=== PATIENT | female | born 1945 | race Caucasian/White ===

== ENCOUNTER 2019-12-30 11:01 | Outpatient (CLI) | payer MEDICARE, OTHER, SELFPAY ==
[2019-12-30 11:54] LABS: Alanine Aminotransferase 14 U/L (4-35); Albumin Level 4.6 g/dL (3.5-5.1); Alkaline Phosphatase 51 U/L (38-126); Anion Gap 8 mmol/L (8-16); Aspartate Amino Transferase 25 U/L (14-36); Bilirubin,Total 0.6 mg/dL (0.2-1.3); Blood Urea Nitrogen 13 mg/dL (7-17); Calcium 9.8 mg/dL (8.4-10.2); Carbon Dioxide 29 mmol/L (22-30); Chloride 101 mmol/L (98-107); Cholesterol 163 mg/dL (0-200); Estimated Glomerular Filt Rate > 60; Glucose 99 mg/dL (65-105); HDL Direct 54 mg/dL; Sodium 138 mmol/L (137-145); Triglycerides 103 mg/dL (<150)
[2019-12-30 11:57] LABS: Hemoglobin A1C 6.1 % (<5.7)
[2019-12-30 12:05] LABS: LDL Cholesterol Direct 83 mg/dL
[2019-12-30 12:44] LABS: Creatinine Urine 22.7 mg/dL
[2019-12-30 12:55] LABS: Microalbumin Urine Random < 6.0 mg/L (0-16.7)
== END 2019-12-30 11:02 | disposition home or self-care (01) ==
LOC: ANHLAB 11:04
PROVIDERS: PCP Family Medicine; Visit Provider Family Medicine
DX: E78.5 Hyperlipidemia, unspecified (principal); E11.9 Type 2 diabetes mellitus without complications; E55.9 Vitamin D deficiency, unspecified; R53.83 Other fatigue
CPT/HCPCS: 36415; 80053; 80061; 82043; 82306; 83036

== ENCOUNTER → 2020-01-03 11:06 | Outpatient (CLI) | payer MEDICARE, OTHER, SELFPAY ==
--- NOTE | ~2020-01-03 | MM_ITS ---
EXAMINATION: MM screening [facility] BI w joel HISTORY: Screening mammogram TECHNIQUE: Craniocaudal and mediolateral oblique 3-D tomosynthesis images were obtained and synthetic 2-D images were generated. CAD analysis was submitted and interpreted. COMPARISON: 09/19/2018, 09/06/2017, 09/20/2016 BREAST PARENCHYMAL COMPOSITION: There are scattered areas of fibroglandular density. FINDINGS: There is no evidence of suspicious mass, calcification, or architectural distortion to sugg est malignancy in either breast. There has been no suspicious interval change. IMPRESSION: 1. No mammographic evidence of malignancy. 2. Recommend routine screening mammography in one year. BI-RADS Category 1: Negative Reviewed, dictated and finalized at location A.
== END ==
PROVIDERS: PCP Family Medicine; Visit Provider Obstetrics & Gynecology Gynecology
DX: Z12.31 Encounter for screening mammogram for malignant neoplasm of breast (principal)
CPT/HCPCS: 77063; 77067

== ENCOUNTER 2020-08-10 11:22 | Outpatient (CLI) | payer MEDICARE, OTHER, SELFPAY ==
[2020-08-10 11:57] LABS: Alanine Aminotransferase 14 U/L (4-35); Albumin Level 4.5 g/dL (3.5-5.1); Alkaline Phosphatase 37 U/L (38-126); Anion Gap 5 mmol/L (8-16); Aspartate Amino Transferase 24 U/L (14-36); Bilirubin,Total 0.5 mg/dL (0.2-1.3); Blood Urea Nitrogen 14 mg/dL (7-17); Calcium 9.8 mg/dL (8.4-10.2); Carbon Dioxide 32 mmol/L (22-30); Chloride 104 mmol/L (98-107); Cholesterol 162 mg/dL (0-200); Estimated Glomerular Filt Rate > 60; Glucose 89 mg/dL (65-105); HDL Direct 64 mg/dL; Potassium 4.1 mmol/L (3.4-5.0); Sodium 141 mmol/L (137-145); Triglycerides 111 mg/dL (<150)
[2020-08-10 12:01] LABS: Hemoglobin A1C 5.8 % (<5.7)
[2020-08-10 12:11] LABS: LDL Cholesterol Direct 75 mg/dL
[2020-08-10 12:31] LABS: Vitamin D 25 Hydroxy 87.2 ng/mL
== END 2020-08-10 11:23 | disposition home or self-care (01) ==
PROVIDERS: PCP Family Medicine; Visit Provider Family Medicine
DX: E78.2 Mixed hyperlipidemia (principal); R73.03 Prediabetes; E55.9 Vitamin D deficiency, unspecified
CPT/HCPCS: 36415; 80053; 80061; 82306; 83036

== ENCOUNTER 2020-09-11 10:11 | Outpatient (CLI) | payer MEDICARE, OTHER, SELFPAY ==
--- NOTE | ~2020-09-11 | CT_ITS ---
EXAMINATION: CT brain wo con DATE: 09/11/2020 10:30 INDICATION: Dizziness and dizziness TECHNIQUE: Computed tomography (CT) of the head was performed without intravenous contrast. Sagittal and coronal reconstructions were performed. The mA was adjusted according to patient size. Iterative reconstruction technique was employed. The dose-length product was 605.33 mGy-cm. COMPARISON: None FINDINGS: No acute intracranial hemorrhage, acute infarction or abnormal extra axial fluid collection. There is mild scattered white matter hypoattenuation consistent with chronic small vessel ischemic disease. S ymmetric prominence of the sulci consistent with mild age-appropriate diffuse cerebral volume loss. V entricles are normal and symmetric. No mass/mass effect. Changes of bilateral intraocular lens replac ement. The orbits and mastoid air cells are normal. Mucosal thickening and partial opacification with central calcification of the left sphenoid sinus consistent with chronic likely fungal sinusitis. IMPRESSION: 1. No acute intracranial process. 2. Age-related changes including mild diffuse volume loss and mild scattered white matter hypoattenua tion consistent with chronic small vessel ischemic disease. 3. 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 Reviewed, dictated and finalized at location A. IMPRESSION: 1. No acute intracranial process. 2. Age-related changes including mild diffuse volume loss and mild scattered wh ite matter hypoattenuation consistent with chronic small vessel ischemic diseas e. 3. 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
== END 2020-09-11 10:12 | disposition home or self-care (01) ==
PROVIDERS: PCP Family Medicine; Visit Provider Family Medicine
DX: R42 Dizziness and giddiness (principal)
CPT/HCPCS: 70450

== ENCOUNTER → 2020-10-20 10:57 | Outpatient (CLI) | payer MEDICARE, OTHER, SELFPAY ==
--- NOTE | ~2020-10-20 | DEXA_ITS ---
Bone Density Report Name: Arti Sinclair Age: 75 Sex: Female Ethnicity: White Date of : 1945 Indication: osteopenia; height loss; hysterectomy; postmenopausal Referring Provider: GRETCHEN LOPEZ Study: Bone densitometry was performed. Exam Date: October 20, 2020 Accession number: [id number] Bone Density: Region BMD T-score Z-score Classification AP Spine (L1-L4) 0.942 -1.0 1.5 Normal Femoral Neck (Left) 0.545 -2.7 -0.6 Osteoporosis Total Hip (Left) 0.727 -1.8 0.1 Osteopenia Femoral Neck (Right) 0.578 -2.4 -0.3 Osteopenia Total Hip (Right) 0.782 -1.3 0.5 Osteopenia Total Hip Mean 0.755 -1.6 0.3 Osteopenia World Health Organization criteria for BMD impression classify patients as: Normal (T-score at or above -1.0), Osteopenia (T-score between -1.0 and -2.5), or Osteoporosis (T-score at or below -2.5). 10-year Fracture Risk: FRAX not reported because: Some T-score for Spine Total or Hip Total or Femoral Neck at or below -2.5 Previous Exams: Region Exam Age BMD T-score BMD Change BMD Change Date g/cm2 vs Baseline vs Previous AP Spine(L1-L4) 10/20/2020 75 0.942 -1.0 0.068* -0.001 09/19/2018 73 0.943 -0.9 0.070* -0.011 09/01/2016 71 0.955 -0.8 0.081* 0.011 08/19/2014 69 0.944 -0.9 0.070* 0.004 03/21/2012 67 0.939 -1.0 0.066* 0.031* 02/24/2010 65 0.909 -1.3 0.035* 0.035* 12/07/2007 62 0.874 -1.6 Total Hip(Left) 10/20/2020 75 0.727 -1.8 -0.033* -0.042* 09/19/2018 73 0.768 -1.4 0.009 0.001 09/01/2016 71 0.767 -1.4 0.008 0.023 08/19/2014 69 0.745 -1.6 -0.015 -0.008 03/21/2012 67 0.753 -1.5 -0.006 0.079* 02/24/2010 65 0.674 -2.2 -0.085* -0.085* 12/07/2007 62 0.760 -1.5 Total Hip(Right) 10/20/2020 75 0.782 -1.3 -0.049* -0.051* 09/19/2018 73 0.833 -0.9 0.002 -0.048* 09/01/2016 71 0.881 -0.5 0.050* 0.006 08/19/2014 69 0.875 -0.5 0.044* 0.035* 03/21/2012 67 0.840 -0.8 0.009 0.051* 02/24/2010 65 0.789 -1.3 -0.042* -0.042* 12/07/2007 62 0.831 -0.9 *Denotes significance at 95% confidence level, LSC for AP Spine = 0.022 g/cm2, LSC for Total Hip = 0.027 g/cm2 Clinical Information Provided by Patient:
== END ==
PROVIDERS: PCP Family Medicine; Visit Provider Obstetrics & Gynecology Gynecology
DX: Z78.0 Asymptomatic menopausal state (principal); M81.0 Age-related osteoporosis without current pathological fracture; M85.851 Other specified disorders of bone density and structure, right thigh; M85.852 Other specified disorders of bone density and structure, left thigh
CPT/HCPCS: 77080

== ENCOUNTER 2020-11-23 02:11 | Day surgery (SDC) | payer MEDICARE, OTHER, SELFPAY ==
[2020-11-06 10:49] VITALS: BMI 24.9
[2020-11-23 07:52] VITALS: BP 138/70; PULSE 74; RESP 20; TEMP 36.6; O2SAT 100
[2020-11-23] MEDS: LACTATED RINGERS 1,000 ML 150 ML IV CONT (08:00)
--- NOTE | 2020-11-23 08:24 | WPDGICN ---
Assessment and Plan Assessment and plan (1) H/O adenomatous polyp of colon: Code(s): Z86.010 - Personal history of colonic polyps Status: Acute Assessment and Plan: Patient has a history of adenomatous colon polyp as well as a history of cancer in her mother and grand mother. Plan is for surveillance colonoscopy at this time and suggest this be performed at least at 5 year intervals in the future. GI Consult Note Consult date/time: 11/23/20 08:24 HPI: Arti Sinclair is a 75 year old female Presents for screening colonoscopy. Patient has a prior history of colon polyps. She reports that her current weight appetite bowel movements are normal. She denies abdominal pain. She has had no bleeding. Patient's family history is significant that her mother and grandmother have had colon cancer. Patient has a prior history of colon polyps herself. Review of Systems Review of Systems: All systems reviewed & are unremarkable except as noted in HPI and below PMFSH Past Medical History Medical History Alopecia Asthma Glaucoma H/O adenomatous polyp of colon Hypothyroidism history of thyroid problems Mixed hyperlipidemia Osteoporosis Type 2 diabetes mellitus without complication, without long-term current use of insulin Vitamin B12 deficiency Vitamin D deficiency Surgical History Surgical History History of ankle surgery Total knee replacement status Family History Family History Father Heart disease Mother Colon cancer Sibling Diabetes mellitus Grandparent Colon cancer Other Asthma Carcinoma of colon Family history of coronary artery disease Family history of glaucoma Family history of osteoporosis Social History Social History Second hand tobacco smoke exposure: No Alcohol intake: never Substance use: never Substance use type: does not use Living arrangements: with family Gender identity (if verbalized by the patient): Female Meds Home Medications and Allergies Home Medications Medication Instructions Recorded Confirmed Type aspirin 81 mg tablet,delayed 81 mg PO DAILY 04/10/19 11/06/20 History release dorzolamide 22.3 mg-timolol 6.8 1 drop EACH EYE BID 04/10/19 11/06/20 History mg/mL eye drops ergocalciferol (vitamin D2) 1,250 50,000 unit PO WEEKLY 04/10/19 11/06/20 History mcg (50,000 unit) capsule atorvastatin 10 mg tablet 10 mg PO DAILY #90 tablet 03/19/20 11/06/20 Rx sodium,potassium,mag sulfates 17.5 See Rx Instructions PO .COMPLEX 10/22/20 11/05/20 Rx gram-3.13 gram-1.6 gram oral soln #354 ml Allergies Allergy/AdvReac Type Severity Reaction Status Date / Time brimonidine Allergy Severe RED EYES, Verified 11/23/20 07:50 ITCHING Vital Signs Vital Signs - 24 hr 11/23/20 07:52 Temperature 97.9 F Pulse Rate 74 Respiratory Rate 20 Blood Pressure 138/70 Pulse Oximetry 100 Exam Narrative: Exam Narrative: Physical exam reveals patient be alert. Vital signs stable. HEENT exam is unremarkable. Patient is anicteric. Lungs are clear to auscultation and percussion. Heart is without murmur or extra sounds. Abdominal exam bowel sounds are present soft nontender with no hepatosplenomegaly. Digital external rectal exam is normal.
--- NOTE | 2020-11-23 08:25 | WPDANESEPPF ---
Anes - Initial Pre Proc Eval Procedure: Operation Date: 11/23/20 08:30 Proposed Procedures p Screening Colonoscopy - Kevin Jaquez MD Date/Time: 11/23/20 08:25 Surgeon: Kevin Jaquez MD Pre Op Diagnosis: hx of colon polyps, fam hx colon ca Patient Data Age: 75 Gender: F Height: 1.63 m Weight: 65.6 kg Last Vital Signs Temp 97.9 F 11/23/20 07:52 Pulse 74 11/23/20 07:52 Resp 20 11/23/20 07:52 BP 138/70 11/23/20 07:52 Pulse Ox 100 11/23/20 07:52 Allergies Allergy/AdvReac Type Severity Reaction Status Date / Time brimonidine Allergy Severe RED EYES, Verified 11/23/20 07:50 ITCHING Home Medications Medication Instructions Recorded Confirmed Type aspirin 81 mg tablet,delayed 81 mg PO DAILY 04/10/19 11/06/20 History release dorzolamide 22.3 mg-timolol 6.8 1 drop EACH EYE BID 04/10/19 11/06/20 History mg/mL eye drops ergocalciferol (vitamin D2) 1,250 50,000 unit PO WEEKLY 04/10/19 11/06/20 History mcg (50,000 unit) capsule atorvastatin 10 mg tablet 10 mg PO DAILY #90 tablet 03/19/20 11/06/20 Rx sodium,potassium,mag sulfates 17.5 See Rx Instructions PO .COMPLEX 10/22/20 11/05/20 Rx gram-3.13 gram-1.6 gram oral soln #354 ml Patient hx anesthesia problems: none Family hx anesthesia problems: none PMFSH Past Medical History Medical History Alopecia Asthma Glaucoma H/O adenomatous polyp of colon Hypothyroidism history of thyroid problems Mixed hyperlipidemia Osteoporosis Type 2 diabetes mellitus without complication, without long-term current use of insulin Vitamin B12 deficiency Vitamin D deficiency Surgical History Surgical History History of ankle surgery Total knee replacement status Family History Family History Father Heart disease Mother Colon cancer Sibling Diabetes mellitus Grandparent Colon cancer Other Asthma Carcinoma of colon Family history of coronary artery disease Family history of glaucoma Family history of osteoporosis Social History Social History Second hand tobacco smoke exposure: No Alcohol intake: never Substance use: never Substance use type: does not use Living arrangements: with family Gender identity (if verbalized by the patient): Female Anes - Eval Final PreProcedure Day of Procedure 11/23/20 08:25 Patient weight: overweight Heart: regular rate and rhythm Lungs: clear to auscultation Airway: Mallampati scale class II Neurological: alert and oriented Last oral intake: >/= 8 hours ASA classification: III Emergent: no Anesthetic plan: proceed Anesthesia type and monitoring: general GIVS and standard monitoring Informed Consent: The patient's anesthetic plan and its attendant risks and benefits were discussed with the patient/family/POA. Questions were solicited and answers provided to the satisfaction of the patient/family/POA.
[2020-11-23 08:53] VITALS: BP 83/44; PULSE 63; RESP 20; O2SAT 97
[2020-11-23 09:03] VITALS: BP 92/61; PULSE 72; RESP 20; O2SAT 99
[2020-11-23 09:13] VITALS: BP 128/70; PULSE 65; RESP 22; O2SAT 98
== END 2020-11-23 09:28 | disposition home or self-care (01) ==
PROVIDERS: PCP Family Medicine; Visit Provider Internal Medicine Gastroenterology
PROC: 0DJD8ZZ Inspection of Lower Intestinal Tract, Via Natural or Artificial Opening Endoscopic (ICD-10-PCS; CPT 45378; principal; 2020-11-23 08:30)
DX: Z12.11 Encounter for screening for malignant neoplasm of colon (principal); D12.8 Benign neoplasm of rectum; Z80.0 Family history of malignant neoplasm of digestive organs; J45.909 Unspecified asthma, uncomplicated; E03.9 Hypothyroidism, unspecified; E78.2 Mixed hyperlipidemia; E11.9 Type 2 diabetes mellitus without complications; E53.8 Deficiency of other specified B group vitamins; E55.9 Vitamin D deficiency, unspecified; M81.0 Age-related osteoporosis without current pathological fracture; H40.9 Unspecified glaucoma; Z96.659 Presence of unspecified artificial knee joint
CPT/HCPCS: 45385; 88305; J2001; J2704; J7120

== ENCOUNTER 2021-02-09 11:44 | Outpatient (CLI) | payer MEDICARE, SELFPAY ==
[2021-02-09 12:40] LABS: Alanine Aminotransferase 15 U/L (4-35); Albumin Level 4.8 g/dL (3.5-5.1); Alkaline Phosphatase 36 U/L (38-126); Anion Gap 6 mmol/L (8-16); Aspartate Amino Transferase 26 U/L (14-36); Bilirubin,Total 0.6 mg/dL (0.2-1.3); Blood Urea Nitrogen 16 mg/dL (7-17); Calcium 9.8 mg/dL (8.4-10.2); Carbon Dioxide 31 mmol/L (22-30); Chloride 104 mmol/L (98-107); Cholesterol 168 mg/dL (0-200); Estimated Glomerular Filt Rate > 60; Glucose 89 mg/dL (65-110); HDL Direct 70 mg/dL; Potassium 4.4 mmol/L (3.4-5.0); Sodium 141 mmol/L (137-145); Triglycerides 99 mg/dL (<150)
[2021-02-09 12:52] LABS: LDL Cholesterol Direct 79 mg/dL
[2021-02-09 13:26] LABS: Vitamin D 25 Hydroxy 62.8 ng/mL
[2021-02-09 18:40] LABS: Hemoglobin A1C 5.8 % (<5.7)
== END 2021-02-09 11:45 | disposition home or self-care (01) ==
LOC: ANHLAB 11:47
PROVIDERS: PCP Family Medicine; Visit Provider Obstetrics & Gynecology Gynecology
DX: E78.2 Mixed hyperlipidemia (principal); E11.9 Type 2 diabetes mellitus without complications; E55.9 Vitamin D deficiency, unspecified
CPT/HCPCS: 36415; 80053; 80061; 82306; 83036

== ENCOUNTER → 2021-04-06 14:53 | Outpatient (CLI) | payer MEDICARE, OTHER, SELFPAY ==
--- NOTE | ~2021-04-06 | MM_ITS ---
EXAMINATION: MM screening [facility] BI w joel HISTORY: Screening TECHNIQUE: Craniocaudal and mediolateral oblique 3-D tomosynthesis images were obtained and synthetic 2-D images were generated. CAD analysis was submitted and interpreted. COMPARISON: 01/03/2020, 09/19/2018, 09/06/2017 bilateral screening mammogram examinations BREAST PARENCHYMAL COMPOSITION: There are scattered areas of fibroglandular density. FINDINGS: There is no evidence of suspicious mass, calcification, or architectural distortion to sugg est malignancy in either breast. There has been no suspicious interval change. IMPRESSION: 1. No mammographic evidence of malignancy. 2. Recommend routine screening mammography in one year. BI-RADS Category 1: Negative Reviewed, dictated and finalized at location A. 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
== END ==
PROVIDERS: PCP Family Medicine; Visit Provider Obstetrics & Gynecology Gynecology
DX: Z12.31 Encounter for screening mammogram for malignant neoplasm of breast (principal)
CPT/HCPCS: 77063; 77067

== ENCOUNTER 2021-07-19 11:24 | Outpatient (CLI) | payer MEDICARE, OTHER, SELFPAY ==
[2021-07-19 12:05] LABS: Hematocrit 40.4 % (37.0-47.0); Hemoglobin 13.4 g/dL (12.0-15.0); Mean Corpuscular HGB Conc 33.2 g/dl (32-36); Mean Corpuscular Hemoglobin 33.8 pg (26-34); Mean Corpuscular Volume 101.8 fl (80-100); Mean Platelet Volume 9.1 fl (7.4-10.4); Platelet Count Result 183 k/mm3 (150-375); Red Blood Count 3.97 M/mm3 (4.2-5.4); Red Cell Distribution Width 11.5 % (11.5-14.5); White Blood Count 6.4 K/mm3 (4.5-10.0)
[2021-07-19 12:08] LABS: Alanine Aminotransferase 14 U/L (4-35); Albumin Level 4.7 g/dL (3.5-5.1); Alkaline Phosphatase 38 U/L (38-126); Anion Gap 6 mmol/L (8-16); Aspartate Amino Transferase 26 U/L (14-36); Bilirubin,Total 0.7 mg/dL (0.2-1.3); Blood Urea Nitrogen 16 mg/dL (7-17); Calcium 9.8 mg/dL (8.4-10.2); Carbon Dioxide 31 mmol/L (22-30); Chloride 103 mmol/L (98-107); Cholesterol 177 mg/dL (0-200); Estimated Glomerular Filt Rate > 60; Glucose 100 mg/dL (65-110); HDL Direct 63 mg/dL; Potassium 4.3 mmol/L (3.4-5.0); Sodium 140 mmol/L (137-145); Triglycerides 83 mg/dL (<150)
[2021-07-19 12:09] LABS: Hemoglobin A1C 5.9 % (<5.7)
[2021-07-19 12:19] LABS: LDL Cholesterol Direct 83 mg/dL
== END 2021-07-19 11:25 | disposition home or self-care (01) ==
PROVIDERS: PCP Family Medicine; Visit Provider Family Medicine
DX: E11.9 Type 2 diabetes mellitus without complications (principal); E78.2 Mixed hyperlipidemia; R53.83 Other fatigue
CPT/HCPCS: 36415; 80053; 80061; 83036; 85027

== ENCOUNTER 2022-01-11 11:23 | Outpatient (CLI) | payer MEDICARE, OTHER, SELFPAY ==
[2022-01-11 12:57] LABS: Hemoglobin A1C 6.4 % (<5.7)
[2022-01-11 17:06] LABS: Alanine Aminotransferase 16 U/L (6-35); Albumin Level 4.6 g/dL (3.5-5.1); Alkaline Phosphatase 40 U/L (38-126); Anion Gap 6 mmol/L (8-16); Aspartate Amino Transferase 27 U/L (14-36); Bilirubin,Total 0.7 mg/dL (0.2-1.3); Blood Urea Nitrogen 13 mg/dL (7-17); Carbon Dioxide 32 mmol/L (22-30); Chloride 102 mmol/L (98-107); Cholesterol 170 mg/dL (0-200); Estimated Glomerular Filt Rate > 60; Glucose 122 mg/dL (65-110); HDL Direct 59 mg/dL; Potassium 3.8 mmol/L (3.4-5.0); Sodium 140 mmol/L (137-145); Triglycerides 135 mg/dL (<150)
[2022-01-11 17:13] LABS: LDL Cholesterol Direct 77 mg/dL
== END 2022-01-11 11:24 | disposition home or self-care (01) ==
PROVIDERS: PCP Family Medicine; Visit Provider Family Medicine
DX: E11.9 Type 2 diabetes mellitus without complications (principal); E78.2 Mixed hyperlipidemia
CPT/HCPCS: 36415; 80053; 80061; 82607; 83036

== ENCOUNTER 2022-03-06 08:46 | Emergency (ER) | payer MEDICARE, OTHER, SELFPAY ==
--- NOTE | ~2022-03-06 | CT_ITS ---
EXAMINATION: CT brain wo con DATE: 03/06/2022 11:08 INDICATION: Head injury after fall TECHNIQUE: Computed tomography (CT) of the head was performed without intravenous contrast. The dose- length product was 605.33 mGy-cm. Automated exposure control and iterative reconstruction technique w ere employed. COMPARISON: CT dated 09/11/2020 FINDINGS: Mild generalized atrophy. There are scattered mild periventricular and subcortical white ma tter changes, most likely related to small vessel ischemic disease (microangiopathy). No acute intrac ranial hemorrhage, infarction, mass or mass effect. No ventriculomegaly or midline shift. Basilar cis terns are patent. Chronic mucosal thickening of the left sphenoid sinus. Mastoids are pneumatized. No depressed skull fractures. IMPRESSION: 1. No acute intracranial abnormality. 2: Neck age-related findings. 3: Chronic left sphenoid sinusitis. Reviewed, dictated and finalized at location A.
--- NOTE | ~2022-03-06 | XR_ITS ---
XR sacrum coccyx min 2V 03/06/2022 11:23 Indication: Low back pain Procedure: 3 views of the sacrum/coccyx Comparison: No prior studies for comparison. Findings: Osteopenia. Sacroiliac joints are symmetric. No acute fracture or traumatic malalignment. T here is moderate lower lumbar spondylosis involving the facet joints. Impression: 1: No acute abnormality of the sacrum/coccyx. Reviewed, dictated and finalized at location A. Impression: 1: No acute abnormality of the sacrum/coccyx.
--- NOTE | ~2022-03-06 | XR_ITS ---
XR thoracic spine 3V 03/06/2022 11:24 Indication: Back pain after fall Procedure: 3 views of the thoracic spine Comparison: No prior studies for comparison. Findings: There is normal thoracic kyphosis. There is mild dextrocurvature of the thoracic spine. Debi tebral body heights are maintained. No acute fracture or traumatic malalignment. No paraspinal soft t issue abnormality. There is osteopenia. Surrounding osseous structures within normal limits. Impression: 1: No acute abnormality of the thoracic spine. Reviewed, dictated and finalized at location A. Impression: 1: No acute abnormality of the thoracic spine.
--- NOTE | ~2022-03-06 | XR_ITS ---
XR lumbar spine 2-3V 03/06/2022 11:23 Indication: Low back pain after trauma. Procedure: 3 views lumbar spine Comparison: No prior studies for comparison. Findings: There is disc narrowing at L3-4 through L5-S1. There is moderate multilevel facet hypertrop hy. No fracture, subluxation or dislocation. Pedicles intact. Sacral foramen are symmetric. There is atherosclerosis of the aorta. Impression: 1: No acute abnormality of the lumbar spine. 2: Moderate lumbar spondylosis. Reviewed, dictated and finalized at location A. Impression: 1: No acute abnormality of the lumbar spine. 2: Moderate lumbar spondylosis.
--- NOTE | 2022-03-06 08:48 | ECG_ITS ---
Measurements Intervals [place] Rate: 93 P: 64 VA: 153 QRS: 8 QRSD: 86 T: 60 QT: 354 QTc: 441 Interpretive Statements SINUS RHYTHM NONSPECIFIC T-WAVE ABNORMALITY NO PREVIOUS ECG AVAILABLE FOR COMPARISON Electronically Signed On 03-06-2022 12:18:15 CDT by Akosua Whitley M.D.
[2022-03-06 08:53] VITALS: BP 134/69; PULSE 95; RESP 18; TEMP 36.3; O2SAT 97
[2022-03-06 09:01] LABS: Basophils Percent Auto 0.1 % (0.2-1.2); Eosinophils Absolute Auto 0.1 K/mm3 (0-0.3); Eosinophils Percent Auto 0.6 % (0-4.4); Hematocrit 41.1 % (37.0-47.0); Hemoglobin 13.7 g/dL (12.0-15.0); Immature Granulocyte Absolute 0.02 K/mm3 (0.00-0.031); Immature Granulocyte Percent A 0.2 % (0-0.5); Lymphocytes Absolute Auto 1.12 K/mm3 (0.9-3.2); Mean Corpuscular HGB Conc 33.3 g/dl (32-36); Mean Corpuscular Hemoglobin 33.3 pg (26-34); Mean Corpuscular Volume 99.8 fl (80-100); Mean Platelet Volume 8.8 fl (7.4-10.4); Monocytes Absolute Auto 0.8 K/mm3 (0.1-0.6); Monocytes Percent Auto 8.6 % (2.6-8.5); Neutrophils Absolute Auto 7.3 K/mm3 (1.3-6.7); Neutrophils Percent Auto 78.5 % (45.5-73.1); Platelet Count Result 167 k/mm3 (150-375); Red Blood Count 4.12 M/mm3 (4.2-5.4); Red Cell Distribution Width 11.7 % (11.5-14.5); White Blood Count 9.3 K/mm3 (4.5-10.0)
[2022-03-06 09:38] LABS: Alanine Aminotransferase 22 U/L (6-35); Albumin Level 4.7 g/dL (3.5-5.1); Alkaline Phosphatase 40 U/L (38-126); Anion Gap 10 mmol/L (8-16); Aspartate Amino Transferase 31 U/L (14-36); Bilirubin,Total 0.8 mg/dL (0.2-1.3); Blood Urea Nitrogen 15 mg/dL (7-17); Calcium 8.9 mg/dL (8.4-10.2); Carbon Dioxide 25 mmol/L (22-30); Chloride 105 mmol/L (98-107); Estimated CRCL calculation 60 ml/min; Estimated Glomerular Filt Rate > 60; Glucose 190 mg/dL (65-110); Sodium 140 mmol/L (137-145)
[2022-03-06 10:18] VITALS: PULSE 81
[2022-03-06] MEDS: SODIUM CHLORIDE 0.9% IV 1,000 ML 999 ML IV CONT (11:50)
[2022-03-06] MEDS: KETOROLAC 15 MG/ML VIAL (*BKC) IV PUSH (11:50)
[2022-03-06 11:53] VITALS: BP 139/68; PULSE 68; RESP 18; O2SAT 100
[2022-03-06 12:13] VITALS: BP 115/54; PULSE 68
[2022-03-06 12:14] VITALS: BP 126/58; BP 132/54; PULSE 72; PULSE 77
--- NOTE | 2022-03-06 12:54 | ED.SYNCOPE ---
HPI - Syncope General Chief Complaint: Syncope Stated Complaint: syncope last night Time Seen by Provider: 03/06/22 10:19 History of Present Illness HPI narrative: Patient is a 77-year-old female who presents to the ER with concern after syncope last night. She had to use the restroom and when she got up off throughout treatment lightheaded and fell backwards. She had no loss of consciousness. She did hit her back and shoulders. She has been achy throughout the day. Denies fevers or chills or sweats. No persistent headache. No change in vision or hearing. Patient did strike her head which is concerning to her as well. She is not on any blood thinning medications other than a baby aspirin. Related Data Home Medications Medication Instructions Recorded Confirmed aspirin 81 mg tablet,delayed 81 mg PO DAILY 04/10/19 02/24/22 release (Adult Low Dose Aspirin) dorzolamide 22.3 mg-timolol 6.8 1 drop ophthalmic (eye) BID 04/10/19 02/24/22 mg/mL eye drops (Cosopt) ergocalciferol (vitamin D2) 1,250 50,000 unit PO WEEKLY 04/10/19 02/24/22 mcg (50,000 unit) capsule denosumab 60 mg/mL subcutaneous 60 mg subcut [id number] 02/11/21 02/24/22 syringe (Prolia) Allergies Allergy/AdvReac Type Severity Reaction Status Date / Time brimonidine Allergy Severe RED EYES, Verified 03/06/22 10:40 ITCHING Review of Systems Review of Systems: All systems reviewed & are unremarkable except as noted in HPI and below Constitutional: Constitutional: Denies chills, Denies fatigue and Denies fever(s) Eyes: Eyes: Denies change in vision Cardiovascular: Cardiovascular: Denies chest pain, Denies rapid heart rate and Denies radiating jaw, neck or arm pain Respiratory: Respiratory: Denies cough Gastrointestinal: Gastrointestinal: Denies abdominal pain, Denies nausea and Denies vomiting Neurologic: Reports syncope (near), Denies headache(s), Denies focal weakness and Denies numbness PMFSH Past Medical History Medical History Alopecia Asthma Encounter for immunization Glaucoma H/O adenomatous polyp of colon Hypothyroidism history of thyroid problems Mixed hyperlipidemia Osteoporosis Type 2 diabetes mellitus without complication, without long-term current use of insulin Vitamin B12 deficiency Vitamin D deficiency Surgical History Surgical History History of ankle surgery Total knee replacement status Family History Family History Father Heart disease Mother Colon cancer Sibling Diabetes mellitus Grandparent Colon cancer Other Asthma Carcinoma of colon Family history of coronary artery disease Family history of glaucoma Family history of osteoporosis Social History Social History (Updated 02/24/22 @ 11:02 by Farrah Muniz [facility]) Smoking status: Never smoker Second hand tobacco smoke exposure: No Alcohol intake: never Substance use: never Substance use type: does not use Gender identity (if verbalized by the patient): Female Spiritual care concerns: No Agree to blood products: Yes Exam Narrative: GENERAL: Well-appearing, well-nourished, and in no acute distress. HEAD: Normocephalic, atraumatic. EYES: PERRL and EOMI. CHEST: Clear to auscultation. No respiratory distress. HEART: Regular rate and rhythm. Normal peripheral pulses. ABDOMEN: Soft, nontender, nondistended. Back: Tender palpation around T6 midline T-spine without step-offs or abrasion no bruising, mild tenderness paraspinal muscular region of the lower lumbar spine without midline tenderness, tenderness over the sacrum noted. EXTREMITIES: Normal range of motion. No edema. SKIN: Warm, dry, no rash. NEURO: Alert and oriented x3. PSYCH: Normal mood and affect. Course Course Emergency Course: Informed of results. Discharge home. Vital Signs Kera
[2022-03-06 13:05] VITALS: BP 139/73; PULSE 73; RESP 18; O2SAT 100
[2022-03-06 13:21] LABS: Appearance Urine Cloudy (Clear); Bilirubin Urine Negative (Negative); Blood Urine Trace-lysed (Negative); Color Urine Yellow (Yellow); Glucose Urine UA Negative (Negative); Ketones Urine Negative (Negative); Leukocyte Esterase Ur Trace LEU/UL (Negative); Nitrate Urine Positive (Negative); Protein Urine Negative (Negative); Specific Grav Ur 1.015 (1.001-1.035); Urobilinogen Urine 0.2 mg/dL (<2.0); pH Urine 5.5 (5.0-9.0)
[2022-03-06 13:26] LABS: Mucus Urine Rare /lpf; RBC Urine 0-2 /hpf (0-2); Squamous Epithelial Cell Urine Rare /hpf (Few); WBC Urine 16-20 /hpf
[2022-03-06 13:29] LABS: Add Urine Microscopic? YES
== END 2022-03-06 14:41 | disposition home or self-care (01) ==
PROVIDERS: Emergency Provider Emergency Medicine; PCP Family Medicine
DX: R55 Syncope and collapse (principal); S39.92XA Unspecified injury of lower back, initial encounter; N39.0 Urinary tract infection, site not specified; J45.909 Unspecified asthma, uncomplicated; E78.2 Mixed hyperlipidemia; E11.9 Type 2 diabetes mellitus without complications; H40.9 Unspecified glaucoma; M81.0 Age-related osteoporosis without current pathological fracture; E53.8 Deficiency of other specified B group vitamins; E55.9 Vitamin D deficiency, unspecified; Z96.659 Presence of unspecified artificial knee joint; Z79.82 Long term (current) use of aspirin; J32.3 Chronic sphenoidal sinusitis; M47.816 Spondylosis without myelopathy or radiculopathy, lumbar region; W18.39XA Other fall on same level, initial encounter
CPT/HCPCS: 36415; 70450; 72072; 72100; 72220; 80053; 81001; 85025; 87077; 87086; 87186; 93005; 96361; 96374; 99284; J1885; J7030

== ENCOUNTER 2022-04-18 10:56 | Outpatient (CLI) | payer MEDICARE, OTHER, SELFPAY ==
[2022-04-18 11:58] LABS: Hemoglobin 13.8 g/dL (12.0-15.0); Mean Corpuscular HGB Conc 32.9 g/dl (32-36); Mean Corpuscular Volume 100.5 fl (80-100); Mean Platelet Volume 9.5 fl (7.4-10.4); Platelet Count Result 208 k/mm3 (150-375); Red Blood Count 4.18 M/mm3 (4.2-5.4); Red Cell Distribution Width 11.6 % (11.5-14.5); White Blood Count 7.6 K/mm3 (4.5-10.0)
[2022-04-18 12:05] LABS: Iron 134 ug/dL (37-170)
[2022-04-18 12:16] LABS: Percent Iron Saturation 46 % (20-50)
== END 2022-04-18 10:57 | disposition home or self-care (01) ==
PROVIDERS: PCP Family Medicine; Visit Provider Physician Assistant Medical
DX: R53.83 Other fatigue (principal); E11.9 Type 2 diabetes mellitus without complications
CPT/HCPCS: 36415; 82728; 83540; 83550; 85027

== ENCOUNTER 2022-05-16 13:54 | Outpatient (CLI) | payer MEDICARE, OTHER, SELFPAY ==
[2022-05-16 15:02] LABS: Vitamin D 25 Hydroxy 62.2 ng/mL
== END 2022-05-16 13:55 | disposition home or self-care (01) ==
LOC: ANHLAB 13:57
PROVIDERS: PCP Family Medicine; Visit Provider Obstetrics & Gynecology Gynecology
DX: E55.9 Vitamin D deficiency, unspecified (principal)
CPT/HCPCS: 36415; 82306

== ENCOUNTER → 2022-06-03 10:37 | Outpatient (CLI) | payer MEDICARE, OTHER, SELFPAY ==
--- NOTE | ~2022-06-03 | MM_ITS ---
EXAMINATION: MM screening [facility] BI w joel HISTORY: Screening TECHNIQUE: Craniocaudal and mediolateral oblique 3-D tomosynthesis images were obtained and synthetic 2-D images were generated. CAD analysis was submitted and interpreted. COMPARISON: Comparison to multiple prior studies sequentially, with oldest reviewed study dated 09/01. BREAST PARENCHYMAL COMPOSITION: There are scattered areas of fibroglandular density. FINDINGS: There is no evidence of suspicious mass, calcification, or architectural distortion to sugg est malignancy in either breast. There has been no suspicious interval change. IMPRESSION: 1. No mammographic evidence of malignancy. 2. Recommend routine screening mammography in one year. 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
== END ==
PROVIDERS: PCP Family Medicine; Visit Provider Obstetrics & Gynecology Gynecology
DX: Z12.31 Encounter for screening mammogram for malignant neoplasm of breast (principal)
CPT/HCPCS: 77063; 77067

== ENCOUNTER 2022-07-18 10:25 | Outpatient (CLI) | payer MEDICARE, OTHER, SELFPAY ==
--- NOTE | ~2022-07-18 | MR_ITS ---
EXAMINATION: MR IAC wo/w con DATE: 07/18/2022 11:52 INDICATION: Peripheral vertigo involving right ear. TECHNIQUE: Magnetic resonance imaging (MRI) of the brain, brainstem, and internal auditory canals was performed without and with 15 mL MultiHance intravenous contrast. COMPARISON: Head CT 03/06/2022 FINDINGS: There is no intracranial hemorrhage, acute infarction, or abnormal intracranial mass lesion . There are scattered areas of nonspecific increased T2-weighted signal intensity in the cerebral whi te matter and aretha, which is within normal limits for the patient's age. There is no intracranial hem orrhage, acute infarction, or abnormal intracranial mass lesion. The ventricles are normal in size. T here is mucosal thickening in the paranasal sinuses. There are likely changes of ocular lens replacem ent surgeries. The internal auditory canals and inner and middle ears are normal. The mastoid air veronica ls are normal. IMPRESSION: 1. Normal aging brain. Reviewed, dictated and finalized at location A. IMPRESSION: 1. Normal aging brain.
== END 2022-07-18 10:26 | disposition home or self-care (01) ==
PROVIDERS: PCP Family Medicine; Visit Provider Otolaryngology
DX: H81.391 Other peripheral vertigo, right ear (principal); H90.3 Sensorineural hearing loss, bilateral; H93.11 Tinnitus, right ear
CPT/HCPCS: 70553; A9577

== ENCOUNTER → 2022-10-25 10:58 | Outpatient (CLI) | payer MEDICARE, OTHER, SELFPAY ==
--- NOTE | ~2022-10-25 | DEXA_ITS ---
Bone Density Report Name: EVER ANAND Age: 77 Sex: Female Ethnicity: White Date of : 1945 Indication: osteopenia; height loss; hysterectomy; postmenopausal Referring Provider: GRETCHEN LOPEZ Study: Bone densitometry was performed. Exam Date: October 25, 2022 Accession number: [id number] Bone Density: Region BMD T-score Z-score Classification AP Spine (L1-L4) 1.017 -0.3 2.3 Normal Femoral Neck (Left) 0.577 -2.5 -0.3 Osteoporosis Total Hip (Left) 0.782 -1.3 0.6 Osteopenia Femoral Neck (Right) 0.589 -2.3 -0.1 Osteopenia Total Hip (Right) 0.842 -0.8 1.1 Normal Total Hip Mean 0.812 -1.1 0.9 Osteopenia World Health Organization criteria for BMD impression classify patients as: Normal (T-score at or above -1.0), Osteopenia (T-score between -1.0 and -2.5), or Osteoporosis (T-score at or below -2.5). 10-year Fracture Risk: FRAX not reported because: Some T-score for Spine Total or Hip Total or Femoral Neck at or below -2.5 Previous Exams: Region Exam Age BMD T-score BMD Change BMD Change Date g/cm2 vs Baseline vs Previous AP Spine(L1-L4) 10/25/2022 77 1.017 -0.3 0.143* 0.075* 10/20/2020 75 0.942 -1.0 0.068* -0.001 09/19/2018 73 0.943 -0.9 0.070* -0.011 09/01/2016 71 0.955 -0.8 0.081* 0.011 08/19/2014 69 0.944 -0.9 0.070* 0.004 03/21/2012 67 0.939 -1.0 0.066* 0.031* 02/24/2010 65 0.909 -1.3 0.035* 0.035* 12/07/2007 62 0.874 -1.6 Total Hip(Left) 10/25/2022 77 0.782 -1.3 0.022 0.055* 10/20/2020 75 0.727 -1.8 -0.033* -0.042* 09/19/2018 73 0.768 -1.4 0.009 0.001 09/01/2016 71 0.767 -1.4 0.008 0.023 08/19/2014 69 0.745 -1.6 -0.015 -0.008 03/21/2012 67 0.753 -1.5 -0.006 0.079* 02/24/2010 65 0.674 -2.2 -0.085* -0.085* 12/07/2007 62 0.760 -1.5 Total Hip(Right) 10/25/2022 77 0.842 -0.8 0.012 0.060* 10/20/2020 75 0.782 -1.3 -0.049* -0.051* 09/19/2018 73 0.833 -0.9 0.002 -0.048* 09/01/2016 71 0.881 -0.5 0.050* 0.006 08/19/2014 69 0.875 -0.5 0.044* 0.035* 03/21/2012 67 0.840 -0.8 0.009 0.051* 02/24/2010 65 0.789 -1.3 -0.042* -0.042* 12/07/2007 62 0.831 -0.9 *Denotes significance at 9
== END ==
PROVIDERS: PCP Family Medicine; Visit Provider Obstetrics & Gynecology Gynecology
DX: Z78.0 Asymptomatic menopausal state (principal); M81.0 Age-related osteoporosis without current pathological fracture; M85.852 Other specified disorders of bone density and structure, left thigh; M85.851 Other specified disorders of bone density and structure, right thigh
CPT/HCPCS: 77080

== ENCOUNTER 2023-03-21 11:09 | Outpatient (CLI) | payer MEDICARE, OTHER, SELFPAY ==
[2023-03-21 12:36] LABS: Hematocrit 43.1 % (37.0-47.0); Mean Corpuscular HGB Conc 32.5 g/dl (32-36); Mean Corpuscular Hemoglobin 32.6 pg (26-34); Mean Corpuscular Volume 100.2 fl (80-100); Mean Platelet Volume 9.3 fl (7.4-10.4); Platelet Count Result 197 k/mm3 (150-375); Red Cell Distribution Width 11.7 % (11.5-14.5)
[2023-03-21 12:39] LABS: Alanine Aminotransferase 18 U/L (6-35); Albumin Level 4.6 g/dL (3.5-5.1); Alkaline Phosphatase 43 U/L (38-126); Anion Gap 12 mmol/L (8-16); Aspartate Amino Transferase 23 U/L (14-36); Bilirubin,Total 0.8 mg/dL (0.2-1.3); Blood Urea Nitrogen 11 mg/dL (7-17); Calcium 9.5 mg/dL (8.4-10.2); Carbon Dioxide 24 mmol/L (22-30); Chloride 105 mmol/L (98-107); Cholesterol 195 mg/dL (0-200); Estimated Glomerular Filt Rate > 60; Glucose 154 mg/dL (65-110); HDL Direct 52 mg/dL; Sodium 141 mmol/L (137-145); Triglycerides 196 mg/dL (<150)
[2023-03-21 12:50] LABS: LDL Cholesterol Direct 91 mg/dL
[2023-03-21 12:52] LABS: Hemoglobin A1C 7.4 % (<5.7)
== END 2023-03-21 11:10 | disposition home or self-care (01) ==
LOC: ANHLAB 11:12
PROVIDERS: PCP Family Medicine; Visit Provider Family Medicine
DX: E78.2 Mixed hyperlipidemia (principal); E11.9 Type 2 diabetes mellitus without complications; R53.83 Other fatigue
CPT/HCPCS: 36415; 80053; 80061; 83036; 84443; 85027

== ENCOUNTER 2023-05-23 14:37 | Emergency (ER) | payer MEDICARE, OTHER, SELFPAY ==
--- NOTE | ~2023-05-23 | XR_ITS ---
EXAMINATION: XR chest 2V DATE: 05/23/2023 15:08 INDICATION: Chest congestion. Cough. TECHNIQUE: Frontal and lateral views of the chest were obtained. COMPARISON: Chest 2 views 06/28/2011 FINDINGS: There is no pneumonia, pleural effusion, or pneumothorax. The heart size is normal. IMPRESSION: 1. No acute cardiopulmonary disease. Reviewed, dictated and finalized at location E. CARRIER DRIVER
--- NOTE | 2023-05-23 14:40 | ED.URI ---
HPI - URI/Sore Throat General Chief Complaint: Upper Respiratory Infection Stated Complaint: Chest Congestion Time Seen by Provider: 05/23/23 14:40 Source: patient Mode of arrival: ambulatory Limitations: no limitations History of Present Illness HPI Narrative: Arti is a 38-year-old female patient presenting to the clinic today with complaints of chest congestion x4 days. She reports no known fever, body aches, or chills. Did taken at [facility] test yesterday and was negative. She reports that she is bringing up some phlegm today with her cough. Related Data Home Medications Medication Instructions Recorded Confirmed aspirin 81 mg tablet,delayed 81 mg PO DAILY 04/10/19 05/23/23 release (Adult Low Dose Aspirin) dorzolamide 22.3 mg-timolol 6.8 1 drop ophthalmic (eye) BID 04/10/19 05/23/23 mg/mL eye drops (Cosopt) ergocalciferol (vitamin D2) 1,250 50,000 unit PO WEEKLY 04/10/19 05/23/23 mcg (50,000 unit) capsule denosumab 60 mg/mL subcutaneous 60 mg subcut [id number] 02/11/21 05/23/23 syringe (Prolia) Allergies Allergy/AdvReac Type Severity Reaction Status Date / Time brimonidine Allergy Severe RED EYES, Verified 05/23/23 15:04 ITCHING Review of Systems Review of Systems: Pertinent positives per HPI. Patient denies any fever, chills, rash, headache, visual changes, dizziness, cough, runny nose, sore throat, shortness of breath, chest pain, palpitations, nausea, vomiting, diarrhea, constipation, abdominal pain, or any urinary issues. FOR[facility], [facility] Past Medical History Medical History Alopecia Asthma Glaucoma Hypothyroidism history of thyroid problems Mixed hyperlipidemia Osteoporosis Type 2 diabetes mellitus without complication, without long-term current use of insulin Vitamin B12 deficiency Vitamin D deficiency Surgical History Surgical History History of ankle surgery Total knee replacement status Family History Family History Father Heart disease Mother Colon cancer Sibling Diabetes mellitus Grandparent Colon cancer Other Asthma Carcinoma of colon Family history of coronary artery disease Family history of glaucoma Family history of osteoporosis Social History Social History Smoking status: Never smoker Second hand tobacco smoke exposure: No Alcohol intake: never Substance use: never Substance use type: does not use Lack of Transportation: No Lack of Food: Never True Current Housing: I Have Housing Concerned About Future Housing: No Difficulty Paying Gas/Electric Bills: No Difficulty Paying for Meds: No Currently Unemployed: No Education: High School Diploma/GED Difficulty w/ Childcare or Family Care: No Living arrangements: with family Occupation/Education: retired Gender identity (if verbalized by the patient): Female Sexual Orientation (if Verbalized by the Patient): Straight or Heterosexual Spiritual care concerns: No Agree to blood products: Yes Comments At the time of my signature, I reviewed and agree with the nursing past medical, surgical, social, and family history. There is no relevant family history pertinent to the patient complaint. Exam Narrative: General: Well-developed, well nourished, in no apparent distress Head: Normocephalic, atraumatic Eyes: Pupils equally round and reactive to light bilaterally, EOM intact, sclera and conjunctive clear, no discharge, lids normal Ears: TMs intact and clear, ear canals clear, no drainage, grossly hearing normal. Nose: Nares patent, no discharge, no inflammation, no sinus tenderness. Mouth: Oropharynx without lesions or masses, good dentition, MMM. Neck: Supple, trachea midline, no enlargement of anterior or posterior cervical no
[2023-05-23 14:44] VITALS: BP 148/72; PULSE 75; RESP 16; TEMP 36.9; O2SAT 99
== END 2023-05-23 15:17 | disposition home or self-care (01) ==
PROVIDERS: Emergency Provider Nurse Practitioner Family; PCP Family Medicine
DX: J06.9 Acute upper respiratory infection, unspecified (principal); R05.9 Cough, unspecified; J45.909 Unspecified asthma, uncomplicated; E03.9 Hypothyroidism, unspecified; E78.2 Mixed hyperlipidemia; M81.0 Age-related osteoporosis without current pathological fracture; E11.39 Type 2 diabetes mellitus with other diabetic ophthalmic complication; H42 Glaucoma in diseases classified elsewhere; Z79.84 Long term (current) use of oral hypoglycemic drugs; L65.9 Nonscarring hair loss, unspecified; Z79.82 Long term (current) use of aspirin
CPT/HCPCS: 71046; 99213; G0463

== ENCOUNTER 2023-09-21 14:26 | Outpatient (CLI) | payer MEDICARE, OTHER, SELFPAY ==
--- NOTE | ~2023-09-21 | MM_ITS ---
EXAMINATION: MM screening hitesh BI w joel HISTORY: Screening mammogram TECHNIQUE: Craniocaudal and mediolateral oblique 3-D tomosynthesis images were obtained and synthetic 2-D images were generated. CAD analysis was submitted and interpreted. COMPARISON: 06/03/2022, 04/06/2021 bilateral screening mammogram examinations BREAST PARENCHYMAL COMPOSITION: There are scattered areas of fibroglandular density. FINDINGS: There is no evidence of suspicious mass, calcification, or architectural distortion to sugg est malignancy in either breast. There has been no suspicious interval change. IMPRESSION: 1. No mammographic evidence of malignancy. 2. Recommend routine screening mammography in one year. BI-RADS Category 1: Negative Reviewed, dictated and finalized at location B.
== END 2023-09-21 14:27 | disposition home or self-care (01) ==
LOC: ANHIMG 14:27
PROVIDERS: PCP Family Medicine; Visit Provider Family Medicine
DX: Z12.31 Encounter for screening mammogram for malignant neoplasm of breast (principal)
CPT/HCPCS: 77063; 77067

== ENCOUNTER 2023-10-03 11:02 | Outpatient (CLI) | payer MEDICARE, OTHER, SELFPAY ==
[2023-10-03 11:58] LABS: Alanine Aminotransferase 20 U/L (6-35); Albumin Level 4.4 g/dL (3.5-5.1); Alkaline Phosphatase 47 U/L (38-126); Anion Gap 7 mmol/L (4-12); Aspartate Amino Transferase 23 U/L (14-36); Bilirubin,Total 0.7 mg/dL (0.2-1.3); Blood Urea Nitrogen 11 mg/dL (7-17); Calcium 9.5 mg/dL (8.4-10.2); Carbon Dioxide 26 mmol/L (22-30); Chloride 106 mmol/L (98-107); Cholesterol 223 mg/dL (0-200); Estimated Glomerular Filt Rate > 60; Glucose 226 mg/dL (65-110); HDL Direct 49 mg/dL; Sodium 139 mmol/L (137-145); Triglycerides 189 mg/dL (<150)
[2023-10-03 12:10] LABS: LDL Cholesterol Direct 138 mg/dL
[2023-10-03 12:11] LABS: Hemoglobin A1C 8.7 % (<5.7)
[2023-10-03 12:18] LABS: Creatinine Urine 120.9 mg/dL
[2023-10-03 12:21] LABS: MALB Creatinine Ratio 13.8 mg/g (0-30); Microalbumin Urine Random 16.7 mg/L (0-16.7)
== END 2023-10-03 11:03 | disposition home or self-care (01) ==
PROVIDERS: PCP Family Medicine; Visit Provider Family Medicine
DX: E78.2 Mixed hyperlipidemia (principal); E11.9 Type 2 diabetes mellitus without complications
CPT/HCPCS: 36415; 80053; 80061; 82043; 83036

== ENCOUNTER 2024-03-19 23:53 | Emergency (ER) | payer MEDICARE, OTHER, SELFPAY ==
--- NOTE | ~2024-03-19 | CT_ITS ---
Non-contrast CT scan of the Abdomen and Pelvis Clinical indication: Flank pain Technique: 2.5 mm axial scans were obtained through the abdomen and pelvis without intravenous or or al contrast. Dose reduction technique was used on this scan by utilizing automated exposure control a nd iterative reconstruction technique. The dose-length product (DLP) was 338.10 mGy-cm. Findings: Images through the lung bases reveal small hiatal hernia. 7 mm nonobstructing left renal stone present. No right renal stone. No ureteral stone or hydronephros is on either side. The liver, spleen, pancreas, and adrenals appear normal. Small gallstones present. There are atherosc lerotic calcifications of the aorta. . There is no evidence of bowel obstruction. Images through the pelvis were performed. There is no evidence of ascites or lymphadenopathy. Urinary bladder unremarkable. No pelvic mass seen. Impression: 7 mm nonobstructing left renal stone. No ureteral stone or hydronephrosis. Cholelithiasis. Reviewed, dictated and finalized at [facility]. [employer]AN DRIVER Impression: 7 mm nonobstructing left renal stone. No ureteral stone or hydronephrosis. Cholelithiasis.
[2024-03-20 00:25] VITALS: BP 158/78; PULSE 71; RESP 15; TEMP 36.3; O2SAT 99
[2024-03-20 03:00] VITALS: BP 163/67; PULSE 76; RESP 16; TEMP 36.4; O2SAT 98
[2024-03-20 03:02] LABS: Basophils Percent Auto 0.3 % (0.2-1.2); Eosinophils Percent Auto 0.4 % (0-4.4); Hematocrit 42.6 % (37.0-47.0); Hemoglobin 14.6 g/dL (12.0-15.0); Immature Granulocyte Absolute 0.03 K/mm3 (0.00-0.031); Immature Granulocyte Percent A 0.3 % (0-0.5); Lymphocytes Absolute Auto 1.55 K/mm3 (0.9-3.2); Lymphocytes Percent Auto 16.9 % (18.3-44.2); Mean Corpuscular HGB Conc 34.3 g/dl (32-36); Mean Corpuscular Hemoglobin 33.6 pg (26-34); Mean Corpuscular Volume 97.9 fl (80-100); Mean Platelet Volume 9.3 fl (7.4-10.4); Monocytes Absolute Auto 0.5 K/mm3 (0.1-0.6); Monocytes Percent Auto 5.1 % (2.6-8.5); Platelet Count Result 212 k/mm3 (150-375); Red Blood Count 4.35 M/mm3 (4.2-5.4); Red Cell Distribution Width 11.6 % (11.5-14.5); White Blood Count 9.2 K/mm3 (4.5-10.0)
[2024-03-20 03:14] LABS: Alanine Aminotransferase 27 U/L (6-35); Albumin Level 4.7 g/dL (3.5-5.1); Alkaline Phosphatase 66 U/L (38-126); Anion Gap 7 mmol/L (4-12); Aspartate Amino Transferase 27 U/L (14-36); Bilirubin,Total 0.7 mg/dL (0.2-1.3); Blood Urea Nitrogen 16 mg/dL (7-17); Calcium 9.9 mg/dL (8.4-10.2); Carbon Dioxide 28 mmol/L (22-30); Chloride 99 mmol/L (98-107); Estimated CRCL calculation 58 ml/min; Estimated Glomerular Filt Rate > 60; Glucose 350 mg/dL (65-110); Lipase 112 U/L (23-300); Potassium 4.3 mmol/L (3.4-5.0); Sodium 134 mmol/L (137-145)
--- NOTE | 2024-03-20 04:37 | ED.ABDPAIN ---
HPI - Abdominal Pain General Chief Complaint: Abdominal Pain Stated Complaint: R flank pain Time Seen by Provider: 03/20/24 04:35 Source: patient and family (Daughter) Mode of arrival: EMS Limitations: no limitations History of Present Illness HPI narrative: Patient presents with acute onset right back and flank pain. She notes that started earlier in the evening she was sitting her chair but she did try to go to bed. When she got up in the middle night because she was still having pain it was getting worse, she was going to take ibuprofen but it became too intense. She notes that it is radiating to her bilateral sides. She denies any abdominal pain. No nausea, vomiting, diarrhea or constipation. She denies any hematuria or dysuria. She does have chronic urinary urgency and frequency but denies any changes from baseline. No fevers, chest pain, or shortness of breath. No history of kidney stones. She notes that the pain is steady. She says this has never happened before. She notes that she has previously had a few urinary tract infections but years ago, none complicated. Related Data Home Medications Medication Instructions Recorded Confirmed aspirin 81 mg tablet,delayed 81 mg PO DAILY 04/10/19 02/28/24 release (Adult Low Dose Aspirin) dorzolamide 22.3 mg-timolol 6.8 1 drop ophthalmic (eye) BID 04/10/19 02/28/24 mg/mL eye drops (Cosopt) ergocalciferol (vitamin D2) 1,250 50,000 unit PO WEEKLY 04/10/19 02/28/24 mcg (50,000 unit) capsule denosumab 60 mg/mL subcutaneous 60 mg subcut [id number] 02/11/21 02/28/24 syringe (Prolia) Allergies Allergy/AdvReac Type Severity Reaction Status Date / Time brimonidine Allergy Severe RED EYES, Verified 09/15/23 11:27 ITCHING PMFSH Past Medical History Medical History Alopecia Asthma Glaucoma History of UTI Hypothyroidism history of thyroid problems Mixed hyperlipidemia Osteoporosis Type 2 diabetes mellitus without complication, without long-term current use of insulin Vitamin B12 deficiency Vitamin D deficiency Surgical History Surgical History History of ankle surgery Total knee replacement status Family History Family History Father Heart disease Mother Colon cancer Sibling Diabetes mellitus Grandparent Colon cancer Other Asthma Carcinoma of colon Family history of coronary artery disease Family history of glaucoma Family history of osteoporosis Social History Social History Social History: Has a daughter Smoking status: Never smoker Second hand tobacco smoke exposure: No Alcohol intake: never Substance use: never Substance use type: does not use Lack of Transportation: No Lack of Food: Never True Current Housing: I Have Housing Concerned About Future Housing: No Difficulty Paying Gas/Electric Bills: No Difficulty Paying for Meds: No Currently Unemployed: No Education: High School Diploma/GED Difficulty w/ Childcare or Family Care: No Living arrangements: assisted living Occupation/Education: retired Gender identity (if verbalized by the patient): Female Sexual Orientation (if Verbalized by the Patient): Straight or Heterosexual Spiritual care concerns: No Agree to blood products: Yes Exam Narrative: GENERAL: Well-appearing, well-nourished, in mild acute distress. HEAD: Normocephalic, atraumatic. EYES: Non injected, non icteric ENT: Nares clear, no rhinorrhea or epistaxis. NECK: Supple. CHEST: Speaking in full sentences. No respiratory distress. HEART: Regular rate and rhythm. : CVA tenderness bilaterally ABDOMEN: Soft, nondistended. No tenderness to palpation throughout. Abdomen is without rigidity or guarding. Not peritoneal. EXTREMITIES: Normal range of motion. No lower extremity edema. SKIN: Warm, dry, no rash. NEURO: No focal deficits. Alert and oriented x3. PSYCH: Normal mood and affect. Course Vital Signs Vital signs: Vital Signs Temperature 97.3 F L 03/20/24 00:25 Pulse Rate 71 03/20/24 00:25 Respiratory Rate 15 03/20/24 00:25 Blood Pressure 158/78 H 03/20/24 00:25 Pulse Oximetry 99 03/20/24 00:25 Oxygen Delivery Room Air 03/20/24 00:25 Temperature 97.6 F 03/20/24 03:00 Pulse Rate 76 03/20/24 03:00 Respiratory Rate 16 03/20/24 03:00 Blood Pressure 163/67 H 03/20/24 03:00 Pulse Oximetry 98 03/20/24 03:00 Oxygen Delivery Room Air 03/20/24 00:25 MDM - Abdominal Pain MDM Narrative Medical decision making narrative: Patient presents with acute onset right back and flank pain. She started having pain earlier this evening but it seemed to get worse overnight. She denies any abdominal pain. Bilateral CVA tenderness. In the emergency department she is afebrile with vital signs notable for hypertension. CT scan shows a nonobstructing renal stone. Urinalysis is concerning for infection and I suspect this does represent a pyelonephritis. Previous urine culture from 2021 was reviewed which at that time was sensitive to ceftriaxone. Will give first dose in the ED and discharge on a course of cephalosporins. Patient is reassessed. She is resting comfortably. She does have some conjunctival injection bilaterally which is new. Discussed patient's workup and the plan with patient and her daughter. They both verifies understanding and are in agreement. Although patient came by EMS, patient's daughter does feel comfortable transporting her back to the assisted living facility. Differential Diagnosis Differential diagnosis: Likely abdominal pain, calculus of kidney, constipation and other (UTI/pyelonephritis) Lab Data Attestation: I reviewed the patient's lab results. Lab results narrative: Hyperglycemia without anion gap or acidosis Pseudo hyponatremia as it corrects to 138-140 in the setting of hyperglycemia 03/20/24 02:54 03/20/24 02:54 Labs: Lab Results 03/20/24 03/20/24 Range/Units 02:54 06:11 WBC 9.2 (4.5-10.0) K/mm3 RBC 4.35 (4.2-5.4) M/mm3 Hgb 14.6 (12.0-15.0) g/dL Hct 42.6 (37.0-47.0) % MCV 97.9 (80-100) fl MCH 33.6 (26-34) pg MCHC 34.3 (32-36) g/dl RDW 11.6 (11.5-14.5) % Plt Count 212 (150-375) k/mm3 MPV 9.3 (7.4-10.4) fl Immature Gran % (Auto) 0.3 (0-0.5) % Neut % (Auto) 77.0 H (45.5-73.1) % Lymph % (Auto) 16.9 L (18.3-44.2) % [place] % (Auto) 5.1 (2.6-8.5) % Eos % (Auto) 0.4 (0-4.4) % Baso % (Auto) 0.3 (0.2-1.2) % Lymph # (Auto) 1.55 (0.9-3.2) K/mm3 [place] # (Auto) 0.5 (0.1-0.6) K/mm3 Eos # (Auto) 0.0 (0-0.3) K/mm3 Baso # (Auto) 0.0 (0.0-0.1) K/mm3 Abs Immat Gran (auto) 0.03 (0.00-0.031) K/mm3 Absolute Neuts (auto) 7.0 H (1.3-6.7) K/mm3 Absolute Nucleated RBC 0.000 (0.0-0.012) K/mm3 Nucleated RBC % 0.0 (0.0-0.2) % Sodium 134 L (137-145) mmol/L Potassium 4.3 (3.4-5.0) mmol/L Chloride 99 (98-107) mmol/L Carbon Dioxide 28 (22-30) mmol/L Anion Gap 7 (4-12) mmol/L BUN 16 (7-17) mg/dL Creatinine 0.60 L (0.7-1.0) mg/dL Estim Creat Clear Calc 58 ml/min Estimated GFR > 60 (59 - ) Glucose 350 H (65-110) mg/dL Calcium 9.9 (8.4-10.2) mg/dL Total Bilirubin 0.7 (0.2-1.3) mg/dL AST 27 (14-36) U/L ALT 27 (6-35) U/L Alkaline Phosphatase 66 (38-126) U/L Total Protein 8.0 (6.3-8.2) g/dL Albumin 4.7 (3.5-5.1) g/dL Lipase 112 (23-300) U/L Urine Color Yellow (Yellow) Urine Appearance Cloudy H (Clear) Urine pH 6.0 (5.0-9.0) Ur Specific [place] 1.034 (1.001-1.035) Urine Protein Trace (Negative) mg/dL Urine Glucose (UA) 3+ H (Negative) mg/dL Urine Ketones 2+ H (Negative) mg/dL Ur Blood (Man) Negative (Negative) Urine Nitrate Negative (Negative) Urine Bilirubin Negative (Negative) Urine Urobilinogen 0.2 (<2.0) mg/dL Add Ur Microanalysis Reviewed Leukocyte Esterase Rfl 1+ H (Negative) NITIN/UL Urine RBC 6-10 H (0-2) /hpf Urine WBC 21-50 H (0-3) /hpf Ur Squamous Epith Cells Moderate (Few) /hpf Urine Bacteria 1+ H /hpf Urine Casts 3-5 Imaging Data Radiologist's impression: ITS Impressions Abdomen/Pelvis CT 03/20/24 06:14 Impression: 7 mm nonobstructing left renal stone. No ureteral stone or hydronephrosis. Cholelithiasis. Discharge Plan Discharge Clinical Impression: Acute pyelonephritis, Hyperglycemia, Pseudohyponatremia, Kidney stone Patient Disposition: NH Residential/Asst Living Condition: Stable Instructions: Antibiotic Form, Kidney Stones (ED), Kidney Infection (ED) Additional Instructions: As we discussed, you have evidence of a urinary tract infection and I suspect that this has ascended and become a kidney infection also noticed pyelonephritis. The pain should improve as you take your course of antibiotics you did receive the 1st dose in the emergency department with the rest of the course prescribed. You will be notified if, based on the urine culture this antibiotic regimen needs to be changed. Acetaminophen/Tylenol (maximum 4000 mg per day) is safe to take with NSAIDs (ibuprofen/Motrin) for pain relief. You do have evidence of a stone within your kidney but these are typically not painful unless they begin to move so nothing is required at this time. Follow-up with your primary care physician. Return to the emergency department for any new or worsening symptoms such as intractable pain, fever greater than 100.4? F, concern for dehydration. Prescriptions: New ibuprofen 600 mg tablet 600 mg PO TID PRN (Reason: pain) Qty: 30 0RF acetaminophen 500 mg capsule 1,000 mg PO Q6H PRN (Reason: pain) Qty: 30 0RF cephalexin 500 mg capsule 500 mg PO Q6H 12 Days Qty: 48 0RF No Action albuterol sulfate 90 mcg/actuation HFA aerosol inhaler 2 puff inhalation Q4-6H PRN (Reason: shortness of breath or wheezing) 30 Days Qty: 8.5 0RF guaifenesin [Mucinex] 600 mg tablet extended release 12hr 600 mg PO BID 7 Days Qty: 14 0RF ondansetron 4 mg tablet,disintegrating 4 mg PO Q8H PRN (Reason: nausea and vomiting) Qty: 10 0RF aspirin [Adult Low Dose Aspirin] 81 mg tablet,delayed release (DR/EC) 81 mg PO DAILY ergocalciferol (vitamin D2) 50,000 unit capsule 50,000 unit PO WEEKLY dorzolamide-timolol [Cosopt] 22.3-6.8 mg/mL drops 1 drop EACH EYE BID Prolia 60 mg/mL syringe 60 mg subcut [id number] donepezil [Aricept] 5 mg tablet 5 mg PO QHS Qty: 30 6RF Rx Instructions: with snack metformin 500 mg tablet extended release 24 hr 500 mg PO BID Qty: 180 1RF atorvastatin 20 mg tablet 20 mg PO DAILY Qty: 90 1RF Follow-up/Referrals: Wendy Kinney MD [Primary Care Provider] - Stand Alone Forms: [facility] Care Discharge Time of Disposition: 07:08
[2024-03-20] MEDS: SODIUM CHLORIDE 0.9% IV 1,000 ML 999 ML IV CONT (05:20)
[2024-03-20] MEDS: HYDROcodone/acetaminophen (*CRX) 5-325 MG TABLET 1 TAB PO (05:28)
--- NOTE | 2024-03-20 05:32 | PC.NURSE ---
pt c/o 02/14 back pain. When asked if she could provide a urine sample pt states I sat out in the waiting room for so long and they didn't tell me they needed some so I just went not long ago . Pt states she will give a sample as soon as she can
[2024-03-20 06:35] LABS: Add Urine Microscopic? YES; Appearance Urine Cloudy (Clear); Bacteria Urine 1+ /hpf; Bilirubin Urine Negative (Negative); Blood Urine Negative (Negative); Color Urine Yellow (Yellow); Glucose Urine UA 3+ mg/dL (Negative); Ketones Urine 2+ mg/dL (Negative); Leukocyte Esterase Ur 1+ LEU/UL (Negative); Need Manual Microscopic Reviewed; Nitrate Urine Negative (Negative); Protein Urine Trace mg/dL (Negative); Specific Grav Ur 1.034 (1.001-1.035); Squamous Epithelial Cell Urine Moderate /hpf (Few); Urobilinogen Urine 0.2 mg/dL (<2.0); WBC Urine 21-50 /hpf (0-3)
[2024-03-20] MEDS: KETOROLAC 15 MG/ML VIAL (*BKC) IV PUSH (06:48)
[2024-03-20 07:39] VITALS: BP 163/78; PULSE 90; RESP 18; TEMP 36.6; O2SAT 99
== END 2024-03-20 07:41 ==
PROVIDERS: Emergency Provider Student in an Organized Health Care Education/Training Program; PCP Family Medicine
DX: N20.0 Calculus of kidney (principal); N10 Acute pyelonephritis; E11.65 Type 2 diabetes mellitus with hyperglycemia; J45.909 Unspecified asthma, uncomplicated; Z87.440 Personal history of urinary (tract) infections; E03.9 Hypothyroidism, unspecified; E78.5 Hyperlipidemia, unspecified
CPT/HCPCS: 36415; 74176; 80053; 81001; 83690; 85025; 87086; 87186; 96361; 96374; 96375; 99284; A9270; J0696; J1885; J7030

== ENCOUNTER 2024-03-25 01:21 | Emergency (ER) | payer MEDICARE, OTHER, SELFPAY ==
--- NOTE | ~2024-03-25 | CT_ITS ---
CT of the Abdomen and Pelvis: Indication: Abdominal pain Technique: 2.5 mm axial scans were obtained through the abdomen and pelvis following intravenous adm inistration of 100 cc of Omnipaque 350. Dose reduction technique was used on this scan by utilizing a utomated exposure control and iterative reconstruction technique. The dose-length product (DLP) was 8 49.30 mGy-cm. COMPARISON: 03/20/2024 Findings: Scans through the lung bases demonstrate small hiatal hernia. There is diffuse hepatic steatosis. Small gallstone present. The spleen, pancreas, adrenals and kidne ys are within normal limits. There are atherosclerotic calcifications of the aorta. No lymphadenopat hy. No bowel obstruction or bowel wall thickening. There is no evidence to suggest acute appendicitis. Images through the pelvis were performed. Urinary bladder unremarkable. No pelvic mass seen. No ascit es. Impression: Diffuse hepatic steatosis. Small gallstone. Small hiatal hernia. Reviewed, dictated and finalized at [facility]. [employer]FT ELECT[employer]S SPECIALIST Impression: Diffuse hepatic steatosis. Small gallstone. Small hiatal hernia.
[2024-03-25 01:22] VITALS: BP 152/81; PULSE 86; RESP 14; TEMP 37.2; O2SAT 97
--- NOTE | 2024-03-25 01:22 | ECG_ITS ---
Test Date: 2024-03-25 01:25:36 Measurements Intervals [place] Rate: 87 P: 12 ME: 142 QRS: -7 QRSD: 82 T: 30 QT: 375 QTc: 453 Interpretive Statements SINUS RHYTHM VOLTAGE CRITERIA FOR LVH MINIMAL Q WAVES- HIGH LATERAL LEADS BORDERLINE R WAVE PROGRESSION, ANTERIOR LEADS BORDERLINE T WAVE ABNORMALITY- INFERIOR LEADS BASELINE ARTIFACT- I, II, III, AVR, AVF BORDERLINE ECG No previous ECG available for comparison Electronically Signed On 03-25-2024 06:23:39 STUDENT LIFE COORDINATOR by Joselito Vallejo D.O.
[2024-03-25 01:34] LABS: Basophils Percent Auto 0.3 % (0.2-1.2); Eosinophils Percent Auto 0.3 % (0-4.4); Hematocrit 40.4 % (37.0-47.0); Hemoglobin 13.7 g/dL (12.0-15.0); Immature Granulocyte Absolute 0.05 K/mm3 (0.00-0.031); Immature Granulocyte Percent A 0.5 % (0-0.5); Lymphocytes Absolute Auto 1.54 K/mm3 (0.9-3.2); Lymphocytes Percent Auto 16.2 % (18.3-44.2); Mean Corpuscular HGB Conc 33.9 g/dl (32-36); Mean Corpuscular Hemoglobin 32.9 pg (26-34); Mean Corpuscular Volume 96.9 fl (80-100); Mean Platelet Volume 9.1 fl (7.4-10.4); Monocytes Absolute Auto 0.8 K/mm3 (0.1-0.6); Monocytes Percent Auto 8.8 % (2.6-8.5); Neutrophils Percent Auto 73.9 % (45.5-73.1); Platelet Count Result 211 k/mm3 (150-375); Red Blood Count 4.17 M/mm3 (4.2-5.4); Red Cell Distribution Width 11.5 % (11.5-14.5); White Blood Count 9.5 K/mm3 (4.5-10.0)
[2024-03-25] MEDS: SODIUM CHLORIDE 0.9% IV 1,000 ML 999 ML IV CONT (01:36)
[2024-03-25] MEDS: ONDANSETRON INJ 4 MG/2 ML VIAL IV PUSH (01:37)
--- NOTE | 2024-03-25 01:51 | ED.GENADULT ---
HPI - General Adult General Chief complaint: Abdominal Pain Stated complaint: abd pain Time Seen by Provider: 03/25/24 01:25 History of Present Illness HPI narrative: Patient 79-year-old female who presents emergency department with chief complaint of abdominal pain. Patient reports that she was recently being treated for a kidney/bladder infection and reports that she has had some chills and body aches the patient states that her abdomen feels very uncomfortable and reports that she has not been able to keep anything down Related Data Home Medications Medication Instructions Recorded Confirmed aspirin 81 mg tablet,delayed 81 mg PO DAILY 04/10/19 02/28/24 release (Adult Low Dose Aspirin) dorzolamide 22.3 mg-timolol 6.8 1 drop ophthalmic (eye) BID 04/10/19 02/28/24 mg/mL eye drops (Cosopt) ergocalciferol (vitamin D2) 1,250 50,000 unit PO WEEKLY 04/10/19 02/28/24 mcg (50,000 unit) capsule denosumab 60 mg/mL subcutaneous 60 mg subcut [id number] 02/11/21 02/28/24 syringe (Prolia) Allergies Allergy/AdvReac Type Severity Reaction Status Date / Time brimonidine Allergy Severe RED EYES, Verified 09/15/23 11:27 ITCHING Review of Systems Review of Systems: A 10 system review of systems was completed on the patient and is negative except for what is stated in the HPI. Nursing and ancillary documentation was reviewed. [facility] Past Medical History Medical History Alopecia Asthma Glaucoma History of UTI Hypothyroidism history of thyroid problems Mixed hyperlipidemia Osteoporosis Type 2 diabetes mellitus without complication, without long-term current use of insulin Vitamin B12 deficiency Vitamin D deficiency Surgical History Surgical History History of ankle surgery Total knee replacement status Family History Family History Father Heart disease Mother Colon cancer Sibling Diabetes mellitus Grandparent Colon cancer Other Asthma Carcinoma of colon Family history of coronary artery disease Family history of glaucoma Family history of osteoporosis Social History Social History Social History: Has a daughter Smoking status: Never smoker Second hand tobacco smoke exposure: No Alcohol intake: never Substance use: never Substance use type: does not use Lack of Transportation: No Lack of Food: Never True Current Housing: I Have Housing Concerned About Future Housing: No Difficulty Paying Gas/Electric Bills: No Difficulty Paying for Meds: No Currently Unemployed: No Education: High School Diploma/GED Difficulty w/ Childcare or Family Care: No Living arrangements: assisted living Occupation/Education: retired Gender identity (if verbalized by the patient): Female Sexual Orientation (if Verbalized by the Patient): Straight or Heterosexual Spiritual care concerns: No Agree to blood products: Yes Exam Narrative: GENERAL: Well-appearing, well-nourished, and in no acute distress. HEAD: Normocephalic, atraumatic. EYES: PERRLA and EOMI. ENT: Nares clear, no rhinorrhea or epistaxis. Mucous membranes moist. NECK: Supple. CHEST: Clear to auscultation. No respiratory distress. HEART: Regular rate and rhythm. No murmur heard. Normal peripheral pulses. ABDOMEN: Soft, diffuse tenderness, nondistended, normal active bowel sounds. EXTREMITIES: Normal range of motion. No edema. SKIN: Warm, dry, no rash. NEURO: No focal deficits. Alert and oriented x3. PSYCH: Normal mood and affect. Course Vital Signs Vital signs: Vital Signs Temperature 37.2 C 03/25/24 01:22 Pulse Rate 86 03/25/24 01:22 Respiratory Rate 14 03/25/24 01:22 Blood Pressure 152/81 H 03/25/24 01:22 Pulse Oximetry 97 03/25/24 01:22 Oxygen Delivery Room Air 03/25/24 01:22 Temperature 37.2 C 03/25/24 01:22 Pulse Rate 77 03/25/24 04:04 Respiratory Rate 14 03/25/24 04:04 Blood Pressure 152/65 H 03/25/24 04:04 Pulse Oximetry 96 03/25/24 04:04 Oxygen Delivery Room Air 03/25/24 01:22 Medical Decision Making [facility] Narrative Medical decision making narrative: Differential diagnosis includes abdominal infection, UTI, pyelonephritis, colitis, diverticulitis Laboratory studies were obtained on the patient showed a sodium of 129 when corrected for glucose this would be 133 Urinalysis showed 0-[address] scan of the abdomen pelvis showed no acute abnormality Vital Signs Vital Signs: Vital Signs Temperature 37.2 C 03/25/24 01:22 Pulse Rate 86 03/25/24 01:22 Respiratory Rate 14 03/25/24 01:22 Blood Pressure 152/81 H 03/25/24 01:22 Pulse Oximetry 97 03/25/24 01:22 Oxygen Delivery Room Air 03/25/24 01:22 Temperature 37.2 C 03/25/24 01:22 Pulse Rate 77 03/25/24 04:04 Respiratory Rate 14 03/25/24 04:04 Blood Pressure 152/65 H 03/25/24 04:04 Pulse Oximetry 96 03/25/24 04:04 Oxygen Delivery Room Air 03/25/24 01:22 Lab Data 03/25/24 01:29 03/25/24 01:29 Labs: Lab Results 03/25/24 03/25/24 Range/Units 01:29 01:56 WBC 9.5 (4.5-10.0) K/mm3 RBC 4.17 L (4.2-5.4) M/mm3 Hgb 13.7 (12.0-15.0) g/dL Hct 40.4 (37.0-47.0) % MCV 96.9 (80-100) fl MCH 32.9 (26-34) pg MCHC 33.9 (32-36) g/dl RDW 11.5 (11.5-14.5) % Plt Count 211 (150-375) k/mm3 MPV 9.1 (7.4-10.4) fl Immature Gran % (Auto) 0.5 (0-0.5) % Neut % (Auto) 73.9 H (45.5-73.1) % Lymph % (Auto) 16.2 L (18.3-44.2) % [place] % (Auto) 8.8 H (2.6-8.5) % Eos % (Auto) 0.3 (0-4.4) % Baso % (Auto) 0.3 (0.2-1.2) % Lymph # (Auto) 1.54 (0.9-3.2) K/mm3 [place] # (Auto) 0.8 H (0.1-0.6) K/mm3 Eos # (Auto) 0.0 (0-0.3) K/mm3 Baso # (Auto) 0.0 (0.0-0.1) K/mm3 Abs Immat Gran (auto) 0.05 H (0.00-0.031) K/mm3 Absolute Neuts (auto) 7.0 H (1.3-6.7) K/mm3 Absolute Nucleated RBC 0.000 (0.0-0.012) K/mm3 Nucleated RBC % 0.0 (0.0-0.2) % Sodium 129 L (137-145) mmol/L Potassium 4.0 (3.4-5.0) mmol/L Chloride 92 L (98-107) mmol/L Carbon Dioxide 29 (22-30) mmol/L Anion Gap 8 (4-12) mmol/L BUN 8 D (7-17) mg/dL Creatinine 0.50 L (0.7-1.0) mg/dL Estim Creat Clear Calc 82 ml/min Estimated GFR > 60 (59 - ) Glucose 248 H (65-110) mg/dL Lactic Acid 1.1 (0.7-2.0) mmol/L Calcium 9.7 (8.4-10.2) mg/dL Total Bilirubin 0.8 (0.2-1.3) mg/dL AST 26 (14-36) U/L ALT 23 (6-35) U/L Alkaline Phosphatase 58 (38-126) U/L Total Protein 7.0 (6.3-8.2) g/dL Albumin 4.2 (3.5-5.1) g/dL Lipase 68 (23-300) U/L Urine Color Yellow (Yellow) Urine Appearance Cloudy H (Clear) Urine pH 7.0 (5.0-9.0) Ur Specific [place] 1.026 (1.001-1.035) Urine Protein Trace (Negative) mg/dL Urine Glucose (UA) 3+ H (Negative) mg/dL Urine Ketones 3+ H (Negative) mg/dL Ur Blood (Man) Negative (Negative) Urine Nitrate Negative (Negative) Urine Bilirubin Negative (Negative) Urine Urobilinogen 1.0 (<2.0) mg/dL Add Ur Microanalysis Reviewed Leukocyte Esterase Rfl Negative (Negative) NITIN/UL Urine RBC 6-10 H (0-2) /hpf Urine WBC 0-5 (0-3) /hpf Ur Squamous Epith Cells Few (Few) /hpf Urine Bacteria None seen /hpf Urine Casts 0-2 Urine Mucus Present /lpf Discharge Plan Discharge Clinical Impression: Abdominal pain Patient Disposition: NH Halfway/Asst Living Condition: Stable Instructions: Antibiotic Form, Abdominal Pain (ED) Prescriptions: No Action albuterol sulfate 90 mcg/actuation HFA aerosol inhaler 2 puff inhalation Q4-6H PRN (Reason: shortness of breath or wheezing) 30 Days Qty: 8.5 0RF guaifenesin [Mucinex] 600 mg tablet extended release 12hr 600 mg PO BID 7 Days Qty: 14 0RF ondansetron 4 mg tablet,disintegrating 4 mg PO Q8H PRN (Reason: nausea and vomiting) Qty: 10 0RF aspirin [Adult Low Dose Aspirin] 81 mg tablet,delayed release (DR/EC) 81 mg PO DAILY ergocalciferol (vitamin D2) 50,000 unit capsule 50,000 unit PO WEEKLY dorzolamide-timolol [Cosopt] 22.3-6.8 mg/mL drops 1 drop EACH EYE BID Prolia 60 mg/mL syringe 60 mg subcut [id number] ibuprofen 600 mg tablet 600 mg PO TID PRN (Reason: pain) Qty: 30 0RF acetaminophen 500 mg capsule 1,000 mg PO Q6H PRN (Reason: pain) Qty: 30 0RF cephalexin 500 mg capsule 500 mg PO Q6H 12 Days Qty: 48 0RF donepezil [Aricept] 5 mg tablet 5 mg PO QHS Qty: 30 6RF Rx Instructions: with snack metformin 500 mg tablet extended release 24 hr 500 mg PO BID Qty: 180 1RF atorvastatin 20 mg tablet 20 mg PO DAILY Qty: 90 1RF Follow-up/Referrals: Wendy Kinney MD [Primary Care Provider] - Time of Disposition: 05:40
[2024-03-25 01:58] LABS: Alanine Aminotransferase 23 U/L (6-35); Albumin Level 4.2 g/dL (3.5-5.1); Alkaline Phosphatase 58 U/L (38-126); Anion Gap 8 mmol/L (4-12); Aspartate Amino Transferase 26 U/L (14-36); Bilirubin,Total 0.8 mg/dL (0.2-1.3); Blood Urea Nitrogen 8 mg/dL (7-17); Calcium 9.7 mg/dL (8.4-10.2); Carbon Dioxide 29 mmol/L (22-30); Chloride 92 mmol/L (98-107); Estimated CRCL calculation 82 ml/min; Estimated Glomerular Filt Rate > 60; Glucose 248 mg/dL (65-110); Lipase 68 U/L (23-300); Sodium 129 mmol/L (137-145)
[2024-03-25 02:22] LABS: Lactic Acid Reflex 1.1 mmol/L (0.7-2.0)
[2024-03-25 02:37] LABS: Add Urine Microscopic? YES; Appearance Urine Cloudy (Clear); Bacteria Urine None Seen /hpf; Bilirubin Urine Negative (Negative); Blood Urine Negative (Negative); Color Urine Yellow (Yellow); Glucose Urine UA 3+ mg/dL (Negative); Ketones Urine 3+ mg/dL (Negative); Leukocyte Esterase Ur Negative LEU/UL (Negative); Mucus Urine Present /lpf; Need Manual Microscopic Reviewed; Nitrate Urine Negative (Negative); Non Pathogenic Casts 0-2; Protein Urine Trace mg/dL (Negative); Specific Grav Ur 1.026 (1.001-1.035); Squamous Epithelial Cell Urine Few /hpf (Few); WBC Urine 0-5 /hpf (0-3)
[2024-03-25 04:04] VITALS: BP 152/65; PULSE 77; RESP 14; O2SAT 96
[2024-03-25] MEDS: ACETAMINOPHEN 500 MG TABLET 1000 MG PO (04:55)
== END 2024-03-25 06:17 ==
PROVIDERS: Emergency Provider Emergency Medicine; PCP Family Medicine
DX: R10.9 Unspecified abdominal pain (principal); J45.909 Unspecified asthma, uncomplicated; E03.9 Hypothyroidism, unspecified; E78.2 Mixed hyperlipidemia; E11.39 Type 2 diabetes mellitus with other diabetic ophthalmic complication; H42 Glaucoma in diseases classified elsewhere; E53.8 Deficiency of other specified B group vitamins; E55.9 Vitamin D deficiency, unspecified; Z87.442 Personal history of urinary calculi; Z79.899 Other long term (current) drug therapy; Z79.82 Long term (current) use of aspirin; Z79.84 Long term (current) use of oral hypoglycemic drugs
CPT/HCPCS: 36415; 74177; 80053; 81001; 83605; 83690; 85025; 93005; 96361; 96374; 99284; A9270; J2405; J7030; Q9967

== ENCOUNTER 2024-03-27 12:25 | Inpatient (IN) | payer MEDICARE, OTHER, SELFPAY ==
[2024-03-27] VITALS (22 sets, daily range): BP systolic 142–200; BP diastolic 63–73; PULSE 61–91; RESP 13–19; TEMP 37.6; O2SAT 96–100; BMI 30.5
--- NOTE | ~2024-03-27 | XR_ITS ---
EXAMINATION: XR abdomen/kub 1V DATE: 03/31/2024 08:28 INDICATION: Abdominal distention. Hypoactive bowel sounds with no bowel movements. TECHNIQUE: A supine view of the abdomen on 2 radiographs was obtained. COMPARISON: 03/29/2024 FINDINGS: No significant interval change in moderate amount of stool scattered throughout the colon with promin ent gas in the cecum and transverse colon. No dilated loops of gas-filled small bowel to suggest obst ruction. Multiple phleboliths in the pelvis. Moderate lumbar spondylosis. Lung bases are clear. Heart size is normal. IMPRESSION: 1. No interval change in moderate amount of stool scattered throughout the colon with large amount of gas in the proximal colon. Reviewed, dictated and finalized at location A. R HELPER IMPRESSION: 1. No interval change in moderate amount of stool scattered throughout the colo n with large amount of gas in the proximal colon.
--- NOTE | ~2024-03-27 | XR_ITS ---
EXAMINATION: XR abdomen/kub 1V DATE: 03/29/2024 14:03 INDICATION: Abdominal distention. Decreased bowel sounds. Constipation. TECHNIQUE: A supine view of the abdomen on 2 radiographs was obtained. COMPARISON: None. FINDINGS: Moderate amount of stool scattered throughout the colon. There is prominent gas in the cecum and lawrence sverse colon. No dilated loops of gas-filled small bowel to suggest obstruction. Multiple phleboliths in the pelvis. Lung bases are clear. Heart size is normal. IMPRESSION: 1. Moderate amount of stool scattered throughout the colon with large amount of gas in the proximal c olon. Reviewed, dictated and finalized at location B. IC SPEAKER IMPRESSION: 1. Moderate amount of stool scattered throughout the colon with large amount of gas in the proximal colon.
--- NOTE | ~2024-03-27 | XR_ITS ---
XR abdomen/kub 1V 04/03/2024 16:40 Indication: Constipation Procedure: KUB Comparison: 03/31/2024 Findings: Bowel gas pattern is nonspecific. Large amount of gas in the proximal colon. There is gas t hroughout the colon into the rectum. Moderate colonic fecal loading. No significant small bowel dilat ion. There are pelvic phleboliths. Moderate lumbar spondylosis. Impression: 1: Stable nonspecific bowel gas pattern with prominent gas present in the proximal colon. Reviewed, dictated and finalized at location B. ERGARTEN TEACHER ASSISTANT Impression: 1: Stable nonspecific bowel gas pattern with prominent gas present in the proxi mal colon.
--- NOTE | ~2024-03-27 | XR_ITS ---
EXAMINATION: XR chest 1V portable DATE: 03/27/2024 14:04 INDICATION: Weakness TECHNIQUE: frontal view of the chest was obtained. COMPARISON: Chest radiograph dated 05/23/2023 FINDINGS: Patient is rotated slightly towards the right. Costochondral calcifications project over the medial r ight lower lung zone. No other airspace opacities, pulmonary edema, pleural effusion or pneumothorax. Cardiomediastinal silhouette is normal. IMPRESSION: 1. No acute cardiopulmonary disease. Reviewed, dictated and finalized at location B. NOMIC SPECIALIST
--- NOTE | ~2024-03-27 | CT_ITS ---
EXAMINATION: CT brain wo con DATE: 03/28/2024 10:38 INDICATION: Headaches. Altered mental status. TECHNIQUE: Computed tomography (CT) of the head was performed without intravenous contrast. Sagittal and coronal reconstructions were performed. The mA was adjusted according to patient size. Iterative reconstruction technique was employed. The dose-length product was 681.00 mGy-cm. COMPARISON: head CT dated 03/06/2022 and MRI dated 07/18/2022 FINDINGS: No acute intracranial hemorrhage, acute infarction or abnormal extra axial fluid collection. There is mild scattered white matter hypoattenuation consistent with chronic small vessel ischemic disease. S ymmetric prominence of the sulci consistent with mild age-appropriate diffuse cerebral volume loss. V entricles are normal and symmetric. No mass/mass effect. There are complete opacification of the left sphenoid sinus with central calcification and peripheral thickened cirrhotic odon[place] consistent with c hronic sinusitis. There is additional mild mucosal thickening in the right maxillary and bilateral et hmoid sinuses. Changes of bilateral intraocular lens replacement. The orbits and mastoid air cells a re normal. IMPRESSION: 1. Normal aging brain. No acute intracranial process. 2. Chronic left sphenoid sinusitis. Reviewed, dictated and finalized at location B. RVISOR HOT DIP PLATING
[2024-03-27 13:08] LABS: Basophils Percent Auto 0.2 % (0.2-1.2); Eosinophils Percent Auto 0.1 % (0-4.4); Hematocrit 37.1 % (37.0-47.0); Hemoglobin 13.4 g/dL (12.0-15.0); Immature Granulocyte Absolute 0.08 K/mm3 (0.00-0.031); Immature Granulocyte Percent A 0.8 % (0-0.5); Lymphocytes Absolute Auto 1.26 K/mm3 (0.9-3.2); Lymphocytes Percent Auto 12.2 % (18.3-44.2); Mean Corpuscular HGB Conc 36.1 g/dl (32-36); Mean Corpuscular Hemoglobin 33.6 pg (26-34); Mean Platelet Volume 9.1 fl (7.4-10.4); Monocytes Absolute Auto 1.4 K/mm3 (0.1-0.6); Monocytes Percent Auto 13.1 % (2.6-8.5); Neutrophils Absolute Auto 7.6 K/mm3 (1.3-6.7); Neutrophils Percent Auto 73.6 % (45.5-73.1); Platelet Count Result 219 k/mm3 (150-375); Red Blood Count 3.99 M/mm3 (4.2-5.4); Red Cell Distribution Width 11.4 % (11.5-14.5); White Blood Count 10.4 K/mm3 (4.5-10.0)
[2024-03-27 13:18] LABS: Alanine Aminotransferase 21 U/L (6-35); Alkaline Phosphatase 58 U/L (38-126); Anion Gap 9 mmol/L (4-12); Aspartate Amino Transferase 21 U/L (14-36); Bilirubin,Total 0.9 mg/dL (0.2-1.3); Blood Urea Nitrogen 11 mg/dL (7-17); Calcium 8.6 mg/dL (8.4-10.2); Carbon Dioxide 24 mmol/L (22-30); Chloride 90 mmol/L (98-107); Estimated Glomerular Filt Rate > 60; Glucose 245 mg/dL (65-110); Potassium 3.3 mmol/L (3.4-5.0); Sodium 123 mmol/L (137-145)
--- NOTE | 2024-03-27 13:23 | ECG_ITS ---
Test Date: 2024-03-27 14:21:11 Measurements Intervals Egan Rate: 68 P: 55 NC: 162 QRS: 15 QRSD: 91 T: 33 QT: 409 QTc: 438 Interpretive Statements SINUS RHYTHM POSSIBLE LEFT ATRIAL ENLARGEMENT VOLTAGE CRITERIA FOR LVH CANNOT R/O SEPTAL INFARCT, AGE INDETERMINATE MINIMAL Q WAVES- HIGH LATERAL LEADS BASELINE ARTIFACT- AVF ABNORMAL ECG Compared to ECG 03/25/2024 01:25:36 NO SIGNIFICANT CHANGE Electronically Signed On 03-27-2024 14:28:50 MAJOR APPLIANCE [employer]SEMBLY SUPERVISOR by Joselito Vallejo D.O.
--- NOTE | 2024-03-27 13:24 | ED_ITS ---
HPI - General Adult General Chief complaint: Recheck/Abnormal Lab/Rx Stated complaint: sent by PCP to be admitted Time Seen by Provider: 03/27/24 12:31 History of Present Illness HPI narrative: 79-year-old female presenting to the emergency department for evaluation for increased generalized weakness. Patient was previously diagnosed with a urinary tract infection. Patient did complete her antibiotics but daughter states that on and Monday she began worsening again. Patient was evaluated emergency department and was treated with additional IV fluids. Daughter states that since Monday patient has continued to decline. Patient is very somnolent appearing at time of examination. Patient denies any pain or complaint. Related Data Home Medications Medication Instructions Recorded Confirmed aspirin 81 mg tablet,delayed 81 mg PO DAILY 04/10/19 03/27/24 release (Adult Low Dose Aspirin) dorzolamide 22.3 mg-timolol 6.8 1 drop ophthalmic (eye) BID 04/10/19 03/27/24 mg/mL eye drops (Cosopt) ergocalciferol (vitamin D2) 1,250 50,000 unit PO WEEKLY 04/10/19 03/27/24 mcg (50,000 unit) capsule denosumab 60 mg/mL subcutaneous 60 mg subcut [id number] 02/11/21 03/27/24 syringe (Prolia) bimatoprost 0.01 % eye drops 1 drp EACH EYE HS 03/27/24 03/27/24 ([place]) Allergies Allergy/AdvReac Type Severity Reaction Status Date / Time brimonidine Allergy Severe RED EYES, Verified 03/27/24 11:43 ITCHING Review of Systems Review of Systems: All systems reviewed & are unremarkable except as noted in HPI and below PMFSH Past Medical History Medical History (Updated 03/27/24 @ 22:04 by Brennen Alba MD) Alopecia Asthma Decreased appetite Dementia Glaucoma History of UTI Hypothyroidism history of thyroid problems Mixed hyperlipidemia Neck pain on right side Osteoporosis Type 2 diabetes mellitus without complication, without long-term current use of insulin Vitamin B12 deficiency Vitamin D deficiency Surgical History Surgical History History of ankle surgery Total knee replacement status Family History Family History Father Heart disease Mother Colon cancer Sibling Diabetes mellitus Grandparent Colon cancer Other Asthma Carcinoma of colon Family history of coronary artery disease Family history of glaucoma Family history of osteoporosis Social History Social History Social History: Has a daughter Smoking status: Never smoker Second hand tobacco smoke exposure: No Alcohol intake: never Substance use: never Substance use type: does not use Do You Feel Safe in your Home?: Yes Lack of Transportation: No Lack of Food: Never True Current Housing: I Have Housing Concerned About Future Housing: No Difficulty Paying Gas/Electric Bills: No Difficulty Paying for Meds: No Currently Unemployed: No Education: High School Diploma/GED Difficulty w/ Childcare or Family Care: No Living arrangements: assisted living Occupation/Education: retired Gender identity (if verbalized by the patient): Female Sexual Orientation (if Verbalized by the Patient): Straight or Heterosexual Spiritual care concerns: No Agree to blood products: Yes Exam Narrative: APPEARANCE: Ill-appearing HEAD: normocephalic, atraumatic. EYES: PERRLA/EOMI, conjunctivae clear. NOSE: Normal no drainage EARS:TMS clear with good light reflex. THROAT: Pharynx clear, no exudate. NECK: Supple. No adenopathy, no masses. RESPIRATORY: Airway patent, respirations nonlabored. Clear to auscultation bilaterally, no rales, rhonchi, wheezing. CARDIOVASCULAR: Regular rate and rhythm without murmurs rubs or gallops. ABDOMINAL: Soft, nontender, nondistended, normal bowel sounds MUSCULOSKELETAL: Moves all extremities. Strength/ROM intact, No edema, No calf tenderness. NEURO: Alert. Cranial nerves II through XII intact. Good gait. Good coordination SKIN: Warm, dry. Normal Color Course Vital Signs Vital signs: Vital Signs Pulse Rate 77 03/27/24 12:27 Respiratory Rate 16 03/27/24 12:27 Blood Pressure 200/70 H 03/27/24 12:27 Pulse Oximetry 98 03/27/24 12:27 Oxygen Delivery Room Air 03/27/24 12:27 Temperature 99.7 F H 03/27/24 20:05 Pulse Rate 77 03/27/24 15:47 Respiratory Rate 18 03/27/24 20:05 Blood Pressure 174/63 H 03/27/24 20:05 Pulse Oximetry 97 03/27/24 20:05 Oxygen Delivery Room Air 03/27/24 20:00 Medical Decision Making MDM Narrative Medical decision making narrative: 79-year-old female presents emergency department for evaluation for increased generalized fatigue. Patient is afebrile but does have a leukocytosis of 10.4 and hemoglobin of 13.4. UA shows no current infection patient was negative for influenza RSV and for COVID. Chest x-ray shows no acute cardiopulmonary abnormality. Patient was treated with 1 L IV normal saline and patient reports he does feel improved but patient does still appear excessively weak, patient does not feel she is able to take care for self at home. Case was discussed with hospitalist patient was accepted for admission to [facility]. Differential Diagnosis Differential Diagnosis: Pneumonia, hyponatremia Vital Signs Vital Signs: Vital Signs Pulse Rate 77 03/27/24 12:27 Respiratory Rate 16 03/27/24 12:27 Blood Pressure 200/70 H 03/27/24 12:27 Pulse Oximetry 98 03/27/24 12:27 Oxygen Delivery Room Air 03/27/24 12:27 Temperature 99.7 F H 03/27/24 20:05 Pulse Rate 77 03/27/24 15:47 Respiratory Rate 18 03/27/24 20:05 Blood Pressure 174/63 H 03/27/24 20:05 Pulse Oximetry 97 03/27/24 20:05 Oxygen Delivery Room Air 03/27/24 20:00 Lab Data 03/27/24 12:58 03/27/24 12:58 Labs: Lab Results 03/27/24 03/27/24 Range/Units 12:58 13:38 WBC 10.4 H (4.5-10.0) K/mm3 RBC 3.99 L (4.2-5.4) M/mm3 Hgb 13.4 (12.0-15.0) g/dL Hct 37.1 (37.0-47.0) % MCV 93.0 (80-100) fl MCH 33.6 (26-34) pg MCHC 36.1 H (32-36) g/dl RDW 11.4 L (11.5-14.5) % Plt Count 219 (150-375) k/mm3 MPV 9.1 (7.4-10.4) fl Immature Gran % (Auto) 0.8 H (0-0.5) % Neut % (Auto) 73.6 H (45.5-73.1) % Lymph % (Auto) 12.2 L (18.3-44.2) % [place] % (Auto) 13.1 H (2.6-8.5) % Eos % (Auto) 0.1 (0-4.4) % Baso % (Auto) 0.2 (0.2-1.2) % Lymph # (Auto) 1.26 (0.9-3.2) K/mm3 [place] # (Auto) 1.4 H (0.1-0.6) K/mm3 Eos # (Auto) 0.0 (0-0.3) K/mm3 Baso # (Auto) 0.0 (0.0-0.1) K/mm3 Abs Immat Gran (auto) 0.08 H (0.00-0.031) K/mm3 Absolute Neuts (auto) 7.6 H (1.3-6.7) K/mm3 Absolute Nucleated RBC 0.000 (0.0-0.012) K/mm3 Nucleated RBC % 0.0 (0.0-0.2) % Sodium 123 L (137-145) mmol/L Potassium 3.3 L (3.4-5.0) mmol/L Chloride 90 L (98-107) mmol/L Carbon Dioxide 24 (22-30) mmol/L Anion Gap 9 (4-12) mmol/L BUN 11 (7-17) mg/dL Creatinine 0.50 L (0.7-1.0) mg/dL Estim Creat Clear Calc Not Reportable Estimated GFR > 60 (59 - ) Glucose 245 H (65-110) mg/dL Calcium 8.6 (8.4-10.2) mg/dL Magnesium 1.8 (1.6-2.3) mg/dL Total Bilirubin 0.9 (0.2-1.3) mg/dL AST 21 (14-36) U/L ALT 21 (6-35) U/L Alkaline Phosphatase 58 (38-126) U/L Total Protein 7.0 (6.3-8.2) g/dL Albumin 4.0 (3.5-5.1) g/dL Vitamin B12 497.0 (239-931) pg/mL Vitamin D 25-Hydroxy 36.5 ng/mL Folate 7.2 (2.76->20) ng/mL TSH (Reflex) 0.552 (0.465-4.68) uIU/mL Urine Color Yellow (Yellow) Urine Appearance Clear (Clear) Urine pH 6.5 (5.0-9.0) Ur Specific [place] 1.035 (1.001-1.035) Urine Protein 1+ H (Negative) mg/dL Urine Glucose (UA) 3+ H (Negative) mg/dL Urine Ketones 3+ H (Negative) mg/dL Ur Blood (Man) Negative (Negative) Urine Nitrate Negative (Negative) Urine Bilirubin Negative (Negative) Urine Urobilinogen 1.0 (<2.0) mg/dL Leukocyte Esterase Rfl Negative (Negative) NITIN/UL Urine RBC 3-5 H (0-2) /hpf Urine WBC 0-5 (0-3) /hpf Ur Squamous Epith Cells None seen (Few) /hpf Urine Bacteria None seen /hpf Urine Casts 0-2 Influenza A (RT-PCR) Negative (Negative) Influenza B (RT-PCR) Negative (Negative) RSV (RT-PCR) Negative (Negative) SARS-CoV-2 RNA (RT-PCR) Negative (Negative) Discharge Plan Discharge Clinical Impression: Acute hyponatremia, Weakness Patient Disposition: Still a Patient Condition: Stable
[2024-03-27 13:47] LABS: Add Urine Microscopic? YES; Appearance Urine Clear (Clear); Bacteria Urine None Seen /hpf; Bilirubin Urine Negative (Negative); Blood Urine Negative (Negative); Color Urine Yellow (Yellow); Glucose Urine UA 3+ mg/dL (Negative); Ketones Urine 3+ mg/dL (Negative); Leukocyte Esterase Ur Negative LEU/UL (Negative); Nitrate Urine Negative (Negative); Non Pathogenic Casts 0-2; Protein Urine 1+ mg/dL (Negative); Specific Grav Ur 1.035 (1.001-1.035); Squamous Epithelial Cell Urine None Seen /hpf (Few); WBC Urine 0-5 /hpf (0-3); pH Urine 6.5 (5.0-9.0)
[2024-03-27] MEDS: SODIUM CHLORIDE 0.9% IV 1,000 ML 999 ML IV CONT (13:47)
[2024-03-27 14:21] LABS: Influenza A QL RT-PCR Negative (Negative); Influenza B QL RT-PCR Negative (Negative); RSV RNA, RT-PCR Negative (Negative); SARS-CoV-2 RNA PCR Negative (Negative)
--- NOTE | 2024-03-27 16:26 | ADMGEN ---
This patient, Arti Sinclair, was admitted to 2 Medical Room 260-. Patient/family oriented to hospital policies and general routines including ID bracelet, bed and alarms, visiting hours, pain management, procedures, bathroom and other care routines, personal items, smoking policy, room service/diet, and visiting hours. Information on how to activate the Rapid Response Team has been discussed. Patient/Family are encouraged to report perceived risks to care and to ask questions if they do not understand what they are told or what they should do.
--- NOTE | 2024-03-27 17:05 | P.HP_ITS ---
H&P: HPI History of Present Illness Date/Time: 03/27/24 17:05 Chief Complaint: fatigue and weakness Narrative: This is a 79-year-old female with a significant past medical history of asthma, glaucoma, hypothyroidism, hyperlipidemia, osteoporosis, type 2 diabetes mellitus, vitamin B12 and vitamin-D deficiency who presented to the hospital for evaluation of increased generalized weakness. Patient is a poor historian and most of her history of presenting illness was obtained from the medical record. Patient was recently diagnosed and treated for a urinary tract infection in which she completed her full course of Keflex on of last week. Her urine culture read Klebsiella pneumoniae which was pansensitive. She also had history of E coli in the urine on 03/06/2022 which was relatively pansensitive. She is accompanied by her daughter states that since she finished the antibiotics she has had increased fatigue and weakness since then. Workup in the hospital included a chest x-ray which was negative for any acute cardiopulmonary disease. Initial labs shown a white blood cell count of 10.4, sodium 123, potassium 3.3, chloride 90, creatinine was low at 0.50, blood sugar 245. A UA was obtained which showed 1+ urine protein, 3+ urine glucose, 3+ urine ketone, 3-5 urine RBC, otherwise unremarkable. Respiratory panel was obtained and was negative for influenza a and B, RSV, COVID. EKG showed sinus rhythm with a rate of 68, QTC 438. Patient was given 1 L of normal saline while in the ED. Review of Systems Review of Systems: ROS unobtainable: Yes unobtainable due to mental status PMFSH Past Medical History Medical History Alopecia Asthma Decreased appetite Dementia Glaucoma History of UTI Hypothyroidism history of thyroid problems Mixed hyperlipidemia Neck pain on right side Osteoporosis Type 2 diabetes mellitus without complication, without long-term current use of insulin Vitamin B12 deficiency Vitamin D deficiency Surgical History Surgical History History of ankle surgery Total knee replacement status Family History Family History Father Heart disease Mother Colon cancer Sibling Diabetes mellitus Grandparent Colon cancer Other Asthma Carcinoma of colon Family history of coronary artery disease Family history of glaucoma Family history of osteoporosis Social History Social History Social History: Has a daughter Smoking status: Never smoker Second hand tobacco smoke exposure: No Alcohol intake: never Substance use: never Substance use type: does not use Do You Feel Safe in your Home?: Yes Lack of Transportation: No Lack of Food: Never True Current Housing: I Have Housing Concerned About Future Housing: No Difficulty Paying Gas/Electric Bills: No Difficulty Paying for Meds: No Currently Unemployed: No Education: High School Diploma/GED Difficulty w/ Childcare or Family Care: No Living arrangements: assisted living Occupation/Education: retired Gender identity (if verbalized by the patient): Female Sexual Orientation (if Verbalized by the Patient): Straight or Heterosexual Spiritual care concerns: No Agree to blood products: Yes Meds Home Medications and Allergies Home Medications Medication Instructions Recorded Confirmed Type aspirin 81 mg tablet,delayed 81 mg PO DAILY 04/10/19 03/27/24 History release (Adult Low Dose Aspirin) dorzolamide 22.3 mg-timolol 6.8 1 drop ophthalmic (eye) BID 04/10/19 03/27/24 History mg/mL eye drops (Cosopt) ergocalciferol (vitamin D2) 1,250 50,000 unit PO WEEKLY 04/10/19 03/27/24 History mcg (50,000 unit) capsule denosumab 60 mg/mL subcutaneous 60 mg subcut [id number] 02/11/21 03/27/24 History syringe (Prolia) ondansetron 4 mg disintegrating 4 mg PO Q8H PRN nausea and 04/13/22 03/27/24 Rx tablet vomiting #10 tabs donepezil 5 mg tablet (Aricept) 5 mg PO QHS #30 tabs 09/24/23 03/27/24 Rx metformin 500 mg tablet,extended 500 mg PO BID #180 tabs 12/07/23 03/27/24 Rx release 24 hr atorvastatin 20 mg tablet 20 mg PO DAILY #90 tabs 03/05/24 03/27/24 Rx acetaminophen 500 mg capsule 1,000 mg PO Q6H PRN pain #30 caps 03/20/24 03/27/24 Rx cephalexin 500 mg capsule 500 mg PO Q6H 12 days #48 caps 03/20/24 03/27/24 Rx ibuprofen 600 mg tablet 600 mg PO TID PRN pain #30 tabs 03/20/24 03/27/24 Rx bimatoprost 0.01 % eye drops 1 drp EACH EYE HS 03/27/24 03/27/24 History ([place]) Allergies Allergy/AdvReac Type Severity Reaction Status Date / Time brimonidine Allergy Severe RED EYES, Verified 03/27/24 11:43 ITCHING Vital Signs Vital Signs - 24 hr 03/27/24 12:27 03/27/24 14:46 03/27/24 12:36 Pulse Rate 77 63 Respiratory Rate 16 14 19 Blood Pressure 200/70 H 150/68 H Pulse Oximetry 98 97 96 Oxygen Delivery Room Air 03/27/24 12:38 03/27/24 13:13 03/27/24 13:15 Pulse Rate 64 65 66 Respiratory Rate 17 15 13 Blood Pressure 173/68 H Pulse Oximetry 96 98 96 Oxygen Delivery 03/27/24 13:37 03/27/24 13:45 03/27/24 13:46 Pulse Rate 91 78 72 Respiratory Rate 18 19 17 Blood Pressure 173/73 H Pulse Oximetry 98 96 96 Oxygen Delivery 03/27/24 14:00 03/27/24 14:01 03/27/24 14:15 Pulse Rate 66 66 65 Respiratory Rate 15 15 16 Blood Pressure 172/71 H Pulse Oximetry 97 98 100 Oxygen Delivery 03/27/24 14:16 03/27/24 14:30 03/27/24 14:31 Pulse Rate 68 67 68 Respiratory Rate 18 15 15 Blood Pressure 170/70 H 166/71 H Pulse Oximetry 100 98 98 Oxygen Delivery 03/27/24 14:45 03/27/24 14:46 03/27/24 15:00 Pulse Rate 67 63 66 Respiratory Rate 16 13 15 Blood Pressure 150/68 H Pulse Oximetry 96 97 99 Oxygen Delivery 03/27/24 15:01 03/27/24 15:18 03/27/24 15:34 Pulse Rate 76 61 73 Respiratory Rate 14 14 14 Blood Pressure 142/68 H Pulse Oximetry 97 100 Oxygen Delivery 03/27/24 15:47 Pulse Rate 77 Respiratory Rate 18 Blood Pressure Pulse Oximetry Oxygen Delivery Exam Narrative: General: In no acute distress, well nourished Head: atraumatic, no encephalopathy Eyes: PERRLA, sclera clear ENT: moist mucous membranes, nasal passages clear Neck: supple, no JVD, no adenopathy, trachea midline Cardiac: Normal S1 and S2. No murmur, gallops or friction rubs, peripheral pulses intact. Respiratory: Lungs clear to auscultation, no adventitious lung sounds, currently on room air Gastrointestinal: soft, non-distended, non-tender, normoactive bowel sounds. : voiding without difficulty. Extremities: moves all extremities well, no edema Skin: clean, dry, intact. No wounds or lesions. Neuro: Alert to voice and confused psych: unable to truly assess due to her mental status H&P: Results Labs Labs: Short CBC 03/27/24 Range/Units 12:58 WBC 10.4 H (4.5-10.0) K/mm3 Hgb 13.4 (12.0-15.0) g/dL Hct 37.1 (37.0-47.0) % Plt Count 219 (150-375) k/mm3 BMP 03/27/24 12:58 Sodium 123 L Potassium 3.3 L Chloride 90 L Carbon Dioxide 24 BUN 11 Creatinine 0.50 L Glucose 245 H Calcium 8.6 Liver Function 03/27/24 Range/Units 12:58 Total Bilirubin 0.9 (0.2-1.3) mg/dL AST 21 (14-36) U/L ALT 21 (6-35) U/L Alkaline Phosphatase 58 (38-126) U/L Albumin 4.0 (3.5-5.1) g/dL Urine 03/27/24 Range/Units 13:38 Urine Color Yellow (Yellow) Urine Appearance Clear (Clear) Urine pH 6.5 (5.0-9.0) Ur Specific [place] 1.035 (1.001-1.035) Urine Protein 1+ H (Negative) mg/dL Urine Glucose (UA) 3+ H (Negative) mg/dL Imaging Chest x-ray: Radiologist's impression: EXAMINATION: XR chest 1V portable DATE: 03/27/2024 14:04 INDICATION: Weakness TECHNIQUE: frontal view of the chest was obtained. COMPARISON: Chest radiograph dated 05/23/2023 FINDINGS: Patient is rotated slightly towards the right. Costochondral calcifications project over the medial right lower lung zone. No other airspace opacities, pulmonary edema, pleural effusion or pneumothorax. Cardiomediastinal silhouette is normal. IMPRESSION: 1. No acute cardiopulmonary disease. Reviewed, dictated and finalized at location B. OMER ORDERS CLERK Assessment and Plan Assessment and plan (1) Weakness: Code(s): R53.1 - Weakness Status: Acute Assessment and Plan: * increased fatigue and weakness since Monday of last week after finishing a full course Keflex for urinary tract infection * PT and OT ordered * Will check vitamin D and vitamin B12 levels * will also check urine culture to assure that her UTI cleared completely, her UA did not reflux culture this admission * chest x-ray was negative for any acute cardiopulmonary disease * respiratory panel negative * UA was negative for nitrates or leukocytes * TSH 0.552 (2) Abnormal finding on urinalysis: Code(s): R82.90 - Unspecified abnormal findings in urine Status: Acute Assessment and Plan: * UA showed 1+ urine protein, 3+ urine glucose, 3+ urine ketone, 3-5 urine RBC, negative leukocytes and negative nitrates. * Patient was just treated for UTI with urine culture showed Klebsiella pneumoniae which was pansensitive. She was on a course of Keflex which she finished on of last week. * We will go ahead and get a urine culture to assure that it is cleared completely (3) Hyponatremia: Code(s): E87.1 - Hypo-osmolality and hyponatremia Status: Acute Assessment and Plan: * Acute, could be due to dehydration vrs tea and toast * sodium 123, chloride 90 * patient was given 1 L of normal saline while in the ED * will check urine sodium, urine osmolarity, serum osmolarity * will hold off on fluid restriction considering she has had a decreased appetite and oral intake. (4) Hypokalemia: Code(s): E87.6 - Hypokalemia Status: Acute Assessment and Plan: * potassium 3.3 * will give 40 mEq of potassium now * continue to trend (5) Vitamin D deficiency: Code(s): E55.9 - Vitamin D deficiency, unspecified Status: Chronic Assessment and Plan: * currently on vitamin D 14607 units weekly * vitamin-D level 36.5 (6) Vitamin B12 deficiency: Code(s): E53.8 - Deficiency of other specified B group vitamins Status: Chronic Assessment and Plan: * vitamin B12 level 497 (7) Mixed hyperlipidemia: Code(s): E78.2 - Mixed hyperlipidemia Status: Chronic Assessment and Plan: * continue aspirin and atorvastatin (8) Dementia: Code(s): F03.90 - Unspecified dementia, unspecified severity, without behavioral disturbance, psychotic disturbance, mood disturbance, and anxiety Status: Chronic Assessment and Plan: * continue Aricept (9) Osteoporosis: Code(s): M81.0 - Age-related osteoporosis without current pathological fracture Status: Chronic Assessment and Plan: * currently on Prolia can weaken the immune system Quality VTE Prophylaxis VTE prophylaxis: pharmacologic ordered Hospitalist MIPS Advance Care Plan I have confirmed that the patient's Advanced Care Plan is present, code status is documented, or surrogate decision maker is listed in patient medical record.: Yes Medication Reconciliation I have utilized all available resources to obtain, update and review the patients current medications (includes all prescriptions, OTC, herbals, cannabis, and nutritional supplements).: Yes
[2024-03-27] MEDS: POTASSIUM CHLORIDE 20 MEQ ER TABLET 40 MEQ PO (17:48)
[2024-03-27 17:56] LABS: Vitamin D 25 Hydroxy 36.5 ng/mL
[2024-03-27 18:09] LABS: Thyroid Stimulating Hormone Reflex 0.552 uIU/mL (0.465-4.68)
[2024-03-27 18:27] LABS: Magnesium 1.8 mg/dL (1.6-2.3)
[2024-03-27 19:34] LABS: Folic Acid 7.2 ng/mL (2.76->20)
[2024-03-27 20:09] LABS: Sodium Urine Random 89 meq/L
[2024-03-27] MEDS: INSULIN ASPART (*BKC) 100 UNITS/ML SUB-Q (20:19)
[2024-03-27] MEDS: DONEPEZIL HCL 5 MG TABLET PO (20:20)
[2024-03-27] MEDS: DORZOLAMIDE/TIMOLOL OPHTH SOL 10 ML BOTTLE 1 DROP EACH EYE (20:20)
[2024-03-27 21:04] LABS: Hemoglobin A1C 9.8 % (<5.7)
[2024-03-27 21:09] LABS: Glucose Point of Care 246 mg/dl (65-105)
[2024-03-27] MEDS: ACETAMINOPHEN 325 MG TABLET 650 MG PO (21:27)
[2024-03-28] VITALS (7 sets, daily range): BP systolic 159–182; BP diastolic 62–86; PULSE 64–77; RESP 16–20; TEMP 36.4–36.7; O2SAT 96–98
[2024-03-28] MEDS: ACETAMINOPHEN 325 MG TABLET 650 MG PO ×2 (04:49→11:17)
[2024-03-28 06:16] LABS: Basophils Percent Auto 0.4 % (0.2-1.2); Eosinophils Percent Auto 0.4 % (0-4.4); Hematocrit 35.6 % (37.0-47.0); Hemoglobin 12.4 g/dL (12.0-15.0); Immature Granulocyte Absolute 0.07 K/mm3 (0.00-0.031); Immature Granulocyte Percent A 0.7 % (0-0.5); Lymphocytes Absolute Auto 1.61 K/mm3 (0.9-3.2); Lymphocytes Percent Auto 17.1 % (18.3-44.2); Mean Corpuscular HGB Conc 34.8 g/dl (32-36); Mean Corpuscular Hemoglobin 32.6 pg (26-34); Mean Corpuscular Volume 93.7 fl (80-100); Mean Platelet Volume 8.9 fl (7.4-10.4); Monocytes Absolute Auto 1.4 K/mm3 (0.1-0.6); Monocytes Percent Auto 15.1 % (2.6-8.5); Neutrophils Absolute Auto 6.2 K/mm3 (1.3-6.7); Neutrophils Percent Auto 66.3 % (45.5-73.1); Platelet Count Result 217 k/mm3 (150-375); Red Cell Distribution Width 11.4 % (11.5-14.5); White Blood Count 9.4 K/mm3 (4.5-10.0)
[2024-03-28 06:41] LABS: Alanine Aminotransferase 18 U/L (6-35); Albumin Level 3.5 g/dL (3.5-5.1); Alkaline Phosphatase 55 U/L (38-126); Anion Gap 7 mmol/L (4-12); Aspartate Amino Transferase 20 U/L (14-36); Bilirubin,Total 1.1 mg/dL (0.2-1.3); Blood Urea Nitrogen 7 mg/dL (7-17); Calcium 8.1 mg/dL (8.4-10.2); Carbon Dioxide 23 mmol/L (22-30); Chloride 96 mmol/L (98-107); Estimated CRCL calculation 99 ml/min; Estimated Glomerular Filt Rate > 60; Glucose 199 mg/dL (65-110); Magnesium 1.9 mg/dL (1.6-2.3); Potassium 3.3 mmol/L (3.4-5.0); Sodium 126 mmol/L (137-145)
[2024-03-28] MEDS: POTASSIUM CHLORIDE 20 MEQ ER TABLET 40 MEQ PO (08:17)
[2024-03-28] MEDS: IBUPROFEN 400 MG TABLET PO ×2 (08:18→16:23)
[2024-03-28] MEDS: ASPIRIN 81 MG ENTERIC TABLET PO (08:18)
[2024-03-28] MEDS: ATORVASTATIN 20 MG TABLET PO (08:18)
[2024-03-28] MEDS: DORZOLAMIDE/TIMOLOL OPHTH SOL 10 ML BOTTLE 1 DROP EACH EYE (08:19)
[2024-03-28] MEDS: ERGOCALCIFEROL 50,000 UNITS CAPSULE 50000 UNITS PO (08:19)
[2024-03-28] MEDS: ENOXAPARIN 40 MG/0.4 ML SYRINGE SUB-Q (08:19)
[2024-03-28 08:47] LABS: Glucose Point of Care 212 mg/dl (65-105)
[2024-03-28] MEDS: INSULIN ASPART (*BKC) 100 UNITS/ML SUB-Q (08:59)
--- NOTE | 2024-03-28 09:59 | P.PNIM_ITS ---
Progress Note: A&P Assessment and Plan (1) Weakness: Code(s): R53.1 - Weakness Status: Acute Assessment and Plan: * increased fatigue and weakness since Monday of last week after finishing a full course Keflex for urinary tract infection * PT and OT ordered * Will check vitamin D and vitamin B12 levels * will also check urine culture to assure that her UTI cleared completely, her UA did not reflux culture this admission * chest x-ray was negative for any acute cardiopulmonary disease * respiratory panel negative * UA was negative for nitrates or leukocytes * TSH 0.552 * NS @ 75 ml/hr. * Blood cultures No growth to date. (2) Abnormal finding on urinalysis: Code(s): R82.90 - Unspecified abnormal findings in urine Status: Acute Assessment and Plan: * UA showed 1+ urine protein, 3+ urine glucose, 3+ urine ketone, 3-5 urine RBC, negative leukocytes and negative nitrates. * Patient was just treated for UTI with urine culture showed Klebsiella pneumoniae which was pansensitive. She was on a course of Keflex which she finished on of last week. * We will go ahead and get a urine culture to assure that it is cleared completely (3) Headache: Code(s): R51.9 - Headache, unspecified Status: Acute Assessment and Plan: * Patient reports headache to right side of top of head down right side, pain is a 10 , constant, and aching. * Head CT showed a normal aging brain and no acute intracranial process, chronic left sphenoid sinusitis. * Tylenol 650 mg PO q 4 PRN. * Ibuprofen 400 mg PO q 6 PRN. * Ketorlac 15 mg IVP x1. (4) Hyponatremia: Code(s): E87.1 - Hypo-osmolality and hyponatremia Status: Acute Assessment and Plan: * Acute, could be due to dehydration vs tea and toast * sodium 126, chloride 96 * patient was given 1 L of normal saline while in the ED * will check urine sodium, urine osmolarity, serum osmolarity * NS @ 75 ml/hr. (5) Hypokalemia: Code(s): E87.6 - Hypokalemia Status: Acute Assessment and Plan: * potassium 3.3 * will give 40 mEq of potassium now * continue to trend (6) Hypertension: Code(s): I10 - Essential (primary) hypertension Status: Acute Assessment and Plan: * Start Procardia XL 30 mg PO daily * Hydralazine 20 mg ivp for systolic >180. * Monitor blood pressure. (7) Chronic sphenoidal sinusitis: Code(s): J32.3 - Chronic sphenoidal sinusitis Status: Chronic Assessment and Plan: * Augmentin 875-125 mg PO q12. (8) Vitamin D deficiency: Code(s): E55.9 - Vitamin D deficiency, unspecified Status: Chronic Assessment and Plan: * currently on vitamin D 07781 units weekly * vitamin-D level 36.5 (9) Vitamin B12 deficiency: Code(s): E53.8 - Deficiency of other specified B group vitamins Status: Chronic Assessment and Plan: * continue aspirin and atorvastatin (10) Dementia: Code(s): F03.90 - Unspecified dementia, unspecified severity, without behavioral disturbance, psychotic disturbance, mood disturbance, and anxiety Status: Chronic Assessment and Plan: * continue Aricept (11) Mixed hyperlipidemia: Code(s): E78.2 - Mixed hyperlipidemia Status: Chronic Assessment and Plan: * continue aspirin and atorvastatin Subjective Date/time seen: 03/28/24 09:59 Interval history: Patient reports headache to right side of top of head down right side, pain is a 10 , constant, and aching. Head CT showed a normal aging brain and no acute intracranial process, chronic left sphenoid sinusitis. Patient denies nausea, vomiting, dizziness, or shortness of breath. Review of Systems Review of Systems: All systems reviewed & are unremarkable except as noted in HPI and below Exam Const: General: uncomfortable Resp: Effort & Inspection: normal respiratory effort Auscultation: clear to auscultation bilaterally Cardio: Rate: regular rate Rhythm: regular rhythm GI: GI Palp: Yes Soft to palpation Auscultation: normal bowel sounds Neuro: Speech: normal speech Extrem: General: normal to inspection Psych: Other: Memory loss. Alert to self. Objective Data Vital Signs Vital Signs: Vital Signs - 24 hr 03/27/24 12:27 03/27/24 14:46 03/27/24 12:36 Temperature Pulse Rate 77 63 Respiratory Rate 16 14 19 Blood Pressure 200/70 H 150/68 H Pulse Oximetry 98 97 96 Oxygen Delivery Room Air 03/27/24 12:38 03/27/24 13:13 03/27/24 13:15 Temperature Pulse Rate 64 65 66 Respiratory Rate 17 15 13 Blood Pressure 173/68 H Pulse Oximetry 96 98 96 Oxygen Delivery 03/27/24 13:37 03/27/24 13:45 03/27/24 13:46 Temperature Pulse Rate 91 78 72 Respiratory Rate 18 19 17 Blood Pressure 173/73 H Pulse Oximetry 98 96 96 Oxygen Delivery 03/27/24 14:00 03/27/24 14:01 03/27/24 14:15 Temperature Pulse Rate 66 66 65 Respiratory Rate 15 15 16 Blood Pressure 172/71 H Pulse Oximetry 97 98 100 Oxygen Delivery 03/27/24 14:16 03/27/24 14:30 03/27/24 14:31 Temperature Pulse Rate 68 67 68 Respiratory Rate 18 15 15 Blood Pressure 170/70 H 166/71 H Pulse Oximetry 100 98 98 Oxygen Delivery 03/27/24 14:45 03/27/24 14:46 03/27/24 15:00 Temperature Pulse Rate 67 63 66 Respiratory Rate 16 13 15 Blood Pressure 150/68 H Pulse Oximetry 96 97 99 Oxygen Delivery 03/27/24 15:01 03/27/24 15:18 03/27/24 15:34 Temperature Pulse Rate 76 61 73 Respiratory Rate 14 14 14 Blood Pressure 142/68 H Pulse Oximetry 97 100 Oxygen Delivery 03/27/24 15:47 03/27/24 20:00 03/27/24 20:05 Temperature 99.7 F H Pulse Rate 77 Respiratory Rate 18 18 Blood Pressure 174/63 H Pulse Oximetry 97 Oxygen Delivery Room Air 03/28/24 06:27 03/28/24 09:13 Temperature 98 F Pulse Rate 77 Respiratory Rate 20 Blood Pressure 159/62 H Pulse Oximetry 97 98 Oxygen Delivery Room Air Intake/Output Intake/Output: Intake & Output 03/25/24 03/26/24 03/27/24 03/28/24 23:59 23:59 23:59 23:59 Intake Total 1240 390 Output Total 400 Balance 840 390 Meds/Results Medications: Active Medications Generic Name Dose Route Start Last Admin Trade Name Freq PRN Reason Stop Dose Admin Acetaminophen 650 mg 03/27/24 15:10 03/28/24 04:49 Acetaminophen 325 Mg Tablet PO 650 mg Q4H PRN Administration Mild Pain (1-3) or Fever Aspirin 81 mg 03/28/24 09:00 03/28/24 08:18 Aspirin 81 Mg Enteric Tablet PO 81 mg DAILY [place] Administration Atorvastatin Calcium 20 mg 03/28/24 09:00 03/28/24 08:18 Atorvastatin 20 Mg Tablet PO 20 mg DAILY [place] Administration Dextrose 12.5 gm 03/27/24 17:16 Dextrose 50% 25 Gm/50 Ml Syringe IV PUSH PRN PRN Hypoglycemia Protocol Donepezil HCl 5 mg 03/27/24 21:00 03/27/24 20:20 Donepezil Hcl 5 Mg Tablet PO 5 mg QHS [place] Administration Dorzolamide/Timolol 1 drop 03/27/24 21:00 03/28/24 08:19 Dorzolamide/Timolol Ophth Bev 10 Ml Bottle EACH EYE 1 drop Q12HR [place] Administration Enoxaparin Sodium 40 mg 03/28/24 09:00 03/28/24 08:19 Enoxaparin 40 Mg/0.4 Ml Syringe SUB-Q 40 mg DAILY [place] Administration Ergocalciferol 50,000 units 03/28/24 09:00 03/28/24 08:19 Ergocalciferol 50,000 Units Capsule PO 50,000 units WEEKLY [place] Administration Glucagon 1 mg 03/27/24 17:16 Glucagon For Inj 1 Mg Vial IM PRN PRN Hypoglycemia Protocol Glucose 15 gm 03/27/24 17:16 Glucose Oral Gel 15 Gm Of Glucse In 37.5 Gm Tube PO PRN PRN Hypoglycemia Protocol Hydralazine HCl 10 mg 03/28/24 09:58 Hydralazine 10 Mg Tablet PO 03/28/24 09:59 ONCE ONE Dextrose 1,000 mls @ 100 mls/hr 03/27/24 17:16 Dextrose 5% 1,000 Ml IVPB PRN PRN Hypoglycemia Protocol Sodium Chloride 1,000 mls @ 75 mls/hr 03/28/24 09:55 Normal Saline Iv IV CONT .[id number] [place] Ibuprofen 400 mg 03/28/24 07:30 03/28/24 08:18 Ibuprofen 400 Mg Tablet PO 400 mg Q6H PRN Administration Pain Rated 4-6 Insulin Aspart 4 - 8 units 03/28/24 08:00 03/28/24 08:59 Insulin Aspart (*Bkc) 100 Units/Ml SUB-Q 4 units TIDWM [place] Administration Protocol Insulin Aspart 2 - 4 units 03/27/24 21:00 03/27/24 20:19 Insulin Aspart (*Bkc) 100 Units/Ml SUB-Q 2 units HS [facility] Administration Protocol Ondansetron HCl 4 mg 03/27/24 15:10 Ondansetron Inj 4 Mg/2 Ml Vial IV PUSH Q6H PRN Nausea And Vomiting Radiology Results: ITS Impressions Chest X-Ray 03/27/24 14:12 IMPRESSION: 1. No acute cardiopulmonary disease. Labs Labs: Laboratory Results - last 24 hr 03/27/24 03/27/24 03/27/24 12:58 13:38 17:50 WBC 10.4 H RBC 3.99 L Hgb 13.4 Hct 37.1 MCV 93.0 MCH 33.6 MCHC 36.1 H RDW 11.4 L Plt Count 219 MPV 9.1 Immature Gran % (Auto) 0.8 H Neut % (Auto) 73.6 H Lymph % (Auto) 12.2 L [place] % (Auto) 13.1 H Eos % (Auto) 0.1 Baso % (Auto) 0.2 Lymph # (Auto) 1.26 [place] # (Auto) 1.4 H Eos # (Auto) 0.0 Baso # (Auto) 0.0 Abs Immat Gran (auto) 0.08 H Absolute Neuts (auto) 7.6 H Absolute Nucleated RBC 0.000 Nucleated RBC % 0.0 Sodium 123 L Potassium 3.3 L Chloride 90 L Carbon Dioxide 24 Anion Gap 9 BUN 11 Creatinine 0.50 L Estim Creat Clear Calc Not Reportable Estimated GFR > 60 Glucose 245 H POC Capillary Glucose Hemoglobin A1c 9.8 H Calcium 8.6 Magnesium 1.8 Total Bilirubin 0.9 AST 21 ALT 21 Alkaline Phosphatase 58 Total Protein 7.0 Albumin 4.0 Vitamin B12 497.0 Vitamin D 25-Hydroxy 36.5 Folate 7.2 TSH (Reflex) 0.552 Urine Color Yellow Urine Appearance Clear Urine pH 6.5 Ur Specific [place] 1.035 Urine Protein 1+ H Urine Glucose (UA) 3+ H Urine Ketones 3+ H Ur Blood (Man) Negative Urine Nitrate Negative Urine Bilirubin Negative Urine Urobilinogen 1.0 Leukocyte Esterase Rfl Negative Urine RBC 3-5 H Urine WBC 0-5 Ur Squamous Epith Cells None seen Urine Bacteria None seen Urine Casts 0-2 Ur Random Sodium Influenza A (RT-PCR) Negative Influenza B (RT-PCR) Negative RSV (RT-PCR) Negative SARS-CoV-2 RNA (RT-PCR) Negative 03/27/24 03/27/24 03/28/24 19:34 20:05 06:06 WBC 9.4 RBC 3.80 L Hgb 12.4 Hct 35.6 L MCV 93.7 MCH 32.6 MCHC 34.8 RDW 11.4 L Plt Count 217 MPV 8.9 Immature Gran % (Auto) 0.7 H Neut % (Auto) 66.3 Lymph % (Auto) 17.1 L [place] % (Auto) 15.1 H Eos % (Auto) 0.4 Baso % (Auto) 0.4 Lymph # (Auto) 1.61 [place] # (Auto) 1.4 H Eos # (Auto) 0.0 Baso # (Auto) 0.0 Abs Immat Gran (auto) 0.07 H Absolute Neuts (auto) 6.2 Absolute Nucleated RBC 0.000 Nucleated RBC % 0.0 Sodium 126 L Potassium 3.3 L Chloride 96 L Carbon Dioxide 23 Anion Gap 7 BUN 7 Creatinine 0.40 L Estim Creat Clear Calc 99 Estimated GFR > 60 Glucose 199 H POC Capillary Glucose 246 H Hemoglobin A1c Calcium 8.1 L Magnesium 1.9 Total Bilirubin 1.1 AST 20 ALT 18 Alkaline Phosphatase 55 Total Protein 6.0 L Albumin 3.5 Vitamin B12 Vitamin D 25-Hydroxy Folate TSH (Reflex) Urine Color Urine Appearance Urine pH Ur Specific [place] Urine Protein Urine Glucose (UA) Urine Ketones Ur Blood (Man) Urine Nitrate Urine Bilirubin Urine Urobilinogen Leukocyte Esterase Rfl Urine RBC Urine WBC Ur Squamous Epith Cells Urine Bacteria Urine Casts Ur Random Sodium 89 Influenza A (RT-PCR) Influenza B (RT-PCR) RSV (RT-PCR) SARS-CoV-2 RNA (RT-PCR) 03/28/24 08:44 WBC RBC Hgb Hct MCV MCH MCHC RDW Plt Count MPV Immature Gran % (Auto) Neut % (Auto) Lymph % (Auto) [place] % (Auto) Eos % (Auto) Baso % (Auto) Lymph # (Auto) [place] # (Auto) Eos # (Auto) Baso # (Auto) Abs Immat Gran (auto) Absolute Neuts (auto) Absolute Nucleated RBC Nucleated RBC % Sodium Potassium Chloride Carbon Dioxide Anion Gap BUN Creatinine Estim Creat Clear Calc Estimated GFR Glucose POC Capillary Glucose 212 H Hemoglobin A1c Calcium Magnesium Total Bilirubin AST ALT Alkaline Phosphatase Total Protein Albumin Vitamin B12 Vitamin D 25-Hydroxy Folate TSH (Reflex) Urine Color Urine Appearance Urine pH Ur Specific [place] Urine Protein Urine Glucose (UA) Urine Ketones Ur Blood (Man) Urine Nitrate Urine Bilirubin Urine Urobilinogen Leukocyte Esterase Rfl Urine RBC Urine WBC Ur Squamous Epith Cells Urine Bacteria Urine Casts Ur Random Sodium Influenza A (RT-PCR) Influenza B (RT-PCR) RSV (RT-PCR) SARS-CoV-2 RNA (RT-PCR) Quality VTE Prophylaxis VTE prophylaxis: pharmacologic ordered
[2024-03-28] MEDS: SODIUM CHLORIDE 0.9% IV 1,000 ML 75 ML IV CONT (11:18)
[2024-03-28] MEDS: hydrALAZINE 10 MG TABLET PO (11:18)
[2024-03-28 11:58] LABS: Glucose Point of Care 189 mg/dl (65-105)
[2024-03-28 13:18] LABS: Osmolality, Urine 718 mOsm/kg (50-1200)
--- NOTE | 2024-03-28 14:39 | PCPTNOTE ---
Attempted PT evaluation, pt refused due to having a headache. Nursing present for refusal. Will follow.
[2024-03-28] MEDS: NIFEdipine 30 MG TAB.ER.24 PO (16:23)
[2024-03-28] MEDS: KETOROLAC 15 MG/ML VIAL (*BKC) IV PUSH (16:23)
[2024-03-28 17:49] LABS: Glucose Point of Care 165 mg/dl (65-105)
[2024-03-28] MEDS: DONEPEZIL HCL 5 MG TABLET PO (20:14)
[2024-03-28] MEDS: traMADol HCL (*CRX) 25 MG TABLET PO (20:14)
[2024-03-28] MEDS: AMOXICILLIN/CLAVULANATE K 875-125 MG TAB 1 TABLET PO (20:15)
[2024-03-28 22:03] LABS: Glucose Point of Care 195 mg/dl (65-105)
[2024-03-29] MEDS: SODIUM CHLORIDE 0.9% IV 1,000 ML 75 ML IV CONT (01:06)
--- NOTE | 2024-03-29 03:33 | PC.NURSE ---
charting reviewed for Lindy Partida RNLP for this shift
[2024-03-29] MEDS: traMADol HCL (*CRX) 25 MG TABLET PO ×2 (03:57→17:17)
[2024-03-29] MEDS: ACETAMINOPHEN 325 MG TABLET 650 MG PO ×3 (03:58→20:23)
[2024-03-29 06:14] VITALS: BP 149/61; PULSE 67; RESP 18; TEMP 36.8; O2SAT 97
[2024-03-29 06:24] LABS: Basophils Percent Auto 0.4 % (0.2-1.2); Eosinophils Absolute Auto 0.1 K/mm3 (0-0.3); Eosinophils Percent Auto 0.6 % (0-4.4); Hematocrit 38.9 % (37.0-47.0); Hemoglobin 13.6 g/dL (12.0-15.0); Immature Granulocyte Percent A 0.9 % (0-0.5); Lymphocytes Absolute Auto 1.56 K/mm3 (0.9-3.2); Lymphocytes Percent Auto 14.2 % (18.3-44.2); Mean Corpuscular Hemoglobin 32.8 pg (26-34); Mean Corpuscular Volume 93.7 fl (80-100); Mean Platelet Volume 8.8 fl (7.4-10.4); Monocytes Absolute Auto 1.3 K/mm3 (0.1-0.6); Monocytes Percent Auto 12.2 % (2.6-8.5); Neutrophils Absolute Auto 7.9 K/mm3 (1.3-6.7); Neutrophils Percent Auto 71.7 % (45.5-73.1); Platelet Count Result 245 k/mm3 (150-375); Red Blood Count 4.15 M/mm3 (4.2-5.4); Red Cell Distribution Width 11.3 % (11.5-14.5)
[2024-03-29 06:35] LABS: Alanine Aminotransferase 18 U/L (6-35); Albumin Level 3.6 g/dL (3.5-5.1); Alkaline Phosphatase 58 U/L (38-126); Anion Gap 10 mmol/L (4-12); Aspartate Amino Transferase 22 U/L (14-36); Bilirubin,Total 1.1 mg/dL (0.2-1.3); Blood Urea Nitrogen 7 mg/dL (7-17); Carbon Dioxide 17 mmol/L (22-30); Chloride 95 mmol/L (98-107); Estimated CRCL calculation 126 ml/min; Estimated Glomerular Filt Rate > 60; Glucose 186 mg/dL (65-110); Magnesium 1.9 mg/dL (1.6-2.3); Potassium 3.1 mmol/L (3.4-5.0); Sodium 122 mmol/L (137-145)
[2024-03-29 07:56] LABS: Glucose Point of Care 182 mg/dl (65-105)
[2024-03-29] MEDS: AMOXICILLIN/CLAVULANATE K 875-125 MG TAB 1 TABLET PO ×2 (08:53→20:23)
[2024-03-29] MEDS: ASPIRIN 81 MG ENTERIC TABLET PO (08:53)
[2024-03-29] MEDS: NIFEdipine 30 MG TAB.ER.24 PO (08:53)
[2024-03-29] MEDS: POTASSIUM CHLORIDE 20 MEQ ER TABLET 40 MEQ PO ×2 (08:54→17:17)
[2024-03-29] MEDS: ENOXAPARIN 40 MG/0.4 ML SYRINGE SUB-Q (08:54)
[2024-03-29] MEDS: ATORVASTATIN 20 MG TABLET PO (08:54)
[2024-03-29] MEDS: DORZOLAMIDE/TIMOLOL OPHTH SOL 10 ML BOTTLE 1 DROP EACH EYE ×2 (08:55→20:25)
--- NOTE | 2024-03-29 10:47 | P.PNIM_ITS ---
Progress Note: A&P Assessment and Plan (1) Weakness: Code(s): R53.1 - Weakness Status: Acute Assessment and Plan: * increased fatigue and weakness since Monday of last week after finishing a full course Keflex for urinary tract infection * PT and OT ordered * Will check vitamin D and vitamin B12 levels * will also check urine culture to assure that her UTI cleared completely, her UA did not reflux culture this admission * chest x-ray was negative for any acute cardiopulmonary disease * respiratory panel negative * UA was negative for nitrates or leukocytes * TSH 0.552 * Blood cultures No growth to date. (2) Abnormal finding on urinalysis: Code(s): R82.90 - Unspecified abnormal findings in urine Status: Acute Assessment and Plan: * UA showed 1+ urine protein, 3+ urine glucose, 3+ urine ketone, 3-5 urine RBC, negative leukocytes and negative nitrates. * Patient was just treated for UTI with urine culture showed Klebsiella pneumoniae which was pansensitive. She was on a course of Keflex which she finished on of last week. * We will go ahead and get a urine culture to assure that it is cleared completely (3) Headache: Code(s): R51.9 - Headache, unspecified Status: Acute Assessment and Plan: * Patient reports headache to right side of top of head down right side, pain is a 10 , constant, and aching. * Head CT showed a normal aging brain and no acute intracranial process, chronic left sphenoid sinusitis. * Tylenol 650 mg PO q 4 PRN. * Tramadol 25 mg PO q 6 PRN. (4) Hyponatremia: Code(s): E87.1 - Hypo-osmolality and hyponatremia Status: Acute Assessment and Plan: * Acute, could be due to dehydration vs tea and toast * sodium 121, chloride 91 * patient was given 1 L of normal saline while in the ED * urine sodium 89, urine osmolarity 718, serum osmolarity pending. * Stopped IV fluids * Fluid restriction 1500 ml * Nephrology consult (5) Hypokalemia: Code(s): E87.6 - Hypokalemia Status: Acute Assessment and Plan: * potassium 3.1. Patient given Potassium Chloride 40 meq PO x1. Repeat potassium 3.4, additional Potassium Chloride 40 meq PO given. * continue to trend (6) Hypertension: Code(s): I10 - Essential (primary) hypertension Status: Acute Assessment and Plan: * Start Procardia XL 30 mg PO daily * Hydralazine 20 mg ivp for systolic >180. * Blood pressure 149/61. * Monitor blood pressure. (7) Chronic sphenoidal sinusitis: Code(s): J32.3 - Chronic sphenoidal sinusitis Status: Chronic Assessment and Plan: * Augmentin 875-125 mg PO q12. (8) Constipation: Code(s): K59.00 - Constipation, unspecified Status: Acute Assessment and Plan: * KUB showed Moderate amount of stool scattered throughout the colon with large amount of gas in the proximal colon. * Added Miralax 17 gm PO daily, Docusate 100 mg PO q12 PRN, and Simethicone 80 mg PO BID. (9) Vitamin D deficiency: Code(s): E55.9 - Vitamin D deficiency, unspecified Status: Chronic Assessment and Plan: * currently on vitamin D 31644 units weekly * vitamin-D level 36.5 (10) Vitamin B12 deficiency: Code(s): E53.8 - Deficiency of other specified B group vitamins Status: Chronic Assessment and Plan: * continue aspirin and atorvastatin (11) Dementia: Code(s): F03.90 - Unspecified dementia, unspecified severity, without behavioral disturbance, psychotic disturbance, mood disturbance, and anxiety Status: Chronic Assessment and Plan: * continue Aricept (12) Mixed hyperlipidemia: Code(s): E78.2 - Mixed hyperlipidemia Status: Chronic Assessment and Plan: * continue aspirin and atorvastatin Subjective Date/time seen: 03/29/24 10:47 Interval history: Patient reports headache that is a 5 on right side of head, aching, and constant. Daughter does not think that patient has had a bowel movement in a week, son reports patient has not been eating much. Patient denies nausea, vomit ing, chest pain, palpitations, or shortness of breath. Review of Systems Review of Systems: All systems reviewed & are unremarkable except as noted in HPI and below Exam Const: General: no acute distress and uncomfortable Resp: Effort & Inspection: normal respiratory effort Auscultation: clear to auscultation bilaterally Cardio: Rate: regular rate Rhythm: regular rhythm GI: Inspection: distended GI Palp: No Tenderness to palpation present (GI) Other: hypoactive bowel sounds. semi firm Neuro: Speech: normal speech Extrem: General: normal to inspection Psych: Other: Memory loss. Alert to self. Objective Data Vital Signs Vital Signs: Vital Signs - 24 hr 03/28/24 15:07 03/28/24 16:00 03/28/24 21:01 Temperature 97.6 F 97.7 F 98.1 F Pulse Rate 66 64 69 Respiratory Rate 18 18 16 Blood Pressure 176/78 H 164/68 H Pulse Oximetry 97 97 96 Oxygen Delivery 03/28/24 23:15 03/28/24 20:00 03/29/24 06:14 Temperature 98.3 F Pulse Rate 67 Respiratory Rate 18 Blood Pressure 182/86 H 149/61 H Pulse Oximetry 97 Oxygen Delivery Room Air 03/29/24 08:55 Temperature Pulse Rate Respiratory Rate Blood Pressure Pulse Oximetry Oxygen Delivery Room Air Intake/Output Intake/Output: Intake & Output 03/26/24 03/27/24 03/28/24 03/29/24 23:59 23:59 23:59 23:59 Intake Total 1240 1300 1390 Output Total 400 400 Balance 773 108 0178 Meds/Results Medications: Active Medications Generic Name Dose Route Start Last Admin Trade Name Freq PRN Reason Stop Dose Admin Acetaminophen 650 mg 03/27/24 15:10 03/29/24 08:54 Acetaminophen 325 Mg Tablet PO 650 mg Q4H PRN Administration Mild Pain (1-3) or Fever Amoxicillin/Clavulanate Potassium 1 tablet 03/28/24 21:00 03/29/24 08:53 Amoxicillin/Clavulanate K 875-125 Mg Tab PO 04/04/24 20:59 1 tablet Q12HR [place] Administration Aspirin 81 mg 03/28/24 09:00 03/29/24 08:53 Aspirin 81 Mg Enteric Tablet PO 81 mg DAILY [place] Administration Atorvastatin Calcium 20 mg 03/28/24 09:00 03/29/24 08:54 Atorvastatin 20 Mg Tablet PO 20 mg DAILY [place] Administration Dextrose 12.5 gm 03/27/24 17:16 Dextrose 50% 25 Gm/50 Ml Syringe IV PUSH PRN PRN Hypoglycemia Protocol Donepezil HCl 5 mg 03/27/24 21:00 03/28/24 20:14 Donepezil Hcl 5 Mg Tablet PO 5 mg QHS [place] Administration Dorzolamide/Timolol 1 drop 03/27/24 21:00 03/29/24 08:55 Dorzolamide/Timolol Ophth Bev 10 Ml Bottle EACH EYE 1 drop Q12HR [place] Administration Enoxaparin Sodium 40 mg 03/28/24 09:00 03/29/24 08:54 Enoxaparin 40 Mg/0.4 Ml Syringe SUB-Q 40 mg DAILY [place] Administration Ergocalciferol 50,000 units 03/28/24 09:00 03/28/24 08:19 Ergocalciferol 50,000 Units Capsule PO 50,000 units WEEKLY [place] Administration Glucagon 1 mg 03/27/24 17:16 Glucagon For Inj 1 Mg Vial IM PRN PRN Hypoglycemia Protocol Glucose 15 gm 03/27/24 17:16 Glucose Oral Gel 15 Gm Of Glucse In 37.5 Gm Tube PO PRN PRN Hypoglycemia Protocol Hydralazine HCl 20 mg 03/28/24 15:27 Hydralazine Hcl 20 Mg/Ml Vial IV PUSH ONCE PRN Hypertension Dextrose 1,000 mls @ 100 mls/hr 03/27/24 17:16 Dextrose 5% 1,000 Ml IVPB PRN PRN Hypoglycemia Protocol Sodium Chloride 1,000 mls @ 75 mls/hr 03/28/24 09:55 03/29/24 01:06 Normal Saline Iv IV CONT 75 mls/hr .[id number] [place] Administration Insulin Aspart 4 - 8 units 03/28/24 08:00 03/29/24 08:18 Insulin Aspart (*Bkc) 100 Units/Ml SUB-Q Not Given TIDWM [facility] Protocol Insulin Aspart 2 - 4 units 03/27/24 21:00 03/28/24 22:14 Insulin Aspart (*Bkc) 100 Units/Ml SUB-Q Not Given HS [facility] Protocol Nifedipine 30 mg 03/28/24 15:30 03/29/24 08:53 Nifedipine 30 Mg Tab.Er.24 PO 30 mg QAM [place] Administration Ondansetron HCl 4 mg 03/27/24 15:10 Ondansetron Inj 4 Mg/2 Ml Vial IV PUSH Q6H PRN Nausea And Vomiting Tramadol HCl 25 mg 03/28/24 19:51 03/29/24 03:57 Tramadol Hcl (*Crx) 25 Mg Tablet PO 25 mg Q6H PRN Administration Pain Rated 4-6 Radiology Results: ITS Impressions Chest X-Ray 03/27/24 14:12 IMPRESSION: 1. No acute cardiopulmonary disease. Head CT 03/28/24 10:46 IMPRESSION: 1. Normal aging brain. No acute intracranial process. 2. Chronic left sphenoid sinusitis. Labs Labs: Laboratory Results - last 24 hr 03/27/24 03/28/24 03/28/24 19:34 11:55 17:44 WBC RBC Hgb Hct MCV MCH MCHC RDW Plt Count MPV Immature Gran % (Auto) Neut % (Auto) Lymph % (Auto) [place] % (Auto) Eos % (Auto) Baso % (Auto) Lymph # (Auto) [place] # (Auto) Eos # (Auto) Baso # (Auto) Abs Immat Gran (auto) Absolute Neuts (auto) Absolute Nucleated RBC Nucleated RBC % Sodium Potassium Chloride Carbon Dioxide Anion Gap BUN Creatinine Estim Creat Clear Calc Estimated GFR Glucose POC Capillary Glucose 189 H 165 H Calcium Magnesium Total Bilirubin AST ALT Alkaline Phosphatase Total Protein Albumin Urine Osmolality 718 03/28/24 03/29/24 03/29/24 20:58 06:11 07:53 WBC 11.0 H RBC 4.15 L Hgb 13.6 Hct 38.9 MCV 93.7 MCH 32.8 MCHC 35.0 RDW 11.3 L Plt Count 245 MPV 8.8 Immature Gran % (Auto) 0.9 H Neut % (Auto) 71.7 Lymph % (Auto) 14.[address] [place] % (Auto) 12.2 H Eos % (Auto) 0.6 Baso % (Auto) 0.4 Lymph # (Auto) 1.56 [place] # (Auto) 1.3 H Eos # (Auto) 0.1 Baso # (Auto) 0.0 Abs Immat Gran (auto) 0.10 H Absolute Neuts (auto) 7.9 H Absolute Nucleated RBC 0.000 Nucleated RBC % 0.0 Sodium 122 L Potassium 3.1 L Chloride 95 L Carbon Dioxide 17 L Anion Gap 10 BUN 7 Creatinine 0.30 L Estim Creat Clear Calc 126 Estimated GFR > 60 Glucose 186 H POC Capillary Glucose 195 H 182 H Calcium 8.0 L Magnesium 1.9 Total Bilirubin 1.1 AST 22 ALT 18 Alkaline Phosphatase 58 Total Protein 7.0 Albumin 3.6 Urine Osmolality Quality VTE Prophylaxis VTE prophylaxis: pharmacologic ordered
[2024-03-29 12:03] LABS: Glucose Point of Care 267 mg/dl (65-105)
[2024-03-29 12:55] LABS: Anion Gap 9 mmol/L (4-12); Blood Urea Nitrogen 8 mg/dL (7-17); Calcium 8.4 mg/dL (8.4-10.2); Carbon Dioxide 21 mmol/L (22-30); Chloride 91 mmol/L (98-107); Estimated CRCL calculation 99 ml/min; Estimated Glomerular Filt Rate > 60; Glucose 248 mg/dL (65-110); Potassium 3.4 mmol/L (3.4-5.0); Sodium 121 mmol/L (137-145)
[2024-03-29] MEDS: INSULIN ASPART (*BKC) 100 UNITS/ML SUB-Q ×3 (13:02→21:28)
--- NOTE | 2024-03-29 14:02 | P.CONNP_ITS ---
Assessment and Plan Assessment and plan (1) Hyponatremia: Code(s): E87.1 - Hypo-osmolality and hyponatremia Status: Acute Assessment and Plan: * acute finding on admission * normal sodium levels as of 6 months ago and beyond * no previous episodes noted * s/p IVF bolus and normal saline IVFs with with worsening sodium levels noted * risk factors for low sodium: * prerenal factors * pain ( headache ) * medication related (possibly donepezil, NSAIDs, denosumab) * CXR and CT of head noted * check TSH, cortisol, SPEP, UPEP and urine studies * follow-up on serum/urine osmolality * already started on fluid restriction * follow trend of repeat seum sodiums (2) Weakness: Code(s): R53.1 - Weakness Status: Acute Assessment and Plan: * due to previous UTI (?) * no other source of infection to date * related to #1 (?) * PT/OT as tolerated (3) Headache: Code(s): R51.9 - Headache, unspecified Status: Acute Assessment and Plan: * head CT showed a normal aging brain and no acute intracranial process * does mention chronic left sphenoid sinusitis * pain control * antibiotics for sinusitis (4) Hypertension: Code(s): I10 - Essential (primary) hypertension Status: Acute Assessment and Plan: * running high initially * possibly secondary to pain * medications adjusted * follow trend of hemodynamics (5) Type 2 diabetes mellitus: Code(s): E11.9 - Type 2 diabetes mellitus without complications Status: Acute Assessment and Plan: * follow accu-cheks * glycemic control per hospitalists I will continue to follow the patient with you while she remains hospitalized and make further recommendations as deemed necessary. Thank you for allowing me to participate in the care of this patient. History of Present Illness Reason for Consult Consult date: 03/29/24 Reason for consult: hyponatremia Chief Complaint Chief complaint: Hyponatremia, Generalized weakness History of Present Illness Narrative: Most information I obtained is from review of the electronic medical record as well as discussion with the physician / nurses involved in the patient's care as is difficult to get a full and complete history from the patient due to her fluctuating mental status. The patient is a 79-year-old female with a past medical history as outlined below who presented to [facility] Emergency Room for further noman luation of generalized weakness. Apparently, the patient was recently diagnosed with a urinary tract infection and was treated with a full course of antibiotics that completed last week. Her urine culture apparently grew Klebsiella which was pansensitive. However, despite treating the urinary tract infection, the patient still has increased fatigue and weakness which has progressively worsened. I am unclear of her worsening mental status at this time is due to her acute medical issues or pro gression of her underlining cognitive deficits. Nevertheless, given her worsening fatigue and weakness, she was sent to the ER for further evaluation. Workup and evaluation emergency room demonstrated the patient to be hemodynamically stable and in no acute distress. Routine blood test demonstr ated normal white blood cell count, acute hyponatremia with a sodium 123, mild hypokalemia with a potassium of 3.3 and normal renal function. Her urinalysis was significant for 1+ protein, 3+ glucose 3+ ketones 3-5 white blood cells but was otherwise unremarkable. Viral testing for influenza, RSV, and COVID were negative and her EKG demonstrated no ischemic changes. Her chest x-ray was negative for any acute cardiopulmonary disease. Given her hyponatremia and complaints of fatigue, she received a L of normal saline and subsequently was admitted to the hospital for further evaluation therapy Renal consultation was requested due to her acute hyponatremia and worsening of it since her admission to the hospital. As already mentioned, she received a L of normal saline for bolus and subsequent maintenance on the assumption that her hyponatremia is related to volume depletion/dehydration. Her IV fluids have had since been discontinued as her sodium level has worsened and she has been i nstituted on a free water fluid restriction. From review her records, she does not appear to have had any issues or problems with hyponatremia in the past. In spite of her hyponatremia, is difficult to assess if her neurological status is due to or playing a role with regard to her fluctuating sodium level. Currently, at the time my evaluation, she appears to be in no acute distress. Review of Systems Review of Systems: As per HPI. [facility] Past Medical History Medical History Alopecia Asthma Decreased appetite Dementia Glaucoma History of UTI Hypothyroidism history of thyroid problems Mixed hyperlipidemia Neck pain on right side Osteoporosis Type 2 diabetes mellitus without complication, without long-term current use of insulin Vitamin B12 deficiency Vitamin D deficiency Surgical History Surgical History History of ankle surgery Total knee replacement status Family History Family History Father Heart disease Mother Colon cancer Sibling Diabetes mellitus Grandparent Colon cancer Other Asthma Carcinoma of colon Family history of coronary artery disease Family history of glaucoma Family history of osteoporosis Social History Social History Social History: Has a daughter Smoking status: Never smoker Second hand tobacco smoke exposure: No Alcohol intake: never Substance use: never Substance use type: does not use Do You Feel Safe in your Home?: Yes Lack of Transportation: No Lack of Food: Never True Current Housing: I Have Housing Concerned About Future Housing: No Difficulty Paying Gas/Electric Bills: No Difficulty Paying for Meds: No Currently Unemployed: No Education: High School Diploma/GED Difficulty w/ Childcare or Family Care: No Living arrangements: assisted living Occupation/Education: retired Gender identity (if verbalized by the patient): Female Sexual Orientation (if Verbalized by the Patient): Straight or Heterosexual Spiritual care concerns: No Agree to blood products: Yes Meds Home Medications and Allergies Home Medications Medication Instructions Recorded Confirmed Type aspirin 81 mg tablet,delayed 81 mg PO DAILY 04/10/19 03/27/24 History release (Adult Low Dose Aspirin) dorzolamide 22.3 mg-timolol 6.8 1 drop ophthalmic (eye) BID 04/10/19 03/27/24 History mg/mL eye drops (Cosopt) ergocalciferol (vitamin D2) 1,250 50,000 unit PO WEEKLY 04/10/19 03/27/24 History mcg (50,000 unit) capsule denosumab 60 mg/mL subcutaneous 60 mg subcut [id number] 02/11/21 03/27/24 History syringe (Prolia) ondansetron 4 mg disintegrating 4 mg PO Q8H PRN nausea and 04/13/22 03/27/24 Rx tablet vomiting #10 tabs donepezil 5 mg tablet (Aricept) 5 mg PO QHS #30 tabs 09/24/23 03/27/24 Rx metformin 500 mg tablet,extended 500 mg PO BID #180 tabs 12/07/23 03/27/24 Rx release 24 hr atorvastatin 20 mg tablet 20 mg PO DAILY #90 tabs 03/05/24 03/27/24 Rx acetaminophen 500 mg capsule 1,000 mg PO Q6H PRN pain #30 caps 03/20/24 03/27/24 Rx cephalexin 500 mg capsule 500 mg PO Q6H 12 days #48 caps 03/20/24 03/27/24 Rx ibuprofen 600 mg tablet 600 mg PO TID PRN pain #30 tabs 03/20/24 03/27/24 Rx bimatoprost 0.01 % eye drops 1 drp EACH EYE HS 03/27/24 03/27/24 History (Rebeca) Allergies Allergy/AdvReac Type Severity Reaction Status Date / Time brimonidine Allergy Severe RED EYES, Verified 03/27/24 11:43 ITCHING Vital Signs Vital Signs Temp Pulse Resp BP Pulse Ox O2 Del Method 03/29/24 14:00 Room Air 03/29/24 08:55 Room Air 03/29/24 06:14 98.3 F 67 18 149/61 H 97 03/28/24 20:00 Room Air 03/28/24 23:15 182/86 H 03/28/24 21:01 98.1 F 69 16 96 Exam Narrative: GENERAL APPEARANCE: elderly but well developed well nourished female in no acute distress HEENT: normocephalic, atraumatic, normal conjunctiva and sclera, nares patient NECK: no lymphadenopathy, thyromegaly, or JVD MOUTH: normal lips, teeth, and gums CARDIOVASCULAR: RRR, normal S1 and S2, no rub detected RESPIRATORY: decreased at baseas ABDOMEN: soft, nontender, mild distension, diminished bowel sounds present EXTREMITIES: no evidence of cyanosis, clubbing, or edema NEUROLOGICAL: awake and alert; CN II - XII intact bilaterally; no focal deficits noted Results Lab Results 04/01/24 05:27 04/01/24 05:27 Lab results: Most recent lab results Calcium 8.4 mg/dL (8.4-10.2) 03/29/24 12:32 Magnesium 1.9 mg/dL (1.6-2.3) 03/29/24 06:11
--- NOTE | 2024-03-29 15:54 | PCPTNOTE ---
pt refused PT ernesto, states she is not feeling well and just got back to bed, will follow
[2024-03-29 16:00] VITALS: BP 164/76; PULSE 98; RESP 16; TEMP 36.8; O2SAT 97
[2024-03-29 16:57] LABS: Glucose Point of Care 261 mg/dl (65-105)
[2024-03-29] MEDS: SIMETHICONE 80 MG TAB.CHEW PO (17:17)
[2024-03-29] MEDS: polyethylene glycoL 3350 17 GM POWD.PACK PO (17:17)
[2024-03-29 18:50] LABS: Sodium 122 mmol/L (137-145)
[2024-03-29] MEDS: DONEPEZIL HCL 5 MG TABLET PO (20:23)
[2024-03-29 20:39] VITALS: BP 153/72; PULSE 104; RESP 16; TEMP 37.1; O2SAT 97
[2024-03-29 20:50] LABS: Glucose Point of Care 328 mg/dl (65-105)
[2024-03-29 22:27] VITALS: BP 153/85; PULSE 99; RESP 16; TEMP 36.7; O2SAT 99
[2024-03-30] VITALS (9 sets, daily range): BP systolic 109–149; BP diastolic 53–77; PULSE 91–118; RESP 16–24; TEMP 36.5–37.1; O2SAT 91–97
[2024-03-30 06:23] LABS: Glucose Point of Care 251 mg/dl (65-105)
[2024-03-30 08:00] LABS: Glucose Point of Care 267 mg/dl (65-105)
[2024-03-30] MEDS: ASPIRIN 81 MG ENTERIC TABLET PO (08:32)
[2024-03-30] MEDS: DORZOLAMIDE/TIMOLOL OPHTH SOL 10 ML BOTTLE 1 DROP EACH EYE ×2 (08:32→21:19)
[2024-03-30] MEDS: AMOXICILLIN/CLAVULANATE K 875-125 MG TAB 1 TABLET PO ×2 (08:32→21:18)
[2024-03-30] MEDS: ENOXAPARIN 40 MG/0.4 ML SYRINGE SUB-Q (08:32)
[2024-03-30] MEDS: polyethylene glycoL 3350 17 GM POWD.PACK PO (08:32)
[2024-03-30] MEDS: ATORVASTATIN 20 MG TABLET PO (08:32)
[2024-03-30] MEDS: SIMETHICONE 80 MG TAB.CHEW PO ×2 (08:32→18:07)
[2024-03-30] MEDS: NIFEdipine 30 MG TAB.ER.24 PO (08:32)
[2024-03-30] MEDS: traMADol HCL (*CRX) 25 MG TABLET PO ×2 (08:33→18:07)
[2024-03-30 08:34] LABS: Basophils Percent Auto 0.2 % (0.2-1.2); Eosinophils Absolute Auto 0.1 K/mm3 (0-0.3); Eosinophils Percent Auto 1.1 % (0-4.4); Hematocrit 41.7 % (37.0-47.0); Immature Granulocyte Percent A 0.8 % (0-0.5); Immature Platelet Fraction Pct 2.3 % (0.9-11.2); Lymphocytes Absolute Auto 1.28 K/mm3 (0.9-3.2); Lymphocytes Percent Auto 10.1 % (18.3-44.2); Mean Corpuscular Hemoglobin 33.4 pg (26-34); Mean Corpuscular Volume 92.9 fl (80-100); Mean Platelet Volume 9.5 fl (7.4-10.4); Monocytes Absolute Auto 1.5 K/mm3 (0.1-0.6); Monocytes Percent Auto 11.6 % (2.6-8.5); Neutrophils Absolute Auto 9.7 K/mm3 (1.3-6.7); Neutrophils Percent Auto 76.2 % (45.5-73.1); Platelet Count Result 302 k/mm3 (150-375); Red Blood Count 4.49 M/mm3 (4.2-5.4); Red Cell Distribution Width 11.6 % (11.5-14.5); White Blood Count 12.7 K/mm3 (4.5-10.0)
[2024-03-30] MEDS: INSULIN ASPART (*BKC) 100 UNITS/ML SUB-Q ×3 (08:36→18:08)
[2024-03-30 08:50] LABS: Alanine Aminotransferase 18 U/L (6-35); Albumin Level 3.7 g/dL (3.5-5.1); Alkaline Phosphatase 47 U/L (38-126); Anion Gap 10 mmol/L (4-12); Aspartate Amino Transferase 27 U/L (14-36); Bilirubin,Total 1.2 mg/dL (0.2-1.3); Blood Urea Nitrogen 13 mg/dL (7-17); Calcium 8.7 mg/dL (8.4-10.2); Carbon Dioxide 19 mmol/L (22-30); Chloride 94 mmol/L (98-107); Estimated CRCL calculation 99 ml/min; Estimated Glomerular Filt Rate > 60; Glucose 246 mg/dL (65-110); Potassium 4.2 mmol/L (3.4-5.0); Sodium 123 mmol/L (137-145)
--- NOTE | 2024-03-30 09:07 | PCPTNOTE ---
attempted PT eval, pt reporting 9/10 chest pain with staffing director at this time, will follow
--- NOTE | 2024-03-30 09:14 | ECG_ITS ---
Test Date: 2024-03-30 09:27:58 Measurements Intervals [place] Rate: 98 P: -2 LA: 122 QRS: -19 QRSD: 84 T: 39 QT: 351 QTc: 450 Interpretive Statements SINUS RHYTHM DELAYED PRECORDIAL R/S TRANSITION LEFT VENTRICULAR HYPERTROPHY AND ST-T CHANGE BORDERLINE ECG Compared to ECG 03/27/2024 14:21:11 NO SIGNIFICANT CHANGE Electronically Signed On 03-30-2024 09:48:26 [employer]ATION HELPER by Joselito Vallejo D.O.
--- NOTE | 2024-03-30 09:31 | P.PNIM_ITS ---
Progress Note: A&P Assessment and Plan (1) Weakness: Code(s): R53.1 - Weakness Status: Acute Assessment and Plan: * increased fatigue and weakness since Monday of last week after finishing a full course Keflex for urinary tract infection * PT and OT ordered * Will check vitamin D and vitamin B12 levels * will also check urine culture to assure that her UTI cleared completely, her UA did not reflux culture this admission * chest x-ray was negative for any acute cardiopulmonary disease * respiratory panel negative * UA was negative for nitrates or leukocytes * TSH 1.230 * Blood cultures No growth to date. (2) Chest pain: Code(s): R07.9 - Chest pain, unspecified Status: Acute Assessment and Plan: * EKG showed sinus rhythm with left ventricular hypertrophy and ST-T change, QTc 450. * Troponin 0.012, 2nd Troponin <0.012 * supplemental oxygen placed on patient at 2 liters nasal cannula. * Chest pain subsided. * Telemetry placed. (3) Type 2 diabetes mellitus: Code(s): E11.9 - Type 2 diabetes mellitus without complications Status: Acute Assessment and Plan: * Hypoglycemic protocol * High dose sliding scale insulin. * HgbA1C 9.8% on 03/27/24 (4) Abnormal finding on urinalysis: Code(s): R82.90 - Unspecified abnormal findings in urine Status: Acute Assessment and Plan: * UA showed 1+ urine protein, 3+ urine glucose, 3+ urine ketone, 3-5 urine RBC, negative leukocytes and negative nitrates. * Patient was just treated for UTI with urine culture showed Klebsiella pneumoniae which was pansensitive. She was on a course of Keflex which she finished on of last week. * We will go ahead and get a urine culture to assure that it is cleared completely (5) Headache: Code(s): R51.9 - Headache, unspecified Status: Acute Assessment and Plan: * Head CT showed a normal aging brain and no acute intracranial process, chronic left sphenoid sinusitis. * Tylenol 650 mg PO q 4 PRN. * Tramadol 25 mg PO q 6 PRN. (6) Hyponatremia: Code(s): E87.1 - Hypo-osmolality and hyponatremia Status: Acute Assessment and Plan: * Acute, could be due to dehydration vs tea and toast * sodium 123, chloride 94 * patient was given 1 L of normal saline while in the ED * urine sodium 89, urine osmolarity 718, serum osmolarity pending. * Fluid restriction 1500 ml * Nephrology consulted, urine and labs ordered. (7) Hypokalemia: Code(s): E87.6 - Hypokalemia Status: Acute Assessment and Plan: * potassium 4.2 hemolyzed. Recheck potassium 3.9. * continue to trend (8) Hypertension: Code(s): I10 - Essential (primary) hypertension Status: Acute Assessment and Plan: * Start Procardia XL 30 mg PO daily * Hydralazine 20 mg ivp for systolic >180. * Blood pressure 135/72 * Monitor blood pressure. (9) Chronic sphenoidal sinusitis: Code(s): J32.3 - Chronic sphenoidal sinusitis Status: Chronic Assessment and Plan: * Augmentin 875-125 mg PO q12. (10) Constipation: Code(s): K59.00 - Constipation, unspecified Status: Acute Assessment and Plan: * KUB showed Moderate amount of stool scattered throughout the colon with large amount of gas in the proximal colon. * Added Miralax 17 gm PO daily, Docusate 100 mg PO q12 PRN, and Simethicone 80 mg PO BID. (11) Vitamin D deficiency: Code(s): E55.9 - Vitamin D deficiency, unspecified Status: Chronic Assessment and Plan: * currently on vitamin D 14836 units weekly * vitamin-D level 36.5 (12) Vitamin B12 deficiency: Code(s): E53.8 - Deficiency of other specified B group vitamins Status: Chronic Assessment and Plan: * continue aspirin and atorvastatin (13) Dementia: Code(s): F03.90 - Unspecified dementia, unspecified severity, without behavioral disturbance, psychotic disturbance, mood disturbance, and anxiety Status: Chronic Assessment and Plan: * continue Aricept (14) Mixed hyperlipidemia: Code(s): E78.2 - Mixed hyperlipidemia Status: Chronic Assessment and Plan: * continue aspirin and atorvastatin Subjective Date/time seen: 03/30/24 09:31 Interval history: Called by nurse in am that patient reported pain in left chest that radiated around to back. When arrived to see patient, patient reported pain in middle back that was a 4 , constant, and aching. Patient denied shortness of breath, palpitations, headache, dizziness, nausea, or vomiting. Review of Systems Review of Systems: All systems reviewed & are unremarkable except as noted in HPI and below Exam Const: General: uncomfortable Resp: Auscultation: diminished lung sounds Cardio: Rate: regular rate Rhythm: regular rhythm Other: SR- 98 GI: Inspection: distended GI Palp: Yes Tenderness to palpation present (GI) (RLQ) Other: hypoactive bowel sounds. semi firm Neuro: Speech: normal speech Extrem: General: normal to inspection Psych: Other: Memory loss. Alert to self. Objective Data Vital Signs Vital Signs: Vital Signs - 24 hr 03/29/24 14:35 03/29/24 16:00 03/29/24 20:39 Temperature 98.3 F 98.7 F Pulse Rate 98 104 H Respiratory Rate 16 16 Blood Pressure 164/76 H 153/72 H Pulse Oximetry 97 97 Oxygen Delivery Room Air 03/29/24 22:27 03/29/24 20:00 03/30/24 00:00 Temperature 98.0 F 98.0 F Pulse Rate 99 96 Respiratory Rate 16 16 Blood Pressure 153/85 H 149/76 H Pulse Oximetry 99 94 Oxygen Delivery Room Air 03/30/24 04:15 Temperature 98.7 F Pulse Rate 91 Respiratory Rate 16 Blood Pressure 149/71 H Pulse Oximetry 91 Oxygen Delivery Intake/Output Intake/Output: Intake & Output 03/27/24 03/28/24 03/29/24 03/30/24 23:59 23:59 23:59 23:59 Intake Total 1240 1300 1750 180 Output Total 400 400 0 Balance 703 161 1594 180 Meds/Results Medications: Active Medications Generic Name Dose Route Start Last Admin Trade Name Freq PRN Reason Stop Dose Admin Acetaminophen 650 mg 03/27/24 15:10 03/29/24 20:23 Acetaminophen 325 Mg Tablet PO 650 mg Q4H PRN Administration Mild Pain (1-3) or Fever Amoxicillin/Clavulanate Potassium 1 tablet 03/28/24 21:00 03/30/24 08:32 Amoxicillin/Clavulanate K 875-125 Mg Tab PO 04/04/24 20:59 1 tablet Q12HR MIREILLE Administration Aspirin 81 mg 03/28/24 09:00 03/30/24 08:32 Aspirin 81 Mg Enteric Tablet PO 81 mg DAILY MIREILLE Administration Atorvastatin Calcium 20 mg 03/28/24 09:00 03/30/24 08:32 Atorvastatin 20 Mg Tablet PO 20 mg DAILY MIREILLE Administration Dextrose 12.5 gm 03/27/24 17:16 Dextrose 50% 25 Gm/50 Ml Syringe IV PUSH PRN PRN Hypoglycemia Protocol Docusate Sodium 100 mg 03/29/24 15:50 Docusate Sodium 100 Mg Capsule PO Q12H PRN Constipation Donepezil HCl 5 mg 03/27/24 21:00 03/29/24 20:23 Donepezil Hcl 5 Mg Tablet PO 5 mg QHS MIREILLE Administration Dorzolamide/Timolol 1 drop 03/27/24 21:00 03/30/24 08:32 Dorzolamide/Timolol Ophth Bev 10 Ml Bottle EACH EYE 1 drop Q12HR MIREILLE Administration Enoxaparin Sodium 40 mg 03/28/24 09:00 03/30/24 08:32 Enoxaparin 40 Mg/0.4 Ml Syringe SUB-Q 40 mg DAILY MIREILLE Administration Ergocalciferol 50,000 units 03/28/24 09:00 03/28/24 08:19 Ergocalciferol 50,000 Units Capsule PO 50,000 units WEEKLY MIREILLE Administration Glucagon 1 mg 03/27/24 17:16 Glucagon For Inj 1 Mg Vial IM PRN PRN Hypoglycemia Protocol Glucose 15 gm 03/27/24 17:16 Glucose Oral Gel 15 Gm Of Glucse In 37.5 Gm Tube PO PRN PRN Hypoglycemia Protocol Hydralazine HCl 20 mg 03/28/24 15:27 Hydralazine Hcl 20 Mg/Ml Vial IV PUSH ONCE PRN Hypertension Dextrose 1,000 mls @ 100 mls/hr 03/27/24 17:16 Dextrose 5% 1,000 Ml IVPB PRN PRN Hypoglycemia Protocol Insulin Aspart 4 - 8 units 03/28/24 08:00 03/30/24 08:36 Insulin Aspart (*Bkc) 100 Units/Ml SUB-Q 4 units TIDWM MIREILLE Administration Protocol Insulin Aspart 2 - 4 units 03/27/24 21:00 03/29/24 21:28 Insulin Aspart (*Bkc) 100 Units/Ml SUB-Q 3 units HS MIREILLE Administration Protocol Nifedipine 30 mg 03/28/24 15:30 03/30/24 08:32 Nifedipine 30 Mg Tab.Er.24 PO 30 mg QAM MIREILLE Administration Ondansetron HCl 4 mg 03/27/24 15:10 Ondansetron Inj 4 Mg/2 Ml Vial IV PUSH Q6H PRN Nausea And Vomiting Polyethylene Glycol 17 gm 03/29/24 15:05 03/30/24 08:32 Polyethylene Glycol 3350 17 Gm Powd.Pack PO 17 gm QAM MIREILLE Administration Simethicone 80 mg 03/29/24 17:00 03/30/24 08:32 Simethicone 80 Mg Tab.Chew PO 80 mg BID MIREILLE Administration Tramadol HCl 25 mg 03/28/24 19:51 03/30/24 08:33 Tramadol Hcl (*Crx) 25 Mg Tablet PO 25 mg Q6H PRN Administration Pain Rated 4-6 Radiology Results: ITS Impressions Chest X-Ray 03/27/24 14:12 IMPRESSION: 1. No acute cardiopulmonary disease. Head CT 03/28/24 10:46 IMPRESSION: 1. Normal aging brain. No acute intracranial process. 2. Chronic left sphenoid sinusitis. Abdomen X-Ray 03/29/24 14:55 IMPRESSION: 1. Moderate amount of stool scattered throughout the colon with large amount of gas in the proximal colon. Labs Labs: Laboratory Results - last 24 hr 03/29/24 03/29/24 03/29/24 11:59 12:32 16:54 WBC RBC Hgb Hct MCV MCH MCHC RDW Plt Count MPV Immature Gran % (Auto) Neut % (Auto) Lymph % (Auto) [place] % (Auto) Eos % (Auto) Baso % (Auto) Lymph # (Auto) [place] # (Auto) Eos # (Auto) Baso # (Auto) Abs Immat Gran (auto) Absolute Neuts (auto) Absolute Nucleated RBC Nucleated RBC % % Immature Plt Fraction Sodium 121 L Potassium 3.4 Chloride 91 L Carbon Dioxide 21 L Anion Gap 9 BUN 8 Creatinine 0.40 L Estim Creat Clear Calc 99 Estimated GFR > 60 Glucose 248 H POC Capillary Glucose 267 H 261 H Calcium 8.4 Magnesium Total Bilirubin AST ALT Alkaline Phosphatase Total Protein Albumin TSH (Reflex) Random Cortisol 03/29/24 03/29/24 03/30/24 18:35 20:46 06:20 WBC RBC Hgb Hct MCV MCH MCHC RDW Plt Count MPV Immature Gran % (Auto) Neut % (Auto) Lymph % (Auto) [place] % (Auto) Eos % (Auto) Baso % (Auto) Lymph # (Auto) [place] # (Auto) Eos # (Auto) Baso # (Auto) Abs Immat Gran (auto) Absolute Neuts (auto) Absolute Nucleated RBC Nucleated RBC % % Immature Plt Fraction Sodium 122 L Potassium Chloride Carbon Dioxide Anion Gap BUN Creatinine Estim Creat Clear Calc Estimated GFR Glucose POC Capillary Glucose 328 H 251 H Calcium Magnesium Total Bilirubin AST ALT Alkaline Phosphatase Total Protein Albumin TSH (Reflex) Random Cortisol 03/30/24 03/30/24 07:54 08:15 WBC 12.7 H RBC 4.49 Hgb 15.0 Hct 41.7 MCV 92.9 MCH 33.4 MCHC 36.0 RDW 11.6 Plt Count 302 MPV 9.5 Immature Gran % (Auto) 0.8 H Neut % (Auto) 76.2 H Lymph % (Auto) 10.1 L [place] % (Auto) 11.6 H Eos % (Auto) 1.1 Baso % (Auto) 0.2 Lymph # (Auto) 1.28 [place] # (Auto) 1.5 H Eos # (Auto) 0.1 Baso # (Auto) 0.0 Abs Immat Gran (auto) 0.10 H Absolute Neuts (auto) 9.7 H Absolute Nucleated RBC 0.000 Nucleated RBC % 0.0 % Immature Plt Fraction 2.3 Sodium 123 L Potassium 4.2 Chloride 94 L Carbon Dioxide 19 L Anion Gap 10 BUN 13 D Creatinine 0.40 L Estim Creat Clear Calc 99 Estimated GFR > 60 Glucose 246 H POC Capillary Glucose 267 H Calcium 8.7 Magnesium 2.0 Total Bilirubin 1.2 AST 27 ALT 18 Alkaline Phosphatase 47 Total Protein 7.0 Albumin 3.7 TSH (Reflex) 1.230 Random Cortisol 21.90 Quality VTE Prophylaxis VTE prophylaxis: pharmacologic ordered
[2024-03-30 09:34] LABS: Creatinine Urine 62.7 mg/dL; Total Protein Urine Random 29 mg/dL; Ur Ttl Prot Creatinine Ratio 0.46 mg/mg (0-0.20)
[2024-03-30 09:51] LABS: Eosinophil Urine None Seen % (None Seen); Urine Eos QC 2nd Tech Confirmed
[2024-03-30 09:55] LABS: Troponin I 0.012 ng/mL (0.000-0.034)
[2024-03-30 09:57] LABS: Total Protein Urine Random 28 mg/dL; Urea Random Urine 737 MG/DL
[2024-03-30 09:59] LABS: Sodium Urine Random 35 meq/L
[2024-03-30 12:02] LABS: Glucose Point of Care 418 mg/dl (65-105)
[2024-03-30 12:07] LABS: Glucose Point of Care 394 mg/dl (65-105)
--- NOTE | 2024-03-30 12:08 | P.PNNP_ITS ---
Progress Note: A&P Assessment and Plan (1) Hyponatremia: Code(s): E87.1 - Hypo-osmolality and hyponatremia Status: Acute Assessment and Plan: * acute finding on admission * normal sodium levels as of 6 months ago and beyond * no previous bouts of low sodium noted * s/p IVF bolus and normal saline IVFs with associated worsening sodium levels * risk factors for low sodium: * prerenal factors * pain ( headache ) * medication related (possibly donepezil, NSAIDs, denosumab) * constipation * evaluation to date noted: * CXR negative * CT of head without pathology * urine electrolytes prerenal * TSH okay * cortisol stable * SPEP/UPEP pending * on fluid restriction currently * consider adding salt tabs as well... * follow trend of repeat serum sodiums (2) Weakness: Code(s): R53.1 - Weakness Status: Acute Assessment and Plan: * due to previous UTI (?) * no other source of infection to date * related to #1 (?) * PT/OT as tolerated (3) Headache: Code(s): R51.9 - Headache, unspecified Status: Acute Assessment and Plan: * head CT showed a normal aging brain and no acute intracranial process * does mention chronic left sphenoid sinusitis * Tylenol and tramadol for pain control * antibiotics for sinusitis (4) Constipation: Code(s): K59.00 - Constipation, unspecified Status: Acute Assessment and Plan: * as noted by recent KUB * KUB showed moderate amount of stool scattered throughout the colon with large amount of gas in the proximal colon. * bowel regimen initiated (5) Hypertension: Code(s): I10 - Essential (primary) hypertension Status: Acute Assessment and Plan: * running high initially * possibly secondary to pain * medications adjusted * follow trend of hemodynamics (6) Type 2 diabetes mellitus: Code(s): E11.9 - Type 2 diabetes mellitus without complications Status: Acute Assessment and Plan: * follow accu-cheks * glycemic control per hospitalists Will continue to follow. Subjective Date/time seen: 03/30/24 12:08 Interval history: Follow-up for acute hyponatremia. Reported chest pain earlier this morning but upon re-evaluation, patient report pain in her back area; no other acute complaints voiced when seen; no events overnight to report. Exam Narrative: General: elderly but WD/WN female in NAD Heart: normal S1 and S2; no rub Lungs: clear to auscultation Abdomen: soft, nontender but firm, positive bowel sounds Extremities: no cyanosis or clubbing; no edema Skin: warm and intact Objective Data Vital Signs Vital Signs: Vital Signs Temp Pulse Resp BP Pulse Ox O2 Del Method 03/30/24 09:32 97.7 F 106 H 24 H 109/53 L 93 03/30/24 04:15 98.7 F 91 16 149/71 H 91 03/30/24 00:00 98.0 F 96 16 149/76 H 94 03/29/24 20:00 Room Air 03/29/24 22:27 98.0 F 99 16 153/85 H 99 03/29/24 20:39 98.7 F 104 H 16 153/72 H 97 03/29/24 16:00 98.3 F 98 16 164/76 H 97 Intake/Output Intake/Output: Intake & Output 03/27/24 03/28/24 03/29/24 03/30/24 23:59 23:59 23:59 23:59 Intake Total 1240 1300 1750 420 Output Total 400 400 0 Balance 717 281 3406 420 Meds/Results Medications: Active Medications Generic Name Dose Route Start Last Admin Trade Name Freq PRN Reason Stop Dose Admin Acetaminophen 650 mg 03/27/24 15:10 03/29/24 20:23 Acetaminophen 325 Mg Tablet PO 650 mg Q4H PRN Administration Mild Pain (1-3) or Fever Amoxicillin/Clavulanate Potassium 1 tablet 03/28/24 21:00 03/30/24 08:32 Amoxicillin/Clavulanate K 875-125 Mg Tab PO 04/04/24 20:59 1 tablet Q12HR [place]RE[place] Administration Aspirin 81 mg 03/28/24 09:00 03/30/24 08:32 Aspirin 81 Mg Enteric Tablet PO 81 mg DAILY [place] Administration Atorvastatin Calcium 20 mg 03/28/24 09:00 03/30/24 08:32 Atorvastatin 20 Mg Tablet PO 20 mg DAILY [place] Administration Dextrose 12.5 gm 03/27/24 17:16 Dextrose 50% 25 Gm/50 Ml Syringe IV PUSH PRN PRN Hypoglycemia Protocol Docusate Sodium 100 mg 03/29/24 15:50 Docusate Sodium 100 Mg Capsule PO Q12H PRN Constipation Donepezil HCl 5 mg 03/27/24 21:00 03/29/24 20:23 Donepezil Hcl 5 Mg Tablet PO 5 mg QHS [place] Administration Dorzolamide/Timolol 1 drop 03/27/24 21:00 03/30/24 08:32 Dorzolamide/Timolol Ophth Bve 10 Ml Bottle EACH EYE 1 drop Q12HR [place] Administration Enoxaparin Sodium 40 mg 03/28/24 09:00 03/30/24 08:32 Enoxaparin 40 Mg/0.4 Ml Syringe SUB-Q 40 mg DAILY [place] Administration Ergocalciferol 50,000 units 03/28/24 09:00 03/28/24 08:19 Ergocalciferol 50,000 Units Capsule PO 50,000 units WEEKLY [place] Administration Glucagon 1 mg 03/27/24 17:16 Glucagon For Inj 1 Mg Vial IM PRN PRN Hypoglycemia Protocol Glucose 15 gm 03/27/24 17:16 Glucose Oral Gel 15 Gm Of Glucse In 37.5 Gm Tube PO PRN PRN Hypoglycemia Protocol Hydralazine HCl 20 mg 03/28/24 15:27 Hydralazine Hcl 20 Mg/Ml Vial IV PUSH ONCE PRN Hypertension Dextrose 1,000 mls @ 100 mls/hr 03/27/24 17:16 Dextrose 5% 1,000 Ml IVPB PRN PRN Hypoglycemia Protocol Insulin Aspart 4 - 8 units 03/28/24 08:00 03/30/24 12:31 Insulin Aspart (*Bkc) 100 Units/Ml SUB-Q 8 units TIDWM [place] Administration Protocol Insulin Aspart 2 - 4 units 03/27/24 21:00 03/29/24 21:28 Insulin Aspart (*Bkc) 100 Units/Ml SUB-Q 3 units HS [place] Administration Protocol Nifedipine 30 mg 03/28/24 15:30 03/30/24 08:32 Nifedipine 30 Mg Tab.Er.24 PO 30 mg QAM [place] Administration Ondansetron HCl 4 mg 03/27/24 15:10 Ondansetron Inj 4 Mg/2 Ml Vial IV PUSH Q6H PRN Nausea And Vomiting Polyethylene Glycol 17 gm 03/29/24 15:05 03/30/24 08:32 Polyethylene Glycol 3350 17 Gm Powd.Pack PO 17 gm QAM [place] Administration Simethicone 80 mg 03/29/24 17:00 03/30/24 08:32 Simethicone 80 Mg Tab.Chew PO 80 mg BID [place] Administration Tramadol HCl 25 mg 03/28/24 19:51 03/30/24 08:33 Tramadol Hcl (*Crx) 25 Mg Tablet PO 25 mg Q6H PRN Administration Pain Rated 4-6 Radiology Results: ITS Impressions Chest X-Ray 03/27/24 14:12 IMPRESSION: 1. No acute cardiopulmonary disease. Head CT 03/28/24 10:46 IMPRESSION: 1. Normal aging brain. No acute intracranial process. 2. Chronic left sphenoid sinusitis. Abdomen X-Ray 03/29/24 14:55 IMPRESSION: 1. Moderate amount of stool scattered throughout the colon with large amount of gas in the proximal colon. Labs Labs: Laboratory Tests 03/30/24 08:15 03/30/24 08:15 Calcium 8.7 Magnesium 2.0 Total Bilirubin 1.2 AST 27 ALT 18 Alkaline Phosphatase 47 Total Protein 7.0
[2024-03-30 16:21] LABS: Anion Gap 10 mmol/L (4-12); Blood Urea Nitrogen 18 mg/dL (7-17); Calcium 9.3 mg/dL (8.4-10.2); Carbon Dioxide 20 mmol/L (22-30); Chloride 93 mmol/L (98-107); Estimated CRCL calculation 69 ml/min; Estimated Glomerular Filt Rate > 60; Glucose 319 mg/dL (65-110); Potassium 3.9 mmol/L (3.4-5.0); Sodium 123 mmol/L (137-145)
[2024-03-30 16:31] LABS: Troponin I < 0.012 ng/mL (0.000-0.034)
[2024-03-30 17:06] LABS: Glucose Point of Care 331 mg/dl (65-105)
[2024-03-30] MEDS: SODIUM CHLORIDE 1 GM TABLET PO (18:07)
[2024-03-30 20:51] LABS: Glucose Point of Care 414 mg/dl (65-105)
[2024-03-30] MEDS: ACETAMINOPHEN 325 MG TABLET 650 MG PO (21:18)
[2024-03-30] MEDS: DONEPEZIL HCL 5 MG TABLET PO (21:18)
[2024-03-30] MEDS: INSULIN ASPART (*BKC) 100 UNITS/ML 12 UNITS SUB-Q (21:19)
[2024-03-30 23:25] LABS: Glucose Point of Care 296 mg/dl (65-105)
[2024-03-31] VITALS (7 sets, daily range): BP systolic 140–145; BP diastolic 41–73; PULSE 47–119; RESP 16–24; TEMP 36.6–36.8; O2SAT 95–99
--- NOTE | 2024-03-31 02:01 | PC.NURSE ---
Pt is increasingly more confused than previous shift. Pt is restless and anxious. Pt screaming into the hallway for Neel . Pt reports seeing multiple people in her room. Nurse tried to re-orient patient. Patient having trouble understanding simple commands. Belly is increasingly more distended and firm.Upon palpitation pt reports pain, but unable to provide a number for a pain scale assessment. Pt comprehension increasingly impaired. Asked Pt if she feels like she needs to have a bowel movement. Pt denied the urge to have a bowel movement.
[2024-03-31 05:55] LABS: Basophils Absolute Auto 0.1 K/mm3 (0.0-0.1); Basophils Percent Auto 0.4 % (0.2-1.2); Eosinophils Absolute Auto 0.2 K/mm3 (0-0.3); Eosinophils Percent Auto 1.2 % (0-4.4); Hematocrit 42.5 % (37.0-47.0); Hemoglobin 14.9 g/dL (12.0-15.0); Immature Granulocyte Absolute 0.12 K/mm3 (0.00-0.031); Immature Granulocyte Percent A 0.9 % (0-0.5); Lymphocytes Absolute Auto 1.89 K/mm3 (0.9-3.2); Lymphocytes Percent Auto 14.8 % (18.3-44.2); Mean Corpuscular HGB Conc 35.1 g/dl (32-36); Mean Corpuscular Hemoglobin 32.5 pg (26-34); Mean Corpuscular Volume 92.8 fl (80-100); Mean Platelet Volume 9.4 fl (7.4-10.4); Monocytes Absolute Auto 1.8 K/mm3 (0.1-0.6); Monocytes Percent Auto 13.8 % (2.6-8.5); Neutrophils Absolute Auto 8.8 K/mm3 (1.3-6.7); Neutrophils Percent Auto 68.9 % (45.5-73.1); Platelet Count Result 346 k/mm3 (150-375); Red Blood Count 4.58 M/mm3 (4.2-5.4); Red Cell Distribution Width 11.8 % (11.5-14.5); White Blood Count 12.8 K/mm3 (4.5-10.0)
[2024-03-31 06:05] LABS: Alanine Aminotransferase 20 U/L (6-35); Albumin Level 3.5 g/dL (3.5-5.1); Alkaline Phosphatase 68 U/L (38-126); Anion Gap 9 mmol/L (4-12); Aspartate Amino Transferase 20 U/L (14-36); Bilirubin,Total 0.8 mg/dL (0.2-1.3); Blood Urea Nitrogen 19 mg/dL (7-17); Carbon Dioxide 20 mmol/L (22-30); Chloride 96 mmol/L (98-107); Estimated CRCL calculation 81 ml/min; Estimated Glomerular Filt Rate > 60; Glucose 260 mg/dL (65-110); Magnesium 2.1 mg/dL (1.6-2.3); Potassium 3.8 mmol/L (3.4-5.0); Sodium 125 mmol/L (137-145)
[2024-03-31 07:30] LABS: Glucose Point of Care 318 mg/dl (65-105)
[2024-03-31 07:38] LABS: Creatinine, Random Urine 61 mg/dL (20-275); Total Prot/Creat ratio mg/mg 0.525 (0.024-0.184); Total Protein/Creatinine Ratio 525 mg/g creat (24-184)
[2024-03-31 08:19] LABS: Glucose Point of Care 283 mg/dl (65-105)
[2024-03-31] MEDS: INSULIN ASPART (*BKC) 100 UNITS/ML SUB-Q ×4 (08:42→21:11)
--- NOTE | 2024-03-31 09:35 | P.PNIM_ITS ---
Progress Note: A&P Assessment and Plan (1) Weakness: Code(s): R53.1 - Weakness Status: Acute Assessment and Plan: * increased fatigue and weakness since Monday of last week after finishing a full course Keflex for urinary tract infection * PT and OT ordered * Vitamin D level 36.5 * Vitamin B12 level 497 * will also check urine culture to assure that her UTI cleared completely, her UA did not reflux culture this admission * chest x-ray was negative for any acute cardiopulmonary disease * respiratory panel negative * UA was negative for nitrates or leukocytes * TSH 1.230 * Blood cultures No growth to date. (2) Chest pain: Code(s): R07.9 - Chest pain, unspecified Status: Ruled-out Assessment and Plan: * EKG showed sinus rhythm with left ventricular hypertrophy and ST-T change, QTc 450. * 03/30/24 Troponin 0.012, 2nd Troponin <0.012 * supplemental oxygen placed on patient at 2 liters nasal cannula. * Chest pain subsided. * Telemetry placed. * No chest pain today. (3) Type 2 diabetes mellitus: Code(s): E11.9 - Type 2 diabetes mellitus without complications Status: Acute Assessment and Plan: * Hypoglycemic protocol * High dose sliding scale insulin. * HgbA1C 9.8% on 03/27/24 (4) Abnormal finding on urinalysis: Code(s): R82.90 - Unspecified abnormal findings in urine Status: Acute Assessment and Plan: * UA showed 1+ urine protein, 3+ urine glucose, 3+ urine ketone, 3-5 urine RBC, negative leukocytes and negative nitrates. * Patient was just treated for UTI with urine culture showed Klebsiella pneumoniae which was pansensitive. She was on a course of Keflex which she finished on of last week. * We will go ahead and get a urine culture to assure that it is cleared completely * Repeat UA with reflex sent today. (5) Urine retention: Code(s): R33.9 - Retention of urine, unspecified Status: Acute Assessment and Plan: * Bladder scan 767, straight cath 1250. * Bladder scan q 6. If retains over 700 insert a rangel catheter. * UA with reflex to culture sent. * Monitor I&O's * nephrology following (6) Hyponatremia: Code(s): E87.1 - Hypo-osmolality and hyponatremia Status: Acute Assessment and Plan: * Acute, could be due to dehydration vs tea and toast * sodium 125 (improving), chloride 96 * patient was given 1 L of normal saline while in the ED * urine sodium 89, urine osmolarity 718, serum osmolarity pending. * Fluid restriction 1500 ml * Nephrology consulted, urine and labs ordered. Awaiting results. * Sodium Chloride 1 gram PO BID. (7) Constipation: Code(s): K59.00 - Constipation, unspecified Status: Acute Assessment and Plan: * KUB 03/29/24 showed Moderate amount of stool scattered throughout the colon with large amount of gas in the proximal colon. * Miralax 17 gm PO daily, Docusate 100 mg PO q12 PRN, and Simethicone 80 mg PO BID * Patient with abdominal distention and no bowel movement. Repeat KUB today showed: No interval change in moderate amount of stool scattered throughout the colon with large amount of gas in the proximal colon. * Added a soap suds enema, change Docusate 100 mg PO q12 scheduled, increased Simethicone 80 mg PO QID, and continue Miralax 17 gm PO daily. * No results with soap suds enema, Bisacodyl 10 mg MN suppository x1 ordered for today. Added Bisacodyl 10 mg suppositorydaily PRN. * Encourage oral intake. (8) Chronic sphenoidal sinusitis: Code(s): J32.3 - Chronic sphenoidal sinusitis Status: Chronic Assessment and Plan: * Augmentin 875-125 mg PO q12. (9) Hypertension: Code(s): I10 - Essential (primary) hypertension Status: Acute Assessment and Plan: * Start Procardia XL 30 mg PO daily * Hydralazine 20 mg ivp for systolic >180. * Blood pressure 140/73 * Monitor blood pressure. (10) Hypokalemia: Code(s): E87.6 - Hypokalemia Status: Acute Assessment and Plan: * potassium 3.8 * continue to trend (11) Headache: Code(s): R51.9 - Headache, unspecified Status: Acute Assessment and Plan: * Head CT showed a normal aging brain and no acute intracranial process, chronic left sphenoid sinusitis. * Tylenol 650 mg PO q 4 PRN. * Tramadol 25 mg PO q 6 PRN. (12) Vitamin D deficiency: Code(s): E55.9 - Vitamin D deficiency, unspecified Status: Chronic Assessment and Plan: * currently on vitamin D 75580 units weekly * vitamin-D level 36.5 (13) Vitamin B12 deficiency: Code(s): E53.8 - Deficiency of other specified B group vitamins Status: Chronic Assessment and Plan: * continue aspirin and atorvastatin (14) Dementia: Code(s): F03.90 - Unspecified dementia, unspecified severity, without behavioral disturbance, psychotic disturbance, mood disturbance, and anxiety Status: Chronic Assessment and Plan: * continue Aricept (15) Mixed hyperlipidemia: Code(s): E78.2 - Mixed hyperlipidemia Status: Chronic Assessment and Plan: * continue aspirin and atorvastatin Subjective Date/time seen: 03/31/24 09:35 Interval history: Nurse reported patient with abdominal distension this morning and had trouble getting up to commode last night. Bladder scanned patient showed 767, straight cath 1250 ml of urine. Patient looking off at times and talking. Patient denies pain or shortness of breath. Oriented to self and when told she is at the hospital she stated that she knows. Review of Systems Review of Systems: All systems reviewed & are unremarkable except as noted in HPI and below Exam Const: General: comfortable Eyes: Sclera: sclerae normal Pupils: Equal, round and reactive pupils present Resp: Auscultation: diminished lung sounds Cardio: Rate: tachycardic (Telemetry ST 116) GI: Inspection: distended GI Palp: No Tenderness to palpation present (GI) Other: semi firm, hypoactive bowel sounds. Neuro: Speech: normal speech Extrem: General: normal to inspection Psych: Other: Memory loss. Alert to self. Objective Data Vital Signs Vital Signs: Vital Signs - 24 hr 03/30/24 16:00 03/30/24 16:39 03/30/24 16:00 Temperature 97.8 F Pulse Rate 107 H 107 H 118 H Respiratory Rate 22 H Blood Pressure 135/72 Pulse Oximetry 96 03/30/24 20:07 03/30/24 22:36 03/30/24 20:00 Temperature 98.0 F 98.3 F Pulse Rate 114 H 106 H 117 H Respiratory Rate 18 16 Blood Pressure 141/77 H 140/77 Pulse Oximetry 96 97 03/31/24 00:00 03/31/24 04:00 03/31/24 00:00 Temperature 97.9 F Pulse Rate 108 H 115 H 47 L Respiratory Rate 18 Blood Pressure 140/41 L Pulse Oximetry 95 03/31/24 08:00 Temperature 98 F Pulse Rate 108 H Respiratory Rate 24 H Blood Pressure 140/73 Pulse Oximetry 97 Intake/Output Intake/Output: Intake & Output 03/28/24 03/29/24 03/30/24 03/31/24 23:59 23:59 23:59 23:59 Intake Total 1300 1750 660 0 Output Total 400 0 1250 Balance 900 1750 660 -1250 Meds/Results Medications: Active Medications Generic Name Dose Route Start Last Admin Trade Name Freq PRN Reason Stop Dose Admin Acetaminophen 650 mg 03/27/24 15:10 03/30/24 21:18 Acetaminophen 325 Mg Tablet PO 650 mg Q4H PRN Administration Mild Pain (1-3) or Fever Amoxicillin/Clavulanate Potassium 1 tablet 03/28/24 21:00 03/30/24 21:18 Amoxicillin/Clavulanate K 875-125 Mg Tab PO 04/04/24 20:59 1 tablet Q12HR [place] Administration Aspirin 81 mg 03/28/24 09:00 03/30/24 08:32 Aspirin 81 Mg Enteric Tablet PO 81 mg DAILY [place] Administration Atorvastatin Calcium 20 mg 03/28/24 09:00 03/30/24 08:32 Atorvastatin 20 Mg Tablet PO 20 mg DAILY [place] Administration Dextrose 12.5 gm 03/27/24 17:16 Dextrose 50% 25 Gm/50 Ml Syringe IV PUSH PRN PRN Hypoglycemia Protocol Docusate Sodium 100 mg 03/31/24 09:00 Docusate Sodium 100 Mg Capsule PO Q12H [place] Donepezil HCl 5 mg 03/27/24 21:00 03/30/24 21:18 Donepezil Hcl 5 Mg Tablet PO 5 mg QHS [place] Administration Dorzolamide/Timolol 1 drop 03/27/24 21:00 03/30/24 21:19 Dorzolamide/Timolol Ophth Bev 10 Ml Bottle EACH EYE 1 drop Q12HR [place] Administration Enoxaparin Sodium 40 mg 03/28/24 09:00 03/30/24 08:32 Enoxaparin 40 Mg/0.4 Ml Syringe SUB-Q 40 mg DAILY [place] Administration Ergocalciferol 50,000 units 03/28/24 09:00 03/28/24 08:19 Ergocalciferol 50,000 Units Capsule PO 50,000 units WEEKLY [place] Administration Glucagon 1 mg 03/27/24 17:16 Glucagon For Inj 1 Mg Vial IM PRN PRN Hypoglycemia Protocol Glucose 15 gm 03/27/24 17:16 Glucose Oral Gel 15 Gm Of Glucse In 37.5 Gm Tube PO PRN PRN Hypoglycemia Protocol Hydralazine HCl 20 mg 03/28/24 15:27 Hydralazine Hcl 20 Mg/Ml Vial IV PUSH ONCE PRN Hypertension Dextrose 1,000 mls @ 100 mls/hr 03/27/24 17:16 Dextrose 5% 1,000 Ml IVPB PRN PRN Hypoglycemia Protocol Insulin Aspart 4 - 8 units 03/28/24 08:00 03/31/24 08:42 Insulin Aspart (*Bkc) 100 Units/Ml SUB-Q 5 units TIDWM [place] Administration Protocol Insulin Aspart 2 - 4 units 03/27/24 21:00 03/31/24 00:09 Insulin Aspart (*Bkc) 100 Units/Ml SUB-Q Not Given HS [place] Protocol Nifedipine 30 mg 03/28/24 15:30 03/30/24 08:32 Nifedipine 30 Mg Tab.Er.24 PO 30 mg QAM [place] Administration Ondansetron HCl 4 mg 03/27/24 15:10 Ondansetron Inj 4 Mg/2 Ml Vial IV PUSH Q6H PRN Nausea And Vomiting Polyethylene Glycol 17 gm 03/29/24 15:05 03/30/24 08:32 Polyethylene Glycol 3350 17 Gm Powd.Pack PO 17 gm QAM [place] Administration Simethicone 80 mg 03/31/24 09:00 Simethicone 80 Mg Tab.Chew PO QID [place] Sodium Chloride 1 gm 03/30/24 17:00 03/30/24 18:07 Sodium Chloride 1 Gm Tablet PO 1 gm BID [place] Administration Tramadol HCl 25 mg 03/28/24 19:51 03/30/24 18:07 Tramadol Hcl (*Crx) 25 Mg Tablet PO 25 mg Q6H PRN Administration Pain Rated 4-6 Radiology Results: ITS Impressions Chest X-Ray 03/27/24 14:12 IMPRESSION: 1. No acute cardiopulmonary disease. Head CT 03/28/24 10:46 IMPRESSION: 1. Normal aging brain. No acute intracranial process. 2. Chronic left sphenoid sinusitis. Abdomen X-Ray 03/31/24 08:31 IMPRESSION: 1. No interval change in moderate amount of stool scattered throughout the colon with large amount of gas in the proximal colon. Labs Labs: Laboratory Results - last 24 hr 03/30/24 03/30/24 03/30/24 05:01 05:01 09:25 WBC RBC Hgb Hct MCV MCH MCHC RDW Plt Count MPV Immature Gran % (Auto) Neut % (Auto) Lymph % (Auto) [place] % (Auto) Eos % (Auto) Baso % (Auto) Lymph # (Auto) [place] # (Auto) Eos # (Auto) Baso # (Auto) Abs Immat Gran (auto) Absolute Neuts (auto) Absolute Nucleated RBC Nucleated RBC % Sodium Potassium Chloride Carbon Dioxide Anion Gap BUN Creatinine Estim Creat Clear Calc Estimated GFR Glucose POC Capillary Glucose Calcium Magnesium Total Bilirubin AST ALT Alkaline Phosphatase Troponin I 0.012 Total Protein Albumin Urine Eosinophils None seen Ur Random Creatinine 61 U Random Total Protein 28 32 H Ur Random Sodium 35 Ur Random Urea 737 Urine Creatinine 64.0 Protein/Creatinin Ratio 525 H Protein/Creat Ratio 2 0.46 H 03/30/24 03/30/24 03/30/24 11:54 12:04 15:45 WBC RBC Hgb Hct MCV MCH MCHC RDW Plt Count MPV Immature Gran % (Auto) Neut % (Auto) Lymph % (Auto) [place] % (Auto) Eos % (Auto) Baso % (Auto) Lymph # (Auto) [place] # (Auto) Eos # (Auto) Baso # (Auto) Abs Immat Gran (auto) Absolute Neuts (auto) Absolute Nucleated RBC Nucleated RBC % Sodium 123 L Potassium 3.9 Chloride 93 L Carbon Dioxide 20 L Anion Gap 10 BUN 18 H Creatinine 0.60 L Estim Creat Clear Calc 69 Estimated GFR > 60 Glucose 319 H POC Capillary Glucose 418 H 394 H Calcium 9.3 Magnesium Total Bilirubin AST ALT Alkaline Phosphatase Troponin I < 0.012 Total Protein Albumin Urine Eosinophils Ur Random Creatinine U Random Total Protein Ur Random Sodium Ur Random Urea Urine Creatinine Protein/Creatinin Ratio Protein/Creat Ratio 2 03/30/24 03/30/24 03/30/24 16:51 20:08 23:23 WBC RBC Hgb Hct MCV MCH MCHC RDW Plt Count MPV Immature Gran % (Auto) Neut % (Auto) Lymph % (Auto) [place] % (Auto) Eos % (Auto) Baso % (Auto) Lymph # (Auto) [place] # (Auto) Eos # (Auto) Baso # (Auto) Abs Immat Gran (auto) Absolute Neuts (auto) Absolute Nucleated RBC Nucleated RBC % Sodium Potassium Chloride Carbon Dioxide Anion Gap BUN Creatinine Estim Creat Clear Calc Estimated GFR Glucose POC Capillary Glucose 331 H 414 H 296 H Calcium Magnesium Total Bilirubin AST ALT Alkaline Phosphatase Troponin I Total Protein Albumin Urine Eosinophils Ur Random Creatinine U Random Total Protein Ur Random Sodium Ur Random Urea Urine Creatinine Protein/Creatinin Ratio Protein/Creat Ratio 2 03/31/24 03/31/24 03/31/24 05:08 05:58 08:16 WBC 12.8 H RBC 4.58 Hgb 14.9 Hct 42.5 MCV 92.8 MCH 32.5 MCHC 35.1 RDW 11.8 Plt Count 346 MPV 9.4 Immature Gran % (Auto) 0.9 H Neut % (Auto) 68.9 Lymph % (Auto) 14.8 L [place] % (Auto) 13.8 H Eos % (Auto) 1.2 Baso % (Auto) 0.4 Lymph # (Auto) 1.89 [place] # (Auto) 1.8 H Eos # (Auto) 0.2 Baso # (Auto) 0.1 Abs Immat Gran (auto) 0.12 H Absolute Neuts (auto) 8.8 H Absolute Nucleated RBC 0.000 Nucleated RBC % 0.0 Sodium 125 L Potassium 3.8 Chloride 96 L Carbon Dioxide 20 L Anion Gap 9 BUN 19 H Creatinine 0.50 L Estim Creat Clear Calc 81 Estimated GFR > 60 Glucose 260 H POC Capillary Glucose 318 H 283 H Calcium 9.0 Magnesium 2.1 Total Bilirubin 0.8 AST 20 ALT 20 Alkaline Phosphatase 68 Troponin I Total Protein 7.0 Albumin 3.5 Urine Eosinophils Ur Random Creatinine U Random Total Protein Ur Random Sodium Ur Random Urea Urine Creatinine Protein/Creatinin Ratio Protein/Creat Ratio 2 Quality VTE Prophylaxis VTE prophylaxis: pharmacologic ordered
--- NOTE | 2024-03-31 10:58 | PCPTNOTE ---
attempted PT eval, pt A&Ox1, responded to name only by looking, pt unable to answer questions and told therapist the woman on the ceiling waved at you , will follow
--- NOTE | 2024-03-31 11:34 | P.PNNP_ITS ---
Progress Note: A&P Assessment and Plan (1) Hyponatremia: Code(s): E87.1 - Hypo-osmolality and hyponatremia Status: Acute Assessment and Plan: * acute finding on admission * normal sodium levels as of 6 months ago and beyond * no previous bouts of low sodium noted * s/p IVF bolus and normal saline IVFs with associated worsening sodium levels * risk factors for low sodium: * prerenal factors * pain ( headache ) * medication related (possibly donepezil, NSAIDs, denosumab) * constipation * urinary retention (as noted this AM) * evaluation to date noted: * CXR negative * CT of head without pathology * urine electrolytes prerenal * TSH okay * cortisol stable * SPEP/UPEP pending * on fluid restriction currently * salt tabs added yesterday * follow trend of repeat serum sodiums (2) Weakness: Code(s): R53.1 - Weakness Status: Acute Assessment and Plan: * due to previous UTI (?) * worsened by urinary retention as noted this AM * no other source of infection to date * related to #1 (?) * PT/OT as tolerated (3) Headache: Code(s): R51.9 - Headache, unspecified Status: Acute Assessment and Plan: * head CT showed a normal aging brain and no acute intracranial process * does mention chronic left sphenoid sinusitis * Tylenol and tramadol for pain control * antibiotics for sinusitis (4) Constipation: Code(s): K59.00 - Constipation, unspecified Status: Acute Assessment and Plan: * as noted by recent KUB * last KUB showed moderate amount of stool scattered throughout the colon with large amount of gas in the proximal colon * bowel regimen initiated (5) Hypertension: Code(s): I10 - Essential (primary) hypertension Status: Acute Assessment and Plan: * running high initially * possibly secondary to pain * medications adjusted * follow trend of hemodynamics (6) Type 2 diabetes mellitus: Code(s): E11.9 - Type 2 diabetes mellitus without complications Status: Acute Assessment and Plan: * follow accu-cheks * glycemic control per hospitalists Will continue to follow. Subjective Date/time seen: 03/31/24 11:34 Interval history: Follow-up for acute hyponatremia. Issues with abdominal distension earlier this morning with bladder scan demonstrating evidence of urinary retention; s/p straight catheterization yielding almost 1200cc of urine; no apparent distress noted otherwise at the time of my visit. Exam Narrative: General: elderly but WD/WN female in NAD Heart: normal S1 and S2; no rub Lungs: clear to auscultation Abdomen: soft, nontender but firm, positive bowel sounds Extremities: no cyanosis or clubbing; no edema Skin: no rash Objective Data Vital Signs Vital Signs: Vital Signs Temp Pulse Resp BP Pulse Ox 03/31/24 08:00 98 F 108 H 24 H 140/73 97 03/31/24 00:00 97.9 F 47 L 18 140/41 L 95 03/31/24 04:00 115 H 03/31/24 00:00 108 H 03/30/24 20:00 117 H 03/30/24 22:36 98.3 F 106 H 16 140/77 97 03/30/24 20:07 98.0 F 114 H 18 141/77 H 96 Intake/Output Intake/Output: Intake & Output 03/28/24 03/29/24 03/30/24 03/31/24 23:59 23:59 23:59 23:59 Intake Total 1300 1750 660 0 Output Total 400 0 1250 Balance 900 1750 660 -1250 Meds/Results Medications: Active Medications Generic Name Dose Route Start Last Admin Trade Name Freq PRN Reason Stop Dose Admin Acetaminophen 650 mg 03/31/24 14:18 Acetaminophen 325 Mg Tablet PO Q4H PRN Insomnia, pain 1-3, fever Amoxicillin/Clavulanate Potassium 1 tablet 03/28/24 21:00 03/31/24 12:18 Amoxicillin/Clavulanate K 875-125 Mg Tab PO 04/04/24 20:59 1 tablet Q12HR MIRE[place] Administration Aspirin 81 mg 03/28/24 09:00 03/31/24 12:18 Aspirin 81 Mg Enteric Tablet PO 81 mg DAILY [place]RE[place] Administration Atorvastatin Calcium 20 mg 03/28/24 09:00 03/31/24 12:18 Atorvastatin 20 Mg Tablet PO 20 mg DAILY [place] Administration Bisacodyl 10 mg 03/31/24 15:55 Bisacodyl 10 Mg Suppository RECTAL DAILY PRN Constipation Dextrose 12.5 gm 03/27/24 17:16 Dextrose 50% 25 Gm/50 Ml Syringe IV PUSH PRN PRN Hypoglycemia Protocol Docusate Sodium 100 mg 03/31/24 21:00 Docusate Sodium Liq 100 Mg/10 Ml Udc PO Q12HR [place] Donepezil HCl 5 mg 03/27/24 21:00 03/30/24 21:18 Donepezil Hcl 5 Mg Tablet PO 5 mg QHS [place] Administration Dorzolamide/Timolol 1 drop 03/27/24 21:00 03/31/24 12:19 Dorzolamide/Timolol Ophth Bev 10 Ml Bottle EACH EYE 1 drop Q12HR [place] Administration Enoxaparin Sodium 40 mg 03/28/24 09:00 03/31/24 12:19 Enoxaparin 40 Mg/0.4 Ml Syringe SUB-Q 40 mg DAILY [place] Administration Ergocalciferol 50,000 units 03/28/24 09:00 03/28/24 08:19 Ergocalciferol 50,000 Units Capsule PO 50,000 units WEEKLY [place] Administration Glucagon 1 mg 03/27/24 17:16 Glucagon For Inj 1 Mg Vial IM PRN PRN Hypoglycemia Protocol Glucose 15 gm 03/27/24 17:16 Glucose Oral Gel 15 Gm Of Glucse In 37.5 Gm Tube PO PRN PRN Hypoglycemia Protocol Hydralazine HCl 20 mg 03/28/24 15:27 Hydralazine Hcl 20 Mg/Ml Vial IV PUSH ONCE PRN Hypertension Dextrose 1,000 mls @ 100 mls/hr 03/27/24 17:16 Dextrose 5% 1,000 Ml IVPB PRN PRN Hypoglycemia Protocol Insulin Aspart 4 - 8 units 03/28/24 08:00 03/31/24 12:16 Insulin Aspart (*Bkc) 100 Units/Ml SUB-Q 5 units TIDWM [place] Administration Protocol Insulin Aspart 2 - 4 units 03/27/24 21:00 03/31/24 00:09 Insulin Aspart (*Bkc) 100 Units/Ml SUB-Q Not Given HS [place] Protocol Nifedipine 30 mg 03/28/24 15:30 03/31/24 12:19 Nifedipine 30 Mg Tab.Er.24 PO 30 mg QAM [place] Administration Ondansetron HCl 4 mg 03/27/24 15:10 Ondansetron Inj 4 Mg/2 Ml Vial IV PUSH Q6H PRN Nausea And Vomiting Polyethylene Glycol 17 gm 03/29/24 15:05 03/31/24 12:19 Polyethylene Glycol 3350 17 Gm Powd.Pack PO 17 gm QAM [place] Administration Simethicone 80 mg 03/31/24 09:00 03/31/24 12:17 Simethicone 80 Mg Tab.Chew PO 80 mg QID [place] Administration Sodium Chloride 1 gm 03/30/24 17:00 03/31/24 12:18 Sodium Chloride 1 Gm Tablet PO 1 gm BID [place] Administration Tramadol HCl 25 mg 03/28/24 19:51 03/31/24 12:23 Tramadol Hcl (*Crx) 25 Mg Tablet PO 25 mg Q6H PRN Administration Pain Rated 4-6 Radiology Results: ITS Impressions Chest X-Ray 03/27/24 14:12 IMPRESSION: 1. No acute cardiopulmonary disease. Head CT 03/28/24 10:46 IMPRESSION: 1. Normal aging brain. No acute intracranial process. 2. Chronic left sphenoid sinusitis. Abdomen X-Ray 03/31/24 08:31 IMPRESSION: 1. No interval change in moderate amount of stool scattered throughout the colon with large amount of gas in the proximal colon. Labs Labs: Laboratory Tests 03/31/24 05:08 03/31/24 05:08 Calcium 9.0 Magnesium 2.1 Total Bilirubin 0.8 AST 20 ALT 20 Alkaline Phosphatase 68 Total Protein 7.0 Albumin 3.5
[2024-03-31 12:01] LABS: Glucose Point of Care 289 mg/dl (65-105)
[2024-03-31] MEDS: SIMETHICONE 80 MG TAB.CHEW PO ×3 (12:17→17:36)
[2024-03-31] MEDS: AMOXICILLIN/CLAVULANATE K 875-125 MG TAB 1 TABLET PO ×2 (12:18→21:03)
[2024-03-31] MEDS: SODIUM CHLORIDE 1 GM TABLET PO ×2 (12:18→17:35)
[2024-03-31] MEDS: ATORVASTATIN 20 MG TABLET PO (12:18)
[2024-03-31] MEDS: ASPIRIN 81 MG ENTERIC TABLET PO (12:18)
[2024-03-31] MEDS: polyethylene glycoL 3350 17 GM POWD.PACK PO (12:19)
[2024-03-31] MEDS: DORZOLAMIDE/TIMOLOL OPHTH SOL 10 ML BOTTLE 1 DROP EACH EYE ×2 (12:19→21:04)
[2024-03-31] MEDS: ENOXAPARIN 40 MG/0.4 ML SYRINGE SUB-Q (12:19)
[2024-03-31] MEDS: NIFEdipine 30 MG TAB.ER.24 PO (12:19)
[2024-03-31 17:01] LABS: Glucose Point of Care 272 mg/dl (65-105)
[2024-03-31] MEDS: BISACODYL 10 MG SUPPOSITORY RECTAL (17:44)
[2024-03-31 20:39] LABS: Glucose Point of Care 281 mg/dl (65-105)
[2024-03-31] MEDS: ACETAMINOPHEN 325 MG TABLET 650 MG PO (21:05)
[2024-03-31] MEDS: MELATONIN 5 MG TABLET PO (21:06)
[2024-03-31] MEDS: DOCUSATE SODIUM LIQ 100 MG/10 ML UDC PO (21:10)
[2024-04-01] VITALS (9 sets, daily range): BP systolic 126–148; BP diastolic 70–90; PULSE 97–139; RESP 18; TEMP 36.3–37.4; O2SAT 92–100
[2024-04-01 06:06] LABS: Basophils Percent Auto 0.4 % (0.2-1.2); Eosinophils Absolute Auto 0.1 K/mm3 (0-0.3); Eosinophils Percent Auto 0.6 % (0-4.4); Hematocrit 41.2 % (37.0-47.0); Hemoglobin 14.1 g/dL (12.0-15.0); Immature Granulocyte Absolute 0.06 K/mm3 (0.00-0.031); Immature Granulocyte Percent A 0.7 % (0-0.5); Lymphocytes Absolute Auto 0.61 K/mm3 (0.9-3.2); Lymphocytes Percent Auto 6.8 % (18.3-44.2); Mean Corpuscular HGB Conc 34.2 g/dl (32-36); Mean Corpuscular Hemoglobin 32.5 pg (26-34); Mean Corpuscular Volume 94.9 fl (80-100); Mean Platelet Volume 9.4 fl (7.4-10.4); Monocytes Absolute Auto 1.4 K/mm3 (0.1-0.6); Monocytes Percent Auto 15.5 % (2.6-8.5); Neutrophils Absolute Auto 6.9 K/mm3 (1.3-6.7); Platelet Count Result 321 k/mm3 (150-375); Red Blood Count 4.34 M/mm3 (4.2-5.4); Red Cell Distribution Width 12.1 % (11.5-14.5)
[2024-04-01 06:11] LABS: Glucose Point of Care 259 mg/dl (65-105)
[2024-04-01 06:28] LABS: Alanine Aminotransferase 25 U/L (6-35); Albumin Level 3.4 g/dL (3.5-5.1); Alkaline Phosphatase 54 U/L (38-126); Anion Gap 13 mmol/L (4-12); Aspartate Amino Transferase 31 U/L (14-36); Bilirubin,Total 0.8 mg/dL (0.2-1.3); Blood Urea Nitrogen 22 mg/dL (7-17); Calcium 8.8 mg/dL (8.4-10.2); Carbon Dioxide 20 mmol/L (22-30); Chloride 97 mmol/L (98-107); Estimated CRCL calculation 81 ml/min; Estimated Glomerular Filt Rate > 60; Glucose 265 mg/dL (65-110); Magnesium 2.1 mg/dL (1.6-2.3); Potassium 4.2 mmol/L (3.4-5.0); Sodium 130 mmol/L (137-145)
[2024-04-01 08:22] LABS: Glucose Point of Care 303 mg/dl (65-105)
[2024-04-01] MEDS: ASPIRIN 81 MG ENTERIC TABLET PO (08:47)
[2024-04-01] MEDS: traMADol HCL (*CRX) 25 MG TABLET PO (08:47)
[2024-04-01] MEDS: SIMETHICONE 80 MG TAB.CHEW PO ×3 (08:47→17:31)
[2024-04-01] MEDS: ATORVASTATIN 20 MG TABLET PO (08:48)
[2024-04-01] MEDS: DOCUSATE SODIUM LIQ 100 MG/10 ML UDC PO ×2 (08:48→21:09)
[2024-04-01] MEDS: polyethylene glycoL 3350 17 GM POWD.PACK PO (08:48)
[2024-04-01] MEDS: AMOXICILLIN/CLAVULANATE K 875-125 MG TAB 1 TABLET PO ×2 (08:48→21:07)
[2024-04-01] MEDS: ENOXAPARIN 40 MG/0.4 ML SYRINGE SUB-Q (08:48)
[2024-04-01] MEDS: NIFEdipine 30 MG TAB.ER.24 PO (08:48)
[2024-04-01] MEDS: INSULIN ASPART (*BKC) 100 UNITS/ML SUB-Q ×4 (08:48→21:10)
[2024-04-01] MEDS: DORZOLAMIDE/TIMOLOL OPHTH SOL 10 ML BOTTLE 1 DROP EACH EYE ×2 (08:49→21:07)
--- NOTE | 2024-04-01 09:53 | P.PNIM_ITS ---
Progress Note: A&P Assessment and Plan (1) Weakness: Code(s): R53.1 - Weakness Status: Acute Assessment and Plan: * increased fatigue and weakness since Monday of last week after finishing a full course Keflex for urinary tract infection * PT and OT ordered * Vitamin D level 36.5 * Vitamin B12 level 497 * will also check urine culture to assure that her UTI cleared completely, her UA did not reflux culture this admission * chest x-ray was negative for any acute cardiopulmonary disease * respiratory panel negative * UA was negative for nitrates or leukocytes * TSH 1.230 * Blood cultures No growth to date. (2) Type 2 diabetes mellitus: Code(s): E11.9 - Type 2 diabetes mellitus without complications Status: Acute Assessment and Plan: * Hypoglycemic protocol * High dose sliding scale insulin. * HgbA1C 9.8% on 03/27/24 * Blood sugars running 259-310 * Add Glargine insulin 12 units subq at bedtime. (3) Abnormal finding on urinalysis: Code(s): R82.90 - Unspecified abnormal findings in urine Status: Acute Assessment and Plan: * UA showed 1+ urine protein, 3+ urine glucose, 3+ urine ketone, 3-5 urine RBC, negative leukocytes and negative nitrates. * Patient was just treated for UTI with urine culture showed Klebsiella pneumoniae which was pansensitive. She was on a course of Keflex which she finished on of last week. * We will go ahead and get a urine culture to assure that it is cleared completely * Repeat UA with reflex sent today. (4) Urine retention: Code(s): R33.9 - Retention of urine, unspecified Status: Acute Assessment and Plan: * Hernandez catheter placed this morning. * UA with reflex to culture sent. * Monitor I&O's * nephrology following (5) Hyponatremia: Code(s): E87.1 - Hypo-osmolality and hyponatremia Status: Acute Assessment and Plan: * Acute, could be due to dehydration vs tea and toast * sodium 130(improving), chloride 97 * patient was given 1 L of normal saline while in the ED * urine sodium 89, urine osmolarity 718, serum osmolarity pending. * Fluid restriction 1500 ml * Nephrology consulted, urine and labs ordered. Awaiting results. * Sodium Chloride 1 gram PO BID. (6) Constipation: Code(s): K59.00 - Constipation, unspecified Status: Acute Assessment and Plan: * KUB 03/29/24 showed Moderate amount of stool scattered throughout the colon with large amount of gas in the proximal colon. * Miralax 17 gm PO daily, Docusate 100 mg PO q12 PRN, and Simethicone 80 mg PO BID * Patient with abdominal distention and no bowel movement. Repeat KUB today show ed: No interval change in moderate amount of stool scattered throughout the colon with large amount of gas in the proximal colon. * Added a soap suds enema, change Docusate 100 mg PO q12 scheduled, increased Simethicone 80 mg PO QID, and continue Miralax 17 gm PO daily. * No results with soap suds enema, Bisacodyl 10 mg VT suppository x1 ordered for today. Added Bisacodyl 10 mg suppositorydaily PRN. * Encourage oral intake. * Small BM this morning. (7) Chronic sphenoidal sinusitis: Code(s): J32.3 - Chronic sphenoidal sinusitis Status: Chronic Assessment and Plan: * Augmentin 875-125 mg PO q12. (8) Hypertension: Code(s): I10 - Essential (primary) hypertension Status: Acute Assessment and Plan: * Start Procardia XL 30 mg PO daily * Hydralazine 20 mg ivp for systolic >180. * Blood pressure 148/89. * Monitor blood pressure. (9) Back pain: Code(s): M54.9 - Dorsalgia, unspecified Status: Acute Assessment and Plan: * Tylenol 650 mg PO q 4 PRN. * Tramadol 25 mg PO q 6 PRN. (10) Hypokalemia: Code(s): E87.6 - Hypokalemia Status: Acute Assessment and Plan: * potassium 4.2 * continue to trend (11) Headache: Code(s): R51.9 - Headache, unspecified Status: Acute Assessment and Plan: * Head CT showed a normal aging brain and no acute intracranial process, chronic left sphenoid sinusitis. * Tylenol 650 mg PO q 4 PRN. * Tramadol 25 mg PO q 6 PRN. (12) Vitamin D deficiency: Code(s): E55.9 - Vitamin D deficiency, unspecified Status: Chronic Assessment and Plan: * currently on vitamin D 52842 units weekly * vitamin-D level 36.5 (13) Vitamin B12 deficiency: Code(s): E53.8 - Deficiency of other specified B group vitamins Status: Chronic Assessment and Plan: * continue aspirin and atorvastatin (14) Dementia: Code(s): F03.90 - Unspecified dementia, unspecified severity, without behavioral disturbance, psychotic disturbance, mood disturbance, and anxiety Status: Chronic Assessment and Plan: * continue Aricept (15) Mixed hyperlipidemia: Code(s): E78.2 - Mixed hyperlipidemia Status: Chronic Assessment and Plan: * continue aspirin and atorvastatin Subjective Date/time seen: 04/01/24 09:53 Interval history: Patient sitting up in chair. Patient reports pain in back is an 8 , constant, and aching. Patient was just given a Tramadol. Patient denied shortness of breath, headache, nausea, or vomiting. Hernandez placed this morning yellow urine. Nurse reports small bowel movement this morning. Review of Systems Review of Systems: All systems reviewed & are unremarkable except as noted in HPI and below Exam Const: General: no acute distress and uncomfortable Resp: Auscultation: diminished lung sounds Cardio: Rate: tachycardic (Telemetry- ST 108) GI: Inspection: distended GI Palp: No Tenderness to palpation present (GI) Other: semi firm, hypoactive bowel sounds. Urinary Catheter: Urinary Catheter: patent and draining and urine clear Neuro: Speech: normal speech Extrem: General: normal to inspection Psych: Other: Memory loss. Alert to self. Objective Data Vital Signs Vital Signs: Vital Signs - 24 hr 03/31/24 16:00 03/31/24 20:46 03/31/24 12:00 Temperature 98.2 F 98.2 F Pulse Rate 114 H 113 H 111 H Respiratory Rate 24 H 16 Blood Pressure 140/71 145/67 H Pulse Oximetry 97 99 Oxygen Delivery 03/31/24 16:00 03/31/24 20:00 03/31/24 20:00 Temperature Pulse Rate 119 H 114 H Respiratory Rate Blood Pressure Pulse Oximetry Oxygen Delivery Room Air 04/01/24 00:15 04/01/24 00:00 04/01/24 04:00 Temperature 98.2 F Pulse Rate 107 H 97 108 H Respiratory Rate 18 Blood Pressure 140/70 Pulse Oximetry 100 Oxygen Delivery 04/01/24 07:54 04/01/24 08:00 Temperature 97.6 F Pulse Rate 104 H Respiratory Rate 18 Blood Pressure 145/90 H Pulse Oximetry 93 Oxygen Delivery Room Air Intake/Output Intake/Output: Intake & Output 03/29/24 03/30/24 03/31/24 04/01/24 23:59 23:59 23:59 23:59 Intake Total 1750 660 0 118 Output Total 0 1250 550 Balance 1750 660 -1250 -432 Meds/Results Medications: Active Medications Generic Name Dose Route Start Last Admin Trade Name Freq PRN Reason Stop Dose Admin Acetaminophen 650 mg 03/31/24 14:18 03/31/24 21:05 Acetaminophen 325 Mg Tablet PO 650 mg Q4H PRN Administration Insomnia, pain 1-3, fever Amoxicillin/Clavulanate Potassium 1 tablet 03/28/24 21:00 04/01/24 08:48 Amoxicillin/Clavulanate K 875-125 Mg Tab PO 04/04/24 20:59 1 tablet Q12HR [place] Administration Aspirin 81 mg 03/28/24 09:00 04/01/24 08:47 Aspirin 81 Mg Enteric Tablet PO 81 mg DAILY [place] Administration Atorvastatin Calcium 20 mg 03/28/24 09:00 04/01/24 08:48 Atorvastatin 20 Mg Tablet PO 20 mg DAILY [place] Administration Bisacodyl 10 mg 03/31/24 15:55 Bisacodyl 10 Mg Suppository RECTAL DAILY PRN Constipation Dextrose 12.5 gm 03/27/24 17:16 Dextrose 50% 25 Gm/50 Ml Syringe IV PUSH PRN PRN Hypoglycemia Protocol Docusate Sodium 100 mg 03/31/24 21:00 04/01/24 08:48 Docusate Sodium Liq 100 Mg/10 Ml Udc PO 100 mg Q12HR [place] Administration Donepezil HCl 5 mg 03/27/24 21:00 03/31/24 21:04 Donepezil Hcl 5 Mg Tablet PO Not Given QHS [place] Dorzolamide/Timolol 1 drop 03/27/24 21:00 04/01/24 08:49 Dorzolamide/Timolol Ophth Bev 10 Ml Bottle EACH EYE 1 drop Q12HR [place] Administration Enoxaparin Sodium 40 mg 03/28/24 09:00 04/01/24 08:48 Enoxaparin 40 Mg/0.4 Ml Syringe SUB-Q 40 mg DAILY [place] Administration Ergocalciferol 50,000 units 03/28/24 09:00 03/28/24 08:19 Ergocalciferol 50,000 Units Capsule PO 50,000 units WEEKLY [place] Administration Glucagon 1 mg 03/27/24 17:16 Glucagon For Inj 1 Mg Vial IM PRN PRN Hypoglycemia Protocol Glucose 15 gm 03/27/24 17:16 Glucose Oral Gel 15 Gm Of Glucse In 37.5 Gm Tube PO PRN PRN Hypoglycemia Protocol Hydralazine HCl 20 mg 03/28/24 15:27 Hydralazine Hcl 20 Mg/Ml Vial IV PUSH ONCE PRN Hypertension Dextrose 1,000 mls @ 100 mls/hr 03/27/24 17:16 Dextrose 5% 1,000 Ml IVPB PRN PRN Hypoglycemia Protocol Insulin Aspart 4 - 8 units 03/28/24 08:00 04/01/24 08:48 Insulin Aspart (*Bkc) 100 Units/Ml SUB-Q 6 units TIDWM [place] Administration Protocol Insulin Aspart 2 - 4 units 03/27/24 21:00 03/31/24 21:11 Insulin Aspart (*Bkc) 100 Units/Ml SUB-Q 2 units HS [place] Administration Protocol Melatonin 5 mg 03/31/24 21:00 03/31/24 21:06 Melatonin 5 Mg Tablet PO 5 mg HS [place] Administration Nifedipine 30 mg 03/28/24 15:30 04/01/24 08:48 Nifedipine 30 Mg Tab.Er.24 PO 30 mg QAM [place] Administration Ondansetron HCl 4 mg 03/27/24 15:10 Ondansetron Inj 4 Mg/2 Ml Vial IV PUSH Q6H PRN Nausea And Vomiting Polyethylene Glycol 17 gm 03/29/24 15:05 04/01/24 08:48 Polyethylene Glycol 3350 17 Gm Powd.Pack PO 17 gm QAM [place] Administration Simethicone 80 mg 03/31/24 09:00 04/01/24 08:47 Simethicone 80 Mg Tab.Chew PO 80 mg QID [place] Administration Sodium Chloride 1 gm 03/30/24 17:00 03/31/24 17:35 Sodium Chloride 1 Gm Tablet PO 1 gm BID [place] Administration Tramadol HCl 25 mg 03/28/24 19:51 04/01/24 08:47 Tramadol Hcl (*Crx) 25 Mg Tablet PO 25 mg Q6H PRN Administration Pain Rated 4-6 Radiology Results: ITS Impressions Chest X-Ray 03/27/24 14:12 IMPRESSION: 1. No acute cardiopulmonary disease. Head CT 03/28/24 10:46 IMPRESSION: 1. Normal aging brain. No acute intracranial process. 2. Chronic left sphenoid sinusitis. Abdomen X-Ray 03/31/24 08:31 IMPRESSION: 1. No interval change in moderate amount of stool scattered throughout the colon with large amount of gas in the proximal colon. Labs Labs: Laboratory Results - last 24 hr 03/31/24 03/31/24 03/31/24 11:55 16:58 20:15 WBC RBC Hgb Hct MCV MCH MCHC RDW Plt Count MPV Immature Gran % (Auto) Neut % (Auto) Lymph % (Auto) Sierra % (Auto) Eos % (Auto) Baso % (Auto) Lymph # (Auto) [place] # (Auto) Eos # (Auto) Baso # (Auto) Abs Immat Gran (auto) Absolute Neuts (auto) Absolute Nucleated RBC Nucleated RBC % Sodium Potassium Chloride Carbon Dioxide Anion Gap BUN Creatinine Estim Creat Clear Calc Estimated GFR Glucose POC Capillary Glucose 289 H 272 H 281 H Calcium Magnesium Total Bilirubin AST ALT Alkaline Phosphatase Total Protein Albumin 04/01/24 04/01/24 04/01/24 05:27 05:44 08:19 WBC 9.0 RBC 4.34 Hgb 14.1 Hct 41.2 MCV 94.9 MCH 32.5 MCHC 34.2 RDW 12.1 Plt Count 321 MPV 9.4 Immature Gran % (Auto) 0.7 H Neut % (Auto) 76.0 H Lymph % (Auto) 6.8 L Sierra % (Auto) 15.5 H Eos % (Auto) 0.6 Baso % (Auto) 0.4 Lymph # (Auto) 0.61 L Sierra # (Auto) 1.4 H Eos # (Auto) 0.1 Baso # (Auto) 0.0 Abs Immat Gran (auto) 0.06 H Absolute Neuts (auto) 6.9 H Absolute Nucleated RBC 0.000 Nucleated RBC % 0.0 Sodium 130 L Potassium 4.2 Chloride 97 L Carbon Dioxide 20 L Anion Gap 13 H BUN 22 H Creatinine 0.50 L Estim Creat Clear Calc 81 Estimated GFR > 60 Glucose 265 H POC Capillary Glucose 259 H 303 H Calcium 8.8 Magnesium 2.1 Total Bilirubin 0.8 AST 31 ALT 25 Alkaline Phosphatase 54 Total Protein 6.0 L Albumin 3.4 L Quality VTE Prophylaxis VTE prophylaxis: pharmacologic ordered
--- NOTE | 2024-04-01 11:38 | P.PNNP_ITS ---
Progress Note: A&P Assessment and Plan (1) Hyponatremia: Code(s): E87.1 - Hypo-osmolality and hyponatremia Status: Acute Assessment and Plan: * acute finding on admission * normal sodium levels as of 6 months ago and beyond * no previous bouts of low sodium noted * s/p IVF bolus and normal saline IVFs with associated worsening sodium levels * risk factors for low sodium: * prerenal factors * pain ( headache ) * medication related (possibly donepezil, NSAIDs, denosumab) * constipation * urinary retention (as noted this AM) * evaluation to date noted: * CXR negative * CT of head without pathology * urine electrolytes prerenal * TSH okay * cortisol stable * SPEP/UPEP pending * on fluid restriction currently * hold salt tabs * perhaps urinary retention and constipation more to blame for drop in sodium * follow trend of repeat serum sodiums (2) Weakness: Code(s): R53.1 - Weakness Status: Acute Assessment and Plan: * due to previous UTI (?) * worsened by urinary retention as noted this AM * no other source of infection to date * related to #1 (?) * PT/OT as tolerated (3) Headache: Code(s): R51.9 - Headache, unspecified Status: Acute Assessment and Plan: * head CT showed a normal aging brain and no acute intracranial process * does mention chronic left sphenoid sinusitis * Tylenol and tramadol for pain control * antibiotics for sinusitis (4) Constipation: Code(s): K59.00 - Constipation, unspecified Status: Acute Assessment and Plan: * as noted by recent KUB * last KUB showed moderate amount of stool scattered throughout the colon with large amount of gas in the proximal colon * bowel regimen initiated (5) Hypertension: Code(s): I10 - Essential (primary) hypertension Status: Acute Assessment and Plan: * running high initially * possibly secondary to pain * medications adjusted * follow trend of hemodynamics (6) Type 2 diabetes mellitus: Code(s): E11.9 - Type 2 diabetes mellitus without complications Status: Acute Assessment and Plan: * follow accu-cheks * glycemic control per hospitalists Will continue to follow. Subjective Date/time seen: 04/01/24 11:38 Interval history: Follow-up for acute hyponatremia. Hernandez catheter placed due to ongoing issues with urinary retention; reportedly had a small bowel movement earlier this morning as well; sodium has improved with current interventions/therapy to date; no apparent distress noted at the time of my visit. Exam Narrative: General: elderly but WD/WN female in NAD Heart: normal S1 and S2; no rub Lungs: clear to auscultation Abdomen: soft, nontender but firm, positive bowel sounds Extremities: no cyanosis or clubbing; no edema Skin: no nodules Objective Data Vital Signs Vital Signs: Vital Signs Temp Pulse Resp BP Pulse Ox O2 Del Method 04/01/24 11:00 97.3 F L 100 18 148/89 H 92 04/01/24 08:45 Room Air 04/01/24 08:00 139 H 04/01/24 08:00 97.6 F 104 H 18 145/90 H 93 04/01/24 07:54 Room Air 04/01/24 04:00 108 H 04/01/24 00:00 97 04/01/24 00:15 98.2 F 107 H 18 140/70 100 03/31/24 20:00 114 H 03/31/24 20:00 Room Air 03/31/24 20:46 98.2 F 113 H 16 145/67 H 99 Intake/Output Intake/Output: Intake & Output 03/29/24 03/30/24 03/31/24 04/01/24 23:59 23:59 23:59 23:59 Intake Total 1750 660 0 236 Output Total 0 1250 550 Balance 1750 660 -1250 -314 Meds/Results Medications: Active Medications Generic Name Dose Route Start Last Admin Trade Name Freq PRN Reason Stop Dose Admin Acetaminophen 650 mg 03/31/24 14:18 03/31/24 21:05 Acetaminophen 325 Mg Tablet PO 650 mg Q4H PRN Administration Insomnia, pain 1-3, fever Amoxicillin/Clavulanate Potassium 1 tablet 03/28/24 21:00 04/01/24 08:48 Amoxicillin/Clavulanate K 875-125 Mg Tab PO 04/04/24 20:59 1 tablet Q12HR [place]RE[place] Administration Aspirin 81 mg 03/28/24 09:00 04/01/24 08:47 Aspirin 81 Mg Enteric Tablet PO 81 mg DAILY [place] Administration Atorvastatin Calcium 20 mg 03/28/24 09:00 04/01/24 08:48 Atorvastatin 20 Mg Tablet PO 20 mg DAILY [place] Administration Bisacodyl 10 mg 03/31/24 15:55 Bisacodyl 10 Mg Suppository RECTAL DAILY PRN Constipation Dextrose 12.5 gm 03/27/24 17:16 Dextrose 50% 25 Gm/50 Ml Syringe IV PUSH PRN PRN Hypoglycemia Protocol Docusate Sodium 100 mg 03/31/24 21:00 04/01/24 08:48 Docusate Sodium Liq 100 Mg/10 Ml Udc PO 100 mg Q12HR [place] Administration Donepezil HCl 5 mg 03/27/24 21:00 03/31/24 21:04 Donepezil Hcl 5 Mg Tablet PO Not Given QHS [place] Dorzolamide/Timolol 1 drop 03/27/24 21:00 04/01/24 08:49 Dorzolamide/Timolol Ophth Bev 10 Ml Bottle EACH EYE 1 drop Q12HR [place] Administration Enoxaparin Sodium 40 mg 03/28/24 09:00 04/01/24 08:48 Enoxaparin 40 Mg/0.4 Ml Syringe SUB-Q 40 mg DAILY [place] Administration Ergocalciferol 50,000 units 03/28/24 09:00 03/28/24 08:19 Ergocalciferol 50,000 Units Capsule PO 50,000 units WEEKLY [place] Administration Glucagon 1 mg 03/27/24 17:16 Glucagon For Inj 1 Mg Vial IM PRN PRN Hypoglycemia Protocol Glucose 15 gm 03/27/24 17:16 Glucose Oral Gel 15 Gm Of Glucse In 37.5 Gm Tube PO PRN PRN Hypoglycemia Protocol Hydralazine HCl 20 mg 03/28/24 15:27 Hydralazine Hcl 20 Mg/Ml Vial IV PUSH ONCE PRN Hypertension Dextrose 1,000 mls @ 100 mls/hr 03/27/24 17:16 Dextrose 5% 1,000 Ml IVPB PRN PRN Hypoglycemia Protocol Insulin Aspart 4 - 8 units 03/28/24 08:00 04/01/24 13:15 Insulin Aspart (*Bkc) 100 Units/Ml SUB-Q 6 units TIDWM [place] Administration Protocol Insulin Aspart 2 - 4 units 03/27/24 21:00 03/31/24 21:11 Insulin Aspart (*Bkc) 100 Units/Ml SUB-Q 2 units HS [place] Administration Protocol Insulin Glargine 12 units 04/01/24 21:00 Insulin Glargine (*Bkc) 100 Units/Ml 0.15 units/kg (12 units) SUB-Q HS [place] Melatonin 5 mg 03/31/24 21:00 03/31/24 21:06 Melatonin 5 Mg Tablet PO 5 mg HS [place] Administration Nifedipine 30 mg 03/28/24 15:30 04/01/24 08:48 Nifedipine 30 Mg Tab.Er.24 PO 30 mg QAM [place] Administration Ondansetron HCl 4 mg 03/27/24 15:10 Ondansetron Inj 4 Mg/2 Ml Vial IV PUSH Q6H PRN Nausea And Vomiting Polyethylene Glycol 17 gm 03/29/24 15:05 04/01/24 08:48 Polyethylene Glycol 3350 17 Gm Powd.Pack PO 17 gm QAM [place] Administration Simethicone 80 mg 03/31/24 09:00 04/01/24 13:16 Simethicone 80 Mg Tab.Chew PO 80 mg QID [place] Administration Sodium Chloride 1 gm 03/30/24 17:00 03/31/24 17:35 Sodium Chloride 1 Gm Tablet PO 1 gm BID [place] Administration Tramadol HCl 25 mg 03/28/24 19:51 04/01/24 08:47 Tramadol Hcl (*Crx) 25 Mg Tablet PO 25 mg Q6H PRN Administration Pain Rated 4-6 Radiology Results: ITS Impressions Chest X-Ray 03/27/24 14:12 IMPRESSION: 1. No acute cardiopulmonary disease. Head CT 03/28/24 10:46 IMPRESSION: 1. Normal aging brain. No acute intracranial process. 2. Chronic left sphenoid sinusitis. Abdomen X-Ray 03/31/24 08:31 IMPRESSION: 1. No interval change in moderate amount of stool scattered throughout the colon with large amount of gas in the proximal colon. Labs Labs: Laboratory Tests 04/01/24 05:27 04/01/24 05:27 Calcium 8.8 Magnesium 2.1 Total Bilirubin 0.8 AST 31 ALT 25 Alkaline Phosphatase 54 Total Protein 6.0 L Albumin 3.4 L
[2024-04-01 12:02] LABS: Glucose Point of Care 310 mg/dl (65-105)
--- NOTE | 2024-04-01 14:51 | PCOTNOTE ---
Attempted to see Patient at this time. Patient able to arouse with increased voice and tactile cues, unable to stay awake or communicate. Patient is unable to participate in therapy at this time. RN notified and stated she is aware.
[2024-04-01 15:42] LABS: Protein, Total 5.9 g/dL (6.1-8.1)
[2024-04-01 17:21] LABS: Glucose Point of Care 267 mg/dl (65-105)
[2024-04-01 19:53] LABS: Add Urine Microscopic? YES; Appearance Urine Clear (Clear); Bacteria Urine None Seen /hpf; Bilirubin Urine Negative (Negative); Blood Urine 1+ (Negative); Color Urine Yellow (Yellow); Glucose Urine UA 3+ mg/dL (Negative); Ketones Urine Trace mg/dL (Negative); Leukocyte Esterase Ur Negative LEU/UL (Negative); Need Manual Microscopic Reviewed; Nitrate Urine Negative (Negative); Protein Urine 1+ mg/dL (Negative); Squamous Epithelial Cell Urine Moderate /hpf (Few); pH Urine 5.5 (5.0-9.0)
[2024-04-01] MEDS: DONEPEZIL HCL 5 MG TABLET PO (21:07)
[2024-04-01] MEDS: INSULIN GLARGINE (*BKC) 100 UNITS/ML 12 UNITS SUB-Q (21:09)
[2024-04-02] VITALS (9 sets, daily range): BP systolic 125–144; BP diastolic 54–90; PULSE 104–122; RESP 18–20; TEMP 36.4–36.8; O2SAT 91–95
[2024-04-02] MEDS: traMADol HCL (*CRX) 25 MG TABLET PO ×2 (02:51→09:55)
[2024-04-02 03:59] LABS: Glucose Point of Care 254 mg/dl (65-105)
[2024-04-02 06:05] LABS: Basophils Percent Auto 0.3 % (0.2-1.2); Eosinophils Absolute Auto 0.1 K/mm3 (0-0.3); Eosinophils Percent Auto 0.7 % (0-4.4); Hematocrit 36.4 % (37.0-47.0); Hemoglobin 12.4 g/dL (12.0-15.0); Immature Granulocyte Absolute 0.07 K/mm3 (0.00-0.031); Lymphocytes Absolute Auto 0.82 K/mm3 (0.9-3.2); Lymphocytes Percent Auto 12.3 % (18.3-44.2); Mean Corpuscular HGB Conc 34.1 g/dl (32-36); Mean Corpuscular Hemoglobin 33.3 pg (26-34); Mean Corpuscular Volume 97.8 fl (80-100); Mean Platelet Volume 9.1 fl (7.4-10.4); Monocytes Absolute Auto 1.3 K/mm3 (0.1-0.6); Monocytes Percent Auto 20.1 % (2.6-8.5); Neutrophils Absolute Auto 4.4 K/mm3 (1.3-6.7); Neutrophils Percent Auto 65.6 % (45.5-73.1); Platelet Count Result 246 k/mm3 (150-375); Red Blood Count 3.72 M/mm3 (4.2-5.4); Red Cell Distribution Width 12.2 % (11.5-14.5); White Blood Count 6.7 K/mm3 (4.5-10.0)
[2024-04-02 06:19] LABS: Alanine Aminotransferase 26 U/L (6-35); Albumin Level 2.9 g/dL (3.5-5.1); Alkaline Phosphatase 46 U/L (38-126); Anion Gap 6 mmol/L (4-12); Aspartate Amino Transferase 25 U/L (14-36); Bilirubin,Total 0.6 mg/dL (0.2-1.3); Blood Urea Nitrogen 23 mg/dL (7-17); Calcium 8.4 mg/dL (8.4-10.2); Carbon Dioxide 25 mmol/L (22-30); Chloride 99 mmol/L (98-107); Estimated CRCL calculation 81 ml/min; Estimated Glomerular Filt Rate > 60; Glucose 239 mg/dL (65-110); Potassium 3.9 mmol/L (3.4-5.0); Sodium 130 mmol/L (137-145)
[2024-04-02 08:18] LABS: Glucose Point of Care 261 mg/dl (65-105)
[2024-04-02] MEDS: ATORVASTATIN 20 MG TABLET PO (09:16)
[2024-04-02] MEDS: polyethylene glycoL 3350 17 GM POWD.PACK PO (09:16)
[2024-04-02] MEDS: AMOXICILLIN/CLAVULANATE K 875-125 MG TAB 1 TABLET PO ×2 (09:16→20:48)
[2024-04-02] MEDS: ASPIRIN 81 MG ENTERIC TABLET PO (09:16)
[2024-04-02] MEDS: SIMETHICONE 80 MG TAB.CHEW PO ×3 (09:16→20:48)
[2024-04-02] MEDS: NIFEdipine 30 MG TAB.ER.24 PO (09:16)
[2024-04-02] MEDS: ENOXAPARIN 40 MG/0.4 ML SYRINGE SUB-Q (09:17)
[2024-04-02] MEDS: DORZOLAMIDE/TIMOLOL OPHTH SOL 10 ML BOTTLE 1 DROP EACH EYE ×2 (09:17→20:49)
[2024-04-02] MEDS: INSULIN ASPART (*BKC) 100 UNITS/ML SUB-Q ×3 (09:17→20:51)
[2024-04-02] MEDS: DOCUSATE SODIUM LIQ 100 MG/10 ML UDC PO ×2 (09:17→20:49)
[2024-04-02] MEDS: FAMOTIDINE 20 MG TABLET PO ×2 (09:55→20:48)
--- NOTE | 2024-04-02 10:15 | P.PNNP_ITS ---
Progress Note: A&P Assessment and Plan (1) Hyponatremia: Code(s): E87.1 - Hypo-osmolality and hyponatremia Status: Acute Assessment and Plan: * slow improvement noted * acute finding noted on admission * normal sodium levels as of 6 months ago and beyond * no previous bouts of low sodium noted * s/p IVF bolus and normal saline IVFs with associated worsening sodium levels * risk factors for low sodium: * prerenal factors * pain ( headache ) * medication related (possibly donepezil, NSAIDs, denosumab) * constipation * urinary retention * evaluation to date noted: * CXR negative * CT of head without pathology * urine electrolytes prerenal * TSH okay * cortisol stable * SPEP/UPEP negative for any paraproteinemia * on fluid restriction currently * holding salt tabs at this time * perhaps urinary retention and constipation more to blame for drop in sodium * consider resume salt tabs if sodium worsens again * follow trend of repeat serum sodiums (2) Weakness: Code(s): R53.1 - Weakness Status: Acute Assessment and Plan: * due to previous UTI (?) * worsened by urinary retention as noted this AM * no other source of infection to date * related to #1 (?) * PT/OT as tolerated (3) Headache: Code(s): R51.9 - Headache, unspecified Status: Acute Assessment and Plan: * head CT showed a normal aging brain and no acute intracranial process * does mention chronic left sphenoid sinusitis * Tylenol and tramadol for pain control * antibiotics for sinusitis (4) Constipation: Code(s): K59.00 - Constipation, unspecified Status: Acute Assessment and Plan: * as noted by recent KUB * last KUB showed moderate amount of stool scattered throughout the colon with large amount of gas in the proximal colon * bowel regimen instituted (5) Hypertension: Code(s): I10 - Essential (primary) hypertension Status: Acute Assessment and Plan: * running high initially * possibly secondary to pain * medications adjusted * follow trend of hemodynamics (6) Type 2 diabetes mellitus: Code(s): E11.9 - Type 2 diabetes mellitus without complications Status: Acute Assessment and Plan: * follow accu-cheks * glycemic control per hospitalists Not sure much else to add -- will continue to follow from a distance. Subjective Date/time seen: 04/02/24 10:15 Interval history: Follow-up for acute hyponatremia. Sodium level remains stable in thelast 24 hours with current therapy/intervent ions -- salt tablets on hold and remains just on fluid restriction; no apparent distress noted at the time of my visit; did have some bowel movement today per nursing; no other acute complaints aside from some heartburn. Exam Narrative: General: elderly but WD/WN female in NAD Heart: normal S1 and S2; no rub Lungs: clear to auscultation Abdomen: soft, nontender but firm, positive bowel sounds Extremities: no cyanosis or clubbing; no edema Skin: warm and dry Objective Data Vital Signs Vital Signs: Vital Signs Temp Pulse Resp BP Pulse Ox O2 Del Method 04/02/24 09:15 Room Air 04/02/24 08:00 110 H 04/02/24 05:07 98.2 F 105 H 18 125/54 L 92 04/02/24 04:00 104 H 04/02/24 00:00 115 H 04/01/24 20:00 110 H 04/01/24 20:00 Room Air 04/01/24 19:47 99.4 F 110 H 18 126/72 93 04/01/24 16:00 111 H 04/01/24 14:00 97.3 F L 100 18 148/89 H 92 Intake/Output Intake/Output: Intake & Output 03/30/24 03/31/24 04/01/24 04/02/24 23:59 23:59 23:59 23:59 Intake Total 660 0 236 358 Output Total 1250 1150 200 Balance 660 -1250 -914 158 Meds/Results Medications: Active Medications Generic Name Dose Route Start Last Admin Trade Name Freq PRN Reason Stop Dose Admin Acetaminophen 650 mg 03/31/24 14:18 03/31/24 21:05 Acetaminophen 325 Mg Tablet PO 650 mg Q4H PRN Administration Insomnia, pain 1-3, fever Amoxicillin/Clavulanate Potassium 1 tablet 03/28/24 21:00 04/02/24 09:16 Amoxicillin/Clavulanate K 875-125 Mg Tab PO 04/04/24 20:59 1 tablet Q12HR [place] Administration Aspirin 81 mg 03/28/24 09:00 04/02/24 09:16 Aspirin 81 Mg Enteric Tablet PO 81 mg DAILY [place] Administration Atorvastatin Calcium 20 mg 03/28/24 09:00 04/02/24 09:16 Atorvastatin 20 Mg Tablet PO 20 mg DAILY [place] Administration Bisacodyl 10 mg 03/31/24 15:55 Bisacodyl 10 Mg Suppository RECTAL DAILY PRN Constipation Dextrose 12.5 gm 03/27/24 17:16 Dextrose 50% 25 Gm/50 Ml Syringe IV PUSH PRN PRN Hypoglycemia Protocol Docusate Sodium 100 mg 03/31/24 21:00 04/02/24 09:17 Docusate Sodium Liq 100 Mg/10 Ml Udc PO 100 mg Q12HR [place] Administration Donepezil HCl 5 mg 03/27/24 21:00 04/01/24 21:07 Donepezil Hcl 5 Mg Tablet PO 5 mg QHS [place] Administration Dorzolamide/Timolol 1 drop 03/27/24 21:00 04/02/24 09:17 Dorzolamide/Timolol Ophth Bev 10 Ml Bottle EACH EYE 1 drop Q12HR [place] Administration Enoxaparin Sodium 40 mg 03/28/24 09:00 04/02/24 09:17 Enoxaparin 40 Mg/0.4 Ml Syringe SUB-Q 40 mg DAILY [place] Administration Ergocalciferol 50,000 units 03/28/24 09:00 03/28/24 08:19 Ergocalciferol 50,000 Units Capsule PO 50,000 units WEEKLY [place] Administration Famotidine 20 mg 04/02/24 09:00 04/02/24 09:55 Famotidine 20 Mg Tablet PO 20 mg Q12HR [place] Administration Glucagon 1 mg 03/27/24 17:16 Glucagon For Inj 1 Mg Vial IM PRN PRN Hypoglycemia Protocol Glucose 15 gm 03/27/24 17:16 Glucose Oral Gel 15 Gm Of Glucse In 37.5 Gm Tube PO PRN PRN Hypoglycemia Protocol Hydralazine HCl 20 mg 03/28/24 15:27 Hydralazine Hcl 20 Mg/Ml Vial IV PUSH ONCE PRN Hypertension Dextrose 1,000 mls @ 100 mls/hr 03/27/24 17:16 Dextrose 5% 1,000 Ml IVPB PRN PRN Hypoglycemia Protocol Insulin Aspart 4 - 8 units 03/28/24 08:00 04/02/24 09:17 Insulin Aspart (*Bkc) 100 Units/Ml SUB-Q 5 units TIDWM [place] Administration Protocol Insulin Aspart 2 - 4 units 03/27/24 21:00 04/01/24 21:10 Insulin Aspart (*Bkc) 100 Units/Ml SUB-Q 2 units HS [place] Administration Protocol Insulin Glargine 12 units 04/01/24 21:00 04/01/24 21:09 Insulin Glargine (*Bkc) 100 Units/Ml 0.15 units/kg (12 units) 12 units SUB-Q Administration HS [place] Melatonin 5 mg 03/31/24 21:00 04/01/24 21:10 Melatonin 5 Mg Tablet PO Not Given HS [place] Nifedipine 30 mg 03/28/24 15:30 04/02/24 09:16 Nifedipine 30 Mg Tab.Er.24 PO 30 mg QAM [place] Administration Ondansetron HCl 4 mg 03/27/24 15:10 Ondansetron Inj 4 Mg/2 Ml Vial IV PUSH Q6H PRN Nausea And Vomiting Polyethylene Glycol 17 gm 03/29/24 15:05 04/02/24 09:16 Polyethylene Glycol 3350 17 Gm Powd.Pack PO 17 gm QAM [place] Administration Simethicone 80 mg 03/31/24 09:00 04/02/24 09:16 Simethicone 80 Mg Tab.Chew PO 80 mg QID [place] Administration Sodium Chloride 1 gm 03/30/24 17:00 03/31/24 17:35 Sodium Chloride 1 Gm Tablet PO 1 gm BID [place] Administration Tramadol HCl 25 mg 03/28/24 19:51 04/02/24 09:55 Tramadol Hcl (*Crx) 25 Mg Tablet PO 25 mg Q6H PRN Administration Pain Rated 4-6 Radiology Results: ITS Impressions Chest X-Ray 03/27/24 14:12 IMPRESSION: 1. No acute cardiopulmonary disease. Head CT 03/28/24 10:46 IMPRESSION: 1. Normal aging brain. No acute intracranial process. 2. Chronic left sphenoid sinusitis. Abdomen X-Ray 03/31/24 08:31 IMPRESSION: 1. No interval change in moderate amount of stool scattered throughout the colon with large amount of gas in the proximal colon. Labs Labs: Laboratory Tests 04/02/24 05:30 04/02/24 05:30 Calcium 8.4 Total Bilirubin 0.6 AST 25 ALT 26 Alkaline Phosphatase 46 Total Protein 6.0 L Albumin 2.9 L Microbiology 03/27/24 17:50 Blood Blood Culture - Final 03/27/24 17:50 Blood Blood Culture - Final 03/31/24 07:57 Urine Clean Catch Urine Culture - Final
--- NOTE | 2024-04-02 11:45 | P.PNIM_ITS ---
Progress Note: A&P Assessment and Plan (1) Weakness: Code(s): R53.1 - Weakness Status: Acute Assessment and Plan: * increased fatigue and weakness since Monday of last week after finishing a full course Keflex for urinary tract infection * PT and OT ordered * Vitamin D level 36.5 * Vitamin B12 level 497 * will also check urine culture to assure that her UTI cleared completely, her UA did not reflux culture this admission * chest x-ray was negative for any acute cardiopulmonary disease * respiratory panel negative * UA was negative for nitrates or leukocytes * TSH 1.230 * Blood cultures No growth to date. (2) Type 2 diabetes mellitus: Code(s): E11.9 - Type 2 diabetes mellitus without complications Status: Acute Assessment and Plan: * Hypoglycemic protocol * High dose sliding scale insulin. * HgbA1C 9.8% on 03/27/24 * Blood sugars running 261-275 * Glargine insulin 12 units subq at bedtime. (3) Abnormal finding on urinalysis: Code(s): R82.90 - Unspecified abnormal findings in urine Status: Acute Assessment and Plan: * UA showed 1+ urine protein, 3+ urine glucose, 3+ urine ketone, 3-5 urine RBC, negative leukocytes and negative nitrates. * Patient was just treated for UTI with urine culture showed Klebsiella pneumoniae which was pansensitive. She was on a course of Keflex which she finished on of last week. * We will go ahead and get a urine culture to assure that it is cleared completely * Repeat UA with reflex sent today. (4) Urine retention: Code(s): R33.9 - Retention of urine, unspecified Status: Acute Assessment and Plan: * Hernandez catheter placed this morning. * UA with reflex to culture sent. * Monitor I&O's * nephrology following (5) Hyponatremia: Code(s): E87.1 - Hypo-osmolality and hyponatremia Status: Acute Assessment and Plan: * sodium 130(improving), chloride 99 * patient was given 1 L of normal saline while in the ED * urine sodium 89, urine osmolarity 718, serum osmolarity pending. * Fluid restriction 1500 ml * Nephrology consulted, urine and labs ordered. Awaiting results. (6) Constipation: Code(s): K59.00 - Constipation, unspecified Status: Acute Assessment and Plan: * KUB 03/29/24 showed Moderate amount of stool scattered throughout the colon with large amount of gas in the proximal colon. * Miralax 17 gm PO daily, Docusate 100 mg PO q12 PRN, and Simethicone 80 mg PO BID * Patient with abdominal distention and no bowel movement. Repeat KUB today showed: No interval change in moderate amount of stool scattered throughout the colon with large amount of gas in the proximal colon. * Added a soap suds enema, change Docusate 100 mg PO q12 scheduled, increased Simethicone 80 mg PO QID, and continue Miralax 17 gm PO daily. * No results with soap suds enema, Bisacodyl 10 mg UT suppository x1 ordered for today. Added Bisacodyl 10 mg suppositorydaily PRN. * Encourage oral intake. * 2 bowel movements on 04/02/24 (7) Chronic sphenoidal sinusitis: Code(s): J32.3 - Chronic sphenoidal sinusitis Status: Chronic Assessment and Plan: * Augmentin 875-125 mg PO q12. (8) Hypertension: Code(s): I10 - Essential (primary) hypertension Status: Acute Assessment and Plan: * Start Procardia XL 30 mg PO daily * Hydralazine 20 mg ivp for systolic >180. * Blood pressure 144/90 * Monitor blood pressure. (9) Back pain: Code(s): M54.9 - Dorsalgia, unspecified Status: Acute Assessment and Plan: * Tylenol 650 mg PO q 4 PRN. * Tramadol 25 mg PO q 6 PRN. (10) Headache: Code(s): R51.9 - Headache, unspecified Status: Acute Assessment and Plan: * Head CT showed a normal aging brain and no acute intracranial process, chronic left sphenoid sinusitis. * Tylenol 650 mg PO q 4 PRN. * Tramadol 25 mg PO q 6 PRN. (11) Vitamin D deficiency: Code(s): E55.9 - Vitamin D deficiency, unspecified Status: Chronic Assessment and Plan: * currently on vitamin D 90675 units weekly * vitamin-D level 36.5 (12) Vitamin B12 deficiency: Code(s): E53.8 - Deficiency of other specified B group vitamins Status: Chronic Assessment and Plan: * continue aspirin and atorvastatin (13) Dementia: Code(s): F03.90 - Unspecified dementia, unspecified severity, without behavioral disturbance, psychotic disturbance, mood disturbance, and anxiety Status: Chronic Assessment and Plan: * continue Aricept (14) Mixed hyperlipidemia: Code(s): E78.2 - Mixed hyperlipidemia Status: Chronic Assessment and Plan: * continue aspirin and atorvastatin (15) GERD (gastroesophageal reflux disease): Code(s): K21.9 - Gastro-esophageal reflux disease without esophagitis Status: Acute Assessment and Plan: * Pepcid 20 mg PO BID. Subjective Date/time seen: 04/02/24 11:45 Interval history: and son at bedside. Patient denies pain or shortness of breath. Patient had 2 bowel movements today. Nurse reported patient having heart burn this morning, started on Pepcid 20 mg PO BID. Review of Systems Review of Systems: All systems reviewed & are unremarkable except as noted in HPI and below Exam Const: General: no acute distress Resp: Auscultation: diminished lung sounds Cardio: Rate: tachycardic (ST-102) GI: Inspection: distended Auscultation: normal bowel sounds Other: semi- firm. 2 bowel movements today. Urinary Catheter: Urinary Catheter: patent and draining and urine clear Neuro: Speech: normal speech Extrem: General: normal to inspection Psych: Other: Memory loss. Alert to self. Objective Data Vital Signs Vital Signs: Vital Signs - 24 hr 04/01/24 12:00 04/01/24 14:00 04/01/24 16:00 Temperature 97.3 F L Pulse Rate 103 H 100 111 H Respiratory Rate 18 Blood Pressure 148/89 H Pulse Oximetry 92 Oxygen Delivery 04/01/24 19:47 04/01/24 20:00 04/01/24 20:00 Temperature 99.4 F Pulse Rate 110 H 110 H Respiratory Rate 18 Blood Pressure 126/72 Pulse Oximetry 93 Oxygen Delivery Room Air 04/02/24 00:00 04/02/24 04:00 04/02/24 05:07 Temperature 98.2 F Pulse Rate 115 H 104 H 105 H Respiratory Rate 18 Blood Pressure 125/54 L Pulse Oximetry 92 Oxygen Delivery 04/02/24 08:00 04/02/24 09:15 Temperature Pulse Rate 110 H Respiratory Rate Blood Pressure Pulse Oximetry Oxygen Delivery Room Air Intake/Output Intake/Output: Intake & Output 1103/31/24 04/01/24 04/02/24 23:59 23:59 23:59 23:59 Intake Total 660 0 236 358 Output Total 1250 1150 200 Balance 660 -5320 -949 158 Meds/Results Medications: Active Medications Generic Name Dose Route Start Last Admin Trade Name Freq PRN Reason Stop Dose Admin Acetaminophen 650 mg 03/31/24 14:18 03/31/24 21:05 Acetaminophen 325 Mg Tablet PO 650 mg Q4H PRN Administration Insomnia, pain 1-3, fever Amoxicillin/Clavulanate Potassium 1 tablet 03/28/24 21:00 04/02/24 09:16 Amoxicillin/Clavulanate K 875-125 Mg Tab PO 04/04/24 20:59 1 tablet Q12HR [place] Administration Aspirin 81 mg 03/28/24 09:00 04/02/24 09:16 Aspirin 81 Mg Enteric Tablet PO 81 mg DAILY [place] Administration Atorvastatin Calcium 20 mg 03/28/24 09:00 04/02/24 09:16 Atorvastatin 20 Mg Tablet PO 20 mg DAILY [place] Administration Bisacodyl 10 mg 03/31/24 15:55 Bisacodyl 10 Mg Suppository RECTAL DAILY PRN Constipation Dextrose 12.5 gm 03/27/24 17:16 Dextrose 50% 25 Gm/50 Ml Syringe IV PUSH PRN PRN Hypoglycemia Protocol Docusate Sodium 100 mg 03/31/24 21:00 04/02/24 09:17 Docusate Sodium Liq 100 Mg/10 Ml Udc PO 100 mg Q12HR [place] Administration Donepezil HCl 5 mg 03/27/24 21:00 04/01/24 21:07 Donepezil Hcl 5 Mg Tablet PO 5 mg QHS [place] Administration Dorzolamide/Timolol 1 drop 03/27/24 21:00 04/02/24 09:17 Dorzolamide/Timolol Ophth Bev 10 Ml Bottle EACH EYE 1 drop Q12HR [place] Administration Enoxaparin Sodium 40 mg 03/28/24 09:00 04/02/24 09:17 Enoxaparin 40 Mg/0.4 Ml Syringe SUB-Q 40 mg DAILY [place] Administration Ergocalciferol 50,000 units 03/28/24 09:00 03/28/24 08:19 Ergocalciferol 50,000 Units Capsule PO 50,000 units WEEKLY [place] Administration Famotidine 20 mg 04/02/24 09:00 04/02/24 09:55 Famotidine 20 Mg Tablet PO 20 mg Q12HR [place] Administration Glucagon 1 mg 03/27/24 17:16 Glucagon For Inj 1 Mg Vial IM PRN PRN Hypoglycemia Protocol Glucose 15 gm 03/27/24 17:16 Glucose Oral Gel 15 Gm Of Glucse In 37.5 Gm Tube PO PRN PRN Hypoglycemia Protocol Hydralazine HCl 20 mg 03/28/24 15:27 Hydralazine Hcl 20 Mg/Ml Vial IV PUSH ONCE PRN Hypertension Dextrose 1,000 mls @ 100 mls/hr 03/27/24 17:16 Dextrose 5% 1,000 Ml IVPB PRN PRN Hypoglycemia Protocol Insulin Aspart 4 - 8 units 03/28/24 08:00 04/02/24 09:17 Insulin Aspart (*Bkc) 100 Units/Ml SUB-Q 5 units TIDWM [place] Administration Protocol Insulin Aspart 2 - 4 units 03/27/24 21:00 04/01/24 21:10 Insulin Aspart (*Bkc) 100 Units/Ml SUB-Q 2 units HS [place] Administration Protocol Insulin Glargine 12 units 04/01/24 21:00 04/01/24 21:09 Insulin Glargine (*Bkc) 100 Units/Ml 0.15 units/kg (12 units) 12 units SUB-Q Administration HS [place] Melatonin 5 mg 03/31/24 21:00 04/01/24 21:10 Melatonin 5 Mg Tablet PO Not Given HS [place] Nifedipine 30 mg 03/28/24 15:30 04/02/24 09:16 Nifedipine 30 Mg Tab.Er.24 PO 30 mg QAM [place] Administration Ondansetron HCl 4 mg 03/27/24 15:10 Ondansetron Inj 4 Mg/2 Ml Vial IV PUSH Q6H PRN Nausea And Vomiting Polyethylene Glycol 17 gm 03/29/24 15:05 04/02/24 09:16 Polyethylene Glycol 3350 17 Gm Powd.Pack PO 17 gm QAM [place] Administration Simethicone 80 mg 03/31/24 09:00 04/02/24 09:16 Simethicone 80 Mg Tab.Chew PO 80 mg QID [place] Administration Sodium Chloride 1 gm 03/30/24 17:00 03/31/24 17:35 Sodium Chloride 1 Gm Tablet PO 1 gm BID [place] Administration Tramadol HCl 25 mg 03/28/24 19:51 04/02/24 09:55 Tramadol Hcl (*Crx) 25 Mg Tablet PO 25 mg Q6H PRN Administration Pain Rated 4-6 Radiology Results: ITS Impressions Chest X-Ray 03/27/24 14:12 IMPRESSION: 1. No acute cardiopulmonary disease. Head CT 03/28/24 10:46 IMPRESSION: 1. Normal aging brain. No acute intracranial process. 2. Chronic left sphenoid sinusitis. Abdomen X-Ray 03/31/24 08:31 IMPRESSION: 1. No interval change in moderate amount of stool scattered throughout the colon with large amount of gas in the proximal colon. Labs Labs: Laboratory Results - last 24 hr 03/27/24 03/30/24 04/01/24 17:50 08:15 11:36 WBC RBC Hgb Hct MCV MCH MCHC RDW Plt Count MPV Immature Gran % (Auto) Neut % (Auto) Lymph % (Auto) [place] % (Auto) Eos % (Auto) Baso % (Auto) Lymph # (Auto) [place] # (Auto) Eos # (Auto) Baso # (Auto) Abs Immat Gran (auto) Absolute Neuts (auto) Absolute Nucleated RBC Nucleated RBC % Sodium Potassium Chloride Carbon Dioxide Anion Gap BUN Creatinine Estim Creat Clear Calc Estimated GFR Glucose POC Capillary Glucose 310 H Serum Osmolality 269 L Calcium Total Bilirubin AST ALT Alkaline Phosphatase Total Protein 5.9 L Albumin Urine Color Urine Appearance Urine pH Ur Specific [place] Urine Protein Urine Glucose (UA) Urine Ketones Ur Blood (Man) Urine Nitrate Urine Bilirubin Urine Urobilinogen Add Ur Microanalysis Leukocyte Esterase Rfl Urine RBC Urine WBC Ur Squamous Epith Cells Urine Bacteria Urine Casts 04/01/24 04/01/24 04/01/24 17:00 17:11 19:57 WBC RBC Hgb Hct MCV MCH MCHC RDW Plt Count MPV Immature Gran % (Auto) Neut % (Auto) Lymph % (Auto) [place] % (Auto) Eos % (Auto) Baso % (Auto) Lymph # (Auto) [place] # (Auto) Eos # (Auto) Baso # (Auto) Abs Immat Gran (auto) Absolute Neuts (auto) Absolute Nucleated RBC Nucleated RBC % Sodium Potassium Chloride Carbon Dioxide Anion Gap BUN Creatinine Estim Creat Clear Calc Estimated GFR Glucose POC Capillary Glucose 267 H 254 H Serum Osmolality Calcium Total Bilirubin AST ALT Alkaline Phosphatase Total Protein Albumin Urine Color Yellow Urine Appearance Clear Urine pH 5.5 Ur Specific [place] 1.040 H Urine Protein 1+ H Urine Glucose (UA) 3+ H Urine Ketones Trace H Ur Blood (Man) 1+ H Urine Nitrate Negative Urine Bilirubin Negative Urine Urobilinogen 1.0 Add Ur Microanalysis Reviewed Leukocyte Esterase Rfl Negative Urine RBC 11-20 H Urine WBC 11-20 H Ur Squamous Epith Cells Moderate Urine Bacteria None seen Urine Casts 3-5 04/02/24 04/02/24 05:30 08:14 WBC 6.7 RBC 3.72 L Hgb 12.4 Hct 36.4 L MCV 97.8 MCH 33.3 MCHC 34.1 RDW 12.2 Plt Count 246 MPV 9.1 Immature Gran % (Auto) 1.0 H Neut % (Auto) 65.6 Lymph % (Auto) 12.3 L [place] % (Auto) 20.1 H Eos % (Auto) 0.7 Baso % (Auto) 0.3 Lymph # (Auto) 0.82 L [place] # (Auto) 1.3 H Eos # (Auto) 0.1 Baso # (Auto) 0.0 Abs Immat Gran (auto) 0.07 H Absolute Neuts (auto) 4.4 Absolute Nucleated RBC 0.000 Nucleated RBC % 0.0 Sodium 130 L Potassium 3.9 Chloride 99 Carbon Dioxide 25 Anion Gap 6 BUN 23 H Creatinine 0.50 L Estim Creat Clear Calc 81 Estimated GFR > 60 Glucose 239 H POC Capillary Glucose 261 H Serum Osmolality Calcium 8.4 Total Bilirubin 0.6 AST 25 ALT 26 Alkaline Phosphatase 46 Total Protein 6.0 L Albumin 2.9 L Urine Color Urine Appearance Urine pH Ur Specific [place] Urine Protein Urine Glucose (UA) Urine Ketones Ur Blood (Man) Urine Nitrate Urine Bilirubin Urine Urobilinogen Add Ur Microanalysis Leukocyte Esterase Rfl Urine RBC Urine WBC Ur Squamous Epith Cells Urine Bacteria Urine Casts Quality VTE Prophylaxis VTE prophylaxis: pharmacologic ordered
[2024-04-02 12:20] LABS: Glucose Point of Care 275 mg/dl (65-105)
[2024-04-02 13:17] LABS: Albumin 3.1 g/dL (3.8-4.8); Alpha 1 Globulin 0.4 g/dL (0.2-0.3); Alpha 2 Globulin 1.1 g/dL (0.5-0.9); Beta 1 Globulin 0.4 g/dL (0.4-0.6); Gamma Globulin 0.6 g/dL (0.8-1.7)
[2024-04-02 17:08] LABS: Glucose Point of Care 333 mg/dl (65-105)
[2024-04-02] MEDS: ACETAMINOPHEN 325 MG TABLET 650 MG PO (17:15)
[2024-04-02 20:45] LABS: Glucose Point of Care 347 mg/dl (65-105)
[2024-04-02] MEDS: DONEPEZIL HCL 5 MG TABLET PO (20:48)
[2024-04-02] MEDS: MELATONIN 5 MG TABLET PO (20:48)
[2024-04-02] MEDS: INSULIN GLARGINE (*BKC) 100 UNITS/ML 12 UNITS SUB-Q (20:50)
[2024-04-03] VITALS (8 sets, daily range): BP systolic 111–143; BP diastolic 69–84; PULSE 93–111; RESP 16–20; TEMP 36.4–36.9; O2SAT 94–97
[2024-04-03 05:47] LABS: Basophils Percent Auto 0.3 % (0.2-1.2); Eosinophils Percent Auto 0.4 % (0-4.4); Hematocrit 37.6 % (37.0-47.0); Hemoglobin 12.7 g/dL (12.0-15.0); Immature Granulocyte Absolute 0.06 K/mm3 (0.00-0.031); Immature Granulocyte Percent A 0.9 % (0-0.5); Lymphocytes Absolute Auto 1.27 K/mm3 (0.9-3.2); Lymphocytes Percent Auto 18.3 % (18.3-44.2); Mean Corpuscular HGB Conc 33.8 g/dl (32-36); Mean Corpuscular Hemoglobin 33.2 pg (26-34); Mean Corpuscular Volume 98.4 fl (80-100); Monocytes Absolute Auto 1.1 K/mm3 (0.1-0.6); Monocytes Percent Auto 16.5 % (2.6-8.5); Neutrophils Absolute Auto 4.4 K/mm3 (1.3-6.7); Neutrophils Percent Auto 63.6 % (45.5-73.1); Platelet Count Result 233 k/mm3 (150-375); Red Blood Count 3.82 M/mm3 (4.2-5.4); Red Cell Distribution Width 12.1 % (11.5-14.5); White Blood Count 6.9 K/mm3 (4.5-10.0)
[2024-04-03 05:57] LABS: Alanine Aminotransferase 34 U/L (6-35); Albumin Level 3.2 g/dL (3.5-5.1); Alkaline Phosphatase 50 U/L (38-126); Anion Gap 7 mmol/L (4-12); Aspartate Amino Transferase 34 U/L (14-36); Bilirubin,Total 0.5 mg/dL (0.2-1.3); Blood Urea Nitrogen 21 mg/dL (7-17); Calcium 8.1 mg/dL (8.4-10.2); Carbon Dioxide 25 mmol/L (22-30); Chloride 99 mmol/L (98-107); Estimated CRCL calculation 81 ml/min; Estimated Glomerular Filt Rate > 60; Glucose 228 mg/dL (65-110); Potassium 3.4 mmol/L (3.4-5.0); Sodium 131 mmol/L (137-145)
[2024-04-03 07:40] LABS: Glucose Point of Care 224 mg/dl (65-105)
[2024-04-03] MEDS: ACETAMINOPHEN 325 MG TABLET 650 MG PO ×2 (08:26→15:49)
[2024-04-03] MEDS: ASPIRIN 81 MG ENTERIC TABLET PO (08:26)
[2024-04-03] MEDS: ATORVASTATIN 20 MG TABLET PO (08:26)
[2024-04-03] MEDS: AMOXICILLIN/CLAVULANATE K 875-125 MG TAB 1 TABLET PO ×2 (08:26→20:56)
[2024-04-03] MEDS: FAMOTIDINE 20 MG TABLET PO ×2 (08:26→20:56)
[2024-04-03] MEDS: SIMETHICONE 80 MG TAB.CHEW PO ×4 (08:26→20:56)
[2024-04-03] MEDS: polyethylene glycoL 3350 17 GM POWD.PACK PO (08:26)
[2024-04-03] MEDS: NIFEdipine 30 MG TAB.ER.24 PO (08:26)
[2024-04-03] MEDS: ENOXAPARIN 40 MG/0.4 ML SYRINGE SUB-Q (08:27)
[2024-04-03] MEDS: INSULIN ASPART (*BKC) 100 UNITS/ML SUB-Q ×4 (08:27→21:05)
[2024-04-03] MEDS: DORZOLAMIDE/TIMOLOL OPHTH SOL 10 ML BOTTLE 1 DROP EACH EYE ×2 (08:27→20:56)
[2024-04-03] MEDS: DOCUSATE SODIUM LIQ 100 MG/10 ML UDC PO ×2 (08:27→21:00)
[2024-04-03 11:48] LABS: Glucose Point of Care 248 mg/dl (65-105)
--- NOTE | 2024-04-03 12:07 | P.PNIM_ITS ---
Progress Note: A&P Assessment and Plan (1) Weakness: Code(s): R53.1 - Weakness Status: Acute Assessment and Plan: Increased fatigue and weakness since Monday of last week after finishing a full course Keflex for urinary tract infection * PT and OT ordered * Vitamin D level 36.5 * Vitamin B12 level 497 * chest x-ray was negative for any acute cardiopulmonary disease * respiratory panel negative * UA was negative for nitrates or leukocytes * TSH 1.230 * Blood cultures No growth to date. (2) Constipation: Code(s): K59.00 - Constipation, unspecified Status: Acute Assessment and Plan: KUB 03/29/24 showed Moderate amount of stool scattered throughout the colon with large amount of gas in the proximal colon. KUB 03/31/24 unchanged Repeat KUB ordered to reassess Docusate 100 mg PO q12 scheduled, increased Simethicone 80 mg PO QID, and continue Miralax 17 gm PO daily. No results with soap suds enema, Bisacodyl 10 mg ME suppository x1 ordered for today. Added Bisacodyl 10 mg suppository daily PRN. Senna added Encourage oral intake. (3) Abnormal finding on urinalysis: Code(s): R82.90 - Unspecified abnormal findings in urine Status: Acute Assessment and Plan: Patient was just treated for UTI with urine culture showed Klebsiella pneumoniae which was pansensitive. She was on a course of Keflex which she finished on of last week. UA showed 1+ urine protein, 3+ urine glucose, trace urine ketone, 1+ blood, 11- 20 urine RBC, 11-20 WBC, negative leukocytes and negative nitrates. Moderate squ amous cells possibly contamination. Urine culture 04/01: Negative (4) Urine retention: Code(s): R33.9 - Retention of urine, unspecified Status: Acute Assessment and Plan: Hernandez catheter placed. UA with reflex to culture sent. Monitor I&O's Nephrology following (5) Hyponatremia: Code(s): E87.1 - Hypo-osmolality and hyponatremia Status: Acute Assessment and Plan: sodium 130(improving), chloride 99. Patient was given 1 L of normal saline while in the ED - Possible etiologies urinary retention and constipation - Urine sodium 89, urine osmolarity 718, serum osmolarity pending. - Fluid restriction 1500 ml - Nephrology consulted, urine and labs ordered. Awaiting results. (6) Chronic sphenoidal sinusitis: Code(s): J32.3 - Chronic sphenoidal sinusitis Status: Chronic Assessment and Plan: * Augmentin 875-125 mg PO q12. (7) Hypertension: Code(s): I10 - Essential (primary) hypertension Status: Acute Assessment and Plan: Started on Procardia XL 30 mg PO daily Hydralazine 20 mg ivp for systolic >180. Monitor blood pressure. (8) Headache: Code(s): R51.9 - Headache, unspecified Status: Acute Assessment and Plan: Head CT showed a normal aging brain and no acute intracranial process, chronic left sphenoid sinusitis. Tylenol 650 mg PO q 4 PRN. (9) Type 2 diabetes mellitus: Code(s): E11.9 - Type 2 diabetes mellitus without complications Status: Acute Assessment and Plan: - hypoglycemia protocol - POC blood glucose ACHS - home medication - metformin 500 mg BID - correct regimen ordered - high dose sliding scale and lantus 17 units subq (0.2 units/kg) - A1C 9.8 Time Spent With Patient Time with patient: 25 - 35 minutes Subjective Date/time seen: 04/03/24 12:07 Interval history: 79-year-old female with a significant past medical history of asthma, glaucoma, hypothyroidism, hyperlipidemia, osteoporosis, type 2 diabetes mellitus, vitamin B12 and vitamin-D deficiency who presented to the hospital for evaluation of increased generalized weakness. Patient is pleasant lying comfortably in bed. She endorses abdominal pain worse in the left upper quadrant. He denies any nausea/vomiting and notes that she has been eating somewhat well. Possible that the constipation is also a contributing factor to her in confusion. Adjustments were made to patient's bowel regimen. Patient denies any chest pain, shortness a breath, and palpitations. Review of Systems Review of Systems: All systems reviewed & are unremarkable except as noted in HPI and below Exam Narrative: AF HR 98 RR 16 SPO2 94 BP 111/84 General: fenale in no acute respiratory distress who is nontoxic appearing, lying semi recumbent in bed. HEENT: Normocephalic. Atraumatic. Extraocular movement intact. Sclera clear and anicteric. No facial asymmetry. Chest: Lungs are clear to auscultation bilaterally. No wheezes or crackles. CV: Heart was regular rate and rhythm. S1/S2. No murmurs, gallops, or rubs. Abd: Abdomen was soft. Tender. Distended. Positive bowel sounds. No organomegaly or masses. Ext: No clubbing, cyanosis, or edema. 2+ DP pulses bilaterally. Neuro: Patient is alert. Speech is clear. Objective Data Vital Signs Vital Signs: Vital Signs - 24 hr 04/02/24 15:00 04/02/24 16:00 04/02/24 20:37 Temperature 97.6 F 98.1 F Pulse Rate 114 H 111 H 106 H Respiratory Rate 18 20 Blood Pressure 144/90 H 130/73 Pulse Oximetry 95 91 Oxygen Delivery 04/02/24 20:00 04/02/24 20:00 04/03/24 00:00 Temperature Pulse Rate 115 H 102 H Respiratory Rate Blood Pressure Pulse Oximetry Oxygen Delivery Room Air 04/03/24 04:00 04/03/24 05:38 04/03/24 08:00 Temperature 98.4 F 97.5 F L Pulse Rate 97 93 96 Respiratory Rate 20 16 Blood Pressure 129/74 111/84 Pulse Oximetry 94 94 Oxygen Delivery 04/03/24 08:25 04/03/24 08:00 Temperature Pulse Rate 101 H Respiratory Rate Blood Pressure Pulse Oximetry Oxygen Delivery Room Air Intake/Output Intake/Output: Intake & Output 03/31/24 04/01/24 04/02/24 04/03/24 23:59 23:59 23:59 23:59 Intake Total 0 236 877 240 Output Total 1250 1150 200 600 Balance -1250 -914 677 -360 Meds/Results Medications: Active Medications Generic Name Dose Route Start Last Admin Trade Name Freq PRN Reason Stop Dose Admin Acetaminophen 650 mg 03/31/24 14:18 04/03/24 08:26 Acetaminophen 325 Mg Tablet PO 650 mg Q4H PRN Administration Insomnia, pain 1-3, fever Amoxicillin/Clavulanate Potassium 1 tablet 03/28/24 21:00 04/03/24 08:26 Amoxicillin/Clavulanate K 875-125 Mg Tab PO 04/04/24 20:59 1 tablet Q12HR [place]RE[place] Administration Aspirin 81 mg 03/28/24 09:00 04/03/24 08:26 Aspirin 81 Mg Enteric Tablet PO 81 mg DAILY [place]RE[place] Administration Atorvastatin Calcium 20 mg 03/28/24 09:00 04/03/24 08:26 Atorvastatin 20 Mg Tablet PO 20 mg DAILY [place] Administration Bisacodyl 10 mg 03/31/24 15:55 Bisacodyl 10 Mg Suppository RECTAL DAILY PRN Constipation Dextrose 12.5 gm 03/27/24 17:16 Dextrose 50% 25 Gm/50 Ml Syringe IV PUSH PRN PRN Hypoglycemia Protocol Docusate Sodium 100 mg 03/31/24 21:00 04/03/24 08:27 Docusate Sodium Liq 100 Mg/10 Ml Udc PO 100 mg Q12HR [place] Administration Donepezil HCl 5 mg 03/27/24 21:00 04/02/24 20:48 Donepezil Hcl 5 Mg Tablet PO 5 mg QHS [place] Administration Dorzolamide/Timolol 1 drop 03/27/24 21:00 04/03/24 08:27 Dorzolamide/Timolol Ophth Bev 10 Ml Bottle EACH EYE 1 drop Q12HR [place] Administration Enoxaparin Sodium 40 mg 03/28/24 09:00 04/03/24 08:27 Enoxaparin 40 Mg/0.4 Ml Syringe SUB-Q 40 mg DAILY [place] Administration Ergocalciferol 50,000 units 03/28/24 09:00 03/28/24 08:19 Ergocalciferol 50,000 Units Capsule PO 50,000 units WEEKLY [place] Administration Famotidine 20 mg 04/02/24 09:00 04/03/24 08:26 Famotidine 20 Mg Tablet PO 20 mg Q12HR [place] Administration Glucagon 1 mg 03/27/24 17:16 Glucagon For Inj 1 Mg Vial IM PRN PRN Hypoglycemia Protocol Glucose 15 gm 03/27/24 17:16 Glucose Oral Gel 15 Gm Of Glucse In 37.5 Gm Tube PO PRN PRN Hypoglycemia Protocol Hydralazine HCl 20 mg 03/28/24 15:27 Hydralazine Hcl 20 Mg/Ml Vial IV PUSH ONCE PRN Hypertension Dextrose 1,000 mls @ 100 mls/hr 03/27/24 17:16 Dextrose 5% 1,000 Ml IVPB PRN PRN Hypoglycemia Protocol Insulin Aspart 4 - 8 units 03/28/24 08:00 04/03/24 08:27 Insulin Aspart (*Bkc) 100 Units/Ml SUB-Q 4 units TIDWM [place] Administration Protocol Insulin Aspart 2 - 4 units 03/27/24 21:00 04/02/24 20:51 Insulin Aspart (*Bkc) 100 Units/Ml SUB-Q 3 units HS [place] Administration Protocol Insulin Glargine 17 units 04/03/24 21:00 Insulin Glargine (*Bkc) 100 Units/Ml 0.2 units/kg (17 units) SUB-Q HS [place] Melatonin 5 mg 03/31/24 21:00 04/02/24 20:48 Melatonin 5 Mg Tablet PO 5 mg HS [place] Administration Nifedipine 30 mg 03/28/24 15:30 04/03/24 08:26 Nifedipine 30 Mg Tab.Er.24 PO 30 mg QAM [place] Administration Ondansetron HCl 4 mg 03/27/24 15:10 Ondansetron Inj 4 Mg/2 Ml Vial IV PUSH Q6H PRN Nausea And Vomiting Polyethylene Glycol 17 gm 03/29/24 15:05 04/03/24 08:26 Polyethylene Glycol 3350 17 Gm Powd.Pack PO 17 gm QAM [place] Administration Simethicone 80 mg 03/31/24 09:00 04/03/24 08:26 Simethicone 80 Mg Tab.Chew PO 80 mg QID [place] Administration Sodium Chloride 1 gm 03/30/24 17:00 03/31/24 17:35 Sodium Chloride 1 Gm Tablet PO 1 gm BID [place] Administration Tramadol HCl 25 mg 03/28/24 19:51 04/02/24 09:55 Tramadol Hcl (*Crx) 25 Mg Tablet PO 25 mg Q6H PRN Administration Pain Rated 4-6 Radiology Results: ITS Impressions Chest X-Ray 03/27/24 14:12 IMPRESSION: 1. No acute cardiopulmonary disease. Head CT 03/28/24 10:46 IMPRESSION: 1. Normal aging brain. No acute intracranial process. 2. Chronic left sphenoid sinusitis. Abdomen X-Ray 03/31/24 08:31 IMPRESSION: 1. No interval change in moderate amount of stool scattered throughout the colon with large amount of gas in the proximal colon. Labs Labs: Laboratory Results - last 24 hr 03/30/24 03/30/24 04/02/24 05:01 08:15 12:06 WBC RBC Hgb Hct MCV MCH MCHC RDW Plt Count MPV Immature Gran % (Auto) Neut % (Auto) Lymph % (Auto) [place] % (Auto) Eos % (Auto) Baso % (Auto) Lymph # (Auto) [place] # (Auto) Eos # (Auto) Baso # (Auto) Abs Immat Gran (auto) Absolute Neuts (auto) Absolute Nucleated RBC Nucleated RBC % Sodium Potassium Chloride Carbon Dioxide Anion Gap BUN Creatinine Estim Creat Clear Calc Estimated GFR Glucose POC Capillary Glucose 275 H Calcium Total Bilirubin AST ALT Alkaline Phosphatase Total Protein Albumin 3.1 L Edlaf-8-Zwabtuial 0.4 H Nfqhm-2-Ihxrmaair 1.1 H Ahfs-8-Quajuaab 0.4 Qccy-3-Sbkmvqjd 0.4 Gamma Globulins 0.6 L PEP Interpretation See note Urine Albumin 38 U Yqare-4-Nwpjokbj 12 U Vfmht-2-Spkswmqn 22 U Beta Globulin 21 U Gamma Globulin 8 Urine PEP Interpret See note 04/02/24 04/02/24 04/03/24 17:04 20:36 05:31 WBC 6.9 RBC 3.82 L Hgb 12.7 Hct 37.6 MCV 98.4 MCH 33.2 MCHC 33.8 RDW 12.1 Plt Count 233 MPV 9.0 Immature Gran % (Auto) 0.9 H Neut % (Auto) 63.6 Lymph % (Auto) 18.3 [place] % (Auto) 16.5 H Eos % (Auto) 0.4 Baso % (Auto) 0.3 Lymph # (Auto) 1.27 [place] # (Auto) 1.1 H Eos # (Auto) 0.0 Baso # (Auto) 0.0 Abs Immat Gran (auto) 0.06 H Absolute Neuts (auto) 4.4 Absolute Nucleated RBC 0.000 Nucleated RBC % 0.0 Sodium 131 L Potassium 3.4 Chloride 99 Carbon Dioxide 25 Anion Gap 7 BUN 21 H Creatinine 0.50 L Estim Creat Clear Calc 81 Estimated GFR > 60 Glucose 228 H POC Capillary Glucose 333 H 347 H Calcium 8.1 L Total Bilirubin 0.5 AST 34 ALT 34 Alkaline Phosphatase 50 Total Protein 6.0 L Albumin 3.2 L Eimiv-6-Mcifzffsr Bvykb-8-Prwcfiiau Ombs-7-Rhkbozyg Iite-0-Kpwzslja Gamma Globulins PEP Interpretation Urine Albumin U Kbkad-4-Qzizwymo U Ynfwr-1-Izndagqv U Beta Globulin U Gamma Globulin Urine PEP Interpret 04/03/24 04/03/24 07:37 11:44 WBC RBC Hgb Hct MCV MCH MCHC RDW Plt Count MPV Immature Gran % (Auto) Neut % (Auto) Lymph % (Auto) [place] % (Auto) Eos % (Auto) Baso % (Auto) Lymph # (Auto) [place] # (Auto) Eos # (Auto) Baso # (Auto) Abs Immat Gran (auto) Absolute Neuts (auto) Absolute Nucleated RBC Nucleated RBC % Sodium Potassium Chloride Carbon Dioxide Anion Gap BUN Creatinine Estim Creat Clear Calc Estimated GFR Glucose POC Capillary Glucose 224 H 248 H Calcium Total Bilirubin AST ALT Alkaline Phosphatase Total Protein Albumin Vphfl-4-Ikmczbdpn Dnxpl-4-Gsqptdmag Zuqw-1-Xvzghleo Anmy-8-Jwxyegim Gamma Globulins PEP Interpretation Urine Albumin U Xinau-5-Fmxrhvvn U Ebnvz-0-Qibdknmg U Beta Globulin U Gamma Globulin Urine PEP Interpret Quality VTE Prophylaxis VTE prophylaxis: pharmacologic ordered
--- NOTE | 2024-04-03 12:37 | PCNWS ---
Weekly nutritional screen. Patient is tolerating current diabetic diet with adequate intake about 50% of meals plus Glucerna shakes BID. No weight loss reported. No further nutritional recommendations at this time.
[2024-04-03] MEDS: LACTULOSE 20 GM/30 ML UDC PO (14:33)
[2024-04-03 16:57] LABS: Glucose Point of Care 282 mg/dl (65-105)
[2024-04-03] MEDS: DONEPEZIL HCL 5 MG TABLET PO (20:56)
[2024-04-03] MEDS: MELATONIN 5 MG TABLET PO (20:56)
[2024-04-03] MEDS: SENNA/DOCUSATE SODIUM TABLET 1 TAB PO (20:56)
[2024-04-03 21:02] LABS: Glucose Point of Care 225 mg/dl (65-105)
[2024-04-03] MEDS: INSULIN GLARGINE (*BKC) 100 UNITS/ML 17 UNITS SUB-Q (21:04)
[2024-04-03] MEDS: traMADol HCL (*CRX) 25 MG TABLET PO (23:12)
[2024-04-04] VITALS (8 sets, daily range): BP systolic 124–151; BP diastolic 64–76; PULSE 91–99; RESP 18–20; TEMP 36.1–36.7; O2SAT 93–94
[2024-04-04 05:27] LABS: Basophils Percent Auto 0.4 % (0.2-1.2); Eosinophils Percent Auto 0.5 % (0-4.4); Hematocrit 36.8 % (37.0-47.0); Hemoglobin 12.2 g/dL (12.0-15.0); Immature Granulocyte Absolute 0.08 K/mm3 (0.00-0.031); Immature Granulocyte Percent A 1.1 % (0-0.5); Lymphocytes Absolute Auto 1.37 K/mm3 (0.9-3.2); Lymphocytes Percent Auto 18.1 % (18.3-44.2); Mean Corpuscular HGB Conc 33.2 g/dl (32-36); Mean Corpuscular Volume 99.5 fl (80-100); Mean Platelet Volume 8.7 fl (7.4-10.4); Monocytes Absolute Auto 0.9 K/mm3 (0.1-0.6); Monocytes Percent Auto 11.4 % (2.6-8.5); Neutrophils Absolute Auto 5.2 K/mm3 (1.3-6.7); Neutrophils Percent Auto 68.5 % (45.5-73.1); Platelet Count Result 238 k/mm3 (150-375); Red Cell Distribution Width 11.9 % (11.5-14.5); White Blood Count 7.6 K/mm3 (4.5-10.0)
[2024-04-04 05:38] LABS: Alanine Aminotransferase 43 U/L (6-35); Albumin Level 3.1 g/dL (3.5-5.1); Alkaline Phosphatase 51 U/L (38-126); Anion Gap 8 mmol/L (4-12); Aspartate Amino Transferase 41 U/L (14-36); Bilirubin,Total 0.5 mg/dL (0.2-1.3); Blood Urea Nitrogen 18 mg/dL (7-17); Calcium 8.2 mg/dL (8.4-10.2); Carbon Dioxide 27 mmol/L (22-30); Chloride 98 mmol/L (98-107); Estimated CRCL calculation 81 ml/min; Estimated Glomerular Filt Rate > 60; Glucose 189 mg/dL (65-110); Potassium 3.4 mmol/L (3.4-5.0); Sodium 133 mmol/L (137-145)
[2024-04-04 07:47] LABS: Glucose Point of Care 208 mg/dl (65-105)
[2024-04-04] MEDS: polyethylene glycoL 3350 17 GM POWD.PACK PO (08:53)
[2024-04-04] MEDS: ATORVASTATIN 20 MG TABLET PO (08:54)
[2024-04-04] MEDS: FAMOTIDINE 20 MG TABLET PO (08:54)
[2024-04-04] MEDS: SIMETHICONE 80 MG TAB.CHEW PO ×4 (08:54→20:39)
[2024-04-04] MEDS: ERGOCALCIFEROL 50,000 UNITS CAPSULE 50000 UNITS PO (08:54)
[2024-04-04] MEDS: ENOXAPARIN 40 MG/0.4 ML SYRINGE SUB-Q (08:54)
[2024-04-04] MEDS: AMOXICILLIN/CLAVULANATE K 875-125 MG TAB 1 TABLET PO (08:54)
[2024-04-04] MEDS: ASPIRIN 81 MG ENTERIC TABLET PO (08:54)
[2024-04-04] MEDS: NIFEdipine 30 MG TAB.ER.24 PO (08:55)
[2024-04-04] MEDS: ACETAMINOPHEN 325 MG TABLET 650 MG PO ×3 (08:55→22:56)
[2024-04-04] MEDS: DOCUSATE SODIUM LIQ 100 MG/10 ML UDC PO ×2 (08:55→20:38)
--- NOTE | 2024-04-04 09:36 | P.PNIM_ITS ---
Progress Note: A&P Assessment and Plan (1) Weakness: Code(s): R53.1 - Weakness Status: Acute Assessment and Plan: Increased fatigue and weakness since Monday of last week after finishing a full course Keflex for urinary tract infection * PT and OT ordered * Vitamin D level 36.5 * Vitamin B12 level 497 * chest x-ray was negative for any acute cardiopulmonary disease * respiratory panel negative * UA was negative for nitrates or leukocytes * TSH 1.230 * Blood cultures No growth to date. (2) Hyponatremia: Code(s): E87.1 - Hypo-osmolality and hyponatremia Status: Acute Assessment and Plan: sodium 130(improving), chloride 99. Patient was given 1 L of normal saline while in the ED - Na 133 on am labs - Possible etiologies urinary retention and constipation - Urine sodium 89, urine osmolarity 718, serum osmolarity pending. - Fluid restriction 1500 ml - Nephrology consulted, urine and labs ordered. Awaiting results. (3) Constipation: Code(s): K59.00 - Constipation, unspecified Status: Acute Assessment and Plan: KUB 03/29/24 showed Moderate amount of stool scattered throughout the colon with large amount of gas in the proximal colon. KUB 03/31/24 unchanged KUB 04/03/24 stable nonspecific bowel gas pattern with prominent gas present in the proximal colon. Docusate 100 mg PO q12 scheduled, increased Simethicone 80 mg PO QID, and cont inue Miralax 17 gm PO daily. No results with soap suds enema, Bisacodyl 10 mg NE suppository x1 ordered for today. Added Bisacodyl 10 mg suppository daily PRN. Senna added Encourage oral intake. Patient had a large BM on 04/03. (4) Abnormal finding on urinalysis: Code(s): R82.90 - Unspecified abnormal findings in urine Status: Acute Assessment and Plan: Patient was just treated for UTI with urine culture showed Klebsiella pneumoniae which was pansensitive. She was on a course of Keflex which she finished on of last week. UA showed 1+ urine protein, 3+ urine glucose, trace urine ketone, 1+ blood, 11- 20 urine RBC, 11-20 WBC, negative leukocytes and negative nitrates. Moderate squamous cells possibly contamination. Urine culture 04/01: Negative (5) Urine retention: Code(s): R33.9 - Retention of urine, unspecified Status: Acute Assessment and Plan: Hernandez catheter placed. UA with reflex to culture sent. Monitor I&O's Decreased urine output possibly related to fluid restriction, 1L NS bolus x1 (6) Chronic sphenoidal sinusitis: Code(s): J32.3 - Chronic sphenoidal sinusitis Status: Chronic Assessment and Plan: * Augmentin 875-125 mg PO q12, course to be completed 04/04. (7) Hypertension: Code(s): I10 - Essential (primary) hypertension Status: Acute Assessment and Plan: Started on Procardia XL 30 mg PO daily Hydralazine 20 mg ivp for systolic >180. Monitor blood pressure. (8) Headache: Code(s): R51.9 - Headache, unspecified Status: Acute Assessment and Plan: Head CT showed a normal aging brain and no acute intracranial process, chronic left sphenoid sinusitis. Tylenol 650 mg PO q 4 PRN. (9) Type 2 diabetes mellitus: Code(s): E11.9 - Type 2 diabetes mellitus without complications Status: Acute Assessment and Plan: - hypoglycemia protocol - POC blood glucose ACHS - home medication - metformin 500 mg BID - correct regimen ordered - high dose sliding scale and lantus 17 units subq (0.2 units/kg) - A1C 9.8 Time Spent With Patient Time with patient: 25 - 35 minutes Subjective Date/time seen: 04/04/24 09:36 Interval history: 79-year-old female with a significant past medical history of asthma, glaucoma, hypothyroidism, hyperlipidemia, osteoporosis, type 2 diabetes mellitus, vitamin B12 and vitamin-D deficiency who presented to the hospital for evaluation of increased generalized weakness. Patient is pleasant lying in bed with family at bedside. She continues to be altered from baseline per family however this could potentially be hospital- acquired delirium As there are no current signs of infection and her sodium has significantly improved. She was noted to have decreased urine output and tachycardia ambulation. Given a 1 time fluid bolus. Patient is endorsing increased epigastric pain with eating and drinking. Per son she was previously on Protonix however his transition to Pepcid given low sodium. Since sodium has improved will resume protonix and continue to sodium levels. A swallow study was ordered. Patient has no complaints denying chest pain, shortness a breath, nausea/vomiting. Review of Systems Review of Systems: All systems reviewed & are unremarkable except as noted in HPI and below Exam Narrative: AF HR 91 RR 18 SPO2 94 BP 124/64 General: female in no acute respiratory distress who is nontoxic appearing, lying semi recumbent in bed. HEENT: Normocephalic. Atraumatic. Extraocular movement intact. Sclera clear and anicteric. No facial asymmetry. Chest: Lungs are clear to auscultation bilaterally. No wheezes or crackles. CV: Heart was regular rate and rhythm. S1/S2. No murmurs, gallops, or rubs. Abd: Abdomen was soft. Tender worse in ruq and epigastric area. Positive bowel sounds. No organomegaly or masses. Ext: No clubbing, cyanosis, or edema. 2+ DP pulses bilaterally. Neuro: Patient is alert. Speech is clear. Objective Data Vital Signs Vital Signs: Vital Signs - 24 hr 04/03/24 12:00 04/03/24 16:00 04/03/24 16:00 Temperature 97.6 F Pulse Rate 98 111 H 108 H Respiratory Rate 20 Blood Pressure 143/84 H Pulse Oximetry 95 Oxygen Delivery 04/03/24 20:27 04/03/24 20:00 04/03/24 20:00 Temperature 98.0 F Pulse Rate 102 H 108 H Respiratory Rate 16 Blood Pressure 118/69 Pulse Oximetry 97 Oxygen Delivery Room Air 04/04/24 00:00 04/04/24 04:00 04/04/24 05:21 Temperature 98.0 F Pulse Rate 97 94 91 Respiratory Rate 18 Blood Pressure 151/76 H Pulse Oximetry 94 Oxygen Delivery Intake/Output Intake/Output: Intake & Output 04/01/24 04/02/24 04/03/24 04/04/24 23:59 23:59 23:59 23:59 Intake Total 043 428 4258 Output Total 1150 200 850 375 Balance -914 677 160 -375 Meds/Results Medications: Active Medications Generic Name Dose Route Start Last Admin Trade Name Freq PRN Reason Stop Dose Admin Acetaminophen 650 mg 03/31/24 14:18 04/04/24 08:55 Acetaminophen 325 Mg Tablet PO 650 mg Q4H PRN Administration Insomnia, pain 1-3, fever Amoxicillin/Clavulanate Potassium 1 tablet 03/28/24 21:00 04/04/24 08:54 Amoxicillin/Clavulanate K 875-125 Mg Tab PO 04/04/24 20:59 1 tablet Q12HR MIREILLE Administration Aspirin 81 mg 03/28/24 09:00 04/04/24 08:54 Aspirin 81 Mg Enteric Tablet PO 81 mg DAILY MIREILLE Administration Atorvastatin Calcium 20 mg 03/28/24 09:00 04/04/24 08:54 Atorvastatin 20 Mg Tablet PO 20 mg DAILY MIREILLE Administration Bisacodyl 10 mg 03/31/24 15:55 Bisacodyl 10 Mg Suppository RECTAL DAILY PRN Constipation Dextrose 12.5 gm 03/27/24 17:16 Dextrose 50% 25 Gm/50 Ml Syringe IV PUSH PRN PRN Hypoglycemia Protocol Docusate Sodium 100 mg 03/31/24 21:00 04/04/24 08:55 Docusate Sodium Liq 100 Mg/10 Ml Udc PO 100 mg Q12HR MIREILLE Administration Donepezil HCl 5 mg 03/27/24 21:00 04/03/24 20:56 Donepezil Hcl 5 Mg Tablet PO 5 mg QHS MIREILLE Administration Dorzolamide/Timolol 1 drop 03/27/24 21:00 04/03/24 20:56 Dorzolamide/Timolol Ophth Bev 10 Ml Bottle EACH EYE 1 drop Q12HR MIREILLE Administration Enoxaparin Sodium 40 mg 03/28/24 09:00 04/04/24 08:54 Enoxaparin 40 Mg/0.4 Ml Syringe SUB-Q 40 mg DAILY MIREILLE Administration Ergocalciferol 50,000 units 03/28/24 09:00 04/04/24 08:54 Ergocalciferol 50,000 Units Capsule PO 50,000 units WEEKLY MIREILLE Administration Famotidine 20 mg 04/02/24 09:00 04/04/24 08:54 Famotidine 20 Mg Tablet PO 20 mg Q12HR [place]RE[place] Administration Glucagon 1 mg 03/27/24 17:16 Glucagon For Inj 1 Mg Vial IM PRN PRN Hypoglycemia Protocol Glucose 15 gm 03/27/24 17:16 Glucose Oral Gel 15 Gm Of Glucse In 37.5 Gm Tube PO PRN PRN Hypoglycemia Protocol Hydralazine HCl 20 mg 03/28/24 15:27 Hydralazine Hcl 20 Mg/Ml Vial IV PUSH ONCE PRN Hypertension Dextrose 1,000 mls @ 100 mls/hr 03/27/24 17:16 Dextrose 5% 1,000 Ml IVPB PRN PRN Hypoglycemia Protocol Insulin Aspart 4 - 8 units 03/28/24 08:00 04/03/24 17:04 Insulin Aspart (*Bkc) 100 Units/Ml SUB-Q 5 units TIDWM MIREILLE Administration Protocol Insulin Aspart 2 - 4 units 03/27/24 21:00 04/03/24 21:05 Insulin Aspart (*Bkc) 100 Units/Ml SUB-Q 2 units HS MIRE[place]LE Administration Protocol Insulin Glargine 17 units 04/03/24 21:00 04/03/24 21:04 Insulin Glargine (*Bkc) 100 Units/Ml 0.2 units/kg (17 units) 17 units SUB-Q Administration HS [facility] Melatonin 5 mg 03/31/24 21:00 04/03/24 20:56 Melatonin 5 Mg Tablet PO 5 mg HS MIREILLE Administration Nifedipine 30 mg 03/28/24 15:30 04/04/24 08:55 Nifedipine 30 Mg Tab.Er.24 PO 30 mg QAM [place] Administration Ondansetron HCl 4 mg 03/27/24 15:10 Ondansetron Inj 4 Mg/2 Ml Vial IV PUSH Q6H PRN Nausea And Vomiting Polyethylene Glycol 17 gm 03/29/24 15:05 04/04/24 08:53 Polyethylene Glycol 3350 17 Gm Powd.Pack PO 17 gm QAM [place]RE[place] Administration Senna/Docusate Sodium 1 tab 04/03/24 21:00 04/03/24 20:56 Senna/Docusate Sodium Tablet PO 1 tab HS [place]RE[place] Administration Simethicone 80 mg 03/31/24 09:00 04/04/24 08:54 Simethicone 80 Mg Tab.Chew PO 80 mg QID [place]RE[place] Administration Sodium Chloride 1 gm 03/30/24 17:00 03/31/24 17:35 Sodium Chloride 1 Gm Tablet PO 1 gm BID MIREILLE Administration Tramadol HCl 25 mg 03/28/24 19:51 04/03/24 23:12 Tramadol Hcl (*Crx) 25 Mg Tablet PO 25 mg Q6H PRN Administration Pain Rated 4-6 Radiology Results: ITS Impressions Chest X-Ray 03/27/24 14:12 IMPRESSION: 1. No acute cardiopulmonary disease. Head CT 03/28/24 10:46 IMPRESSION: 1. Normal aging brain. No acute intracranial process. 2. Chronic left sphenoid sinusitis. Abdomen X-Ray 04/03/24 16:48 Impression: 1: Stable nonspecific bowel gas pattern with prominent gas present in the proximal colon. Labs Labs: Laboratory Results - last 24 hr 03/30/24 03/30/24 04/03/24 05:01 08:15 11:44 WBC RBC Hgb Hct MCV MCH MCHC RDW Plt Count MPV Immature Gran % (Auto) Neut % (Auto) Lymph % (Auto) Wheeler % (Auto) Eos % (Auto) Baso % (Auto) Lymph # (Auto) [place] # (Auto) Eos # (Auto) Baso # (Auto) Abs Immat Gran (auto) Absolute Neuts (auto) Absolute Nucleated RBC Nucleated RBC % Sodium Potassium Chloride Carbon Dioxide Anion Gap BUN Creatinine Estim Creat Clear Calc Estimated GFR Glucose POC Capillary Glucose 248 H Calcium Total Bilirubin AST ALT Alkaline Phosphatase Total Protein Albumin Abnorm Protein Band 1 Not Reportable Abnorm Protein Band 3 Not Reportable U Abnormal Prot Band 1 Not Reportable U Abnormal Prot Band 2 Not Reportable U Abnormal Prot Band 3 Not Reportable 04/03/24 04/03/24 04/04/24 16:49 20:59 05:20 WBC 7.6 RBC 3.70 L Hgb 12.2 Hct 36.8 L MCV 99.5 MCH 33.0 MCHC 33.2 RDW 11.9 Plt Count 238 MPV 8.7 Immature Gran % (Auto) 1.1 H Neut % (Auto) 68.5 Lymph % (Auto) 18.1 L Wheeler % (Auto) 11.4 H Eos % (Auto) 0.5 Baso % (Auto) 0.4 Lymph # (Auto) 1.37 Wheeler # (Auto) 0.9 H Eos # (Auto) 0.0 Baso # (Auto) 0.0 Abs Immat Gran (auto) 0.08 H Absolute Neuts (auto) 5.2 Absolute Nucleated RBC 0.000 Nucleated RBC % 0.0 Sodium 133 L Potassium 3.4 Chloride 98 Carbon Dioxide 27 Anion Gap 8 BUN 18 H Creatinine 0.50 L Estim Creat Clear Calc 81 Estimated GFR > 60 Glucose 189 H POC Capillary Glucose 282 H 225 H Calcium 8.2 L Total Bilirubin 0.5 AST 41 H ALT 43 H Alkaline Phosphatase 51 Total Protein 6.0 L Albumin 3.1 L Abnorm Protein Band 1 Abnorm Protein Band 3 U Abnormal Prot Band 1 U Abnormal Prot Band 2 U Abnormal Prot Band 3 04/04/24 07:40 WBC RBC Hgb Hct MCV MCH MCHC RDW Plt Count MPV Immature Gran % (Auto) Neut % (Auto) Lymph % (Auto) Wheeler % (Auto) Eos % (Auto) Baso % (Auto) Lymph # (Auto) Wheeler # (Auto) Eos # (Auto) Baso # (Auto) Abs Immat Gran (auto) Absolute Neuts (auto) Absolute Nucleated RBC Nucleated RBC % Sodium Potassium Chloride Carbon Dioxide Anion Gap BUN Creatinine Estim Creat Clear Calc Estimated GFR Glucose POC Capillary Glucose 208 H Calcium Total Bilirubin AST ALT Alkaline Phosphatase Total Protein Albumin Abnorm Protein Band 1 Abnorm Protein Band 3 U Abnormal Prot Band 1 U Abnormal Prot Band 2 U Abnormal Prot Band 3 Quality VTE Prophylaxis VTE prophylaxis: pharmacologic ordered
[2024-04-04] MEDS: INSULIN ASPART (*BKC) 100 UNITS/ML SUB-Q ×3 (09:55→20:46)
[2024-04-04 11:50] LABS: Glucose Point of Care 254 mg/dl (65-105)
[2024-04-04] MEDS: SODIUM CHLORIDE 0.9% IV 1,000 ML 999 ML IV CONT (11:54)
[2024-04-04] MEDS: DORZOLAMIDE/TIMOLOL OPHTH SOL 10 ML BOTTLE 1 DROP EACH EYE ×2 (12:00→20:39)
[2024-04-04 16:16] LABS: Glucose Point of Care 194 mg/dl (65-105)
[2024-04-04] MEDS: traMADol HCL (*CRX) 25 MG TABLET PO (18:12)
[2024-04-04] MEDS: DONEPEZIL HCL 5 MG TABLET PO (20:38)
[2024-04-04] MEDS: MELATONIN 5 MG TABLET PO (20:38)
[2024-04-04] MEDS: SENNA/DOCUSATE SODIUM TABLET 1 TAB PO (20:38)
[2024-04-04] MEDS: INSULIN GLARGINE (*BKC) 100 UNITS/ML 17 UNITS SUB-Q (20:39)
[2024-04-04 21:45] LABS: Glucose Point of Care 267 mg/dl (65-105)
[2024-04-05] VITALS (7 sets, daily range): BP systolic 141–142; BP diastolic 72; PULSE 76–878; RESP 15–20; TEMP 36.2–36.8; O2SAT 95–96
[2024-04-05] MEDS: traMADol HCL (*CRX) 25 MG TABLET PO ×2 (05:13→12:07)
[2024-04-05 05:37] LABS: Basophils Percent Auto 0.3 % (0.2-1.2); Eosinophils Absolute Auto 0.1 K/mm3 (0-0.3); Eosinophils Percent Auto 1.1 % (0-4.4); Hematocrit 35.7 % (37.0-47.0); Immature Granulocyte Absolute 0.07 K/mm3 (0.00-0.031); Lymphocytes Absolute Auto 1.54 K/mm3 (0.9-3.2); Lymphocytes Percent Auto 21.4 % (18.3-44.2); Mean Corpuscular HGB Conc 33.6 g/dl (32-36); Mean Corpuscular Hemoglobin 32.7 pg (26-34); Mean Corpuscular Volume 97.3 fl (80-100); Mean Platelet Volume 8.6 fl (7.4-10.4); Monocytes Absolute Auto 0.7 K/mm3 (0.1-0.6); Monocytes Percent Auto 9.5 % (2.6-8.5); Neutrophils Absolute Auto 4.8 K/mm3 (1.3-6.7); Neutrophils Percent Auto 66.7 % (45.5-73.1); Platelet Count Result 233 k/mm3 (150-375); Red Blood Count 3.67 M/mm3 (4.2-5.4); Red Cell Distribution Width 11.9 % (11.5-14.5); White Blood Count 7.2 K/mm3 (4.5-10.0)
[2024-04-05 05:45] LABS: Alanine Aminotransferase 42 U/L (6-35); Alkaline Phosphatase 52 U/L (38-126); Anion Gap 4 mmol/L (4-12); Aspartate Amino Transferase 39 U/L (14-36); Bilirubin,Total 0.6 mg/dL (0.2-1.3); Blood Urea Nitrogen 11 mg/dL (7-17); Carbon Dioxide 32 mmol/L (22-30); Chloride 96 mmol/L (98-107); Estimated CRCL calculation 81 ml/min; Estimated Glomerular Filt Rate > 60; Glucose 153 mg/dL (65-110); Potassium 3.4 mmol/L (3.4-5.0); Sodium 132 mmol/L (137-145)
[2024-04-05 08:15] LABS: Glucose Point of Care 155 mg/dl (65-105)
[2024-04-05] MEDS: PANTOPRAZOLE 40 MG TABLET PO (08:39)
[2024-04-05] MEDS: NIFEdipine 30 MG TAB.ER.24 PO (08:39)
[2024-04-05] MEDS: ASPIRIN 81 MG ENTERIC TABLET PO (08:40)
[2024-04-05] MEDS: ENOXAPARIN 40 MG/0.4 ML SYRINGE SUB-Q (08:40)
[2024-04-05] MEDS: ATORVASTATIN 20 MG TABLET PO (08:40)
[2024-04-05] MEDS: SIMETHICONE 80 MG TAB.CHEW PO ×3 (08:40→17:30)
[2024-04-05] MEDS: polyethylene glycoL 3350 17 GM POWD.PACK PO (08:41)
[2024-04-05] MEDS: DORZOLAMIDE/TIMOLOL OPHTH SOL 10 ML BOTTLE 1 DROP EACH EYE (08:41)
[2024-04-05] MEDS: DOCUSATE SODIUM LIQ 100 MG/10 ML UDC PO (08:41)
[2024-04-05 11:53] LABS: Glucose Point of Care 209 mg/dl (65-105)
[2024-04-05] MEDS: INSULIN ASPART (*BKC) 100 UNITS/ML SUB-Q (12:10)
--- NOTE | 2024-04-05 15:22 | P.DS_ITS ---
DS: Admitting Diagnosis Discharge Date 04/05/2024 Admitting Diagnosis weakness hyponatremia constipation abnormal urinalysis urinary retention chronic sinusitis hypertension headache diabetes DS: Discharge Diagnosis Discharge Diagnosis (1) Weakness: Code(s): R53.1 - Weakness Status: Acute (2) Hyponatremia: Code(s): E87.1 - Hypo-osmolality and hyponatremia Status: Acute (3) Constipation: Code(s): K59.00 - Constipation, unspecified Status: Acute (4) Abnormal finding on urinalysis: Code(s): R82.90 - Unspecified abnormal findings in urine Status: Acute (5) Urine retention: Code(s): R33.9 - Retention of urine, unspecified Status: Acute (6) Chronic sphenoidal sinusitis: Code(s): J32.3 - Chronic sphenoidal sinusitis Status: Chronic (7) Hypertension: Code(s): I10 - Essential (primary) hypertension Status: Acute (8) Headache: Code(s): R51.9 - Headache, unspecified Status: Acute (9) Type 2 diabetes mellitus: Code(s): E11.9 - Type 2 diabetes mellitus without complications Status: Acute DS: Summary Hospital Course Reason for hospitalization: weakness hyponatremia constipation abnormal urinalysis urinary retention chronic sinusitis hypertension headache diabetes Hospital Course: 79-year-old female with a significant past medical history of asthma, glaucoma, hypothyroidism, hyperlipidemia, osteoporosis, type 2 diabetes mellitus, vitamin B12 and vitamin-D deficiency who presented to the hospital for evaluation of increased generalized weakness. Prior to admission patient was recently diagnosed and treated for a urinary tract infection in which she completed her full course of Keflex on of last week. On admission patient had a urinalysis that was concerning for infection however the urine culture was negative. She was noted to have urinary retention and a Hernandez catheter was placed. Care coordination spoke with patient's SNF and they plan to do a voiding trial while she is there. Patient did have decreased urine output which improved with fluids. Facility to monitor patient's urine output. On admission patient was severely hyponatremic. Nephrology was consulted and patient was placed on a fluid restriction and salt tabs. Salt tabs were later discontinued. Patient's sodium level improved prior to discharge. During patient's stay she became constipated and had several KUB performed. Patient was started on a bowel regimen and the constipation resolved. She was discharged on a bowel regimen to avoid recurrence of constipation. Infectious cause of weakness was ruled out. Throughout patients admission she remained more confused than baseline per family. Head CT showed no acute intracranial process. Possible that patients confusion was worsening dementia vs delirium. Patient continued to be hypertensive throughout admission and was started on Procardia 30 mg daily. Blood pressures remained stable. Patient diabetes was poorly controlled. A1c 9.8. Started on long-acting insulin and remains on metformin at time of discharge. patient is to follow-up with her primary care provider in regards to her hypertension and diabetes. Patient discharged to SNF in a stable condition. Time Spent with Patient Time attestation: Total time spent providing and/or coordinating discharge services: Time spent: Greater than 30 minutes Exam Narrative: AF HR 89 RR 15 SpO2 96 BP 141/72 General: female in no acute respiratory distress who is nontoxic appearing, lying semi recumbent in bed. HEENT: Normocephalic. Atraumatic. Extraocular movement intact. Sclera clear and anicteric. No facial asymmetry. Chest: Lungs are clear to auscultation bilaterally. No wheezes or crackles. CV: Heart was regular rate and rhythm. S1/S2. No murmurs, gallops, or rubs. Abd: Abdomen was soft. Nontender. Positive bowel sounds. No organomegaly or masses. Ext: No clubbing, cyanosis, or edema. 2+ DP pulses bilaterally. Neuro: Patient is alert. Speech is clear. DS: Data Data Completed and Pending Completed studies during hospitalization: Head CT Abdomen XR Abdomen XR Abdomen XR Chest XR Labs on day of discharge: Labs from last 24 hours 04/05/24 04/05/24 04/05/24 11:39 07:53 05:28 WBC 7.2 RBC 3.67 L Hgb 12.0 Hct 35.7 L MCV 97.3 MCH 32.7 MCHC 33.6 RDW 11.9 Plt Count 233 MPV 8.6 Immature Gran % (Auto) 1.0 H Neut % (Auto) 66.7 Lymph % (Auto) 21.4 [place] % (Auto) 9.5 H Eos % (Auto) 1.1 Baso % (Auto) 0.3 Lymph # (Auto) 1.54 [place] # (Auto) 0.7 H Eos # (Auto) 0.1 Baso # (Auto) 0.0 Abs Immat Gran (auto) 0.07 H Absolute Neuts (auto) 4.8 Absolute Nucleated RBC 0.000 Nucleated RBC % 0.0 Sodium 132 L Potassium 3.4 Chloride 96 L Carbon Dioxide 32 H Anion Gap 4 BUN 11 D Creatinine 0.50 L Estim Creat Clear Calc 81 Estimated GFR > 60 Glucose 153 H POC Capillary Glucose 209 H 155 H Calcium 8.0 L Total Bilirubin 0.6 AST 39 H ALT 42 H Alkaline Phosphatase 52 Total Protein 6.0 L Albumin 3.0 L 04/04/24 04/04/24 20:45 16:09 WBC RBC Hgb Hct MCV MCH MCHC RDW Plt Count MPV Immature Gran % (Auto) Neut % (Auto) Lymph % (Auto) [place] % (Auto) Eos % (Auto) Baso % (Auto) Lymph # (Auto) [place] # (Auto) Eos # (Auto) Baso # (Auto) Abs Immat Gran (auto) Absolute Neuts (auto) Absolute Nucleated RBC Nucleated RBC % Sodium Potassium Chloride Carbon Dioxide Anion Gap BUN Creatinine Estim Creat Clear Calc Estimated GFR Glucose POC Capillary Glucose 267 H 194 H Calcium Total Bilirubin AST ALT Alkaline Phosphatase Total Protein Albumin Discharge Plan Discharge Attending physician on discharge: Wero Agosto Consulting providers: Margarita Macdonald; Flori Loredo Discharging Clinician: Flori Loredo Anticipated Discharge Date/Time: 04/05/24 14:50 Patient Disposition: SNF Activity: as tolerated Diet: as tolerated, diabetic and other - see discharge instructions Discharge Instructions: Discharge disposition: Patient was admitted to the hospital for generalized weakness No signs of active infection on labs/imaging She worked with physical/occupational therapy and is to [facility] to [facility] her strength During admission patient was confused per family No signs of infection that would be causing confusion and sodium levels improved Possible hospital acquired delerium vs dementia Continue aricept as prescribed Patient had a low sodium level on admission, improved throughout stay Nephrology was consulted Continue fluid restriction of 1500 ml/day Follow up with nephrology, attached is the office information Patient was having elevated blood pressures throughout her admission Started on nifedipine 30 mg daily, attached is information on this medication Monitor blood pressures Take caution while standing, rising, or moving Change positions slowly taking a break between each position change If you standing feel dizzy sat back down and take a break Patient was previously treated for a UTI, antibiotic course completed prior to admission Urine culture was negative during admission Patient was having urinary retention Hernandez catheter was placed, perform a voiding trial in 1-2 days to reassess Monitor urine output Patient was reporting epigastric pain after meals Started on pepcid, transitioned to protonix Speech therapy evaluated patient, recommending soft bite sized diet, level 6 Continue this diet a the facility Diabetes poorly controlled, A1c 9.8 on admission Started on lantus 17 units nightly, continue metformin 500 mg twice a day Monitor blood glucose levels Follow up with primary care provider Patient was constipated, continue bowel regimen and monitor stool output Encouraged to continue with yearly vaccinations Return to the emergency department if he developed sudden shortness of breath, chest pain, nausea, vomiting, upset stomach or intractable diarrhea Return to the emergency department if you develop fever greater than 101.5 Follow-up with the primary care physician within 1-2 weeks Thank you for choosing [facility] for your healthcare needs Patient Instructions: Nifedipine (By mouth), Pantoprazole (By mouth), Insulin Glargine (By injection), Hyponatremia (DC), Fluid Restriction (DC) Patient Language: Occitan Stand Alone Forms: General Discharge Information Follow-up/Referrals: Wendy Kinney MD [Primary Care Provider] - 1 Week Margarita Macdonald MD [Physician] - Call for Appointment Discharge Medications: New nifedipine [Procardia XL] 30 mg Tablet Extended Release 24hr 30 mg PO QAM Qty: 30 0RF insulin glargine [Lantus U-100 Insulin] 100 unit/mL Solution 17 unit subcut HS Qty: 10 0RF polyethylene glycol 3350 [Miralax] 17 gram Powder In Packet 17 g PO QAM Qty: 30 0RF pantoprazole 40 mg Tablet,Delayed Release (Dr/Ec) 40 mg PO QAM Qty: 30 0RF Continued ondansetron 4 mg tablet,disintegrating 4 mg PO Q8H PRN (Reason: nausea and vomiting) Qty: 10 0RF aspirin [Adult Low Dose Aspirin] 81 mg tablet,delayed release (DR/EC) 81 mg PO DAILY ergocalciferol (vitamin D2) 50,000 unit capsule 50,000 unit PO WEEKLY Rx Instructions: Takes on dorzolamide-timolol [Cosopt] 22.3-6.8 mg/mL drops 1 drop EACH EYE BID Prolia 60 mg/mL syringe 60 mg subcut [id number] Rx Instructions: Next dose May 2024 ibuprofen 600 mg tablet 600 mg PO TID PRN (Reason: pain) Qty: 30 0RF acetaminophen 500 mg capsule 1,000 mg PO Q6H PRN (Reason: pain) Qty: 30 0RF Lumigan 0.01 % drops 1 drp EACH EYE HS donepezil [Aricept] 5 mg tablet 5 mg PO QHS Qty: 30 6RF Rx Instructions: with snack metformin 500 mg tablet extended release 24 hr 500 mg PO BID Qty: 180 1RF atorvastatin 20 mg tablet 20 mg PO DAILY Qty: 90 1RF Discontinued cephalexin 500 mg capsule 500 mg PO Q6H 12 Days Qty: 48 0RF Date of admission: 03/27/24 16:10 Primary Care Provider: Wendy Kinney Admitting Provider: David Aleman Attending physician on admission: David Aleman Condition: Stable Hospitalist MIPS Heart Failure (Exclusion) Patient has history of Heart Transplant or Left Ventricular Assistive Device?: No IF YES, STOP HERE Heart Failure (Qualifier) Patient has current or prior documentation of LVEF less than or equal to 40%, or mod/servere depressed LVSF?: No IF NO, STOP HERE
[2024-04-05 17:08] LABS: Glucose Point of Care 160 mg/dl (65-105)
[2024-04-05] MEDS: INFLUENZA VACCINE HIGH DOSE (>64) 180 MCG/0.5 ML SYRINGE IM (17:30)
== END 2024-04-05 18:35 | DRG 641 ==
LOC: ANHED 12:36 → ANH2MED 15:50
PROVIDERS: Internal Medicine Nephrology; Nurse Practitioner Acute Care; Nurse Practitioner Family; Admitting Provider Internal Medicine; Emergency Provider Emergency Medicine; PCP Family Medicine; Visit Provider Internal Medicine
DX: E87.1 Hypo-osmolality and hyponatremia (principal); R33.9 Retention of urine, unspecified; K59.00 Constipation, unspecified; I10 Essential (primary) hypertension; Z23 Encounter for immunization; E11.9 Type 2 diabetes mellitus without complications; J32.3 Chronic sphenoidal sinusitis; H40.9 Unspecified glaucoma; E86.0 Dehydration; E03.9 Hypothyroidism, unspecified; E87.6 Hypokalemia; M81.0 Age-related osteoporosis without current pathological fracture; L65.9 Nonscarring hair loss, unspecified; F03.90 Unspecified dementia, unspecified severity, without behavioral disturbance, psychotic disturbance, mood disturbance, and anxiety; E53.8 Deficiency of other specified B group vitamins; E55.9 Vitamin D deficiency, unspecified; E78.2 Mixed hyperlipidemia; Z96.659 Presence of unspecified artificial knee joint; Z20.822 Contact with and (suspected) exposure to COVID-19; Z79.82 Long term (current) use of aspirin; Z79.84 Long term (current) use of oral hypoglycemic drugs
CPT/HCPCS: 36415; 70450; 71045; 74018; 74177; 80048; 80053; 81001; 81050; 82306; 82533; 82570; 82607; 82746; 82948; 83036; 83605; 83690; 83735; 83930; 83935; 84155; 84156; 84165; 84166; 84295; 84300; 84443; 84484; 84540; 85025; 85055; 85999; 87040; 87086; 87637; 90471; 90662; 92610; 93005; 96360; 96361; 96374; 97110; 97162; 97166; 97530; 97535; 99284; 99285; A9270; G0008; G0378; J1650; J1815; J1885; J2405; J7030; Q9967

== ENCOUNTER 2024-05-08 00:14 | Emergency (ER) | payer MEDICARE, OTHER, SELFPAY ==
[2024-05-08 00:58] VITALS: BP 127/69; PULSE 110; RESP 18; TEMP 36.5; O2SAT 98
--- OUTSIDE RECORDS SUMMARY | 2024-05-15 00:35 | XMS_ITS | Continuity of Care Document ---
Author Organization [facility] Address [address] [place] [address] Care Team Providers Care Bridge Leverman Name Role Phone Wendy Kinney MD Primary Care Provider [phone] Wendy Kinney MD Attending Provider [phone] Lee Ann Bullock MD Emergency Provider David Diaz MD Emergency Provider + Care Teams Patient Care Team Team Status: Active Member Role Status Rashawn Kinney MD Family Provider Active Wendy Kinney MD Primary Care Provider Active Visit Care Team Team Status: Active Member Role Status Dates DOCTOR UNKNOWN Primary Care Provider Active Mark Logan MD Attending Provider Active Angella Edwards MD Referring Provider Active Visit Care Team Team Status: Inactive Member Role Status Rashawn Kinney MD Primary Care Provider, Attending Provi jaida Active Visit Care Team Team Status: Inactive Member Role Status Rashawn Kinney MD Primary Care Provider Active Lee Ann Bullock MD Emergency Provider Active Visit Care Team Team Status: Inactive Member Role Status Rashawn Kinney MD Primary Care Provider Active David Diaz MD Emergency Provider Active Chief Complaint and Reason for Visit Chief Complaint Admit Date Diabetes mellitus Mixed hyperlipidemia M ay 2023 11:02am treatment February 28, 2024 2 :00pm R flank pain March 19, 2024 11:53pm abd pain March 25, 2024 1:21am Allergies, Adverse Reactions, Alerts Allergen Type Severity Reaction Last Updated Verified Status brimonidine Allergy Severe RED EYES, ITCHING September 15, 2023 10: 27am Yes Active Social History Smoking Status Status Start Date End Date Date of Observa tion Never smoked tobacco (finding) March 20, 2024 7:43am Observation Status Observation Response Date of Response Has Lack of Trans Kept You F rom Med Appts or Getting Meds? No March 20, 2024 7:43am In Past 12 Months, Were You Worried Your Food Would Run Out? Never True March 20, 2024 7 :43am What is Your Housing Situati on Today? I Have Housing March 20, 2024 7:43am Gender Identity (if Verbaliz ed by the Patient) Female March 20, 2024 7:43am Sexual Orientation (if Verba lized by the Patient) Straight or Heterosexual March 20, 2024 7:43am Are You Worried That in Next 2 Mo, You Won't Have Housing? No March 20, 2024 7:43am Do You Have Trouble Paying Y our Heating Or Electricity Bill? No March 20, 2024 7:43a m Do You Have Trouble Paying F or Medicines? No March 20, 2024 7:43am Are You Currently Unemployed and Looking for Work? No March 20, 2024 7:43am Highest Level of Education Completed High School Diploma/GED March 20, 2024 7:43am Do You Have Trouble With Childcare/Care of a Family Member? No March 20, 2024 7:43am alcohol intake never March 20 7:43am Substance use type does not use March 7:43am Patient Sex Female March 25 6:17am Assigned Sex Female 1945 Family History Relationship Condition Age at Onset Recorded Date/T marina Not Specified Family history of osteoporosis Unknown Family history of glaucoma Unknown Family history of co ronary artery disease Unknown Carcinoma of colon Unknown Asthma Unknown father Heart disease Unknown mother Malignant neoplasm of colon Unknown sibling Diabetes mellitus Unknown grandparent Malignant neoplasm of colon Unknown Problems Active Problems Medical Problem Onset Date Status Comments Benign positional vertigo Unknown Active Chronic sphenoidal sinusitis Unknown Active Fatigue Unknown Active Vitamin B12 deficiency Unknown Active Osteoporosis Unknown Active Arthritis Unknown Active Mixed hyperlipidemia Unknown Active Mild cognitive impairment Unknown Active Dark stools Unknown Active Prediabetes Unknown Active Abdominal pain Unknown Active Glaucoma Unknown Active Vitamin D deficiency Unknown Active Adverse effect of other drug s, medicaments and biological substances, sequela Unknown Active Inactive/Resolved Problems Medical Problem Onset Date Status Comments Acute pyelonephritis Unknown Resolved Pseudohyponatremia Unknown Resolved Upper respiratory infection with cough and congestion Unknown Resolved Hyperglycemia Unknown Resolved Hypothyroidism Unknown Resolved history of t hyroid problems Kidney stone Unknown Resolved Near syncope Unknown Resolved Buttock pain Unknown Resolved Type 2 diabetes mellitus wit hout complication, without long-term current use of insulin Unknown Resolved Acute UTI Unknown Resolved Alopecia Unknown Resolved Medications Medication Status Dose Units Route Directions Qty Days St art Date Stop Date End Date Instructions Adherence Albuterol Sulfate 90 mcg/actuati on HFA aerosol inhaler Active 2 PUFF INHALA TION EVERY 4 - 6 HOURS as needed for shortness of breath or wheezing 8.5 30 2023 12:00a m Guaifenesin (Mucinex) 600 mg tablet extended release 12hr Active 600 MG PO TWICE A DAY 14 7 2023 12:00a m Ondansetron 4 mg tablet,disi ntegrating Active 4 MG PO Q8H as needed for nausea and vomiting 10 [facility] er 2021 12:00a m Aspirin (Adult Low Dose Aspirin) 81 mg tablet,jean claude yed release (DR/EC) Active 81 MG PO DAILY [facility] er 2018 12:00a m Ergocalcife rol (Vitamin D2) 50,000 unit capsule Active 41264 UNIT PO WEEKLY [facility] er 2018 12:00a m Dorzolamide -Timolol (Cosopt) 22.3-6.8 mg/mL drops Active 1 DROP EACH EYE TWICE A DAY [facility] er 2018 12:00a m Denosumab (Prolia) 60 mg/mL syringe Active 60 MG SUB-Q EVERY 6 MONTHS Octobe r 2020 11:00p m Ibuprofen 600 mg tablet Active 600 MG PO THREE TIMES A DAY as needed for pain er 2023 12:00a m Acetaminoph en 500 mg capsule Active 1000 MG PO Q6H as needed for pain b er 2023 12:00a m Cephalexin 500 mg capsule Active 500 MG PO Q6H 48 12 Novemb er 2023 12:00a m Donepezil (Aricept) 5 mg tablet Active 5 MG PO Every Day At Bedtime September 24, 2023 6:51am with snack Metformin 500 mg tablet extended release 24 hr Active 500 MG PO TWICE A DAY 180 December 07, 2023 1:37pm Atorvastati n 20 mg tablet Active 20 MG PO DAILY 90 Octobe r 2023 4:23pm Immunizations Immunization Event Date Not Given Reason Dose Number [employer] Lot Number Vaccine Information Statement (VIS) Detail Administration Location Fluad Quad High Dose (65+) February 11, 2021 Fluad Quad High Dose (65+) February 24, 2022 Fluzone High-Dose 65YR+ May 26, 2017 Fluzone High-Dose 65YR+ March 13, 2018 Fluzone High-Dose 65YR+ January 14, 2020 Fluzone High-Dose 65YR+ March 26, 2019 Fluzone High-Dose 65YR+ February 11, 2021 [id number] Fluzone High-Dose 65YR+ February 24, 2022 [id number] Fluzone High-Dose 65YR+ March 10, 2023 [id number] Pneumococcal Conjugate Vaccine, 13 valent September 27, 2016 Pneumococcal Polysacc. Vaccine, 23 valent June 20, 2018 SARS-COV-2 (COVID-19) Moderna July 02, 2020 SARS-COV-2 (COVID-19) Moderna July 30, 2020 SARS-COV-2 (COVID-19) Moderna March 02, 2021 SARS-COV-2 (COVID-19) Pfizer August 31, 2021 SARS-COV-2 (COVID-19) Pfizer Bivalent March 02, 2022 zoster vaccine, recombinant March 26, 2019 zoster vaccine, recombinant October 16, 2019 Procedures Procedure Date Performed Status Urine Culture March 20, 2024 completed Relevant Diagnostic Tests and/or Laboratory Data Laboratory Results Test Date/Time Result Interpretation Reference Range Result Comment Performing Site White Blood Count March 20, 2024 2:54am 9.2 K/mm3 4.5-10.0 [facility] [id number] [address] [place] [address] White Blood Count March 25, 2024 1:29am 9.5 K/mm3 4.5-10.0 [facility] [id number] [facility] [address] [address] Red Blood Count March 20, 2024 2:54am 4.35 M/mm3 4.2-5.4 [facility] [id number] [address] [address] Red Blood Count March 25, 2024 1:29am 4.17 M/mm3 Below low normal 4.2-5.4 [facility] [id number] [address] [address] Hemoglobin March 20, 2024 2:54am 14.6 g/dL 12.0-15.0 [facility] [id number] [address] [address] Hemoglobin March 25, 2024 1:29am 13.7 g/dL 12.0-15.0 [facility] [id number] [address] [place] [address] Hematocrit March 20, 2024 2:54am 42.6 % 37.0-47.0 [facility] [id number] [facility] [address] [address] Hematocrit March 25, 2024 1:29am 40.4 % 37.0-47.0 [facility] [id number] [facility] [address] [address] Mean Corpuscular Volume March 20, 2024 2:54am 97.9 fL 80-100 [facility] [id number] [address] [address] Mean Corpuscular Volume March 25, 2024 1:29am 96.9 fL 80-100 [facility] [id number] [facility] [address] [address] Mean Corpuscular Hemoglobin March 20, 2024 2:54am 33.6 pg 26-34 [facility] [id number] [address] [address] Mean Corpuscular Hemoglobin March 25, 2024 1:29am 32.9 pg 26-34 [facility] [id number] [address] [address] Mean Corpuscular Hemoglobin Concent March 20, 2024 2:54am 34.3 g/dL 32-36 [facility] [id number] [facility] [address] [address] Mean Corpuscular Hemoglobin Concent March 25, 2024 1:29am 33.9 g/dL 32-36 [facility] [id number] [facility] [address] [address] Red Cell Distribution Width March 20, 2024 2:54am 11.6 % 11.5-14.5 [facility] [id number] [facility] [address] [address] Red Cell Distribution Width March 25, 2024 1:29am 11.5 % 11.5-14.5 [facility] [id number] [address] [place] [address] Platelet Count March 20, 2024 2:54am 212 k/mm3 150-375 [facility] [id number] [address] [place] [address] Platelet Count March 25, 2024 1:29am 211 k/mm3 150-375 [facility] [id number] [address] [place] [address] Mean Platelet Volume March 20, 2024 2:54am 9.3 fL 7.4-10.4 [facility] [id number] [address] [place] [address] Mean Platelet Volume March 25, 2024 1:29am 9.1 fL 7.4-10.4 [facility] [id number] [address] [place] [address] Nucleated Red Blood Cells % March 20, 2024 2:54am 0.0 % 0.0-0.2 [facility] [id number] [address] [place] [address] Nucleated Red Blood Cells % March 25, 2024 1:29am 0.0 % 0.0-0.2 [facility] [id number] [address] [place] [address] Immature Granulocyte % (Auto) March 20, 2024 2:54am 0.3 % 0-0.5 [facility] [id number] [address] [place] [address] Immature Granulocyte % (Auto) March 25, 2024 1:29am 0.5 % 0-0.5 [facility] [id number] [address] [place] [address] Neutrophils (%) (Auto) March 20, 2024 2:54am 77.0 % Above high normal 45.5-73.1 [facility] [id number] [address] [place] [address] Neutrophils (%) (Auto) March 25, 2024 1:29am 73.9 % Above high normal 45.5-73.1 [facility] [id number] [address] [place] [address] Lymphocytes (%) (Auto) March 20, 2024 2:54am 16.9 % Below low normal 18.3-44.2 [facility] [id number] [address] [place] [address] Lymphocytes (%) (Auto) March 25, 2024 1:29am 16.2 % Below low normal 18.3-44.2 [facility] [id number] [address] [place] [address] 19968 Monocytes (%) (Auto) March 20, 2024 2:54am 5.1 % 2.6-8.5 [facility] [id number] [address] [place] [address] Monocytes (%) (Auto) March 25, 2024 1:29am 8.8 % Above high normal 2.6-8.5 [facility] [id number] [address] [place] [address] Eosinophils (%) (Auto) March 20, 2024 2:54am 0.4 % 0-4.4 [facility] [id number] [address] [place] [address] Eosinophils (%) (Auto) March 25, 2024 1:29am 0.3 % 0-4.4 [facility] [id number] [address] [place] [address] Basophils (%) (Auto) March 20, 2024 2:54am 0.3 % 0.2-1.2 [facility] [id number] [address] [place] [address] Basophils (%) (Auto) March 25, 2024 1:29am 0.3 % 0.2-1.2 [facility] [id number] [address] [place] [address] Nucleated RBC Absolute Count (auto) March 20, 2024 2:54am 0.000 K/mm3 0.0-0.012 [facility] [id number] [address] [place] [address] Nucleated RBC Absolute Count (auto) March 25, 2024 1:29am 0.000 K/mm3 0.0-0.012 [facility] [id number] [address] [place] [address] Absolute Immature Granulocyte (auto March 20, 2024 2:54am 0.03 K/mm3 0.00-0.031 [facility] [id number] [address] [place] [address] Absolute Immature Granulocyte (auto March 25, 2024 1:29am 0.05 K/mm3 Above high normal 0.00-0.031 [facility] [id number] [address] [place] [address] Absolute Neutrophils (auto) March 20, 2024 2:54am 7.0 K/mm3 Above high normal 1.3-6.7 [facility] [id number] [address] [place] [address] Absolute Neutrophils (auto) March 25, 2024 1:29am 7.0 K/mm3 Above high normal 1.3-6.7 [facility] [id number] [address] [place] [address] Lymphocytes # (Auto) March 20, 2024 2:54am 1.55 K/mm3 0.9-3.2 [facility] [id number] [address] [place] [address] Lymphocytes # (Auto) March 25, 2024 1:29am 1.54 K/mm3 0.9-3.2 [facility] [id number] [address] [place] [address] Monocytes # (Auto) March 20, 2024 2:54am 0.5 K/mm3 0.1-0.6 [facility] [id number] [address] [place] [address] Monocytes # (Auto) March 25, 2024 1:29am 0.8 K/mm3 Above high normal 0.1-0.6 [facility] [id number] [address] [place] [address] Eosinophils # (Auto) March 20, 2024 2:54am 0.0 K/mm3 0-0.3 [facility] [id number] [address] [place] [address] Eosinophils # (Auto) March 25, 2024 1:29am 0.0 K/mm3 0-0.3 [facility] [id number] [address] [address] Basophils # (Auto) March 20, 2024 2:54am 0.0 K/mm3 0.0-0.1 [facility] [id number] [address] [address] Basophils # (Auto) March 25, 2024 1:29am 0.0 K/mm3 0.0-0.1 [facility] [id number] [address] [address] Urine Color March 20, 2024 6:11am Yellow Yellow [facility] [id number] [address] [address] Urine Color March 25, 2024 1:56am Yellow Yellow [facility] [id number] [facility] [address] [address] Urine Appearance March 20, 2024 6:11am Cloudy Above high normal Clear [facility] [id number] [facility] [address] [address] Urine Appearance March 25, 2024 1:56am Cloudy Above high normal Clear [facility] [id number] [facility] [address] [address] Urine pH March 20, 2024 6:11am 6.0 5.0-9.0 [facility] [id number] [facility] [address] [address] Urine pH March 25, 2024 1:56am 7.0 5.0-9.0 [facility] [id number] [facility] [address] [address] Urine Specific [place] March 20, 2024 6:11am 1.034 1.001-1.[address] [place] [address] [facility] [id number] [facility] [address] [address] Urine Specific [place] March 25, 2024 1:56am 1.026 1.001-1.[address] [place] [address] [facility] [id number] [facility] [address] [address] Urine Protein March 20, 2024 6:11am Trace mg/dL Negative [facility] [id number] [facility] [address] [address] Urine Protein March 25, 2024 1:56am Trace mg/dL Negative [facility] [id number] [address] [place] [address] Urine Glucose (UA) March 20, 2024 6:11am 3+ mg/dL Above high normal Negative [facility] [id number] [address] [address] Urine Glucose (UA) March 25, 2024 1:56am 3+ mg/dL Above high normal Negative [facility] [id number] [address] [address] Urine Ketones March 20, 2024 6:11am 2+ mg/dL Above high normal Negative [facility] [id number] [address] [facility] [address] [place] [address] Urine Ketones March 25, 2024 1:56am 3+ mg/dL Above high normal [facility] [id number] [address] [address] Urine Blood (Manual) March 20, 2024 6:11am Negative Negative [facility] [id number] [address] [address] Urine Blood (Manual) March 25, 2024 1:56am Negative Negative [facility] [id number] [address] [address] Urine Nitrate March 20, 2024 6:11am Negative Negative [facility] [id number] [address] [address] Urine Nitrate March 25, 2024 1:56am Negative Negative [facility] [id number] [address] [address] Urine Bilirubin March 20, 2024 6:11am Negative Negative [facility] [id number] [address] [address] Urine Bilirubin March 25, 2024 1:56am Negative Negative [facility] [id number] [address] [address] Urine Urobilinogen March 20, 2024 6:11am 0.2 mg/dL <2.0 [facility] [id number] [address] [address] Urine Urobilinogen March 25, 2024 1:56am 1.0 mg/dL <2.0 [facility] [id number] [address] [address] Urine Leukocyte Esterase (Reflex) March 20, 2024 6:11am 1+ NITIN/UL Above high normal Negative [facility] [id number] [address] [address] Urine Leukocyte Esterase (Reflex) March 25, 2024 1:56am Negative NITIN/UL Negative [facility] [id number] [address] [address] Urine RBC March 20, 2024 6:11am 6-10 [HPF] Above high normal 0-2 [facility] [id number] [address] [address] Urine RBC March 25, 2024 1:56am 6-10 [HPF] Above high normal 0-2 [facility] [id number] [address] [address] Urine WBC March 20, 2024 6:11am 21-50 [HPF] Above high normal 0-3 [facility] [id number] [address] [address] Urine WBC March 25, 2024 1:56am 0-5 [HPF] 0-3 [facility] [id number] [address] [address] Urine Squamous Epithelial Cells March 20, 2024 6:11am Moderate [HPF] Few [facility] [id number] [facility] [address] [address] Urine Squamous Epithelial Cells March 25, 2024 1:56am Few [HPF] Few [facility] [id number] [address] [address] Urine Bacteria March 20, 2024 6:11am 1+ [HPF] Above high normal [facility] [id number] [address] [address] Urine Bacteria March 25, 2024 1:56am None seen [HPF] [facility] [id number] [facility] [address] [address] Urine Mucus March 25, 2024 1:56am Present [LPF] [facility] [id number] [address] [address] Urine Random Microalbumin October 03, 2023 10:19am 16.7 mg/L 0-16.7 [facility] [id number] [facility] [address] [address] Urine Microalbumin/C reatinine Ratio October 03, 2023 10:19am 13.8 mg/g 0-30 [facility] [id number] [facility] [address] [address] Urine Creatinine October 03, 2023 10:19am 120.9 mg/dL [facility] [id number] [address] [place] [address] Sodium Level October 03, 2023 10:11am 139 mmol/L 137-145 [facility] [id number] [address] [place] [address] Sodium Level March 20, 2024 2:54am 134 mmol/L Below low normal 137-145 [facility] [id number] [address] [place] [address] Sodium Level March 25, 2024 1:29am 129 mmol/L Below low normal 137145 [facility] [id number] [address] [place] [address] Potassium Level October 03, 2023 10:11am 4.0 mmol/L 3.4-5.0 [facility] [id number] [address] [place] [address] Potassium Level March 20, 2024 2:54am 4.3 mmol/L 3.4-5.0 [facility] [id number] [address] [place] [address] Potassium Level March 25, 2024 1:29am 4.0 mmol/L 3.4-5.0 [facility] [id number] [address] [place] [address] Chloride Level October 03, 2023 10:11am 106 mmol/L [address] [facility] [id number] [address] [place] [address] Chloride Level March 20, 2024 2:54am 99 mmol/L [address] [facility] [id number] [address] [place] [address] Chloride Level March 25, 2024 1:29am 92 mmol/L Below low normal [address] [facility] [id number] [address] [place] [address] Carbon Dioxide Level October 03, 2023 10:11am 26 mmol/L [facility] [id number] [address] [place] [address] Carbon Dioxide Level March 20, 2024 2:54am 28 mmol/L [facility] [id number] [address] [place] [address] Carbon Dioxide Level March 25, 2024 1:29am 29 mmol/L [facility] [id number] [address] [address] Anion Gap October 03, 2023 10:11am 7 mmol/L 08-17 [facility] [id number] [address] [address] Anion Gap March 20, 2024 2:54am 7 mmol/L 08-17 [facility] [id number] [address] [address] Anion Gap March 25, 2024 1:29am 8 mmol/L 08-17 [facility] [id number] [address] [address] Blood Urea Nitrogen October 03, 2023 10:11am 11 mg/dL 11-21 [facility] [id number] [address] [address] Blood Urea Nitrogen March 20, 2024 2:54am 16 mg/dL 11-21 [facility] [id number] [address] [address] Blood Urea Nitrogen March 25, 2024 1:29am 8 mg/dL 11-21 [place]: 16 on 03/20/24-0254 [facility] [id number] [address] [place] [address] Creatinine October 03, 2023 10:11am 0.50 mg/dL Below low normal 0.7-1.0 [facility] [id number] [address] [address] Creatinine March 20, 2024 2:54am 0.60 mg/dL Below low normal 0.7-1.0 [facility] [id number] [address] [place] [address] Creatinine March 25, 2024 1:29am 0.50 mg/dL Below low normal 0.7-1.0 [facility] [id number] [address] [place] [address] Estimat Glomerular Filtration Rate October 03, 2023 10:11am > 60 >59 > OR = 60 ml/min/1.73 square metersThe MDRD formula used to calculate the eGFR result has not been validated in patients > 70 years of age. [facility] [id number] [address] [address] Estimat Glomerular Filtration Rate March 20, 2024 2:54am > 60 >59 > OR = 60 ml/min/1.73 square metersThe MDRD formula used to calculate the eGFR result has not been validated in patients > 70 years of age. [facility] [id number] [address] [place] [address] Estimat Glomerular Filtration Rate March 25, 2024 1:29am > 60 >59 > OR = 60 ml/min/1.73 square metersThe MDRD formula used to calculate the eGFR result has not been validated in patients > 70 years of age. [facility] [id number] [address] [place] [address] Estimated Creatinine Clearance Calc October 03, 2023 10:11am Not Reportable [facility] [id number] [address] [place] [address] Estimated Creatinine Clearance Calc March 20, 2024 2:54am 58 mL/min For use in prescription drug dose determination only. Reference ranges have not been establishe for this calculation. [facility] [id number] [address] [place] [address] Estimated Creatinine Clearance Calc March 25, 2024 1:29am 82 mL/min For use in prescription drug dose determination only. Reference ranges have not been establishe for this calculation. [facility] [id number] [address] [place] [address] Glucose Level October 03, 2023 10:11am 226 mg/dL Above high normal 65-110 [facility] [id number] [address] [place] [address] Glucose Level March 20, 2024 2:54am 350 mg/dL Above high normal 65-110 [facility] [id number] [address] [place] [address] Glucose Level March 25, 2024 1:29am 248 mg/dL Above high normal 65-110 [facility] [id number] [address] [place] [address] Hemoglobin A1c October 03, 2023 10:11am 8.7 % Above high normal <5.7 <5.7: Decreased risk of diabetes 5.7-6.0: Increased risk of diabetes 6.1-6.4: Higher risk of diabetes> or = 6.5: Consistent with diabetes [facility] [id number] [address] [place] [address] Lactic Acid Level March 25, 2024 1:56am 1.1 mmol/L 0.7-2.0 [facility] [id number] [address] [address] Calcium Level October 03, 2023 10:11am 9.5 mg/dL 8.4-10.2 [facility] [id number] [address] [address] Calcium Level February 21, 2024 9:20am 10.0 mg/dL 8.4-10.2 [facility] [id number] [address] [place] [address] Calcium Level March 20, 2024 2:54am 9.9 mg/dL 8.4-10.2 [facility] [id number] [address] [place] [address] Calcium Level March 25, 2024 1:29am 9.7 mg/dL 8.4-10.2 [facility] [id number] [address] [place] [address] Total Bilirubin October 03, 2023 10:11am 0.7 mg/dL 0.2-1.3 [facility] [id number] [address] [place] [address] Total Bilirubin March 20, 2024 2:54am 0.7 mg/dL 0.2-1.3 [facility] [id number] [address] [place] [address] Total Bilirubin March 25, 2024 1:29am 0.8 mg/dL 0.2-1.3 [facility] [id number] [address] [place] [address] Aspartate Amino Transf (AST/SGOT) October 03, 2023 10:11am 23 U/L [facility] [id number] [address] [address] Aspartate Amino Transf (AST/SGOT) March 20, 2024 2:54am 27 U/L [facility] [id number] [address] [place] [address] Aspartate Amino Transf (AST/SGOT) March 25, 2024 1:29am 26 U/L [facility] [id number] [address] [place] [address] Alanine Aminotransfera se (ALT/SGPT) October 03, 2023 10:11am 20 U/L 6-35 [facility] [id number] [address] [place] [address]761 Alanine Aminotransfera se (ALT/SGPT) March 20, 2024 2:54am 27 U/L 35 [facility] [id number] [address] [address] Alanine Aminotransfera se (ALT/SGPT) March 25, 2024 1:29am 23 U/L 35 [facility] [id number] [address] [address] Total Protein October 03, 2023 10:11am 7.0 g/dL 6.3-8.2 [facility] [id number] [address] [address] Total Protein March 20, 2024 2:54am 8.0 g/dL 6.3-8.2 [facility] [id number] [address] [address] Total Protein March 25, 2024 1:29am 7.0 g/dL 6.3-8.2 [facility] [id number] [address] [address] Albumin October 03, 2023 10:11am 4.4 g/dL 3.5-5.1 [facility] [id number] [address] [address] Albumin February 21, 2024 9:20am 4.4 g/dL 3.5-5.1 [facility] [id number] [address] [address] Albumin March 20, 2024 2:54am 4.7 g/dL 3.5-5.1 [facility] [id number] [address] [address] Albumin March 25, 2024 1:29am 4.2 g/dL 3.5-5.1 [facility] [id number] [address] [address] Triglycerides Level October 03, 2023 10:11am 189 mg/dL Above high normal <150 [facility] [id number] [address] [address] Cholesterol Level October 03, 2023 10:11am 223 mg/dL Above high normal 0-200 [facility] [id number] [address] [address] LDL Cholesterol Direct October 03, 2023 10:11am 138 mg/dL <130 mg/dl [id number] 59 mg/dl Borderline High Risk >160 mg/dl High Risk [facility] [id number] [address] [address] HDL Cholesterol Direct October 03, 2023 10:11am 49 mg/dL Expected Range > 35 mg/dl [facility] [id number] [address] [address] Alkaline Phosphatase October 03, 2023 10:11am 47 U/L 38-126 [facility] [id number] [address] [address] Alkaline Phosphatase March 20, 2024 2:54am 66 U/L 38-126 [facility] [id number] [address] [address] Alkaline Phosphatase March 25, 2024 1:29am 58 U/L 38-126 [facility] [id number] [address] [address] Lipase March 20, 2024 2:54am 112 U/L 23-300 [facility] [id number] [address] [address] Lipase March 25, 2024 1:29am 68 U/L 23-300 [facility] [id number] [address] [address] Urine Casts March 20, 2024 6:11am 3-5 [facility] [id number] [address] [address] Urine Casts March 25, 2024 1:56am 0-2 [facility] [id number] [address] [address] Add Urine Microanalysis March 20, 2024 6:11am Reviewed [facility] [id number] [address] [address] Add Urine Microanalysis March 25, 2024 1:56am Reviewed [facility] [id number] [address] [address] Microbiology Results Procedure Source Result Collection Date/Time Result Date/Time Result Comment Performing Site Urine Culture Urine Clean Catch Klebsiella pneumoniae March 20, 2024 6:11am March 22, 2024 1:34pm [facility] Reports Author Froy Downs [facility] Report Date/Time March 25, 2024 5:58am [facility] [address] [address] [address] Scan Report Signed Patient: Arti Sinclair : 1945 MR#: [id number] Age: 79 Acct:[id number] Loc: [facility] ADM Date: 03/25/[address]: Ordering Physician: Baljit Diaz MD Date of Service: 03/25/24 Procedure(s): CT abdomen pelvis w con Accession Number(s): [id number] cc: Wendy Kinney MD; Baljit Diaz MD~ CT of the Abdomen and Pelvis: Indication: Abdominal pain Technique: 2.5 mm axial scans were obtained through the abdomen and pelvis following intravenous administration of 100 cc of Omnipaque 350. Dose reduction technique was used on this scan by utilizing automated exposure control and iterative reconstruction technique. The dose-length product (DLP) was 849.30 mGy-cm. COMPARISON: 03/20/2024 Findings: Scans through the lung bases demonstrate small hiatal hernia. There is diffuse hepatic steatosis. Small gallstone present. The spleen, pancreas, adrenals and kidneys are within normal limits. There are atherosclerotic calcifications of the aorta. No lymphadenopathy. No bowel obstruction or bowel wall thickening. There is no evidence to suggest acute appendicitis. Images through the pelvis were performed. Urinary bladder unremarkable. No pelvic mass seen. No ascites. Impression: Diffuse hepatic steatosis. Small gallstone. Small hiatal hernia. Reviewed, dictated and finalized at [facility]. LESS FIELD TECHNICIAN Dictated By: Froy Downs MD 03/25/24 0556 Signed By: <Electronically signed by Froy Downs MD in [place]> 03/25/24 0558 Vital Signs Vital Reading Result Reference Range Collection Date/Time Heart Rate 94 /min 60-100 February 27, 2 024 1:07pm Oxygen saturation by Pulse oximetry 98 % 90-100 February 28, 2024 1 :07pm BP Systolic 174 mm[Hg] 100-140 February 27, 2 024 1:07pm BP Diastolic 72 mm[Hg] 60-90 February 27, 2 024 1:07pm Height 65 [in_i] March 20, 2024 12:25am Weight 65.70 kg March 20, 2024 12:25am Body Temperature 97.8 [degF] 97.6-99.6 March 202023 7:39am Heart Rate 90 /min 60-100 March 20, 2024 7:39am Respiratory rate 18 /min -March 202023 7:39am Oxygen saturation by Pulse oximetry 99 % 90-100 March 20, 2024 7:39am BP Systolic 163 mm[Hg] 100-140 March 20, 2024 7:39am BP Diastolic 78 mm[Hg] 60-90 March 20, 2024 7:39am Height 65 [in_i] March 25, 2024 1:22am Weight 85.00 kg March 25, 2024 1:22am Body Temperature 98.9 [degF] 97.6-99.6 March 252023 1:22am Heart Rate 77 /min 60-100 March 25, 2024 4:04am Respiratory rate 14 /min -March 252023 4:04am Oxygen saturation by Pulse oximetry 96 % 90-100 March 25, 2024 4:04am BP Systolic 152 mm[Hg] 100-140 March 25, 2024 4:04am BP Diastolic 65 mm[Hg] 60-90 March 25, 2024 4:04am Insurance Providers Guarantor Arti Sinclair Address [address], [address] [address] Contact Info. Home Phone: Payer Policy Id Coverage Id Subscriber's Name Subscriber Id Effective Date Expiration Date Medicare Parts A & B [id number] Arti Sinclair [id number] 2010 Medicare AB Ambulatory [id number] Arti Sinclair [id number] Medicare AB [facility] [id number] Arti Sinclair [id number] 2010 [facility] [id number] Arti Sinclair [id number] [facility] [employer] [id number] Atri Sinclair [id number] Self Pay Self N/A Encounters Encounter Location(s) Arrival/Admit Date Discharge/Depart Date [facility]) [facility], [facility] 10:02am October 03, 2023 10:03am Wendy Kinney MD Registered [facility] February 28, 2024 1:00pm [facility] March 19, [facility]24 11:53pm March 20, 2024 7:41am [facility] Emergency Department March 25, 2024 1:21am March 25, 2024 6:17am Plan of Treatment Future Tests Future scheduled test information is unavailable Pending Tests Test Name Ordered Date Scheduled Date CA 12 lead EKG March 25, 2024 1:22am Novem glen 2023 1:22am Future Visits Future appointment information is unavailable Referrals to Other Providers Reason for Referral Referral Start Date Provider Provider Contact Information Provider Address Wendy Kinney MD Work Phone: [place] [phone] Wendy Kinney MD Work Phone: [place] [phone] [address] [facility] [address] Future Procedures Future procedure information is unavailable Future Medications Future medication information is unavailable Patient Instructions Instruction Admit Date Antibiotic Form Kidney Stones (ED) Kidney Infection (ED) March 19, 2024 11:53pm Antibiotic Form Abdominal Pain (ED) March 25, 2024 1:21am
--- OUTSIDE RECORDS SUMMARY | 2024-05-15 00:35 | XMS_ITS | Continuity of Care Document ---
Author Organization [facility] Address [address] [place] [address] Care Team Providers Care Family And Consumer Science Professor Name Role Phone Wendy Kinney MD Primary Care Provider Lee Ann Bullock MD Emergency Provider David Diaz MD Emergency Provider + Wendy Kinney MD Attending Provider Brennen Alba MD Emergency Provider David Aleman MD Admit Provider [phone] David Aleman MD Attending Provider Margarita Macdonald MD Other Provider Flori Loredo PA-C Other Provider Care Teams Patient Care Team Team Status: Active Member Role Status Dates Wendy Kinney MD Family Provider Active Wendy Kinney MD Primary Care Provider Active Visit Care Team Team Status: Active Member Role Status Dates DOCTOR UNKNOWN Primary Care Provider Active Mark Logan MD Attending Provider Active Angella Edwards MD Referring Provider Active Visit Care Team Team Status: Inactive Member Role Status Dates Wendy Kinney MD Primary Care Provide r, Attending Provider, Referring Provider Active Visit Care Team Team Status: Inactive Member Role Status Dates Wendy Kinney MD Primary Care Provider Active Lee Ann Bullock MD Emergency Provider Active Visit Care Team Team Status: Inactive Member Role Status Dates Wendy Kinney MD Primary Care Provider Active David Diaz MD Emergency Provider Active Visit Care Team Team Status: Inactive Member Role Status Dates Wendy Kinney MD Primary Care Provider Active Brennen Alba MD Emergency Provider Active David Aleman MD Admit Provider, Attending Provi jaida Active Margarita Macdonald MD Other Provider Active Flori Loredo PA-C Other Provider Active Chief Complaint and Reason for Visit Chief Complaint Admit Date treatment February 28, 2024 2 :00pm R flank pain March 19, 2024 11:53pm abd pain March 25, 2024 1:21am Medicare Annual Wellness March 27, 2024 11:29am Hyponatremia, Generalized weakness Novem 2023 4:10pm Reason for Visit Admit Date Hyponatremia March 27, 2024 11:29am Dementia March 27, 2024 11:29am Abdominal pain March 27, 2024 11:29am Abnormal finding on urinalysis March 27, 2024 4:10pm Back pain March 27, 2024 4:10pm Constipation March 27, 2024 4:10pm GERD (gastroesophageal reflux disease) N ovember 2023 4:10pm Headache March 27, 2024 4:10pm Hypertension March 27, 2024 4:10pm Hypokalemia March 27, 2024 4:10pm Hyponatremia March 27, 2024 4:10pm Type 2 diabetes mellitus March 27, 2024 4:10pm Urine retention March 27, 2024 4:10pm Weakness March 27, 2024 4:10pm Chronic sphenoidal sinusitis March 272023 4:10pm Dementia March 27, 2024 4:10pm Mixed hyperlipidemia March 27, 2024 4:10pm Osteoporosis March 27, 2024 4:10pm Vitamin B12 deficiency March 27 4:10pm Vitamin D deficiency March 27, 2024 4:10pm Allergies, Adverse Reactions, Alerts Allergen Type Severity Reaction Last Updated Verified Status brimonidine Allergy Severe RED EYES, ITCHING Novemb er 2023 11:43am Yes Active Social History Smoking Status Status Start Date End Date Date of Observa tion Never smoked tobacco (finding) March 27, 2024 4:19pm Observation Status Observation Response Date of Response Do You Feel Safe in your Home? Yes N ov2023 4:19pm Has Lack of Trans Kept You F rom Med Appts or Getting Meds? No March 27, 2024 4:19pm In Past 12 Months, Were You Worried Your Food Would Run Out? Never True March 27, 2024 4 :19pm What is Your Housing Situati on Today? I Have Housing March 27, 2024 4:19pm Gender Identity (if Verbaliz ed by the Patient) Female March 20, 2024 7:43am Sexual Orientation (if Verba lized by the Patient) Straight or Heterosexual March 20, 2024 7:43am Are You Worried That in Next 2 Mo, You Won't Have Housing? No March 27, 2024 4:19pm Do You Have Trouble Paying Y our Heating Or Electricity Bill? No March 27, 2024 4:19p m Do You Have Trouble Paying F or Medicines? No March 27, 2024 4:19pm Are You Currently Unemployed and Looking for Work? No March 27, 2024 4:19pm Highest Level of Education Completed High School Diploma/GED March 27, 2024 4:19pm Do You Have Trouble With Childcare/Care of a Family Member? No March 27, 2024 4:19pm alcohol intake never March 27 4:19pm Substance use type does not use March 7:43am Patient Sex Female April 05 6:46pm Assigned Sex Female 1945 Status Not March 27, 2024 Family History Relationship Condition Age at Onset [...] B12 deficiency Unknown Active Osteoporosis Unknown Active Type 2 diabetes mellitus Unknown Active Arthritis Unknown Active Back pain Unknown Active Dementia Unknown Active Headache Unknown Active Hyponatremia Unknown Active Hypothyroidism Unknown Active history of t hyroid problems Mixed hyperlipidemia Unknown Active Mild cognitive impairment Unknown Active Dark stools Unknown Active Urine retention Unknown Active Abnormal finding on urinalysis Unknown Active Weakness Unknown Active Prediabetes Unknown Active GERD (gastroesophageal reflu x disease) Unknown Active Glaucoma Unknown Active Hypertension Unknown Active Constipation Unknown Active Vitamin D deficiency Unknown Active Acute hyponatremia Unknown Active Adverse effect of other drug s, medicaments and biological substances, sequela Unknown Active Hypokalemia Unknown Active Inactive/Resolved Problems Medical Problem Onset Date Status Comments Acute pyelonephritis Unknown Resolved Pseudohyponatremia Unknown Resolved Upper respiratory infection with cough and congestion Unknown Resolved Hyperglycemia Unknown Resolved Kidney stone Unknown Resolved Near syncope Unknown Resolved Buttock pain Unknown Resolved Type 2 diabetes mellitus wit hout complication, without long-term current use of insulin Unknown Resolved Acute UTI Unknown Resolved Alopecia Unknown Resolved Abdominal pain Unknown Resolved Medications Medication Status Dose Units Route Directions Qty Days St art Date Stop Date End Date Instructions Adherence Ondansetron 4 mg tablet,disi ntegrating Active 4 MG PO Q8H as needed for nausea and vomiting 10 [facility] er 2021 12:00a m Aspirin (Adult Low Dose Aspirin) 81 mg tablet,nikki yed release (DR/EC) Active 81 MG PO DAILY [facility] er 2018 12:00a m Ergocalcife rol (Vitamin D2) 50,000 unit capsule Active 33560 UNIT PO WEEKLY [facility] er 2018 12:00a m Takes on Dorzolamide -Timolol (Cosopt) 22.3-6.8 mg/mL drops Active 1 DROP EACH EYE TWICE A DAY [facility] er 2018 12:00a m Denosumab (Prolia) 60 mg/mL syringe Active 60 MG SUB-Q EVERY 6 MONTHS Octobe r 2020 11:00p m Next dose May 2024 Ibuprofen 600 mg tablet Active 600 MG PO THREE TIMES A DAY as needed for pain 30 Novemb er 2023 12:00a m Acetaminoph en 500 mg capsule Active 1000 MG PO Q6H as needed for pain 30 Novemb er 2023 12:00a m Bimatoprost (Lumigan) 0.01 % drops Active 1 DROP EACH EYE BEDTIME Novemb er 2023 12:00a m Nifedipine (Procardia Xl) 30 mg Tablet Extended Release 24hr Active 30 MG PO Every Morning 30 b er 2023 12:00a m Insulin Glargine (Lantus U-100 Insulin) 100 unit/mL Solution Active 17 UNIT SUB-Q BEDTIME 10 2023 12:00a m Polyethylen e Glycol 3350 (Miralax) 17 gram Powder In Packet Active 17 GM PO Every Morning 2023 12:00a m Pantoprazol e 40 mg Tablet,Nikki yed Release (Dr/Ec) Active 40 MG PO Every Morning 2023 12:00a m Donepezil (Aricept) 5 mg tablet Active 5 MG PO Every Day At Bedtime September 24, 2023 6:51am with snack Metformin 500 mg tablet extended release 24 hr Active 500 MG PO TWICE A DAY 180 December 07, 2023 1:37pm Atorvastati n 20 mg tablet Active 20 MG PO DAILY r 2023 4:23pm Immunizations Immunization Event Date Not Given Reason Dose Number Triage Register Nurse Lot Number Vaccine Information Statement (VIS) Detail Administration Location Fluad Quad High Dose (65+) February 11, 2021 Fluad Quad High Dose (65+) February 24, 2022 Fluad Quad High Dose (65+) March 10, 2023 Fluzone High-Dose 65YR+ May 26, 2017 Fluzone High-Dose 65YR+ March 13, 2018 Fluzone High-Dose 65YR+ January 14, 2020 Fluzone High-Dose 65YR+ March 26, 2019 Fluzone High-Dose 65YR+ February 11, 2021 [id number] Fluzone High-Dose 65YR+ February 24, 2022 [id number] Fluzone High-Dose 65YR+ March 10, 2023 [id number] Fluzone High-Dose 65YR+ April 05, 2024 [id number] Pneumococcal Conjugate Vaccine, 13 valent September 27, 2016 Pneumococcal Polysacc. Vaccine, 23 valent June 20, 2018 SARS-COV-2 (COVID-19) Comirnaty August 31, 2021 SARS-COV-2 (COVID-19) Moderna July 02, 2020 SARS-COV-2 (COVID-19) Moderna July 30, 2020 SARS-COV-2 (COVID-19) Moderna March 02, 2021 SARS-COV-2 (COVID-19) Pfizer August 31, 2021 SARS-COV-2 (COVID-19) Pfizer Bivalent March 02, 2022 SARS-COV-2 (COVID-19) Spikevax July 02, 2020 SARS-COV-2 (COVID-19) Spikevax July 30, 2020 SARS-COV-2 (COVID-19) Spikevax March 02, 2021 zoster vaccine, recombinant March 26, 2019 zoster vaccine, recombinant October 16, 2019 Procedures Procedure Date Performed Status Urine Culture March 20, 2024 completed Urine Culture April 01, 2024 completed Blood Culture March 27, 2024 completed Relevant Diagnostic Tests and/or Laboratory Data Laboratory Results Test Date/Time Result Interpretation Reference Range Result Comment Performing Site White Blood Count March 20, 2024 2:54am 9.2 K/mm3 4.5-10.[address] [facility] [id number] [facility] [address] [address] White Blood Count March 25, 2024 1:29am 9.5 K/mm3 4.5-10.0 [facility] [id number] [address] [place] [address] White Blood Count April 05, 2024 5:28am 7.2 K/mm3 4.5-10.0 [facility] [id number] [address] [place] [address] 27184 Red Blood Count March 20, 2024 2:54am 4.35 M/mm3 4.2-5.4 [facility] [id number] [address] [place] [address]85 Red Blood Count March 25, 2024 1:29am 4.17 M/mm3 Below low normal 4.2-5.4 [facility] [id number] [address] [place] [address]28 Red Blood Count April 05, 2024 5:28am 3.67 M/mm3 Below low normal 4.2-5.4 [facility] [id number] [address] [place] [address] 48621 Hemoglobin March 20, 2024 2:54am 14.6 g/dL 12.0-15.[address] [facility] [id number] [address] [place] [address]124 Hemoglobin March 25, 2024 1:29am 13.7 g/dL 12.0-15.0 [facility] [id number] [address] [place] [address] 35795 Hemoglobin April 05, 2024 5:28am 12.0 g/dL 12.0-15.0 [facility] [id number] [address] [place] [address] Hematocrit March 20, 2024 2:54am 42.6 % 37.0-47.0 [facility] [id number] [address] [place] [address] 11431 Hematocrit March 25, 2024 1:29am 40.4 % 37.0-47.0 [facility] [id number] [address] [place] [address] 19157 Hematocrit April 05, 2024 5:28am 35.7 % Below low normal 37.0-47.0 [facility] [id number] [address] [address] Mean Corpuscular Volume March 20, 2024 2:54am 97.9 fL 80-100 [facility] [id number] [address] [address] Mean Corpuscular Volume March 25, 2024 1:29am 96.9 fL 80-100 [facility] [id number] [address] [address] Mean Corpuscular Volume April 05, 2024 5:28am 97.3 fL 80-100 [facility] [id number] [address] [address] Mean Corpuscular Hemoglobin March 20, 2024 2:54am 33.6 pg 26-34 [facility] [id number] [address] [address] Mean Corpuscular Hemoglobin March 25, 2024 1:29am 32.9 pg 26-34 [facility] [id number] [address] [place] [address] Mean Corpuscular Hemoglobin April 05, 2024 5:28am 32.7 pg 26-34 [facility] [id number] [address] [place] [address] Mean Corpuscular Hemoglobin Concent March 20, 2024 2:54am 34.3 g/dL 36 [facility] [id number] [address] [place] [address] 22534 Mean Corpuscular Hemoglobin Concent March 25, 2024 1:29am 33.9 g/dL 36 [facility] [id number] [address] [address] Mean Corpuscular Hemoglobin Concent April 05, 2024 5:28am 33.6 g/dL 32-[address] [facility] [id number] [address] [address] Red Cell Distribution Width March 20, 2024 2:54am 11.6 % 11.5-14.[address] [facility] [id number] [address] [address] Red Cell Distribution Width March 25, 2024 1:29am 11.5 % 11.5-14.[address] [facility] [id number] [facility] [address] [address] Red Cell Distribution Width April 05, 2024 5:28am 11.9 % 11.5-14.[address] [facility] [id number] [facility] [address] [address] Platelet Count March 20, 2024 2:54am 212 k/mm3 150-[address] [facility] [id number] [facility] [address] [address] Platelet Count March 25, 2024 1:29am 211 k/mm3 150-[address] [facility] [id number] [address] [place] [address] 75167 Platelet Count April 05, 2024 5:28am 233 k/mm3 150375 [facility] [id number] [address] [place] [address] 91923 Percent Immature Platelet Fraction March 30, 2024 8:15am 2.3 % 0.9-11.2 - An elevated IPF indicates platelets are being produced.- High IPF levels are related to increased peripheral platelet destruction.- A low platelet and low IPF is consistent with a platelet production disorder. [facility] [id number] [address] [address] Mean Platelet Volume March 20, 2024 2:54am 9.3 fL 7.4-10.[address] [facility] [id number] [facility] [address] [address] Mean Platelet Volume March 25, 2024 1:29am 9.1 fL 7.4-10.[address] [facility] [id number] [facility] [address] [address] Mean Platelet Volume April 05, 2024 5:28am 8.6 fL 7.4-10.4 [facility] [id number] [address] [place] [address] 14454 Nucleated Red Blood Cells % March 20, 2024 2:54am 0.0 % 0.0-0.2 [facility] [id number] [address] [place] [address] 05098 Nucleated Red Blood Cells % March 25, 2024 1:29am 0.0 % 0.0-0.2 [facility] [id number] [address] [place] [address] 82045 Nucleated Red Blood Cells % April 05, 2024 5:28am 0.0 % 0.0-0.2 [facility] [id number] [address] [place] [address] 29969 Immature Granulocyte % (Auto) March 20, 2024 2:54am 0.3 % 0-0.[address] [facility] [id number] [address] [place] [address] 22651 Immature Granulocyte % (Auto) March 25, 2024 1:29am 0.5 % 0-0.5 [facility] [id number] [address] [place] [address] 24336 Immature Granulocyte % (Auto) April 05, 2024 5:28am 1.0 % Above high normal 0-0.[address] [facility] [id number] [address] [place] [address] 49884 Neutrophils (%) (Auto) March 20, 2024 2:54am 77.0 % Above high normal 45.5-73.1 [facility] [id number] [address] [place] [address] 53670 Neutrophils (%) (Auto) March 25, 2024 1:29am 73.9 % Above high normal 45.5-73.1 [facility] [id number] [address] [place] [address] 84262 Neutrophils (%) (Auto) April 05, 2024 5:28am 66.7 % 45.5-73.1 [facility] [id number] [address] [place] [address] 46775 Lymphocytes (%) (Auto) March 20, 2024 2:54am 16.9 % Below low normal 18.3-44.2 [facility] [id number] [address] [place] [address] 60289 Lymphocytes (%) (Auto) March 25, 2024 1:29am 16.2 % Below low normal 18.3-44.[address] [facility] [id number] [address] [place] [address] 12035 Lymphocytes (%) (Auto) April 05, 2024 5:28am 21.4 % 18.3-44.[address] [facility] [id number] [address] [place] [address] 93143 Monocytes (%) (Auto) March 20, 2024 2:54am 5.1 % 2.6-8.[address] [facility] [id number] [address] [place] [address] 61555 Monocytes (%) (Auto) March 25, 2024 1:29am 8.8 % Above high normal 2.6-8.[address] [facility] [id number] [address] [place] [address] 65898 Monocytes (%) (Auto) April 05, 2024 5:28am 9.5 % Above high normal 2.6-8.[address] [facility] [id number] [address] [place] [address] 20854 Eosinophils (%) (Auto) March 20, 2024 2:54am 0.4 % 0-4.[address] [facility] [id number] [address] [place] [address] 04069 Eosinophils (%) (Auto) March 25, 2024 1:29am 0.3 % 0-4.[address] [facility] [id number] [address] [place] [address] 45175 Eosinophils (%) (Auto) April 05, 2024 5:28am 1.1 % 0-4.[address] [facility] [id number] [address] [place] [address] 05355 Basophils (%) (Auto) March 20, 2024 2:54am 0.3 % 0.2-1.[address] [facility] [id number] [address] [place] [address] 33516 Basophils (%) (Auto) March 25, 2024 1:29am 0.3 % 0.2-1.[address] [facility] [id number] [address] [place] [address] 52794 Basophils (%) (Auto) April 05, 2024 5:28am 0.3 % 0.2-1.2 [facility] [id number] [address] [place] [address] 65239 Nucleated RBC Absolute Count (auto) March 20, 2024 2:54am 0.000 K/mm3 0.0-0.[address] [facility] [id number] [address] [place] [address] 02115 Nucleated RBC Absolute Count (auto) March 25, 2024 1:29am 0.000 K/mm3 0.0-0.[address] [facility] [id number] [address] [place] [address] 08095 Nucleated RBC Absolute Count (auto) April 05, 2024 5:28am 0.000 K/mm3 0.0-0.[address] [facility] [id number] [address] [place] [address] 03174 Absolute Immature Granulocyte (auto March 20, 2024 2:54am 0.03 K/mm3 0.00-0.[address] [facility] [id number] [address] [place] [address] 23805 Absolute Immature Granulocyte (auto March 25, 2024 1:29am 0.05 K/mm3 Above high normal 0.00-0.[address] [facility] [id number] [address] [place] [address] 58289 Absolute Immature Granulocyte (auto April 05, 2024 5:28am 0.07 K/mm3 Above high normal 0.00-0.[address] [facility] [id number] [address] [place] [address] 08849 Absolute Neutrophils (auto) March 20, 2024 2:54am 7.0 K/mm3 Above high normal 1.3-6.[address] [facility] [id number] [address] [place] [address] 43982 Absolute Neutrophils (auto) March 25, 2024 1:29am 7.0 K/mm3 Above high normal 1.3-6.[address] [facility] [id number] [address] [place] [address] 93246 Absolute Neutrophils (auto) April 05, 2024 5:28am 4.8 K/mm3 1.3-6.[address] [facility] [id number] [address] [place] [address] 06442 Lymphocytes # (Auto) March 20, 2024 2:54am 1.55 K/mm3 0.9-3.[address] [facility] [id number] [address] [place] [address] 30877 Lymphocytes # (Auto) March 25, 2024 1:29am 1.54 K/mm3 0.9-3.2 [facility] [id number] [address] [place] [address] [address] [place] [address] 12375 Lymphocytes # (Auto) April 05, 2024 5:28am 1.54 K/mm3 0.9-3.2 [facility] [id number] [facility] [address] [place] [address] 58771 Monocytes # (Auto) March 20, 2024 2:54am 0.5 K/mm3 0.1-0.6 [facility] [id number] [facility] [address] [place] [address] 6[address]77 Monocytes # (Auto) March 25, 2024 1:29am 0.8 K/mm3 Above high normal 0.1-0.6 [facility] [id number] [address] [place] [address] [place] [address] 87668 Monocytes # (Auto) April 05, 2024 5:28am 0.7 K/mm3 Above high normal 0.1-0.6 [facility] [id number] [address] [place] [address] [place] [address] 08226 Eosinophils # (Auto) March 20, 2024 2:54am 0.0 K/mm3 0-0.3 [facility] [id number] [facility] [address] [place] [address] 36231 Eosinophils # (Auto) March 25, 2024 1:29am 0.0 K/mm3 0-0.3 [facility] [id number] [address] [place] [address] 67270 Eosinophils # (Auto) April 05, 2024 5:28am 0.1 K/mm3 0-0.3 [facility] [id number] [facility] [address] [place] [address] 8[address]86 Basophils # (Auto) March 20, 2024 2:54am 0.0 K/mm3 0.0-0.1 [facility] [id number] [facility] [address] [place] [address] 64451 Basophils # (Auto) March 25, 2024 1:29am 0.0 K/mm3 0.0-0.1 [facility] [id number] [facility] [address] [place] [address] 27457 Basophils # (Auto) April 05, 2024 5:28am 0.0 K/mm3 0.0-0.1 [facility] [id number] [facility] [address] [address] Urine Color March 20, 2024 6:11am Yellow Yellow [facility] [id number] [address] [address] Urine Color March 25, 2024 1:56am Yellow [facility] [id number] [address] [address] Urine Color April 01, 2024 5:11pm Yellow Yellow [facility] [id number] [address] [address] Urine Appearance March 20, 2024 6:11am Cloudy Above high normal Clear [facility] [id number] [address] [address] Urine Appearance March 25, 2024 1:56am Cloudy Above high normal Clear [facility] [id number] [address] [address] Urine Appearance April 01, 2024 5:11pm Clear Clear [facility] [id number] [address] [address] Urine pH March 20, 2024 6:11am 6.0 5.0-9.[address] [facility] [id number] [address] [address] Urine pH March 25, 2024 1:56am 7.0 5.0-9.[address] [facility] [id number] [address] [address] Urine pH April 01, 2024 5:11pm 5.5 5.0-9.[address] [facility] [id number] [address] [address] Urine Specific [place] March 20, 2024 6:11am 1.034 1.001-1.[address] [place] [address] Laboratory [id number] [address] [address] Urine Specific [place] March 25, 2024 1:56am 1.026 1.001-1.[address] [place] [address] Laboratory [id number] [address] [address] Urine Specific [place] April 01, 2024 5:11pm 1.040 Above high normal 1.001-1.[address] [place] [address] Laboratory [id number] [address] [address] Urine Protein March 20, 2024 6:11am Trace mg/dL Negative [facility] [id number] [address] [address] Urine Protein March 25, 2024 1:56am Trace mg/dL Negative [facility] [id number] 68[address] [facility] [address] [place] [address] 58712 Urine Protein April 01, 2024 5:11pm 1+ mg/dL Above high normal Negative [facility] [id number] 6800 [facility] [address] [place] [address] 83155 Urine Glucose (UA) March 20, 2024 6:11am 3+ mg/dL Above high normal [facility] [id number] 68[address] [facility] [address] [place] [address] 03150 Urine Glucose (UA) March 25, 2024 1:56am 3+ mg/dL Above high normal Negative [facility] [id number] [address] [address] Urine Glucose (UA) April 01, 2024 5:11pm 3+ mg/dL Above high normal [facility] [id number] [address] [address] Urine Ketones March 20, 2024 6:11am 2+ mg/dL Above high normal [facility] [id number] 6800 [facility] [address] [place] [address] 96661 Urine Ketones March 25, 2024 1:56am 3+ mg/dL Above high normal [facility] [id number] 6800 [facility] [address] [place] [address] 7[address]37 Urine Ketones April 01, 2024 5:11pm Trace mg/dL Above high normal [facility] [id number] [address] [address] Urine Blood (Manual) March 20, 2024 6:11am Negative [facility] [id number] 6800 [facility] [place] [address] [place] [address] Urine Blood (Manual) March 25, 2024 1:56am Negative Negative [facility] [id number] [address] [place] [address] Urine Blood (Manual) April 01, 2024 5:11pm 1+ Above high normal [facility] [id number] [address] [address] Urine Nitrate March 20, 2024 6:11am Negative Negative [facility] [id number] [address] [place] [address] Urine Nitrate March 25, 2024 1:56am Negative Negative [facility] [id number] 6800 [facility] [place] [address] [place] [address] Urine Nitrate April 01, 2024 5:11pm Negative Negative [facility] [id number] [address] [address] Urine Bilirubin March 20, 2024 6:11am Negative Negative [facility] [id number] [address] [address] Urine Bilirubin March 25, 2024 1:56am Negative Negative [facility] [id number] [address] [address] Urine Bilirubin April 01, 2024 5:11pm Negative Negative [facility] [id number] [address] [address] Urine Urobilinogen March 20, 2024 6:11am 0.2 mg/dL <2.0 [facility] [id number] [address] [address] Urine Urobilinogen March 25, 2024 1:56am 1.0 mg/dL <2.0 [facility] [id number] [address] [address] Urine Urobilinogen April 01, 2024 5:11pm 1.0 mg/dL <2.0 [facility] [id number] [address] [address] Urine Leukocyte Esterase (Reflex) March 20, 2024 6:11am 1+ NITIN/UL Above high normal Negative [facility] [id number] [address] [address] Urine Leukocyte Esterase (Reflex) March 25, 2024 1:56am Negative NITIN/UL Negative [facility] [id number] [address] [address] Urine Leukocyte Esterase (Reflex) April 01, 2024 5:11pm Negative NITIN/UL Negative [facility] [id number] [address] [address] Urine RBC March 20, 2024 6:11am 6-10 [HPF] Above high normal 0-2 [facility] [id number] [address] [address] Urine RBC March 25, 2024 1:56am 6-10 [HPF] Above high normal 0-2 [facility] [id number] [address] [address] Urine RBC April 01, 2024 5:11pm 11-20 [HPF] Above high normal 0-2 [facility] [id number] [address] [place] [address] Urine WBC March 20, 2024 6:11am 21-50 [HPF] Above high normal 0-3 [facility] [id number] [address] [place] [address] Urine WBC March 25, 2024 1:56am 0-5 [HPF] 0-[address] [facility] [id number] [address] [address] Urine WBC April 01, 2024 5:11pm 11-20 [HPF] Above high normal 0-[address] [facility] [id number] [address] [address] Urine Squamous Epithelial Cells March 20, 2024 6:11am Moderate [HPF] [facility] [id number] [address] [address] Urine Squamous Epithelial Cells March 25, 2024 1:56am Few [HPF] [facility] [id number] [address] [address] Urine Squamous Epithelial Cells April 01, 2024 5:11pm Moderate [HPF] [facility] [id number] [address] [address] Urine Bacteria March 20, 2024 6:11am 1+ [HPF] Above high normal [facility] [id number] [address] [address] Urine Bacteria March 25, 2024 1:56am None seen [HPF] [facility] [id number] [address] [address] Urine Bacteria April 01, 2024 5:11pm None seen [HPF] [facility] [id number] [address] [address] Urine Mucus March 25, 2024 1:56am Present [LPF] [facility] [id number] [address] [address] Urine Eosinophils March 30, 2024 5:01am None seen % None Seen [facility] [id number] [address] [address] Urine Osmolality March 27, 2024 7:34pm 718 mosm/kg 50-1200 THIS TEST WAS PERFORMED AT:[employer] [id number] [place] [address]ESXN- LIEU VO,MD [facility] Urine Random Sodium March 30, 2024 5:01am 35 meq/L The reference range and other method performancespec ifications have not been established for this test. Thetest result should be integrated into the clinical context for interpretation. [facility] [id number] [address] [place] [address] Urine Creatinine March 30, 2024 5:01am 64.0 mg/dL [facility] [id number] [address] [place] [address] 19684 Urine Protein/Creat inine Ratio 2 March 30, 2024 5:01am 0.46 mg/mg Above high normal 0-0.[address] [facility] [id number] [address] [place] [address] Urine Random Urea March 30, 2024 5:01am 737 mg/dL The reference range and other method performancespec ifications have not been established for this test. Thetest result should be integrated into the clinical context for interpretation. [facility] [id number] [address] [place] [address] Urine Random Creatinine March 30, 2024 5:01am 61 mg/dL 20-275 [facility] Urine Protein/Creat inine Ratio March 30, 2024 5:01am 525 mg/g creat Above high normal 24-184 [facility] Urine Random Total Protein March 30, 2024 5:01am 32 mg/dL Above high normal 5-24 THIS TEST WAS PERFORMED AT:[employer] [id number] [place] [address]FVUG- LIEU VO,MD [facility] Urine Albumin March 30, 2024 5:01am 38 % [facility] Urine Orlbf-3-Kxzjc allen March 30, 2024 5:01am 12 % [facility] Urine Wgafq-8-Mfvne parker March 30, 2024 5:01am 22 % [facility] U[facility] Beta Globulin March 30, 2024 5:01am 21 % [facility] U[facility] Gamma Globulin March 30, 2024 5:01am 8 % [facility] Urine PEP Abnormal Protein Band 1 March 30, 2024 5:01am Not Reportable [facility] Urine PEP Abnormal Protein Band 2 March 30, 2024 5:01am Not Reportable [facility] Urine PEP Abnormal Protein Band 3 March 30, 2024 5:01am Not Reportable [facility] U[facility] Protein Electrophores is Intrp March 30, 2024 5:01am See note Agarose electrophoresis of urine reveals albumin and variousglobulin fractions. No abnormal protein is observed.The supplier of the testing reagents for this assay haschanged. Detection of small monoclonal proteins mayvary by test system. Urine immunofixation is suggestedif clinically indicated and not already ordered.THIS TEST WAS PERFORMED AT:[employer] [id number] [place]AR[place] [id number]- LIEU VO,MD [facility] Sodium Level March 20, 2024 2:54am 134 mmol/L Below low normal 137-[address] [facility] [id number] [address] [address] Sodium Level March 25, 2024 1:29am 129 mmol/L Below low normal 137-[address] [facility] [id number] [address] [address] Sodium Level April 05, 2024 5:28am 132 mmol/L Below low normal 137-[address] [facility] [id number] [address] [address] Potassium Level March 20, 2024 2:54am 4.3 mmol/L 3.4-5.[address] [facility] [id number] [address] [address] Potassium Level March 25, 2024 1:29am 4.0 mmol/L 3.4-5.[address] [facility] [id number] [address] [address] Potassium Level April 05, 2024 5:28am 3.4 mmol/L 3.4-5.[address] [facility] [id number] [address] [address] Chloride Level March 20, 2024 2:54am 99 mmol/L 98-[address] [facility] [id number] [address] [address] Chloride Level March 25, 2024 1:29am 92 mmol/L Below low normal [address] [facility] [id number] [address] [address] Chloride Level April 05, 2024 5:28am 96 mmol/L Below low normal [address] [facility] [id number] [address] [address] Carbon Dioxide Level March 20, 2024 2:54am 28 mmol/L [facility] [id number] [facility] [address] [address] Carbon Dioxide Level March 25, 2024 1:29am 29 mmol/L [facility] [id number] [address] [address] Carbon Dioxide Level April 05, 2024 5:28am 32 mmol/L Above high normal [facility] [id number] [address] [address] Anion Gap March 20, 2024 2:54am 7 mmol/L 08-[address] [facility] [id number] [address] [address] Anion Gap March 25, 2024 1:29am 8 mmol/L 08-[address] [facility] [id number] [address] [address] Anion Gap April 05, 2024 5:28am 4 mmol/L 08-[address] [facility] [id number] [address] [address] Blood Urea Nitrogen March 20, 2024 2:54am 16 mg/dL 11-[address] [facility] [id number] [address] [address] Blood Urea Nitrogen March 25, 2024 1:29am 8 mg/dL 11-21 Delta: 16 on 03/20/24-[address] [facility] [id number] [address] [address] Blood Urea Nitrogen April 05, 2024 5:28am 11 mg/dL 11-21 Delta: 18 on 04/04/24-[address] [facility] [id number] [address] [address] Creatinine March 20, 2024 2:54am 0.60 mg/dL Below low normal 0.7-1.[address] [facility] [id number] [address] [address] Creatinine March 25, 2024 1:29am 0.50 mg/dL Below low normal 0.7-1.[address] [facility] [id number] [address] [address] Creatinine April 05, 2024 5:28am 0.50 mg/dL Below low normal 0.7-1.[address] [facility] [id number] [address] [address] Estimat Glomerular Filtration Rate March 20, 2024 2:54am > 60 >59 > OR = 60 ml/min/1.73 square metersThe MDRD formula used to calculate the eGFR result has not been validated in patients > [address] [facility] [id number] [address] [place] [address] Estimat Glomerular Filtration Rate March 25, 2024 1:29am > 60 >59 > OR = 60 ml/min/1.73 square metersThe MDRD formula used to calculate the eGFR result has not been validated in patients > [address] [facility] [id number] [address] [place] [address] Estimat Glomerular Filtration Rate April 05, 2024 5:28am > 60 >59 > OR = 60 ml/min/1.73 square metersThe MDRD formula used to calculate the eGFR result has not been validated in patients > [address] [facility] [id number] [address] [place] [address] Estimated Creatinine Clearance Calc March 20, 2024 2:54am 58 mL/min For use in prescription drug dose determination only. Reference ranges have not been establishe for this calculation. [facility] [id number] [address] [place] [address] Estimated Creatinine Clearance Calc March 25, 2024 1:29am 82 mL/min For use in prescription drug dose determination only. Reference ranges have not been establishe for this calculation. [facility] [id number] [address] [place] [address] Estimated Creatinine Clearance Calc April 05, 2024 5:28am 81 mL/min For use in prescription drug dose determination only. Reference ranges have not been establishe for this calculation. [facility] [id number] [address] [place] [address] Glucose Level March 20, 2024 2:54am 350 mg/dL Above high normal 65-[address] [facility] [id number] [address] [place] [address] Glucose Level March 25, 2024 1:29am 248 mg/dL Above high normal 65-[address] [facility] [id number] [address] [place] [address] Glucose Level April 05, 2024 5:28am 153 mg/dL Above high normal 65-[address] [facility] [id number] [address] [place] [address] POC Capillary Glucose April 05, 2024 4:51pm 160 mg/dL Above high normal 65-105 [facility] POC Hemoglobin A1c March 27, 2024 5:50pm 9.8 % Above high normal <5.7 <5.7: Decreased risk of diabetes 5.7-6.0: Increased risk of diabetes 6.1-6.4: Higher risk of diabetes> or = 6.5: Consistent with diabetes [facility] [id number] [address] [place] [address] Serum Osmolality March 27, 2024 5:50pm 269 mosm/kg Below low normal 278-305 THIS TEST WAS PERFORMED AT:[employer] [id number] [place] [address]OIKJ- LIEU VO,MD [facility] Lactic Acid Level March 25, 2024 1:56am 1.1 mmol/L 0.7-2.[address] [facility] [id number] [address] [place] [address] Calcium Level February 21, 2024 9:20am 10.0 mg/dL 8.4-10.[address] [facility] [id number] [address] [place] [address] Calcium Level March 20, 2024 2:54am 9.9 mg/dL 8.4-10.[address] [facility] [id number] [address] [place] [address] Calcium Level March 25, 2024 1:29am 9.7 mg/dL 8.4-10.[address] [facility] [id number] [address] [place] [address] Calcium Level April 05, 2024 5:28am 8.0 mg/dL Below low normal 8.4-10.[address] [facility] [id number] [address] [place] [address] Magnesium Level April 01, 2024 5:27am 2.1 mg/dL 1.6-2.[address] [facility] [id number] [address] [place] [address] Total Bilirubin March 20, 2024 2:54am 0.7 mg/dL 0.2-1.[address] [facility] [id number] [address] [place] [address] Total Bilirubin March 25, 2024 1:29am 0.8 mg/dL 0.2-1.[address] [facility] [id number] [address] [place] [address] Total Bilirubin April 05, 2024 5:28am 0.6 mg/dL 0.2-1.[address] [facility] [id number] [address] [place] [address] Aspartate Amino Transf (AST/SGOT) March 20, 2024 2:54am 27 U/L [address] [place] [address] Laboratory [id number] [address] [place] [address] Aspartate Amino Transf (AST/SGOT) March 25, 2024 1:29am 26 U/L [address] [place] [address] Laboratory [id number] [address] [place] [address] Aspartate Amino Transf (AST/SGOT) April 05, 2024 5:28am 39 U/L Above high normal [address] [place] [address] Laboratory [id number] [address] [place] [address] Alanine Aminotransfer ase (ALT/SGPT) March 20, 2024 2:54am 27 U/L [address] [place] [address] Laboratory [id number] [address] [place] [address] Alanine Aminotransfer ase (ALT/SGPT) March 25, 2024 1:29am 23 U/L [address] [place] [address] Laboratory [id number] [address] [place] [address]86 Alanine Aminotransfer ase (ALT/SGPT) April 05, 2024 5:28am 42 U/L Above high normal [address] [place] [address] Laboratory [id number] [address] [place] [address] Troponin I March 30, 2024 3:45pm < 0.012 ng/mL 0.000-0.03 4 Acute myocardial injury is indicated by:1. A troponin value of >0.034 ng/mL and/or2. A 20% change in troponin value.Specimens with biotin concentrations up to 2.5 ng/mL demonstrate a less than or equal to 10% change in results. Biotin concentrations greater than this falsely decrease Troponin results for patient samples. [facility] [id number] [address] [place] [address] Total Protein March 20, 2024 2:54am 8.0 g/dL 6.3-8.[address] [facility] [id number] [address] [place] [address] Total Protein March 25, 2024 1:29am 7.0 g/dL 6.3-8.2 [facility] [id number] [address] [place] [address] Total Protein April 05, 2024 5:28am 6.0 g/dL Below low normal 6.3-8.2 [facility] [id number] [address] [place] [address] Albumin February 21, 2024 9:20am 4.4 g/dL 3.5-5.1 [facility] [id number] [address] [place] [address] Albumin March 20, 2024 2:54am 4.7 g/dL 3.5-5.1 [facility] [id number] [address] [place] [address] Albumin March 25, 2024 1:29am 4.2 g/dL 3.5-5.1 [facility] [id number] [address] [place] [address] Albumin April 05, 2024 5:28am 3.0 g/dL Below low normal 3.5-5.1 [facility] [id number] [address] [place] [address] Alkaline Phosphatase March 20, 2024 2:54am 66 U/L 38-126 [facility] [id number] [address] [place] [address] Alkaline Phosphatase March 25, 2024 1:29am 58 U/L 38-126 [facility] [id number] [address] [place] [address] Alkaline Phosphatase April 05, 2024 5:28am 52 U/L 38-126 [facility] [id number] [address] [place] [address] Lipase March 20, 2024 2:54am 112 U/L 23-300 [facility] [id number] [address] [place] [address] Lipase March 25, 2024 1:29am 68 U/L 23-300 [facility] [id number] [address] [place] [address] Vitamin D 25-Hydroxy March 27, 2024 12:58pm 36.5 ng/mL Reference Range:<20 ng/mL Dfcptekxa41-32. 9 ng/mL Wpnblwysfeou90- 100 ng/mL Sufficient>100 ng/mL Potential Toxicity [facility] [id number] [address] [place] [address] Vitamin B12 Level March 27, 2024 12:58pm 497.0 pg/mL 239-[address] [facility] [id number] [address] [place] [address] Folate March 27, 2024 12:58pm 7.2 ng/mL 2.76-[address] [facility] [id number] [address] [place] [address]99 Thyroid Stimulating Hormone (Reflex March 30, 2024 8:15am 1.230 [iU]/mL 0.465-4.[address] [facility] [id number] [address] [place], [place] [address] Random Cortisol March 30, 2024 8:15am 21.90 ug/dL Reference Range:Before 10 AM 4.46-22.7 ug/dl After 5 PM 1.7-14.1 ug/dl [facility] [id number] [address] [place] [address] Thynb-2-Khekx parker March 30, 2024 8:15am 0.4 g/dL Above high normal 0.2-0.3 [facility] Aphiy-3-Ezxzb parker March 30, 2024 8:15am 1.1 g/dL Above high normal 0.5-0.9 [facility] Qozh-7-Rukepq in March 30, 2024 8:15am 0.4 g/dL 0.4-0.6 [facility] Hewd-7-Hccmfk in March 30, 2024 8:15am 0.4 g/dL 0.2-0.5 [facility] Gamma Globulins March 30, 2024 8:15am 0.6 g/dL Below low normal 0.8-1.7 [facility] PEP Abnormal Protein Band 1 March 30, 2024 8:15am Not Reportable [facility] PEP Abnormal Protein Band 3 March 30, 2024 8:15am Not Reportable [facility] Protein Electrophores is Interpret March 30, 2024 8:15am See note Decreased total protein, albumin, gamma globulin and a marked increasein vzsxb-9-kyetvsz ns may be seen in nephrotic syndrome or a proteinlosing enteropathy. No restricted band (M-spike) seen.THIS TEST WAS PERFORMED AT:[employer] [id number] YARIEL HOLMAN [id number] CAMARGO MD [facility] SARS-CoV-2 RNA (RT-PCR) March 27, 2024 1:38pm Negative Negative This assay is designed to detect the RdRp and N genes of SARS-CoV-2 using nucleic acid amplification. A negative result does not preclude the possibility of 2019-nCoV infection since the adequacy of sample collection and/or low viral burden may result in the presence of viral nucleic acids levels below the analytical sensitivity of this test method. Positive results are indicative of the presence of SARS-CoV-2 RNA and do not rule out bacterial infection or co-infection with other viruses. Test results should be used along with other clinical observations, patient history, epidemiological information and laboratory data in making the diagnosis.This test has received FDA Emergency Use Authorization and has been verified by [facility]. This test is only authorized for the duration of the declaration and the circumstances that exist to justify the authorization of the emergency use of in vitro diagnostic tests for the detection of SARS-CoV-2 virus and/or diagnosis of COVID-19 infection under section 564(b)(1) of the Act. 11 U.S.C. 360bbb-3(b)(1), unless the authorization is terminated or revoked sooner.[facility] is certified under CLIA-88 as qualified to perform high complexity testing. This testing was performed in the [facility] [place] [address] (CLIA License #[id number], CAP #[id number], AU-ID # [id number]).Facts eet for healthcare providers: https://www.fda .gov/media/1365 56/downloadFact sheet for patients: https://www.fda .gov/media/1362 57/download [facility] [id number] [address] [place] [address] Influenza Type B (RT-PCR) March 27, 2024 1:38pm Negative Negative The test is performed on the [employer] GeneXpert Dx System and utilized automated real-time polymerase chain reaction (PCR) to detect presence of the Influenza A and/or Influenza B virus. Positive results are indicative of the presence of the identified virus but cannot rule out bacterial infection or co-infection with other pathogens not detected by the test. Negative should not be used as the sole basis for treatment or other patient management decisions. Negative results must be combined with clinical observations, patient history, and/or epidemiological information. [facility] [id number] [address] [place], [place] [address] Influenza Type A (RT-PCR) March 27, 2024 1:38pm Negative Negative The test is performed on the [employer] GeneXpert Dx System and utilized automated real-time polymerase chain reaction (PCR) to detect presence of the Influenza A and/or Influenza B virus. Positive results are indicative of the presence of the identified virus but cannot rule out bacterial infection or co-infection with other pathogens not detected by the test. Negative should not be used as the sole basis for treatment or other patient management decisions. Negative results must be combined with clinical observations, patient history, and/or epidemiological information. [facility] [id number] [address] [place] [address] Respiratory Syncytial Virus (RT-PCR March 27, 2024 1:38pm Negative Negative The test is performed on the [employer] GeneXpert Dx System and utilized automated real-time polymerase chain reaction (PCR) to detect presence of the RSV virus. Positive results are indicative of the presence of the identified virus but cannot rule out bacterial infection or co-infection with other pathogens not detected by the test. Negative results should not be used as the sole basis for treatment or other patient management decisions. Negative results must be combined with clinical observations, patient history, and/or epidemiological information. [facility] [id number] [address] [place] [address] Urine Casts March 20, 2024 6:11am 3-[address] [facility] [id number] [address] [place] [address] Urine Casts March 25, 2024 1:56am 0-[address] [facility] [id number] [address] [place] [address]18 Urine Casts April 01, 2024 5:11pm 3-[address] [facility] [id number] [address] [place] [address] Add Urine Microanalysis March 20, 2024 6:11am Reviewed [facility] [id number] [address] [place] [address]243 Add Urine Microanalysis March 25, 2024 1:56am Reviewed [facility] [id number] [address] [place] [address] 8[address]65 Add Urine Microanalysis April 01, 2024 5:11pm Reviewed [facility] [id number] [address] [place] [address] Microbiology Results Procedure Source Result Collection Date/Time Result Date/Time Result Comment Performing Site Blood Culture Blood March 27, 2024 5:50pm April 02, 2024 12:14am [facility] Urine Culture Urine Clean Catch Klebsiella pneumoniae March 20, 2024 6:11am March 22, 2024 1:34pm [facility] Urine Culture Urine [place] April 01, 2024 5:11pm April 03, 2024 12:29am [facility] Reports Author Michele Armstrong [facility] Report Date/Time March 27, 2024 2:13pm [facility] [address] [place] [id number] XRay Report Signed Patient: Arti Sinclair : 1945 MR#: [id number] Age: 79 Acct:[id number] Loc: ANHED ADM Date: 03/27/[address]: Ordering Physician: Brennen Alba MD Date of Service: 03/27/24 Procedure(s): XR chest 1V portable Accession Number(s): [id number] cc: Wendy Kinney MD; Brennen Alba MD~ EXAMINATION: XR chest 1V portable DATE: 03/27/2024 14:04 INDICATION: Weakness TECHNIQUE: frontal view of the chest was obtained. COMPARISON: Chest radiograph dated 05/23/2023 FINDINGS: Patient is rotated slightly towards the right. Costochondral calcifications project over the medial right lower lung zone. No other airspace opacities, pulmonary edema, pleural effusion or pneumothorax. Cardiomediastinal silhouette is normal. IMPRESSION: 1. No acute cardiopulmonary disease. Reviewed, dictated and finalized at location B. 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 Dictated By: Michele Armstrong MD 03/27/24 1412 Signed By: <Electronically signed by Michele Armstrong MD in OV> 03/27/24 [address] [facility] Report Date/Time March 28, 2024 10:49[facility] [address] [place], [place] [id number] CT Scan Report Signed Patient: Arti Sinclair : 1945 MR#: [id number] Age: 79 Acct:[id number] Loc: [id number] 260-01 ADM Date: 03/27/[address]: David Aleman M.D. Ordering Physician: Evon Nova APRN Date of Service: 03/28/24 Procedure(s): CT brain wo con Accession Number(s): [id number] cc: Wendy Kinney MD; Baljit Aleman MD; Evon Nova APRN~ EXAMINATION: CT brain wo con DATE: 03/28/2024 10:38 INDICATION: Headaches. Altered mental status. TECHNIQUE: Computed tomography (CT) of the head was performed without intravenous contrast. Sagittal and coronal reconstructions were performed. The mA was adjusted according to patient size. Iterative reconstruction technique was employed. The dose-length product was 681.00 mGy-cm. COMPARISON: head CT dated 03/06/2022 and MRI dated 07/18/2022 FINDINGS: No acute intracranial hemorrhage, acute infarction or abnormal extra axial fluidcollection. There is mild scattered white matter hypoattenuation consistent withchronic small vessel ischemic disease. Symmetric prominence of the sulci consistent with mild age-appropriate diffuse cerebral volume loss. Ventricles are normal and symmetric. No mass/mass effect. There are complete opacification of the left sphenoid sinus with central calcification and peripheral thickened cirrhotic odonnell consistent with chronic sinusitis. There is additional mild mucosal thickening in the right maxillary and bilateral ethmoid sinuses. Changesof bilateral intraocular lens replacement. The orbits and mastoid air cells arenormal. IMPRESSION: 1. Normal aging brain. No acute intracranial process. 2. Chronic left sphenoid sinusitis. Reviewed, dictated and finalized at location B. 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 Dictated By: Michele Armstrong MD 03/28/24 1046 Signed By: <Electronically signed by Michele Armstrong MD in OV> 03/28/[address] [facility] Report Date/Time March 29, 2024 2:57pm [place] [address] [place], [place] [id number] XRay Report Signed Patient: Arti Sinclair : 1945 MR#: [id number] Age: 79 Acct:[id number] Loc: [id number] 260-01 ADM Date: 03/27/[address]: David Aleman M.D. Ordering Physician: Evon Nova APRN Date of Service: 03/29/24 Procedure(s): XR abdomen/kub 1V Accession Number(s): [id number] cc: Wendy Kinney MD; Baljit Aleman MD; Evon Nova APRN~ EXAMINATION: XR abdomen/kub 1V DATE: 03/29/2024 14:03 INDICATION: Abdominal distention. Decreased bowel sounds. Constipation. TECHNIQUE: A supine view of the abdomen on 2 radiographs was obtained. COMPARISON: None. FINDINGS: Moderate amount of stool scattered throughout the colon. There is prominent gas in the cecum and transverse colon. No dilated loops of gas-filled small bowel tosuggest obstruction. Multiple phleboliths in the pelvis. Lung bases are clear. Heart size is normal. IMPRESSION: 1. Moderate amount of stool scattered throughout the colon with large amount of gas in the proximal colon. Reviewed, dictated and finalized at location B. 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 Dictated By: Michele Armstrong MD 03/29/24 1455 Signed By: <Electronically signed by Michele Armstrong MD in OV> 03/29/[address] [facility] Report Date/Time March 31, 2024 8:33am [facility] [address] [place] [address] XRay Report Signed Patient: Arti Sinclair : 1945 MR#: [id number] Age: 79 Acct:[id number] Loc: [id number] 260-01 ADM Date: 03/27/[address]: David Aleman M.D. Ordering Physician: Evon Nova APRN Date of Service: 03/31/24 Procedure(s): XR abdomen/kub 1V Accession Number(s): [id number] cc: Wendy Kinney MD; Baljit Aleman MD; Evon Nova APRN~ EXAMINATION: XR abdomen/kub 1V DATE: 03/31/2024 08:28 INDICATION: Abdominal distention. Hypoactive bowel sounds with no bowel movements. TECHNIQUE: A supine view of the abdomen on 2 radiographs was obtained. COMPARISON: 03/29/2024 FINDINGS: No significant interval change in moderate amount of stool scattered throughout the colon with prominent gas in the cecum and transverse colon. No dilated loopsof gas-filled small bowel to suggest obstruction. Multiple phleboliths in the pelvis. Moderate lumbar spondylosis. Lung bases are clear. Heart size is normal. IMPRESSION: 1. No interval change in moderate amount of stool scattered throughout the colonwith large amount of gas in the proximal colon. Reviewed, dictated and finalized at location A. 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 Dictated By: Michele Armstrong MD 03/31/24830 Signed By: <Electronically signed by Michele Armstrong MD in OV> 03/31/24 0833 Author José Miguel [facility] Report Date/Time April 03, 2024 4:50pm [facility] [address] [place] [address] XRay Report Signed Patient: Arti Sinclair : 1945 MR#: [id number] Age: 79 Acct:[id number] Loc: [id number] 260-01 ADM Date: 03/27/[address]: David Aleman M.D. Ordering Physician: Flori Loredo Date of Service: 04/03/24 Procedure(s): XR abdomen/kub 1V Accession Number(s): [id number] cc: Wendy Kinney MD; Baljit Aleman MD; Flori Loredo~ XR abdomen/kub 1V 04/03/2024 16:40 Indication: Constipation Procedure: KUB Comparison: 03/31/2024 Findings: Bowel gas pattern is nonspecific. Large amount of gas in the proximal colon. There is gas throughout the colon into the rectum. Moderate colonic fecalloading. No significant small bowel dilation. There are pelvic phleboliths. Moderate lumbar spondylosis. Impression: 1: Stable nonspecific bowel gas pattern with prominent gas present in the proximal colon. Reviewed, dictated and finalized at location B. 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 Dictated By: José Miguel Mcgarry MD 04/03/24 1648 Signed By: <Electronically signed by José Miguel Mcgarry MD in OV> 04/03/24 1650 Cardiology Reports Author [facility] Report Date/Time March 27, 2024 2:29pm [address] [place] [address] Electrocardiograph Report Signed Patient: Arti Sinclair : 1945 MR#: [id number] Age: 79 Acct:[id number] Loc: ANHED ADM Date: 03/27/[address]: Ordering Physician: Brennen Alba MD Date of Service: 03/27/24 Procedure(s): CA 12 lead EKG Accession Number(s): [id number] cc: ~ Test Date: 2024-03-27 14:21:11 Measurements Intervals [place] Rate: 68 P: 55 OR: 162 QRS: 15 QRSD: 91 T: 33 QT: 409 QTc: 438 Interpretive Statements SINUS RHYTHM POSSIBLE LEFT ATRIAL ENLARGEMENT VOLTAGE CRITERIA FOR LVH CANNOT R/O SEPTAL INFARCT, AGE INDETERMINATE MINIMAL Q WAVES- HIGH LATERAL LEADS BASELINE ARTIFACT- AVF ABNORMAL ECG Compared to ECG 03/25/2024 01:25:36 NO SIGNIFICANT CHANGE Electronically Signed On 03-27-2024 14:28:50 AERO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 by Joselito Vallejo D.O. Dictated By: Joselito Vallejo DO 03/27/24 142 Signed By: <Electronically signed by Joselito Vallejo DO in OV> 03/27/24 [address] [facility] Report Date/Time March 30, 2024 9:48[place] [address] [place], [place] [address] Electrocardiograph Report Signed Patient: Arti Sinclair : 1945 MR#: [id number] Age: 79 Acct:[id number] Loc: [id number] 260-01 ADM Date: 03/27/[address]: David Aleman M.D. Ordering Physician: Evon Nova APRN Date of Service: 03/30/24 Procedure(s): CA 12 lead EKG Accession Number(s): [id number] cc: ~ Test Date: 2024-03-30 09:27:58 Measurements Intervals [place] Rate: 98 P: -2 OR: 122 QRS: -19 QRSD: 84 T: 39 QT: 351 QTc: 450 Interpretive Statements SINUS RHYTHM DELAYED PRECORDIAL R/S TRANSITION LEFT VENTRICULAR HYPERTROPHY AND ST-T CHANGE BORDERLINE ECG Compared to ECG 03/27/2024 14:21:11 NO SIGNIFICANT CHANGE Electronically Signed On 03-30-2024 09:48:26 AERO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 by Joselito Vallejo D.O. Dictated By: Joselito Vallejo DO 03/30/24 0927 Signed By: <Electronically signed by Joselito Vallejo DO in OV> 03/30/24 0948 Vital Signs Vital Reading Result Reference Range [...] 65 mm[Hg] 60-90 March 25, 2024 4:04am Height 65 [in_i] March 27, 2024 11:49am Weight 84.82 kg March 27, 2024 11:49am Body Temperature 99.5 [degF] 97.6-99.6 March 272023 11:49am Heart Rate 82 /min 60-100 March 27, 2024 11:49am Respiratory rate 17 /min -March 272023 11:49am Oxygen saturation by Pulse oximetry 95 % 90-100 March 27, 2024 11:49am BP Systolic 128 mm[Hg] 100-140 March 27, 2024 11:49am BP Diastolic 82 mm[Hg] 60-90 March 27, 2024 11:49am BMI (Body Mass Index) 31.1 kg/m2 [facility] er 2023 11:49am Height 65 [in_i] March 27, 2024 4:19pm Weight 83.20 kg March 27, 2024 4:19pm Body Temperature 97.2 [degF] 97.6-99.6 April 052023 2:33pm Heart Rate 92 /min 60-100 April 05, 2024 4:00pm Respiratory rate 15 /min 12-20 April 052023 2:33pm Oxygen saturation by Pulse oximetry 96 % 90-100 April 05, 2024 2:33pm BP Systolic 141 mm[Hg] 100-140 April 05, 2024 2:33pm BP Diastolic 72 mm[Hg] 60-90 April 05, 2024 2:33pm BMI (Body Mass Index) 30.5 kg/m2 [facility] 2023 4:19pm Advance Directives Advance Directive Response Recorded Date/ Time Current Advance Directive Yes [facility] 2023 1:59pm Advance Directive Type Healthcare Power of Attor silviano March 28, 2024 1:59pm Name of Healthcare Power Of Business And Services Instructor Azeb March 28, 2024 1:59pm Advance Directive Intent Healthcare POA is Melan ie March 28, 2024 1:59pm Insurance Providers Guarantor Arti Sinclair Address [address] [place] [id number] Contact Info. Home Phone: Payer Policy Id Coverage Id Subscriber's Name Subscriber Id Effective Date Expiration Date Medicare Parts A & B [id number] Arti Sinclair [id number] 2010 Medicare AB Ambulatory [id number] Arti Sinclair [id number] Medicare AB [employer] [facility] [id number] Arti Sinclair [id number] [address] [facility] [id number] Arti Sinclair [id number] [employer] [id number] Arti Sinclair [id number] Self Pay Self N/A Encounters Encounter Location(s) Arrival/Admit Date Discharge/Depart Date Provider(s) Registered Recurring [facility] February 28, 2024 1:00pm Mark Logan MD Departed Emergency [facility] Emergency Department March 19, 2024 11:53pm March 20, 2024 7:41am Departed Emergency [facility] Emergency Department March 25, 2024 1:21am March 25, 2024 6:17am Departed Physician/Provi jaida Office Visit [facility] March 27, 2024 11:29am March 27, 2024 12:41pm Wendy Kinney MD Discharged Inpatient [facility] 2 Medical March 27, 2024 4:10pm April 05, 2024 6:35pm Baljit Aleman MD Recent Diagnosis Onset Date Admit Date Hyponatremia Unknown March 27, 2 024 11:29am Dementia Unknown March 27, 2 024 11:29am Abdominal pain Unknown March 27, 2 024 11:29am Abnormal finding on urinalysis Unknown N ovember 2023 4:10pm Back pain Unknown March 27, 2 024 4:10pm Constipation Unknown March 27, 2 024 4:10pm GERD (gastroesophageal reflux disease) Unknown March 27, 2024 4:10pm Headache Unknown March 27, 2 024 4:10pm Hypertension Unknown March 27, 2 024 4:10pm Hypokalemia Unknown March 27, 2 024 4:10pm Hyponatremia Unknown March 27, 2 024 4:10pm Type 2 diabetes mellitus Unknown 2023 4:10pm Urine retention Unknown March 27, 2 024 4:10pm Weakness Unknown March 27, 2 024 4:10pm Chronic sphenoidal sinusitis Unknown Mar 4:10pm Dementia Unknown March 27, 2 024 4:10pm Mixed hyperlipidemia Unknown March 272023 4:10pm Osteoporosis Unknown March 27, 2 024 4:10pm Vitamin B12 deficiency Unknown March 27, 2024 4:10pm Vitamin D deficiency Unknown March 272023 4:10pm Mental Status Observation Response Date Recorded oriented to person Yes March 12:20pm oriented to place Yes March 27, 2024 12:20pm patient oriented x3 Yes March 12:20pm Assessments Diagnosis Onset Date Resolution Status Admit Date Hyponatremia acute March 11:29am Dementia chronic March 27, 2024 11:29am Abdominal pain noneactive March 092023 11:29am Abnormal finding on urinalysis acute March 27 2 024 4:10pm Back pain acute March 27, 2024 4:10pm Constipation acute March 4:10pm GERD (gastroesophageal reflu x disease) acute March 27 024 4:10pm Headache acute March 27, 2024 4:10pm Hypertension acute March 4:10pm Hypokalemia acute March 4:10pm Hyponatremia acute March 4:10pm Type 2 diabetes mellitus acute March 27, 2024 4:10pm Urine retention acute March 27, 2024 4:10pm Weakness acute March 27, 2024 4:10pm Chronic sphenoidal sinusitis chronic March 27, 2024 4:10pm Dementia chronic March 27, 2024 4:10pm Mixed hyperlipidemia chronic 2023 4:10pm Osteoporosis chronic March 4:10pm Vitamin B12 deficiency chronic No vember 2023 4:10pm Vitamin D deficiency chronic [facility] 2023 4:10pm Plan of Treatment Author Wendy Kinney [facility] Authored March 27, 2024 9:41pm Worsening hyponatremia and p atient somnolent/confused. Sent to ER. Future Tests Future scheduled test information is unavailable Pending Tests Test Name Ordered Date Scheduled Date PT Treatment Clarification April 01, 2024 8 :23am April 01, 2024 8:23am Future Visits Future appointment information is unavailable Referrals to Other Providers Reason for Referral Referral Start Date Provider Provider Contact Information Provider Address Wendy Kinney MD Work Phone: [address] [address] Wendy Kinney MD Work Phone: [address] [address] Wendy Kinney MD Work Phone: [address] [place] [address] Margarita Macdonald MD Work Phone: [address] [facility] [address] Future Procedures Procedure Name Ordered Date Scheduled Date Discharge Order April 05, 2024 3:18pm Novem geln 2023 3:18pm Placement to Observation March 27, 2024 3:0 8pm March 27, 2024 3:08pm Change Status to Inpatient March 27, 2024 4 :10pm March 27, 2024 4:10pm OT Treatment Clarification March 29, 2024 3 :29pm March 29, 2024 3:29pm Consult to Physician March 29, 2024 11:14am March 29, 2024 12:00am Future Medications Future medication information is unavailable Patient Instructions Instruction Admit Date Antibiotic Form Kidney Stones (ED) Kidney Infection (ED) March 19, 2024 11:53pm Antibiotic Form Abdominal Pain (ED) March 25, 2024 1:21am Nifedipine (By mouth) Pantoprazole (By mouth) Insulin Glargine (By injection) Hyponatremia (DC) Fluid Restriction (DC) March 27, 2024 4:10pm Goals Acute Goals Author Authored Date Exhibit intact skin * Skin remains intact [facility] April 05, 2024 6:46pm Remain free of injury *Follows Safety Interventions [facility] April 05, 2024 6:46pm Maintains/improves level of orientation * Orients to person/place/time/situation [facility] April 05, 2024 6:46pm Maintain adequate fluid volu me * Maintains vital signs WNL * Maintains clear breath sounds * Exhibits decreasing edema * Maintains adequate intake and output * Maintains stable weight * Maintains optimal lab values [facility] April 05, 2024 6:46pm Verbalizes/Demonstrates Unde rstanding *Demonstrates understanding of teaching [facility] April 05, 2024 6:46pm Participate in Discharge Carlos nning In order to achieve this outcome, the patient/ and or family will: * assist in identification of DME needs * assist in identification of community resource needs * assist in identification of appropriate discharge destination [facility] April 05, 2024 6:46pm Develop pain management prog rosendo In order to achieve this outcome the patient will: * Use the pain scale appropriately * Identify options for pain control - Analgesics - Narcotics - Non-medication measures [facility] April 05, 2024 6:46pm Increase knowledge regarding pain mgmt *Demonstrates understanding of teaching [facility] April 05, 2024 6:46pm Adapt to partial or total vi rios loss * Uses corrective lenses * Performs ADL's * Uses safety measures [facility] April 05, 2024 6:46pm *Improved Functional ADLs In order to achieve this outcome the patient will: *Safely complete 2 grooming tasks with CGA while standing (with/without) the use of adaptive equipment. *Safely complete bathing with MIN A (with/without) the use of adaptive equipment *Safely complete upper body dressing/undressing with independence (with/without) the use of adaptive equipment *Safely complete lower body dressing/undressing with CGA (with/without) the use of adaptive equipment *Safely don/doff shoes and socks with CGA (with/without) the use of adaptive equipment *Safely complete toileting with SBA (with/without) adaptive equipment or durable medical equipment. [facility] April 05, 2024 6:46pm *Understands Home Program fo r OT In order to achieve this outcome the patient &/or caregiver will: * Demonstrate independence with instructed materials * Demonstrate good energy conservation techniques * Demonstrate good technique for positioning [facility] April 05, 2024 6:46pm *Understands Home Program fo r PT In order to achieve this outcome the patient &/or caregiver will: * Demonstrate understanding of functional limitations * Demonstrate understanding of safety awareness * Demonstrate independence with use of assistive device [facility] April 05, 2024 6:46pm *Improve Functional Mobility In order to achieve this outcome the patient will: *Improve bed mobility to independence *Improve transfers to independence *Improve standing balance to good for 5 mins to reduce risk of falling with ADLs *Improve toilet transfers to SBA with least restrictive device and DME *Improve shower transfers to CGA with DME [facility] April 05, 2024 6:46pm *Improve Locomotion Mobility In order to achieve this outcome the patient will: *Improve gait to SBA using least restrictive assistive device for 50 feet to meet home/community needs [facility] April 05, 2024 6:46pm *Achieve Optimal Muscle Stre ngth In order to achieve this outcome the patient will: * Patient will be able to perform 10 repetitions of the BLE strengthening exercises with SBA * Increase strength to improve function for gait and transfers * Patient will be able to perform 10 repetitions of the BUE exercises with SBA * Increase strength to improve function for performance and safety in ADLs and functional transfers [facility] April 05, 2024 6:46pm *Achieve Functional Enduranc e In order to achieve this outcome the patient will: *Patient will tolerate therapeutic activity for 10 minutes without a break *Patient will maintain O2 sats for 90% or greater with activity *Improve endurance for functional/ADL activity [facility] April 05, 2024 6:46pm *Improved Safety Awareness In order to achieve this outcome the patient will: *Request help when needed *Demonstrate increased safety during ADL's *Demonstrate increased safety during functional mobility tasks [facility] April 05, 2024 6:46pm Exhibits optimal GI function *Exhibits adequate intake and output *Exhibits adequate nutritional status [facility] April 05, 2024 6:46pm Exhibits intact oral mucosa * Demonstrates appropriate oral hygiene [facility] April 05, 2024 6:46pm Hospital Discharge Instructions Additional Instructions Discharge disposition: Patient was admitted to the hospital for generalized weakness No signs of active infection on labs/imaging She worked with physical/occupational therapy and is to continue therapy at the assisted facility to regain her strength During admission patient was confused per family No signs of infection that would be causing confusion and sodium levels improved Possible hospital acquired delerium vs dementia Continue aricept as prescribed Patient had a low sodium level on admission, improved throughout stay Nephrology was consulted Continue fluid restriction of 1500 ml/day Follow up with nephrology, attached is the office information Patient was having elevated blood pressures throughout her admission Started on nifedipine 30 mg daily, attached is information on this medication Monitor blood pressures Take caution while standing, rising, or moving Change positions slowly taking a break between each position change If you standing feel dizzy sat back down and take a break Patient was previously treated for a UTI, antibiotic course completed prior to admission Urine culture was negative during admission Patient was having urinary retention Rangel catheter was placed, perform a voiding trial in 1-2 days to reassess Monitor urine output Patient was reporting epigastric pain after meals Started on pepcid, transitioned to protonix Speech therapy evaluated patient, recommending soft bite sized diet, level 6 Continue this diet a the facility Diabetes poorly controlled, A1c 9.8 on admission Started on lantus 17 units nightly, continue metformin 500 mg twice a day Monitor blood glucose levels Follow up with primary care provider Patient was constipated, continue bowel regimen and monitor stool output Encouraged to continue with yearly vaccinations Return to the emergency department if he developed sudden shortness of breath, chest pain, nausea, vomiting, upset stomach or intractable diarrhea Return to the emergency department if you develop fever greater than 101.5 Follow-up with the primary care physician within 1-2 weeks Thank you for choosing [facility] for your healthcare needs Consultation Note Author Margarita [facility] Note Date/Time April 01, 2024 5:19pm [facility] [address] [place] [address] Nephrology Consult Note Signed Patient: Arti Sinclair MR#: [id number] : 1945 Acct:[id number] Age: 79 ADM Date: 03/27/24 Loc: [id number] 260-[address]: David Aleman M.D. cc: Wendy Kinney MD; Baljit Aleman MD; Brennen Alba MD~ Assessment and Plan Assessment and plan (1) Hyponatremia: Code(s): E87.1 - Hypo-osmolality and hyponatremia Status: Acute Assessment and Plan: * acute finding on admission * normal sodium levels as of 6 months ago and beyond * no previous episodes noted * s/p IVF bolus and normal saline IVFs with with worsening sodium levels noted * risk factors for low sodium: * prerenal factors * pain ( headache ) * medication related (possibly donepezil, NSAIDs, denosumab) * CXR and CT of head noted * check TSH, cortisol, SPEP, UPEP and urine studies * follow-up on serum/urine osmolality * already started on fluid restriction * follow trend of repeat seum sodiums (2) Weakness: Code(s): R53.1 - Weakness Status: Acute Assessment and Plan: * due to previous UTI (?) * no other source of infection to date * related to #1 (?) * PT/OT as tolerated (3) Headache: Code(s): R51.9 - Headache, unspecified Status: Acute Assessment and Plan: * head CT showed a normal aging brain and no acute intracranial process * does mention chronic left sphenoid sinusitis * pain control * antibiotics for sinusitis (4) Hypertension: Code(s): I10 - Essential (primary) hypertension Status: Acute Assessment and Plan: * running high initially * possibly secondary to pain * medications adjusted * follow trend of hemodynamics (5) Type 2 diabetes mellitus: Code(s): E11.9 - Type 2 diabetes mellitus without complications Status: Acute Assessment and Plan: * follow accu-cheks * glycemic control per hospitalists I will continue to follow the patient with you while she remains hospitalized and make further recommendations as deemed necessary. Thank you for allowing me to participate in the care of this patient. History of Present Illness Reason for Consult Consult date: 03/29/24 Reason for consult: hyponatremia Chief Complaint Chief complaint: Hyponatremia, Generalized weakness History of Present Illness Narrative: Most information I obtained is from review of the electronic medical record as well as discussion with the physician / nurses involved in the patient's care asis difficult to get a full and complete history from the patient due to her fluctuating mental status. The patient is a 79-year-old female with a past medical history as outlined below who presented to [facility] for further evaluation of generalized weakness. Apparently, the patient was recently diagnosed with a urinary tract infection and was treated with a full course of antibiotics that completed last week. Herurine culture apparently grew Klebsiella which was pansensitive. However, despite treating the urinary tract infection, the patient still has increased fatigue and weakness which has progressively worsened. I am unclear of her worsening mental status at this time is due to her acute medical issues or progression of her underlining cognitive deficits. Nevertheless, given her worsening fatigue and weakness, she was sent to the ER for further evaluation. Workup and evaluation emergency room demonstrated the patient to be hemodynamically stable and in no acute distress. Routine blood test demonstrated normal white blood cell count, acute hyponatremia with a sodium 123, mild hypokalemia with a potassium of 3.3 and normal renal function. Her urinalysis was significant for 1+ protein, 3+ glucose 3+ ketones 3-5 white bloodcells but was otherwise unremarkable. Viral testing for influenza, RSV, and COVID were negative and her EKG demonstrated no ischemic changes. Her chest x-ray was negative for any acute cardiopulmonary disease. Given her hyponatremia and complaints of fatigue, she received a L of normal saline and subsequently was admitted to the hospital for further evaluation therapy Renal consultation was requested due to her acute hyponatremia and worsening of it since her admission to the hospital. As already mentioned, she received a L of normal saline for bolus and subsequent maintenance on the assumption that herhyponatremia is related to volume depletion/dehydration. Her IV fluids have hadsince been discontinued as her sodium level has worsened and she has been instituted on a free water fluid restriction. From review her records, she doesnot appear to have had any issues or problems with hyponatremia in the past. Inspite of her hyponatremia, is difficult to assess if her neurological status is due to or playing a role with regard to her fluctuating sodium level. Currently, at the time my evaluation, she appears to be in no acute distress. Review of Systems Review of Systems: As per HPI. [facility] Past Medical History Medical History Alopecia Asthma Decreased appetite Dementia Glaucoma History of UTI Hypothyroidism history of thyroid problems Mixed hyperlipidemia Neck pain on right side Osteoporosis Type 2 diabetes mellitus without complication, without long-term current use of insulin Vitamin B12 deficiency Vitamin D deficiency Surgical History Surgical History History of ankle surgery Total knee replacement status Family History Family History Father Heart disease Mother Colon cancer Sibling Diabetes mellitus Grandparent Colon cancer Other Asthma Carcinoma of colon Family history of coronary artery disease Family history of glaucoma Family history of osteoporosis Social History Social History Social History: Has a daughter Smoking status: Never smoker Second hand tobacco smoke exposure: No Alcohol intake: never Substance use: never Substance use type: does not use Do You Feel Safe in your Home?: Yes Lack of Transportation: No Lack of Food: Never True Current Housing: I Have Housing Concerned About Future Housing: No Difficulty Paying Gas/Electric Bills: No Difficulty Paying for Meds: No Currently Unemployed: No Education: High School Diploma/GED Difficulty w/ Childcare or Family Care: No Living arrangements: assisted living Occupation/Education: retired Gender identity (if verbalized by the patient): Female Sexual Orientation (if Verbalized by the Patient): Straight or Heterosexual Spiritual care concerns: No Agree to blood products: Yes Meds Home Medications and Allergies Home Medications Medication Instructions Recorded Confirmed Type aspirin 81 mg tablet,delayed 81 mg PO DAILY 04/10/19 03/27/24 History release (Adult Low Dose Aspirin) dorzolamide 22.3 mg-timolol 6.8 1 drop ophthalmic (eye) BID 04/10/19 03/27/24 History mg/mL eye drops (Cosopt) ergocalciferol (vitamin D2) 1,250 50,000 unit PO WEEKLY 04/10/19 03/27/24 History mcg (50,000 unit) capsule denosumab 60 mg/mL subcutaneous 60 mg subcut [id number] 02/11/21 03/27/24 History syringe (Prolia) ondansetron 4 mg disintegrating 4 mg PO Q8H PRN nausea and 04/13/22 03/27/24 Rx tablet vomiting #10 tabs donepezil 5 mg tablet (Aricept) 5 mg PO QHS #30 tabs 09/24/23 03/27/24 Rx metformin 500 mg tablet,extended 500 mg PO BID #180 tabs 12/07/23 03/27/24 Rx release 24 hr atorvastatin 20 mg tablet 20 mg PO DAILY #90 tabs 03/05/24 03/27/24 Rx acetaminophen 500 mg capsule 1,000 mg PO Q6H PRN pain #30 caps 03/20/24 03/27/24Rx cephalexin 500 mg capsule 500 mg PO Q6H 12 days #48 caps 03/20/24 03/27/24 Rx ibuprofen 600 mg tablet 600 mg PO TID PRN pain #30 tabs 03/20/24 03/27/24 Rx bimatoprost 0.01 % eye drops 1 drp EACH EYE HS 03/27/24 03/27/24 History (Rebeca) Allergies Allergy/AdvReac Type Severity Reaction Status Date / Time brimonidine Allergy Severe RED EYES, Verified 03/27/24 11:43 ITCHING Vital Signs Vital Signs Temp Pulse Resp BP Pulse Ox O2 Del Method 03/29/24 14:00 Room Air 03/29/24 08:55 Room Air 03/29/24 06:14 98.3 F 67 18 149/61 H 97 03/28/24 20:00 Room Air 03/28/24 23:15 182/86 H 03/28/24 21:01 98.1 F 69 16 96 Exam Narrative: GENERAL APPEARANCE: elderly but well developed well nourished female in no acute distress HEENT: normocephalic, atraumatic, normal conjunctiva and sclera, nares patient NECK: no lymphadenopathy, thyromegaly, or JVD MOUTH: normal lips, teeth, and gums CARDIOVASCULAR: RRR, normal S1 and S2, no rub detected RESPIRATORY: decreased at baseas ABDOMEN: soft, nontender, mild distension, diminished bowel sounds present EXTREMITIES: no evidence of cyanosis, clubbing, or edema NEUROLOGICAL: awake and alert; CN II - XII intact bilaterally; no focal deficitsnoted Results Lab Results 04/01/24 05:27 04/01/24 05:27 Lab results: Most recent lab results Calcium 8.4 mg/dL (8.4-10.2) 03/29/24 12:32 Magnesium 1.9 mg/dL (1.6-2.3) 03/29/24 06:11 This report may have been done utilizing a voice recognition system. Attempts have been made to correct errors. However, there may be uncorrected grammatical,spelling, and recognition errors present. Report Initialized date/time: Margarita Macdonald MD 03/29/24 / 1701 Electronically signed by: Margarita Macdonald MD 04/01/241718 History & Physical Note Author [facility] Note Date/Time March 28, 2024 12:51[place] [address] [place] [id number] History & Physical Report Signed Patient: Arti Sinclair MR#: [id number] : 1945 Acct:[id number] Age: 79 ADM Date: 03/27/24 Loc: [id number] 260-[address]: David Aleman M.D. cc: Wendy Kinney MD; Baljit Aleman MD; Brennen Alba MD~ H&P: HPI History of Present Illness Date/Time: 03/27/24 17:05 Chief Complaint: fatigue and weakness Narrative: This is a 79-year-old female with a significant past medical history of asthma, glaucoma, hypothyroidism, hyperlipidemia, osteoporosis, type 2 diabetes mellitus, vitamin B12 and vitamin-D deficiency who presented to the hospital forevaluation of increased generalized weakness. Patient is a poor historian and most of her history of presenting illness was obtained from the medical record. Patient was recently diagnosed and treated for a urinary tract infection in which she completed her full course of Keflex on of last week. Her urine culture read Klebsiella pneumoniae which was pansensitive. She also had history of E coli in the urine on 03/06/2022 which was relatively pansensitive. She is accompanied by her daughter states that since she finished the antibiotics she has had increased fatigue and weakness since then. Workup in the hospital included a chest x-ray which was negative for any acute cardiopulmonary disease. Initial labs shown a white blood cell count of 10.4, sodium 123, potassium 3.3, chloride 90, creatinine was low at 0.50, blood sugar 245. A UA was obtained which showed 1+ urine protein, 3+ urine glucose, 3+ urine ketone, 3-5 urine RBC, otherwise unremarkable. Respiratory panel was obtained and was negative for influenza a and B, RSV, COVID. EKG showed sinus rhythm with a rate of 68, QTC 438. Patient was given 1 L of normal saline whilein the ED. Review of Systems Review of Systems: ROS unobtainable: Yes unobtainable due to mental status [facility] Past Medical History Medical History Alopecia Asthma Decreased appetite Dementia Glaucoma History of UTI Hypothyroidism history of thyroid problems Mixed hyperlipidemia Neck pain on right side Osteoporosis Type 2 diabetes mellitus without complication, without long-term current use of insulin Vitamin B12 deficiency Vitamin D deficiency Surgical History Surgical History History of ankle surgery Total knee replacement status Family History Family History Father Heart disease Mother Colon cancer Sibling Diabetes mellitus Grandparent Colon cancer Other Asthma Carcinoma of colon Family history of coronary artery disease Family history of glaucoma Family history of osteoporosis Social History Social History Social History: Has a daughter Smoking status: Never smoker Second hand tobacco smoke exposure: No Alcohol intake: never Substance use: never Substance use type: does not use Do You Feel Safe in your Home?: Yes Lack of Transportation: No Lack of Food: Never True Current Housing: I Have Housing Concerned About Future Housing: No Difficulty Paying Gas/Electric Bills: No Difficulty Paying for Meds: No Currently Unemployed: No Education: High School Diploma/GED Difficulty w/ Childcare or Family Care: No Living arrangements: assisted living Occupation/Education: retired Gender identity (if verbalized by the patient): Female Sexual Orientation (if Verbalized by the Patient): Straight or Heterosexual Spiritual care concerns: No Agree to blood products: Yes Meds Home Medications and Allergies Home Medications Medication Instructions Recorded Confirmed Type aspirin 81 mg tablet,delayed 81 mg PO DAILY 04/10/19 03/27/24 History release (Adult Low Dose Aspirin) dorzolamide 22.3 mg-timolol 6.8 1 drop ophthalmic (eye) BID 04/10/19 03/27/24 History mg/mL eye drops (Cosopt) ergocalciferol (vitamin D2) 1,250 50,000 unit PO WEEKLY 04/10/19 03/27/24 History mcg (50,000 unit) capsule denosumab 60 mg/mL subcutaneous 60 mg subcut [id number] 02/11/21 03/27/24 History syringe (Prolia) ondansetron 4 mg disintegrating 4 mg PO Q8H PRN nausea and 04/13/22 03/27/24 Rx tablet vomiting #10 tabs donepezil 5 mg tablet (Aricept) 5 mg PO QHS #30 tabs 09/24/23 03/27/24 Rx metformin 500 mg tablet,extended 500 mg PO BID #180 tabs 12/07/23 03/27/24 Rx release 24 hr atorvastatin 20 mg tablet 20 mg PO DAILY #90 tabs 03/05/24 03/27/24 Rx acetaminophen 500 mg capsule 1,000 mg PO Q6H PRN pain #30 caps 03/20/24 03/27/24Rx cephalexin 500 mg capsule 500 mg PO Q6H 12 days #48 caps 03/20/24 03/27/24 Rx ibuprofen 600 mg tablet 600 mg PO TID PRN pain #30 tabs 03/20/24 03/27/24 Rx bimatoprost 0.01 % eye drops 1 drp EACH EYE HS 03/27/24 03/27/24 History (Lumigan) Allergies Allergy/AdvReac Type Severity Reaction Status Date / Time brimonidine Allergy Severe RED EYES, Verified 03/27/24 11:43 ITCHING Vital Signs Vital Signs - 24 hr 03/27/24 12:27 03/27/24 14:46 03/27/24 12:36 Pulse Rate 77 63 Respiratory Rate 16 14 19 Blood Pressure 200/70 H 150/68 H Pulse Oximetry 98 97 96 Oxygen Delivery Room Air 03/27/24 12:38 03/27/24 13:13 03/27/24 13:15 Pulse Rate 64 65 66 Respiratory Rate 17 15 13 Blood Pressure 173/68 H Pulse Oximetry 96 98 96 Oxygen Delivery 03/27/24 13:37 03/27/24 13:45 03/27/24 13:46 Pulse Rate 91 78 72 Respiratory Rate 18 19 17 Blood Pressure 173/73 H Pulse Oximetry 98 96 96 Oxygen Delivery 03/27/24 14:00 03/27/24 14:01 03/27/24 14:15 Pulse Rate 66 66 65 Respiratory Rate 15 15 16 Blood Pressure 172/71 H Pulse Oximetry 97 98 100 Oxygen Delivery 03/27/24 14:16 03/27/24 14:30 03/27/24 14:31 Pulse Rate 68 67 68 Respiratory Rate 18 15 15 Blood Pressure 170/70 H 166/71 H Pulse Oximetry 100 98 98 Oxygen Delivery 03/27/24 14:45 03/27/24 14:46 03/27/24 15:00 Pulse Rate 67 63 66 Respiratory Rate 16 13 15 Blood Pressure 150/68 H Pulse Oximetry 96 97 99 Oxygen Delivery 03/27/24 15:01 03/27/24 15:18 03/27/24 15:34 Pulse Rate 76 61 73 Respiratory Rate 14 14 14 Blood Pressure 142/68 H Pulse Oximetry 97 100 Oxygen Delivery 03/27/24 15:47 Pulse Rate 77 Respiratory Rate 18 Blood Pressure Pulse Oximetry Oxygen Delivery Exam Narrative: General: In no acute distress, well nourished Head: atraumatic, no encephalopathy Eyes: PERRLA, sclera clear ENT: moist mucous membranes, nasal passages clear Neck: supple, no JVD, no adenopathy, trachea midline Cardiac: Normal S1 and S2. No murmur, gallops or friction rubs, peripheral pulses intact. Respiratory: Lungs clear to auscultation, no adventitious lung sounds, currentlyon room air Gastrointestinal: soft, non-distended, non-tender, normoactive bowel sounds. : voiding without difficulty. Extremities: moves all extremities well, no edema Skin: clean, dry, intact. No wounds or lesions. Neuro: Alert to voice and confused psych: unable to truly assess due to her mental status H&P: Results Labs Labs: Short CBC 03/27/24 Range/Units 12:58 WBC 10.4 H (4.5-10.0) K/mm3 Hgb 13.4 (12.0-15.0) g/dL Hct 37.1 (37.0-47.0) % Plt Count 219 (150-375) k/mm3 BMP 03/27/24 12:58 Sodium 123 L Potassium 3.3 L Chloride 90 L Carbon Dioxide 24 BUN 11 Creatinine 0.50 L Glucose 245 H Calcium 8.6 Liver Function 03/27/24 Range/Units 12:58 Total Bilirubin 0.9 (0.2-1.3) mg/dL AST 21 (14-36) U/L ALT 21 (6-35) U/L Alkaline Phosphatase 58 (38-126) U/L Albumin 4.0 (3.5-5.1) g/dL Urine 03/27/24 Range/Units 13:38 Urine Color Yellow (Yellow) Urine Appearance Clear (Clear) Urine pH 6.5 (5.0-9.0) Ur Specific [place] 1.035 (1.001-1.035) Urine Protein 1+ H (Negative) mg/dL Urine Glucose (UA) 3+ H (Negative) mg/dL Imaging Chest x-ray: Radiologist's impression: EXAMINATION: XR chest 1V portable DATE: 03/27/2024 14:04 INDICATION: Weakness TECHNIQUE: frontal view of the chest was obtained. COMPARISON: Chest radiograph dated 05/23/2023 FINDINGS: Patient is rotated slightly towards the right. Costochondral calcifications project over the medial right lower lung zone. No other airspace opacities, pulmonary edema, pleural effusion or pneumothorax. Cardiomediastinal silhouette is normal. IMPRESSION: 1. No acute cardiopulmonary disease. Reviewed, dictated and finalized at location B. 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 Assessment and Plan Assessment and plan (1) Weakness: Code(s): R53.1 - Weakness Status: Acute Assessment and Plan: * increased fatigue and weakness since Monday of last week after finishing a full course Keflex for urinary tract infection * PT and OT ordered * Will check vitamin D and vitamin B12 levels * will also check urine culture to assure that her UTI cleared completely, her UA did not reflux culture this admission * chest x-ray was negative for any acute cardiopulmonary disease * respiratory panel negative * UA was negative for nitrates or leukocytes * TSH 0.552 (2) Abnormal finding on urinalysis: Code(s): R82.90 - Unspecified abnormal findings in urine Status: Acute Assessment and Plan: * UA showed 1+ urine protein, 3+ urine glucose, 3+ urine ketone, 3-5 urine RBC, negative leukocytes and negative nitrates. * Patient was just treated for UTI with urine culture showed Klebsiella pneumoniae which was pansensitive. She was on a course of Keflex which she finished on of last week. * We will go ahead and get a urine culture to assure that it is cleared completely (3) Hyponatremia: Code(s): E87.1 - Hypo-osmolality and hyponatremia Status: Acute Assessment and Plan: * Acute, could be due to dehydration vrs tea and toast * sodium 123, chloride 90 * patient was given 1 L of normal saline while in the ED * will check urine sodium, urine osmolarity, serum osmolarity * will hold off on fluid restriction considering she has had a decreased appetite and oral intake. (4) Hypokalemia: Code(s): E87.6 - Hypokalemia Status: Acute Assessment and Plan: * potassium 3.3 * will give 40 mEq of potassium now * continue to trend (5) Vitamin D deficiency: Code(s): E55.9 - Vitamin D deficiency, unspecified Status: Chronic Assessment and Plan: * currently on vitamin D 62961 units weekly * vitamin-D level 36.5 (6) Vitamin B12 deficiency: Code(s): E53.8 - Deficiency of other specified B group vitamins Status: Chronic Assessment and Plan: * vitamin B12 level 497 (7) Mixed hyperlipidemia: Code(s): E78.2 - Mixed hyperlipidemia Status: Chronic Assessment and Plan: * continue aspirin and atorvastatin (8) Dementia: Code(s): F03.90 - Unspecified dementia, unspecified severity, without behavioral disturbance, psychotic disturbance, mood disturbance, and anxiety Status: Chronic Assessment and Plan: * continue Aricept (9) Osteoporosis: Code(s): M81.0 - Age-related osteoporosis without current pathological fracture Status: Chronic Assessment and Plan: * currently on Prolia can weaken the immune system Quality VTE Prophylaxis VTE prophylaxis: pharmacologic ordered Hospitalist MIPS Advance Care Plan I have confirmed that the patient's Advanced Care Plan is present, code status is documented, or surrogate decision maker is listed in patient medical record.:Yes Medication Reconciliation I have utilized all available resources to obtain, update and review the patients current medications (includes all prescriptions, OTC, herbals, cannabis, and nutritional supplements).: Yes This report may have been done utilizing a voice recognition system. Attempts have been made to correct errors. However, there may be uncorrected grammatical,spelling, and recognition errors present. Report Initialized date/time: Larissa Smallwood APRN 03/27/241715 Electronically signed by: Larissa Smallwood APRN 03/28/24 0051 Progress Note Author Brennen [facility] Note Date/Time March 27, 2024 10:04pm [facility] [address] [place] [address] Emergency Room Visit Note Signed Patient: Arti Sinclair MR#: [id number] : 1945 Acct:[id number] Age: 79 ADM Date: 03/27/24 Loc: [id number] 260-[address]: Davdi Aleman M.D. cc: Wendy Kinney MD; Brennen Alba MD~ HPI - General Adult General Chief complaint: Recheck/Abnormal Lab/Rx Stated complaint: sent by PCP to be admitted Time Seen by Provider: 03/27/24 12:31 History of Present Illness HPI narrative: 79-year-old female presenting to the emergency department for evaluation for increased generalized weakness. Patient was previously diagnosed with a urinarytract infection. Patient did complete her antibiotics but daughter states that on and Monday she began worsening again. Patient was evaluated emergency department and was treated with additional IV fluids. Daughter statesthat since Monday patient has continued to decline. Patient is very somnolent appearing at time of examination. Patient denies any pain or complaint. Related Data Home Medications Medication Instructions Recorded Confirmed aspirin 81 mg tablet,delayed 81 mg PO DAILY 04/10/19 03/27/24 release (Adult Low Dose Aspirin) dorzolamide 22.3 mg-timolol 6.8 1 drop ophthalmic (eye) BID 04/10/19 03/27/24 mg/mL eye drops (Cosopt) ergocalciferol (vitamin D2) 1,250 50,000 unit PO WEEKLY 04/10/19 03/27/24 mcg (50,000 unit) capsule denosumab 60 mg/mL subcutaneous 60 mg subcut [id number] 02/11/21 03/27/24 syringe (Prolia) bimatoprost 0.01 % eye drops 1 drp EACH EYE HS 03/27/24 03/27/24 (Lumigan) Allergies Allergy/AdvReac Type Severity Reaction Status Date / Time brimonidine Allergy Severe RED EYES, Verified 03/27/24 11:43 ITCHING Review of Systems Review of Systems: All systems reviewed & are unremarkable except as noted in HPI and below [facility] Past Medical History Medical History (Updated 03/27/24 @ 22:04 by Brennen Alba MD) Alopecia Asthma Decreased appetite Dementia Glaucoma History of UTI Hypothyroidism history of thyroid problems Mixed hyperlipidemia Neck pain on right side Osteoporosis Type 2 diabetes mellitus without complication, without long-term current use of insulin Vitamin B12 deficiency Vitamin D deficiency Surgical History Surgical History History of ankle surgery Total knee replacement status Family History Family History Father Heart disease Mother Colon cancer Sibling Diabetes mellitus Grandparent Colon cancer Other Asthma Carcinoma of colon Family history of coronary artery disease Family history of glaucoma Family history of osteoporosis Social History Social History Social History: Has a daughter Smoking status: Never smoker Second hand tobacco smoke exposure: No Alcohol intake: never Substance use: never Substance use type: does not use Do You Feel Safe in your Home?: Yes Lack of Transportation: No Lack of Food: Never True Current Housing: I Have Housing Concerned About Future Housing: No Difficulty Paying Gas/Electric Bills: No Difficulty Paying for Meds: No Currently Unemployed: No Education: High School Diploma/GED Difficulty w/ Childcare or Family Care: No Living arrangements: assisted living Occupation/Education: retired Gender identity (if verbalized by the patient): Female Sexual Orientation (if Verbalized by the Patient): Straight or Heterosexual Spiritual care concerns: No Agree to blood products: Yes Exam Narrative: APPEARANCE: Ill-appearing HEAD: normocephalic, atraumatic. EYES: PERRLA/EOMI, conjunctivae clear. NOSE: Normal no drainage EARS:TMS clear with good light reflex. THROAT: Pharynx clear, no exudate. NECK: Supple. No adenopathy, no masses. RESPIRATORY: Airway patent, respirations nonlabored. Clear to auscultation bilaterally, no rales, rhonchi, wheezing. CARDIOVASCULAR: Regular rate and rhythm without murmurs rubs or gallops. ABDOMINAL: Soft, nontender, nondistended, normal bowel sounds MUSCULOSKELETAL: Moves all extremities. Strength/ROM intact, No edema, No calf tenderness. NEURO: Alert. Cranial nerves II through XII intact. Good gait. Good coordination SKIN: Warm, dry. Normal Color Course Vital Signs Vital signs: Vital Signs Pulse Rate 77 03/27/24 12:27 Respiratory Rate 16 03/27/24 12:27 Blood Pressure 200/70 H 03/27/24 12:27 Pulse Oximetry 98 03/27/24 12:27 Oxygen Delivery Room Air 03/27/24 12:27 Temperature 99.7 F H 03/27/24 20:05 Pulse Rate 77 03/27/24 15:47 Respiratory Rate 18 03/27/24 20:05 Blood Pressure 174/63 H 03/27/24 20:05 Pulse Oximetry 97 03/27/24 20:05 Oxygen Delivery Room Air 03/27/24 20:00 Medical Decision Making MDM Narrative Medical decision making narrative: 79-year-old female presents emergency department for evaluation for increased generalized fatigue. Patient is afebrile but does have a leukocytosis of 10.4 and hemoglobin of 13.4. UA shows no current infection patient was negative for influenza RSV and for COVID. Chest x-ray shows no acute cardiopulmonary abnormality. Patient was treated with 1 L IV normal saline and patient reports he does feel improved but patient does still appear excessively weak, patient does not feel she is able to take care for self at home. Case was discussed with hospitalist patient was accepted for admission to [facility]. Differential Diagnosis Differential Diagnosis: Pneumonia, hyponatremia Vital Signs Vital Signs: Vital Signs Pulse Rate 77 03/27/24 12:27 Respiratory Rate 16 03/27/24 12:27 Blood Pressure 200/70 H 03/27/24 12:27 Pulse Oximetry 98 03/27/24 12:27 Oxygen Delivery Room Air 03/27/24 12:27 Temperature 99.7 F H 03/27/24 20:05 Pulse Rate 77 03/27/24 15:47 Respiratory Rate 18 03/27/24 20:05 Blood Pressure 174/63 H 03/27/24 20:05 Pulse Oximetry 97 03/27/24 20:05 Oxygen Delivery Room Air 03/27/24 20:00 Lab Data 03/27/24 12:58 03/27/24 12:58 Labs: Lab Results 03/27/24 03/27/24 Range/Units 12:58 13:38 WBC 10.4 H (4.5-10.0) K/mm3 RBC 3.99 L (4.2-5.4) M/mm3 Hgb 13.4 (12.0-15.0) g/dL Hct 37.1 (37.0-47.0) % MCV 93.0 (80-100) fl MCH 33.6 (26-34) pg MCHC 36.1 H (32-36) g/dl RDW 11.4 L (11.5-14.5) % Plt Count 219 (150-375) k/mm3 MPV 9.1 (7.4-10.4) fl Immature Gran % (Auto) 0.8 H (0-0.5) % Neut % (Auto) 73.6 H (45.5-73.1) % Lymph % (Auto) 12.2 L (18.3-44.2) % Reynolds % (Auto) 13.1 H (2.6-8.5) % Eos % (Auto) 0.1 (0-4.4) % Baso % (Auto) 0.2 (0.2-1.2) % Lymph # (Auto) 1.26 (0.9-3.2) K/mm3 Reynolds # (Auto) 1.4 H (0.1-0.6) K/mm3 Eos # (Auto) 0.0 (0-0.3) K/mm3 Baso # (Auto) 0.0 (0.0-0.1) K/mm3 Abs Immat Gran (auto) 0.08 H (0.00-0.031) K/mm3 Absolute Neuts (auto) 7.6 H (1.3-6.7) K/mm3 Absolute Nucleated RBC 0.000 (0.0-0.012) K/mm3 Nucleated RBC % 0.0 (0.0-0.2) % Sodium 123 L (137-145) mmol/L Potassium 3.3 L (3.4-5.0) mmol/L Chloride 90 L (98-107) mmol/L Carbon Dioxide 24 (22-30) mmol/L Anion Gap 9 (4-12) mmol/L BUN 11 (7-17) mg/dL Creatinine 0.50 L (0.7-1.0) mg/dL Estim Creat Clear Calc Not Reportable Estimated GFR > 60 (59 - ) Glucose 245 H (65-110) mg/dL Calcium 8.6 (8.4-10.2) mg/dL Magnesium 1.8 (1.6-2.3) mg/dL Total Bilirubin 0.9 (0.2-1.3) mg/dL AST 21 (14-36) U/L ALT 21 (6-35) U/L Alkaline Phosphatase 58 (38-126) U/L Total Protein 7.0 (6.3-8.2) g/dL Albumin 4.0 (3.5-5.1) g/dL Vitamin B12 497.0 (239-931) pg/mL Vitamin D 25-Hydroxy 36.5 ng/mL Folate 7.2 (2.76->20) ng/mL TSH (Reflex) 0.552 (0.465-4.68) uIU/mL Urine Color Yellow (Yellow) Urine Appearance Clear (Clear) Urine pH 6.5 (5.0-9.0) Ur Specific [place] 1.035 (1.001-1.035) Urine Protein 1+ H (Negative) mg/dL Urine Glucose (UA) 3+ H (Negative) mg/dL Urine Ketones 3+ H (Negative) mg/dL Ur Blood (Man) Negative (Negative) Urine Nitrate Negative (Negative) Urine Bilirubin Negative (Negative) Urine Urobilinogen 1.0 (<2.0) mg/dL Leukocyte Esterase Rfl Negative (Negative) NITIN/UL Urine RBC 3-5 H (0-2) /hpf Urine WBC 0-5 (0-3) /hpf Ur Squamous Epith Cells None seen (Few) /hpf Urine Bacteria None seen /hpf Urine Casts 0-2 Influenza A (RT-PCR) Negative (Negative) Influenza B (RT-PCR) Negative (Negative) RSV (RT-PCR) Negative (Negative) SARS-CoV-2 RNA (RT-PCR) Negative (Negative) Discharge Plan Discharge Clinical Impression: Acute hyponatremia, Weakness Patient Disposition: Still a Patient Condition: Stable This report may have been done utilizing a voice recognition system. Attempts have been made to correct errors. However, there may be uncorrected grammatical,spelling, and recognition errors present. Report Initialized date/time: Brennen Alba MD 03/27/246 Electronically signed by: Brennen Alba MD 03/27/242203 Progress Note Author Evon [facility] Note Date/Time March 28, 2024 3:53pm [facility] [address] [place] [address] Hospitalist Progress Note Signed Patient: Arti Sinclair MR#: [id number] : 1945 Acct:[id number] Age: 79 ADM Date: 03/27/24 Loc: [id number] 260-[address]: David Aleman M.D. cc: ~ Progress Note: A&P Assessment and Plan (1) Weakness: Code(s): R53.1 - Weakness Status: Acute Assessment and Plan: * increased fatigue and weakness since Monday of last week after finishing a full course Keflex for urinary tract infection * PT and OT ordered * Will check vitamin D and vitamin B12 levels * will also check urine culture to assure that her UTI cleared completely, her UA did not reflux culture this admission * chest x-ray was negative for any acute cardiopulmonary disease * respiratory panel negative * UA was negative for nitrates or leukocytes * TSH 0.552 * NS @ 75 ml/hr. * Blood cultures No growth to date. (2) Abnormal finding on urinalysis: Code(s): R82.90 - Unspecified abnormal findings in urine Status: Acute Assessment and Plan: * UA showed 1+ urine protein, 3+ urine glucose, 3+ urine ketone, 3-5 urine RBC, negative leukocytes and negative nitrates. * Patient was just treated for UTI with urine culture showed Klebsiella pneumoniae which was pansensitive. She was on a course of Keflex which she finished on of last week. * We will go ahead and get a urine culture to assure that it is cleared completely (3) Headache: Code(s): R51.9 - Headache, unspecified Status: Acute Assessment and Plan: * Patient reports headache to right side of top of head down right side, pain is a 10 , constant, and aching. * Head CT showed a normal aging brain and no acute intracranial process, chronic left sphenoid sinusitis. * Tylenol 650 mg PO q 4 PRN. * Ibuprofen 400 mg PO q 6 PRN. * Ketorlac 15 mg IVP x1. (4) Hyponatremia: Code(s): E87.1 - Hypo-osmolality and hyponatremia Status: Acute Assessment and Plan: * Acute, could be due to dehydration vs tea and toast * sodium 126, chloride 96 * patient was given 1 L of normal saline while in the ED * will check urine sodium, urine osmolarity, serum osmolarity * NS @ 75 ml/hr. (5) Hypokalemia: Code(s): E87.6 - Hypokalemia Status: Acute Assessment and Plan: * potassium 3.3 * will give 40 mEq of potassium now * continue to trend (6) Hypertension: Code(s): I10 - Essential (primary) hypertension Status: Acute Assessment and Plan: * Start Procardia XL 30 mg PO daily * Hydralazine 20 mg ivp for systolic >180. * Monitor blood pressure. (7) Chronic sphenoidal sinusitis: Code(s): J32.3 - Chronic sphenoidal sinusitis Status: Chronic Assessment and Plan: * Augmentin 875-125 mg PO q12. (8) Vitamin D deficiency: Code(s): E55.9 - Vitamin D deficiency, unspecified Status: Chronic Assessment and Plan: * currently on vitamin D 76332 units weekly * vitamin-D level 36.5 (9) Vitamin B12 deficiency: Code(s): E53.8 - Deficiency of other specified B group vitamins Status: Chronic Assessment and Plan: * continue aspirin and atorvastatin (10) Dementia: Code(s): F03.90 - Unspecified dementia, unspecified severity, without behavioral disturbance, psychotic disturbance, mood disturbance, and anxiety Status: Chronic Assessment and Plan: * continue Aricept (11) Mixed hyperlipidemia: Code(s): E78.2 - Mixed hyperlipidemia Status: Chronic Assessment and Plan: * continue aspirin and atorvastatin Subjective Date/time seen: 03/28/24 09:59 Interval history: Patient reports headache to right side of top of head down right side, pain is a 10 , constant, and aching. Head CT showed a normal aging brain and no acute intracranial process, chronic left sphenoid sinusitis. Patient denies nausea, vomiting, dizziness, or shortness of breath. Review of Systems Review of Systems: All systems reviewed & are unremarkable except as noted in HPI and below Exam Const: General: uncomfortable Resp: Effort & Inspection: normal respiratory effort Auscultation: clear toauscultation bilaterally Cardio: Rate: regular rate Rhythm: regular rhythm GI: GI Palp: Yes Soft to palpation Auscultation: normal bowel sounds Neuro: Speech: normal speech Extrem: General: normal to inspection Psych: Other: Memory loss. Alert to self. Objective Data Vital Signs Vital Signs: Vital Signs - 24 hr 03/27/24 12:27 03/27/24 14:46 03/27/24 12:36 Temperature Pulse Rate 77 63 Respiratory Rate 16 14 19 Blood Pressure 200/70 H 150/68 H Pulse Oximetry 98 97 96 Oxygen Delivery Room Air 03/27/24 12:38 03/27/24 13:13 03/27/24 13:15 Temperature Pulse Rate 64 65 66 Respiratory Rate 17 15 13 Blood Pressure 173/68 H Pulse Oximetry 96 98 96 Oxygen Delivery 03/27/24 13:37 03/27/24 13:45 03/27/24 13:46 Temperature Pulse Rate 91 78 72 Respiratory Rate 18 19 17 Blood Pressure 173/73 H Pulse Oximetry 98 96 96 Oxygen Delivery 03/27/24 14:00 03/27/24 14:01 03/27/24 14:15 Temperature Pulse Rate 66 66 65 Respiratory Rate 15 15 16 Blood Pressure 172/71 H Pulse Oximetry 97 98 100 Oxygen Delivery 03/27/24 14:16 03/27/24 14:30 03/27/24 14:31 Temperature Pulse Rate 68 67 68 Respiratory Rate 18 15 15 Blood Pressure 170/70 H 166/71 H Pulse Oximetry 100 98 98 Oxygen Delivery 03/27/24 14:45 03/27/24 14:46 03/27/24 15:00 Temperature Pulse Rate 67 63 66 Respiratory Rate 16 13 15 Blood Pressure 150/68 H Pulse Oximetry 96 97 99 Oxygen Delivery 03/27/24 15:01 03/27/24 15:18 03/27/24 15:34 Temperature Pulse Rate 76 61 73 Respiratory Rate 14 14 14 Blood Pressure 142/68 H Pulse Oximetry 97 100 Oxygen Delivery 03/27/24 15:47 03/27/24 20:00 03/27/24 20:05 Temperature 99.7 F H Pulse Rate 77 Respiratory Rate 18 18 Blood Pressure 174/63 H Pulse Oximetry 97 Oxygen Delivery Room Air 03/28/24 06:27 03/28/24 09:13 Temperature 98 F Pulse Rate 77 Respiratory Rate 20 Blood Pressure 159/62 H Pulse Oximetry 97 98 Oxygen Delivery Room Air Intake/Output Intake/Output: Intake & Output 03/25/24 03/26/24 03/27/24 03/28/24 23:59 23:59 23:59 23:59 Intake Total 1240 390 Output Total 400 Balance 840 390 Meds/Results Medications: Active Medications Generic Name Dose Route Start Last Admin Trade Name Freq PRN Reason Stop Dose Admin Acetaminophen 650 mg 03/27/24 15:10 03/28/24 04:49 Acetaminophen 325 Mg Tablet PO 650 mg Q4H PRN Administration Mild Pain (1-3) or Fever Aspirin 81 mg 03/28/24 09:00 03/28/24 08:18 Aspirin 81 Mg Enteric Tablet PO 81 mg DAILY [place] Administration Atorvastatin Calcium 20 mg 03/28/24 09:00 03/28/24 08:18 Atorvastatin 20 Mg Tablet PO 20 mg DAILY [place] Administration Dextrose 12.5 gm 03/27/24 17:16 Dextrose 50% 25 Gm/50 Ml Syringe IV PUSH PRN PRN Hypoglycemia Protocol Donepezil HCl 5 mg 03/27/24 21:00 03/27/24 20:20 Donepezil Hcl 5 Mg Tablet PO 5 mg QHS [place] Administration Dorzolamide/Timolol 1 drop 03/27/24 21:00 03/28/24 08:19 Dorzolamide/Timolol Ophth Bev 10 Ml Bottle EACH EYE 1 drop Q12HR [place] Administration Enoxaparin Sodium 40 mg 03/28/24 09:00 03/28/24 08:19 Enoxaparin 40 Mg/0.4 Ml Syringe SUB-Q 40 mg DAILY [place] Administration Ergocalciferol 50,000 units 03/28/24 09:00 03/28/24 08:19 Ergocalciferol 50,000 Units Capsule PO 50,000 units WEEKLY [place] Administration Glucagon 1 mg 03/27/24 17:16 Glucagon For Inj 1 Mg Vial IM PRN PRN Hypoglycemia Protocol Glucose 15 gm 03/27/24 17:16 Glucose Oral Gel 15 Gm Of Glucse In 37.5 Gm Tube PO PRN PRN Hypoglycemia Protocol Hydralazine HCl 10 mg 03/28/24 09:58 Hydralazine 10 Mg Tablet PO 03/28/24 09:59 ONCE ONE Dextrose 1,000 mls @ 100 mls/hr 03/27/24 17:16 Dextrose 5% 1,000 Ml IVPB PRN PRN Hypoglycemia Protocol Sodium Chloride 1,000 mls @ 75 mls/hr 03/28/24 09:55 Normal Saline Iv IV CONT .[id number] [facility] Ibuprofen 400 mg 03/28/24 07:30 03/28/24 08:18 Ibuprofen 400 Mg Tablet PO 400 mg Q6H PRN Administration Pain Rated 4-6 Insulin Aspart 4 - 8 units 03/28/24 08:00 03/28/24 08:59 Insulin Aspart (*Bkc) 100 Units/Ml SUB-Q 4 units TIDWM [place] Administration Protocol Insulin Aspart 2 - 4 units 03/27/24 21:00 03/27/24 20:19 Insulin Aspart (*Bkc) 100 Units/Ml SUB-Q 2 units HS [place] Administration Protocol Ondansetron HCl 4 mg 03/27/24 15:10 Ondansetron Inj 4 Mg/2 Ml Vial IV PUSH Q6H PRN Nausea And Vomiting Radiology Results: ITS Impressions Chest X-Ray 03/27/24 14:12 IMPRESSION: 1. No acute cardiopulmonary disease. Labs Labs: Laboratory Results - last 24 hr 03/27/24 03/27/24 03/27/24 12:58 13:38 17:50 WBC 10.4 H RBC 3.99 L Hgb 13.4 Hct 37.1 MCV 93.0 MCH 33.6 MCHC 36.1 H RDW 11.4 L Plt Count 219 MPV 9.1 Immature Gran % (Auto) 0.8 H Neut % (Auto) 73.6 H Lymph % (Auto) 12.2 L Reynolds % (Auto) 13.1 H Eos % (Auto) 0.1 Baso % (Auto) 0.2 Lymph # (Auto) 1.26 Reynolds # (Auto) 1.4 H Eos # (Auto) 0.0 Baso # (Auto) 0.0 Abs Immat Gran (auto) 0.08 H Absolute Neuts (auto) 7.6 H Absolute Nucleated RBC 0.000 Nucleated RBC % 0.0 Sodium 123 L Potassium 3.3 L Chloride 90 L Carbon Dioxide 24 Anion Gap 9 BUN 11 Creatinine 0.50 L Estim Creat Clear Calc Not Reportable Estimated GFR > 60 Glucose 245 H POC Capillary Glucose Hemoglobin A1c 9.8 H Calcium 8.6 Magnesium 1.8 Total Bilirubin 0.9 AST 21 ALT 21 Alkaline Phosphatase 58 Total Protein 7.0 Albumin 4.0 Vitamin B12 497.0 Vitamin D 25-Hydroxy 36.5 Folate 7.2 TSH (Reflex) 0.552 Urine Color Yellow Urine Appearance Clear Urine pH 6.5 Ur Specific [place] 1.035 Urine Protein 1+ H Urine Glucose (UA) 3+ H Urine Ketones 3+ H Ur Blood (Man) Negative Urine Nitrate Negative Urine Bilirubin Negative Urine Urobilinogen 1.0 Leukocyte Esterase Rfl Negative Urine RBC 3-5 H Urine WBC 0-5 Ur Squamous Epith Cells None seen Urine Bacteria None seen Urine Casts 0-2 Ur Random Sodium Influenza A (RT-PCR) Negative Influenza B (RT-PCR) Negative RSV (RT-PCR) Negative SARS-CoV-2 RNA (RT-PCR) Negative 11/20/24 11/20/24 11/21/24 19:34 20:05 06:06 WBC 9.4 RBC 3.80 L Hgb 12.4 Hct 35.6 L MCV 93.7 MCH 32.6 MCHC 34.8 RDW 11.4 L Plt Count 217 MPV 8.9 Immature Gran % (Auto) 0.7 H Neut % (Auto) 66.3 Lymph % (Auto) 17.1 L Reynolds % (Auto) 15.1 H Eos % (Auto) 0.4 Baso % (Auto) 0.4 Lymph # (Auto) 1.61 Reynolds # (Auto) 1.4 H Eos # (Auto) 0.0 Baso # (Auto) 0.0 Abs Immat Gran (auto) 0.07 H Absolute Neuts (auto) 6.2 Absolute Nucleated RBC 0.000 Nucleated RBC % 0.0 Sodium 126 L Potassium 3.3 L Chloride 96 L Carbon Dioxide 23 Anion Gap 7 BUN 7 Creatinine 0.40 L Estim Creat Clear Calc 99 Estimated GFR > 60 Glucose 199 H POC Capillary Glucose 246 H Hemoglobin A1c Calcium 8.1 L Magnesium 1.9 Total Bilirubin 1.1 AST 20 ALT 18 Alkaline Phosphatase 55 Total Protein 6.0 L Albumin 3.5 Vitamin B12 Vitamin D 25-Hydroxy Folate TSH (Reflex) Urine Color Urine Appearance Urine pH Ur Specific [place] Urine Protein Urine Glucose (UA) Urine Ketones Ur Blood (Man) Urine Nitrate Urine Bilirubin Urine Urobilinogen Leukocyte Esterase Rfl Urine RBC Urine WBC Ur Squamous Epith Cells Urine Bacteria Urine Casts Ur Random Sodium 89 Influenza A (RT-PCR) Influenza B (RT-PCR) RSV (RT-PCR) SARS-CoV-2 RNA (RT-PCR) 03/28/24 08:44 WBC RBC Hgb Hct MCV MCH MCHC RDW Plt Count MPV Immature Gran % (Auto) Neut % (Auto) Lymph % (Auto) Reynolds % (Auto) Eos % (Auto) Baso % (Auto) Lymph # (Auto) Reynolds # (Auto) Eos # (Auto) Baso # (Auto) Abs Immat Gran (auto) Absolute Neuts (auto) Absolute Nucleated RBC Nucleated RBC % Sodium Potassium Chloride Carbon Dioxide Anion Gap BUN Creatinine Estim Creat Clear Calc Estimated GFR Glucose POC Capillary Glucose 212 H Hemoglobin A1c Calcium Magnesium Total Bilirubin AST ALT Alkaline Phosphatase Total Protein Albumin Vitamin B12 Vitamin D 25-Hydroxy Folate TSH (Reflex) Urine Color Urine Appearance Urine pH Ur Specific [place] Urine Protein Urine Glucose (UA) Urine Ketones Ur Blood (Man) Urine Nitrate Urine Bilirubin Urine Urobilinogen Leukocyte Esterase Rfl Urine RBC Urine WBC Ur Squamous Epith Cells Urine Bacteria Urine Casts Ur Random Sodium Influenza A (RT-PCR) Influenza B (RT-PCR) RSV (RT-PCR) SARS-CoV-2 RNA (RT-PCR) Quality VTE Prophylaxis VTE prophylaxis: pharmacologic ordered This report may have been done utilizing a voice recognition system. Attempts have been made to correct errors. However, there may be uncorrected grammatical,spelling, and recognition errors present. Report Initialized date/time: Evon Nova [employer] MANAGER 03/28/2459 Electronically signed by: Evon Nova [employer] MANAGER 03/28/24 1553 Progress Note Author Evon [facility] Note Date/Time March 29, 2024 3:54pm [facility] [address] [place] [address] Hospitalist Progress Note Signed Patient: Arti Sinclair MR#: [id number] : 1945 Acct:[id number] Age: 79 ADM Date: 03/27/24 Loc: [id number] 260-[address]: David Aleman M.D. cc: ~ Progress Note: A&P Assessment and Plan (1) Weakness: Code(s): R53.1 - Weakness Status: Acute Assessment and Plan: * increased fatigue and weakness since Monday of last week after finishing a full course Keflex for urinary tract infection * PT and OT ordered * Will check vitamin D and vitamin B12 levels * will also check urine culture to assure that her UTI cleared completely, her UA did not reflux culture this admission * chest x-ray was negative for any acute cardiopulmonary disease * respiratory panel negative * UA was negative for nitrates or leukocytes * TSH 0.552 * Blood cultures No growth to date. (2) Abnormal finding on urinalysis: Code(s): R82.90 - Unspecified abnormal findings in urine Status: Acute Assessment and Plan: * UA showed 1+ urine protein, 3+ urine glucose, 3+ urine ketone, 3-5 urine RBC, negative leukocytes and negative nitrates. * Patient was just treated for UTI with urine culture showed Klebsiella pneumoniae which was pansensitive. She was on a course of Keflex which she finished on of last week. * We will go ahead and get a urine culture to assure that it is cleared completely (3) Headache: Code(s): R51.9 - Headache, unspecified Status: Acute Assessment and Plan: * Patient reports headache to right side of top of head down right side, pain is a 10 , constant, and aching. * Head CT showed a normal aging brain and no acute intracranial process, chronic left sphenoid sinusitis. * Tylenol 650 mg PO q 4 PRN. * Tramadol 25 mg PO q 6 PRN. (4) Hyponatremia: Code(s): E87.1 - Hypo-osmolality and hyponatremia Status: Acute Assessment and Plan: * Acute, could be due to dehydration vs tea and toast * sodium 121, chloride 91 * patient was given 1 L of normal saline while in the ED * urine sodium 89, urine osmolarity 718, serum osmolarity pending. * Stopped IV fluids * Fluid restriction 1500 ml * Nephrology consult (5) Hypokalemia: Code(s): E87.6 - Hypokalemia Status: Acute Assessment and Plan: * potassium 3.1. Patient given Potassium Chloride 40 meq PO x1. Repeat potassium 3.4, additional Potassium Chloride 40 meq PO given. * continue to trend (6) Hypertension: Code(s): I10 - Essential (primary) hypertension Status: Acute Assessment and Plan: * Start Procardia XL 30 mg PO daily * Hydralazine 20 mg ivp for systolic >180. * Blood pressure 149/61. * Monitor blood pressure. (7) Chronic sphenoidal sinusitis: Code(s): J32.3 - Chronic sphenoidal sinusitis Status: Chronic Assessment and Plan: * Augmentin 875-125 mg PO q12. (8) Constipation: Code(s): K59.00 - Constipation, unspecified Status: Acute Assessment and Plan: * KUB showed Moderate amount of stool scattered throughout the colon with large amount of gas in the proximal colon. * Added Miralax 17 gm PO daily, Docusate 100 mg PO q12 PRN, and Simethicone 80 mg PO BID. (9) Vitamin D deficiency: Code(s): E55.9 - Vitamin D deficiency, unspecified Status: Chronic Assessment and Plan: * currently on vitamin D 09164 units weekly * vitamin-D level 36.5 (10) Vitamin B12 deficiency: Code(s): E53.8 - Deficiency of other specified B group vitamins Status: Chronic Assessment and Plan: * continue aspirin and atorvastatin (11) Dementia: Code(s): F03.90 - Unspecified dementia, unspecified severity, without behavioral disturbance, psychotic disturbance, mood disturbance, and anxiety Status: Chronic Assessment and Plan: * continue Aricept (12) Mixed hyperlipidemia: Code(s): E78.2 - Mixed hyperlipidemia Status: Chronic Assessment and Plan: * continue aspirin and atorvastatin Subjective Date/time seen: 03/29/24 10:47 Interval history: Patient reports headache that is a 5 on right side of head, aching, and constant. Daughter does not think that patient has had a bowel movement in a week, son reports patient has not been eating much. Patient denies nausea, vomiting, chest pain, palpitations, or shortness of breath. Review of Systems Review of Systems: All systems reviewed & are unremarkable except as noted in HPI and below Exam Const: General: no acute distress and uncomfortable Resp: Effort & Inspection: normal respiratory effort Auscultation: clear toauscultation bilaterally Cardio: Rate: regular rate Rhythm: regular rhythm GI: Inspection: distended GI Palp: No Tenderness to palpation present (GI) Other: hypoactive bowel sounds. semi firm Neuro: Speech: normal speech Extrem: General: normal to inspection Psych: Other: Memory loss. Alert to self. Objective Data Vital Signs Vital Signs: Vital Signs - 24 hr 03/28/24 15:07 03/28/24 16:00 03/28/24 21:01 Temperature 97.6 F 97.7 F 98.1 F Pulse Rate 66 64 69 Respiratory Rate 18 18 16 Blood Pressure 176/78 H 164/68 H Pulse Oximetry 97 97 96 Oxygen Delivery 03/28/24 23:15 03/28/24 20:00 03/29/24 06:14 Temperature 98.3 F Pulse Rate 67 Respiratory Rate 18 Blood Pressure 182/86 H 149/61 H Pulse Oximetry 97 Oxygen Delivery Room Air 03/29/24 08:55 Temperature Pulse Rate Respiratory Rate Blood Pressure Pulse Oximetry Oxygen Delivery Room Air Intake/Output Intake/Output: Intake & Output 03/26/24 03/27/24 03/28/24 03/29/24 23:59 23:59 23:59 23:59 Intake Total 1240 1300 1390 Output Total 400 400 Balance 413 069 2197 Meds/Results Medications: Active Medications Generic Name Dose Route Start Last Admin Trade Name Freq PRN Reason Stop Dose Admin Acetaminophen 650 mg 03/27/24 15:10 03/29/24 08:54 Acetaminophen 325 Mg Tablet PO 650 mg Q4H PRN Administration Mild Pain (1-3) or Fever Amoxicillin/Clavulanate Potassium 1 tablet 03/28/24 21:00 03/29/24 08:53 Amoxicillin/Clavulanate K 875-125 Mg Tab PO 04/04/24 20:59 1 tablet Q12HR [place] Administration Aspirin 81 mg 03/28/24 09:00 03/29/24 08:53 Aspirin 81 Mg Enteric Tablet PO 81 mg DAILY [place] Administration Atorvastatin Calcium 20 mg 03/28/24 09:00 03/29/24 08:54 Atorvastatin 20 Mg Tablet PO 20 mg DAILY [place] Administration Dextrose 12.5 gm 03/27/24 17:16 Dextrose 50% 25 Gm/50 Ml Syringe IV PUSH PRN PRN Hypoglycemia Protocol Donepezil HCl 5 mg 03/27/24 21:00 03/28/24 20:14 Donepezil Hcl 5 Mg Tablet PO 5 mg QHS [place] Administration Dorzolamide/Timolol 1 drop 03/27/24 21:00 03/29/24 08:55 Dorzolamide/Timolol Ophth Bev 10 Ml Bottle EACH EYE 1 drop Q12HR [place] Administration Enoxaparin Sodium 40 mg 03/28/24 09:00 03/29/24 08:54 Enoxaparin 40 Mg/0.4 Ml Syringe SUB-Q 40 mg DAILY [place] Administration Ergocalciferol 50,000 units 03/28/24 09:00 03/28/24 08:19 Ergocalciferol 50,000 Units Capsule PO 50,000 units WEEKLY [place] Administration Glucagon 1 mg 03/27/24 17:16 Glucagon For Inj 1 Mg Vial IM PRN PRN Hypoglycemia Protocol Glucose 15 gm 03/27/24 17:16 Glucose Oral Gel 15 Gm Of Glucse In 37.5 Gm Tube PO PRN PRN Hypoglycemia Protocol Hydralazine HCl 20 mg 03/28/24 15:27 Hydralazine Hcl 20 Mg/Ml Vial IV PUSH ONCE PRN Hypertension Dextrose 1,000 mls @ 100 mls/hr 03/27/24 17:16 Dextrose 5% 1,000 Ml IVPB PRN PRN Hypoglycemia Protocol Sodium Chloride 1,000 mls @ 75 mls/hr 03/28/24 09:55 03/29/24 01:06 Normal Saline Iv IV CONT 75 mls/hr .[id number] [place] Administration Insulin Aspart 4 - 8 units 03/28/24 08:00 03/29/24 08:18 Insulin Aspart (*Bkc) 100 Units/Ml SUB-Q Not Given TIDWM [place] Protocol Insulin Aspart 2 - 4 units 03/27/24 21:00 03/28/24 22:14 Insulin Aspart (*Bkc) 100 Units/Ml SUB-Q Not Given HS [place] Protocol Nifedipine 30 mg 03/28/24 15:30 03/29/24 08:53 Nifedipine 30 Mg Tab.Er.24 PO 30 mg QAM [place] Administration Ondansetron HCl 4 mg 03/27/24 15:10 Ondansetron Inj 4 Mg/2 Ml Vial IV PUSH Q6H PRN Nausea And Vomiting Tramadol HCl 25 mg 03/28/24 19:51 03/29/24 03:57 Tramadol Hcl (*Crx) 25 Mg Tablet PO 25 mg Q6H PRN Administration Pain Rated 4-6 Radiology Results: ITS Impressions Chest X-Ray 03/27/24 14:12 IMPRESSION: 1. No acute cardiopulmonary disease. Head CT 03/28/24 10:46 IMPRESSION: 1. Normal aging brain. No acute intracranial process. 2. Chronic left sphenoid sinusitis. Labs Labs: Laboratory Results - last 24 hr 03/27/24 03/28/24 03/28/24 19:34 11:55 17:44 WBC RBC Hgb Hct MCV MCH MCHC RDW Plt Count MPV Immature Gran % (Auto) Neut % (Auto) Lymph % (Auto) Reynolds % (Auto) Eos % (Auto) Baso % (Auto) Lymph # (Auto) Reynolds # (Auto) Eos # (Auto) Baso # (Auto) Abs Immat Gran (auto) Absolute Neuts (auto) Absolute Nucleated RBC Nucleated RBC % Sodium Potassium Chloride Carbon Dioxide Anion Gap BUN Creatinine Estim Creat Clear Calc Estimated GFR Glucose POC Capillary Glucose 189 H 165 H Calcium Magnesium Total Bilirubin AST ALT Alkaline Phosphatase Total Protein Albumin Urine Osmolality 718 03/28/24 03/29/24 03/29/24 20:58 06:11 07:53 WBC 11.0 H RBC 4.15 L Hgb 13.6 Hct 38.9 MCV 93.7 MCH 32.8 MCHC 35.0 RDW 11.3 L Plt Count 245 MPV 8.8 Immature Gran % (Auto) 0.9 H Neut % (Auto) 71.7 Lymph % (Auto) 14.2 L Reynolds % (Auto) 12.2 H Eos % (Auto) 0.6 Baso % (Auto) 0.4 Lymph # (Auto) 1.56 Reynolds # (Auto) 1.3 H Eos # (Auto) 0.1 Baso # (Auto) 0.0 Abs Immat Gran (auto) 0.10 H Absolute Neuts (auto) 7.9 H Absolute Nucleated RBC 0.000 Nucleated RBC % 0.0 Sodium 122 L Potassium 3.1 L Chloride 95 L Carbon Dioxide 17 L Anion Gap 10 BUN 7 Creatinine 0.30 L Estim Creat Clear Calc 126 Estimated GFR > 60 Glucose 186 H POC Capillary Glucose 195 H 182 H Calcium 8.0 L Magnesium 1.9 Total Bilirubin 1.1 AST 22 ALT 18 Alkaline Phosphatase 58 Total Protein 7.0 Albumin 3.6 Urine Osmolality Quality VTE Prophylaxis VTE prophylaxis: pharmacologic ordered This report may have been done utilizing a voice recognition system. Attempts have been made to correct errors. However, there may be uncorrected grammatical,spelling, and recognition errors present. Report Initialized date/time: Evon Nova ATM MANAGER 03/29/24 / 1048 Electronically signed by: Evon Nova ATM MANAGER 03/29/24 1554 Progress Note Author Evon [facility] Note Date/Time March 30, 2024 4:35pm [place] [id number] [place] [address] Hospitalist Progress Note Signed Patient: Arti Sinclair MR#: [id number] : 1945 Acct:[id number] Age: 79 ADM Date: 03/27/24 Loc: [id number] 260-[address]: David Aleman M.D. cc: ~ Progress Note: A&P Assessment and Plan (1) Weakness: Code(s): R53.1 - Weakness Status: Acute Assessment and Plan: * increased fatigue and weakness since Monday of last week after finishing a full course Keflex for urinary tract infection * PT and OT ordered * Will check vitamin D and vitamin B12 levels * will also check urine culture to assure that her UTI cleared completely, her UA did not reflux culture this admission * chest x-ray was negative for any acute cardiopulmonary disease * respiratory panel negative * UA was negative for nitrates or leukocytes * TSH 1.230 * Blood cultures No growth to date. (2) Chest pain: Code(s): R07.9 - Chest pain, unspecified Status: Acute Assessment and Plan: * EKG showed sinus rhythm with left ventricular hypertrophy and ST-T change, QTc 450. * Troponin 0.012, 2nd Troponin <0.012 * supplemental oxygen placed on patient at 2 liters nasal cannula. * Chest pain subsided. * Telemetry placed. (3) Type 2 diabetes mellitus: Code(s): E11.9 - Type 2 diabetes mellitus without complications Status: Acute Assessment and Plan: * Hypoglycemic protocol * High dose sliding scale insulin. * HgbA1C 9.8% on 03/27/24 (4) Abnormal finding on urinalysis: Code(s): R82.90 - Unspecified abnormal findings in urine Status: Acute Assessment and Plan: * UA showed 1+ urine protein, 3+ urine glucose, 3+ urine ketone, 3-5 urine RBC, negative leukocytes and negative nitrates. * Patient was just treated for UTI with urine culture showed Klebsiella pneumoniae which was pansensitive. She was on a course of Keflex which she finished on of last week. * We will go ahead and get a urine culture to assure that it is cleared completely (5) Headache: Code(s): R51.9 - Headache, unspecified Status: Acute Assessment and Plan: * Head CT showed a normal aging brain and no acute intracranial process, chronic left sphenoid sinusitis. * Tylenol 650 mg PO q 4 PRN. * Tramadol 25 mg PO q 6 PRN. (6) Hyponatremia: Code(s): E87.1 - Hypo-osmolality and hyponatremia Status: Acute Assessment and Plan: * Acute, could be due to dehydration vs tea and toast * sodium 123, chloride 94 * patient was given 1 L of normal saline while in the ED * urine sodium 89, urine osmolarity 718, serum osmolarity pending. * Fluid restriction 1500 ml * Nephrology consulted, urine and labs ordered. (7) Hypokalemia: Code(s): E87.6 - Hypokalemia Status: Acute Assessment and Plan: * potassium 4.2 hemolyzed. Recheck potassium 3.9. * continue to trend (8) Hypertension: Code(s): I10 - Essential (primary) hypertension Status: Acute Assessment and Plan: * Start Procardia XL 30 mg PO daily * Hydralazine 20 mg ivp for systolic >180. * Blood pressure 135/72 * Monitor blood pressure. (9) Chronic sphenoidal sinusitis: Code(s): J32.3 - Chronic sphenoidal sinusitis Status: Chronic Assessment and Plan: * Augmentin 875-125 mg PO q12. (10) Constipation: Code(s): K59.00 - Constipation, unspecified Status: Acute Assessment and Plan: * KUB showed Moderate amount of stool scattered throughout the colon with large amount of gas in the proximal colon. * Added Miralax 17 gm PO daily, Docusate 100 mg PO q12 PRN, and Simethicone 80 mg PO BID. (11) Vitamin D deficiency: Code(s): E55.9 - Vitamin D deficiency, unspecified Status: Chronic Assessment and Plan: * currently on vitamin D 26934 units weekly * vitamin-D level 36.5 (12) Vitamin B12 deficiency: Code(s): E53.8 - Deficiency of other specified B group vitamins Status: Chronic Assessment and Plan: * continue aspirin and atorvastatin (13) Dementia: Code(s): F03.90 - Unspecified dementia, unspecified severity, without behavioral disturbance, psychotic disturbance, mood disturbance, and anxiety Status: Chronic Assessment and Plan: * continue Aricept (14) Mixed hyperlipidemia: Code(s): E78.2 - Mixed hyperlipidemia Status: Chronic Assessment and Plan: * continue aspirin and atorvastatin Subjective Date/time seen: 03/30/24 09:31 Interval history: Called by nurse in am that patient reported pain in left chest that radiated around to back. When arrived to see patient, patient reported pain in middle back that was a 4 , constant, and aching. Patient denied shortness of breath, palpitations, headache, dizziness, nausea, or vomiting. Review of Systems Review of Systems: All systems reviewed & are unremarkable except as noted in HPI and below Exam Const: General: uncomfortable Resp: Auscultation: diminished lung sounds Cardio: Rate: regular rate Rhythm: regular rhythm Other: SR- 98 GI: Inspection: distended GI Palp: Yes Tenderness to palpation present (GI)(RLQ) Other: hypoactive bowel sounds. semi firm Neuro: Speech: normal speech Extrem: General: normal to inspection Psych: Other: Memory loss. Alert to self. Objective Data Vital Signs Vital Signs: Vital Signs - 24 hr 03/29/24 14:35 03/29/24 16:00 03/29/24 20:39 Temperature 98.3 F 98.7 F Pulse Rate 98 104 H Respiratory Rate 16 16 Blood Pressure 164/76 H 153/72 H Pulse Oximetry 97 97 Oxygen Delivery Room Air 03/29/24 22:27 03/29/24 20:00 03/30/24 00:00 Temperature 98.0 F 98.0 F Pulse Rate 99 96 Respiratory Rate 16 16 Blood Pressure 153/85 H 149/76 H Pulse Oximetry 99 94 Oxygen Delivery Room Air 03/30/24 04:15 Temperature 98.7 F Pulse Rate 91 Respiratory Rate 16 Blood Pressure 149/71 H Pulse Oximetry 91 Oxygen Delivery Intake/Output Intake/Output: Intake & Output 03/27/24 03/28/24 03/29/24 03/30/24 23:59 23:59 23:59 23:59 Intake Total 1240 1300 1750 180 Output Total 400 400 0 Balance 996 106 3311 180 Meds/Results Medications: Active Medications Generic Name Dose Route Start Last Admin Trade Name Freq PRN Reason Stop Dose Admin Acetaminophen 650 mg 03/27/24 15:10 03/29/24 20:23 Acetaminophen 325 Mg Tablet PO 650 mg Q4H PRN Administration Mild Pain (1-3) or Fever Amoxicillin/Clavulanate Potassium 1 tablet 03/28/24 21:00 03/30/24 08:32 Amoxicillin/Clavulanate K 875-125 Mg Tab PO 04/04/24 20:59 1 tablet Q12HR MIREILLE Administration Aspirin 81 mg 03/28/24 09:00 03/30/24 08:32 Aspirin 81 Mg Enteric Tablet PO 81 mg DAILY MIREILLE Administration Atorvastatin Calcium 20 mg 03/28/24 09:00 03/30/24 08:32 Atorvastatin 20 Mg Tablet PO 20 mg DAILY MIREILLE Administration Dextrose 12.5 gm 03/27/24 17:16 Dextrose 50% 25 Gm/50 Ml Syringe IV PUSH PRN PRN Hypoglycemia Protocol Docusate Sodium 100 mg 03/29/24 15:50 Docusate Sodium 100 Mg Capsule PO Q12H PRN Constipation Donepezil HCl 5 mg 03/27/24 21:00 03/29/24 20:23 Donepezil Hcl 5 Mg Tablet PO 5 mg QHS MIREILLE Administration Dorzolamide/Timolol 1 drop 03/27/24 21:00 03/30/24 08:32 Dorzolamide/Timolol Ophth Bev 10 Ml Bottle EACH EYE 1 drop Q12HR MIREILLE Administration Enoxaparin Sodium 40 mg 03/28/24 09:00 03/30/24 08:32 Enoxaparin 40 Mg/0.4 Ml Syringe SUB-Q 40 mg DAILY MIREILLE Administration Ergocalciferol 50,000 units 03/28/24 09:00 03/28/24 08:19 Ergocalciferol 50,000 Units Capsule PO 50,000 units WEEKLY MIREILLE Administration Glucagon 1 mg 03/27/24 17:16 Glucagon For Inj 1 Mg Vial IM PRN PRN Hypoglycemia Protocol Glucose 15 gm 03/27/24 17:16 Glucose Oral Gel 15 Gm Of Glucse In 37.5 Gm Tube PO PRN PRN Hypoglycemia Protocol Hydralazine HCl 20 mg 03/28/24 15:27 Hydralazine Hcl 20 Mg/Ml Vial IV PUSH ONCE PRN Hypertension Dextrose 1,000 mls @ 100 mls/hr 03/27/24 17:16 Dextrose 5% 1,000 Ml IVPB PRN PRN Hypoglycemia Protocol Insulin Aspart 4 - 8 units 03/28/24 08:00 03/30/24 08:36 Insulin Aspart (*Bkc) 100 Units/Ml SUB-Q 4 units TIDWM MIREILLE Administration Protocol Insulin Aspart 2 - 4 units 03/27/24 21:00 03/29/24 21:28 Insulin Aspart (*Bkc) 100 Units/Ml SUB-Q 3 units HS MIREILLE Administration Protocol Nifedipine 30 mg 03/28/24 15:30 03/30/24 08:32 Nifedipine 30 Mg Tab.Er.24 PO 30 mg QAM MIRE[place] Administration Ondansetron HCl 4 mg 03/27/24 15:10 Ondansetron Inj 4 Mg/2 Ml Vial IV PUSH Q6H PRN Nausea And Vomiting Polyethylene Glycol 17 gm 03/29/24 15:05 03/30/24 08:32 Polyethylene Glycol 3350 17 Gm Powd.Pack PO 17 gm QAM MIREILLE Administration Simethicone 80 mg 03/29/24 17:00 03/30/24 08:32 Simethicone 80 Mg Tab.Chew PO 80 mg BID MIREILLE Administration Tramadol HCl 25 mg 03/28/24 19:51 03/30/24 08:33 Tramadol Hcl (*Crx) 25 Mg Tablet PO 25 mg Q6H PRN Administration Pain Rated 4-6 Radiology Results: ITS Impressions Chest X-Ray 03/27/24 14:12 IMPRESSION: 1. No acute cardiopulmonary disease. Head CT 03/28/24 10:46 IMPRESSION: 1. Normal aging brain. No acute intracranial process. 2. Chronic left sphenoid sinusitis. Abdomen X-Ray 03/29/24 14:55 IMPRESSION: 1. Moderate amount of stool scattered throughout the colon with large amount of gas in the proximal colon. Labs Labs: Laboratory Results - last 24 hr 03/29/24 03/29/24 03/29/24 11:59 12:32 16:54 WBC RBC Hgb Hct MCV MCH MCHC RDW Plt Count MPV Immature Gran % (Auto) Neut % (Auto) Lymph % (Auto) Reynolds % (Auto) Eos % (Auto) Baso % (Auto) Lymph # (Auto) Reynolds # (Auto) Eos # (Auto) Baso # (Auto) Abs Immat Gran (auto) Absolute Neuts (auto) Absolute Nucleated RBC Nucleated RBC % % Immature Plt Fraction Sodium 121 L Potassium 3.4 Chloride 91 L Carbon Dioxide 21 L Anion Gap 9 BUN 8 Creatinine 0.40 L Estim Creat Clear Calc 99 Estimated GFR > 60 Glucose 248 H POC Capillary Glucose 267 H 261 H Calcium 8.4 Magnesium Total Bilirubin AST ALT Alkaline Phosphatase Total Protein Albumin TSH (Reflex) Random Cortisol 03/29/24 03/29/24 03/30/24 18:35 20:46 06:20 WBC RBC Hgb Hct MCV MCH MCHC RDW Plt Count MPV Immature Gran % (Auto) Neut % (Auto) Lymph % (Auto) Reynolds % (Auto) Eos % (Auto) Baso % (Auto) Lymph # (Auto) Reynolds # (Auto) Eos # (Auto) Baso # (Auto) Abs Immat Gran (auto) Absolute Neuts (auto) Absolute Nucleated RBC Nucleated RBC % % Immature Plt Fraction Sodium 122 L Potassium Chloride Carbon Dioxide Anion Gap BUN Creatinine Estim Creat Clear Calc Estimated GFR Glucose POC Capillary Glucose 328 H 251 H Calcium Magnesium Total Bilirubin AST ALT Alkaline Phosphatase Total Protein Albumin TSH (Reflex) Random Cortisol 03/30/24 03/30/24 07:54 08:15 WBC 12.7 H RBC 4.49 Hgb 15.0 Hct 41.7 MCV 92.9 MCH 33.4 MCHC 36.0 RDW 11.6 Plt Count 302 MPV 9.5 Immature Gran % (Auto) 0.8 H Neut % (Auto) 76.2 H Lymph % (Auto) 10.1 L Reynolds % (Auto) 11.6 H Eos % (Auto) 1.1 Baso % (Auto) 0.2 Lymph # (Auto) 1.28 Reynolds # (Auto) 1.5 H Eos # (Auto) 0.1 Baso # (Auto) 0.0 Abs Immat Gran (auto) 0.10 H Absolute Neuts (auto) 9.7 H Absolute Nucleated RBC 0.000 Nucleated RBC % 0.0 % Immature Plt Fraction 2.3 Sodium 123 L Potassium 4.2 Chloride 94 L Carbon Dioxide 19 L Anion Gap 10 BUN 13 D Creatinine 0.40 L Estim Creat Clear Calc 99 Estimated GFR > 60 Glucose 246 H POC Capillary Glucose 267 H Calcium 8.7 Magnesium 2.0 Total Bilirubin 1.2 AST 27 ALT 18 Alkaline Phosphatase 47 Total Protein 7.0 Albumin 3.7 TSH (Reflex) 1.230 Random Cortisol 21.90 Quality VTE Prophylaxis VTE prophylaxis: pharmacologic ordered This report may have been done utilizing a voice recognition system. Attempts have been made to correct errors. However, there may be uncorrected grammatical,spelling, and recognition errors present. Report Initialized date/time: Evon Nova ATM MANAGER 03/30/2431 Electronically signed by: Evon Nova ATM MANAGER 03/30/24 1635 Progress Note Author Margarita [facility] Note Date/Time April 01, 2024 5:20pm [facility] [address] [place] [address] Nephrology Progress Note Signed Patient: Arti Sinclair MR#: [id number] : 1945 Acct:[id number] Age: 79 ADM Date: 03/27/24 Loc: [id number] 260-[address]: David Aleman M.D. cc: ~ Progress Note: A&P Assessment and Plan (1) Hyponatremia: Code(s): E87.1 - Hypo-osmolality and hyponatremia Status: Acute Assessment and Plan: * acute finding on admission * normal sodium levels as of 6 months ago and beyond * no previous bouts of low sodium noted * s/p IVF bolus and normal saline IVFs with associated worsening sodium levels * risk factors for low sodium: * prerenal factors * pain ( headache ) * medication related (possibly donepezil, NSAIDs, denosumab) * constipation * evaluation to date noted: * CXR negative * CT of head without pathology * urine electrolytes prerenal * TSH okay * cortisol stable * SPEP/UPEP pending * on fluid restriction currently * consider adding salt tabs as well... * follow trend of repeat serum sodiums (2) Weakness: Code(s): R53.1 - Weakness Status: Acute Assessment and Plan: * due to previous UTI (?) * no other source of infection to date * related to #1 (?) * PT/OT as tolerated (3) Headache: Code(s): R51.9 - Headache, unspecified Status: Acute Assessment and Plan: * head CT showed a normal aging brain and no acute intracranial process * does mention chronic left sphenoid sinusitis * Tylenol and tramadol for pain control * antibiotics for sinusitis (4) Constipation: Code(s): K59.00 - Constipation, unspecified Status: Acute Assessment and Plan: * as noted by recent KUB * KUB showed moderate amount of stool scattered throughout the colon with large amount of gas in the proximal colon. * bowel regimen initiated (5) Hypertension: Code(s): I10 - Essential (primary) hypertension Status: Acute Assessment and Plan: * running high initially * possibly secondary to pain * medications adjusted * follow trend of hemodynamics (6) Type 2 diabetes mellitus: Code(s): E11.9 - Type 2 diabetes mellitus without complications Status: Acute Assessment and Plan: * follow accu-cheks * glycemic control per hospitalists Will continue to follow. Subjective Date/time seen: 03/30/24 12:08 Interval history: Follow-up for acute hyponatremia. Reported chest pain earlier this morning but upon re-evaluation, patient report pain in her back area; no other acute complaints voiced when seen; no events overnight to report. Exam Narrative: General: elderly but WD/WN female in NAD Heart: normal S1 and S2; no rub Lungs: clear to auscultation Abdomen: soft, nontender but firm, positive bowel sounds Extremities: no cyanosis or clubbing; no edema Skin: warm and intact Objective Data Vital Signs Vital Signs: Vital Signs Temp Pulse Resp BP Pulse Ox O2 Del Method 03/30/24 09:32 97.7 F 106 H 24 H 109/53 L 93 03/30/24 04:15 98.7 F 91 16 149/71 H 91 03/30/24 00:00 98.0 F 96 16 149/76 H 94 03/29/24 20:00 Room Air 03/29/24 22:27 98.0 F 99 16 153/85 H 99 03/29/24 20:39 98.7 F 104 H 16 153/72 H 97 03/29/24 16:00 98.3 F 98 16 164/76 H 97 Intake/Output Intake/Output: Intake & Output 03/27/24 03/28/24 03/29/24 03/30/24 23:59 23:59 23:59 23:59 Intake Total 1240 1300 1750 420 Output Total 400 400 0 Balance 834 350 6646 420 Meds/Results Medications: Active Medications Generic Name Dose Route Start Last Admin Trade Name Freq PRN Reason Stop Dose Admin Acetaminophen 650 mg 03/27/24 15:10 03/29/24 20:23 Acetaminophen 325 Mg Tablet PO 650 mg Q4H PRN Administration Mild Pain (1-3) or Fever Amoxicillin/Clavulanate Potassium 1 tablet 03/28/24 21:00 03/30/24 08:32 Amoxicillin/Clavulanate K 875-125 Mg Tab PO 04/04/24 20:59 1 tablet Q12HR MIRE[place]LE Administration Aspirin 81 mg 03/28/24 09:00 03/30/24 08:32 Aspirin 81 Mg Enteric Tablet PO 81 mg DAILY MIRE[place] Administration Atorvastatin Calcium 20 mg 03/28/24 09:00 03/30/24 08:32 Atorvastatin 20 Mg Tablet PO 20 mg DAILY [place] Administration Dextrose 12.5 gm 03/27/24 17:16 Dextrose 50% 25 Gm/50 Ml Syringe IV PUSH PRN PRN Hypoglycemia Protocol Docusate Sodium 100 mg 03/29/24 15:50 Docusate Sodium 100 Mg Capsule PO Q12H PRN Constipation Donepezil HCl 5 mg 03/27/24 21:00 03/29/24 20:23 Donepezil Hcl 5 Mg Tablet PO 5 mg QHS [place]RE[place] Administration Dorzolamide/Timolol 1 drop 03/27/24 21:00 03/30/24 08:32 Dorzolamide/Timolol Ophth Bev 10 Ml Bottle EACH EYE 1 drop Q12HR [place] Administration Enoxaparin Sodium 40 mg 03/28/24 09:00 03/30/24 08:32 Enoxaparin 40 Mg/0.4 Ml Syringe SUB-Q 40 mg DAILY [place]RE[place] Administration Ergocalciferol 50,000 units 03/28/24 09:00 03/28/24 08:19 Ergocalciferol 50,000 Units Capsule PO 50,000 units WEEKLY MIRE[place] Administration Glucagon 1 mg 03/27/24 17:16 Glucagon For Inj 1 Mg Vial IM PRN PRN Hypoglycemia Protocol Glucose 15 gm 03/27/24 17:16 Glucose Oral Gel 15 Gm Of Glucse In 37.5 Gm Tube PO PRN PRN Hypoglycemia Protocol Hydralazine HCl 20 mg 03/28/24 15:27 Hydralazine Hcl 20 Mg/Ml Vial IV PUSH ONCE PRN Hypertension Dextrose 1,000 mls @ 100 mls/hr 03/27/24 17:16 Dextrose 5% 1,000 Ml IVPB PRN PRN Hypoglycemia Protocol Insulin Aspart 4 - 8 units 03/28/24 08:00 03/30/24 12:31 Insulin Aspart (*Bkc) 100 Units/Ml SUB-Q 8 units TIDWM [place]RE[place] Administration Protocol Insulin Aspart 2 - 4 units 03/27/24 21:00 03/29/24 21:28 Insulin Aspart (*Bkc) 100 Units/Ml SUB-Q 3 units HS MIRE[place] Administration Protocol Nifedipine 30 mg 03/28/24 15:30 03/30/24 08:32 Nifedipine 30 Mg Tab.Er.24 PO 30 mg QAM [place] Administration Ondansetron HCl 4 mg 03/27/24 15:10 Ondansetron Inj 4 Mg/2 Ml Vial IV PUSH Q6H PRN Nausea And Vomiting Polyethylene Glycol 17 gm 03/29/24 15:05 03/30/24 08:32 Polyethylene Glycol 3350 17 Gm Powd.Pack PO 17 gm QAM [place]RE[place] Administration Simethicone 80 mg 03/29/24 17:00 03/30/24 08:32 Simethicone 80 Mg Tab.Chew PO 80 mg BID MIREILLE Administration Tramadol HCl 25 mg 03/28/24 19:51 03/30/24 08:33 Tramadol Hcl (*Crx) 25 Mg Tablet PO 25 mg Q6H PRN Administration Pain Rated 4-6 Radiology Results: ITS Impressions Chest X-Ray 03/27/24 14:12 IMPRESSION: 1. No acute cardiopulmonary disease. Head CT 03/28/24 10:46 IMPRESSION: 1. Normal aging brain. No acute intracranial process. 2. Chronic left sphenoid sinusitis. Abdomen X-Ray 03/29/24 14:55 IMPRESSION: 1. Moderate amount of stool scattered throughout the colon with large amount of gas in the proximal colon. Labs Labs: Laboratory Tests 03/30/24 08:15 03/30/24 08:15 Calcium 8.7 Magnesium 2.0 Total Bilirubin 1.2 AST 27 ALT 18 Alkaline Phosphatase 47 Total Protein 7.0 This report may have been done utilizing a voice recognition system. Attempts have been made to correct errors. However, there may be uncorrected grammatical,spelling, and recognition errors present. Report Initialized date/time: Margarita Macdonald MD 03/30/241546 Electronically signed by: Margarita Macdonald MD 04/01/24 1720 Progress Note Author [facility] Note Date/Time March 31, 2024 4:[address] [place] [address] [address] [place] [address] Hospitalist Progress Note Signed Patient: Arti Sinclair MR#: [id number] : 1945 Acct:[id number] Age: 79 ADM Date: 03/27/24 Loc: [id number] 260-[address]: David Aleman M.D. cc: ~ Progress Note: A&P Assessment and Plan (1) Weakness: Code(s): R53.1 - Weakness Status: Acute Assessment and Plan: * increased fatigue and weakness since Monday of last week after finishing a full course Keflex for urinary tract infection * PT and OT ordered * Vitamin D level 36.5 * Vitamin B12 level 497 * will also check urine culture to assure that her UTI cleared completely, her UA did not reflux culture this admission * chest x-ray was negative for any acute cardiopulmonary disease * respiratory panel negative * UA was negative for nitrates or leukocytes * TSH 1.230 * Blood cultures No growth to date. (2) Chest pain: Code(s): R07.9 - Chest pain, unspecified Status: Ruled-out Assessment and Plan: * EKG showed sinus rhythm with left ventricular hypertrophy and ST-T change, QTc 450. * 03/30/24 Troponin 0.012, 2nd Troponin <0.012 * supplemental oxygen placed on patient at 2 liters nasal cannula. * Chest pain subsided. * Telemetry placed. * No chest pain today. (3) Type 2 diabetes mellitus: Code(s): E11.9 - Type 2 diabetes mellitus without complications Status: Acute Assessment and Plan: * Hypoglycemic protocol * High dose sliding scale insulin. * HgbA1C 9.8% on 03/27/24 (4) Abnormal finding on urinalysis: Code(s): R82.90 - Unspecified abnormal findings in urine Status: Acute Assessment and Plan: * UA showed 1+ urine protein, 3+ urine glucose, 3+ urine ketone, 3-5 urine RBC, negative leukocytes and negative nitrates. * Patient was just treated for UTI with urine culture showed Klebsiella pneumoniae which was pansensitive. She was on a course of Keflex which she finished on of last week. * We will go ahead and get a urine culture to assure that it is cleared completely * Repeat UA with reflex sent today. (5) Urine retention: Code(s): R33.9 - Retention of urine, unspecified Status: Acute Assessment and Plan: * Bladder scan 767, straight cath 1250. * Bladder scan q 6. If retains over 700 insert a rangel catheter. * UA with reflex to culture sent. * Monitor I&O's * nephrology following (6) Hyponatremia: Code(s): E87.1 - Hypo-osmolality and hyponatremia Status: Acute Assessment and Plan: * Acute, could be due to dehydration vs tea and toast * sodium 125 (improving), chloride 96 * patient was given 1 L of normal saline while in the ED * urine sodium 89, urine osmolarity 718, serum osmolarity pending. * Fluid restriction 1500 ml * Nephrology consulted, urine and labs ordered. Awaiting results. * Sodium Chloride 1 gram PO BID. (7) Constipation: Code(s): K59.00 - Constipation, unspecified Status: Acute Assessment and Plan: * KUB 03/29/24 showed Moderate amount of stool scattered throughout the colon with large amount of gas in the proximal colon. * Miralax 17 gm PO daily, Docusate 100 mg PO q12 PRN, and Simethicone 80 mg PO BID * Patient with abdominal distention and no bowel movement. Repeat KUB today showed: No interval change in moderate amount of stool scattered throughout the colon with large amount of gas in the proximal colon. * Added a soap suds enema, change Docusate 100 mg PO q12 scheduled, increased Simethicone 80 mg PO QID, and continue Miralax 17 gm PO daily. * No results with soap suds enema, Bisacodyl 10 mg OR suppository x1 ordered for today. Added Bisacodyl 10 mg suppositorydaily PRN. * Encourage oral intake. (8) Chronic sphenoidal sinusitis: Code(s): J32.3 - Chronic sphenoidal sinusitis Status: Chronic Assessment and Plan: * Augmentin 875-125 mg PO q12. (9) Hypertension: Code(s): I10 - Essential (primary) hypertension Status: Acute Assessment and Plan: * Start Procardia XL 30 mg PO daily * Hydralazine 20 mg ivp for systolic >180. * Blood pressure 140/73 * Monitor blood pressure. (10) Hypokalemia: Code(s): E87.6 - Hypokalemia Status: Acute Assessment and Plan: * potassium 3.8 * continue to trend (11) Headache: Code(s): R51.9 - Headache, unspecified Status: Acute Assessment and Plan: * Head CT showed a normal aging brain and no acute intracranial process, chronic left sphenoid sinusitis. * Tylenol 650 mg PO q 4 PRN. * Tramadol 25 mg PO q 6 PRN. (12) Vitamin D deficiency: Code(s): E55.9 - Vitamin D deficiency, unspecified Status: Chronic Assessment and Plan: * currently on vitamin D 46860 units weekly * vitamin-D level 36.5 (13) Vitamin B12 deficiency: Code(s): E53.8 - Deficiency of other specified B group vitamins Status: Chronic Assessment and Plan: * continue aspirin and atorvastatin (14) Dementia: Code(s): F03.90 - Unspecified dementia, unspecified severity, without behavioral disturbance, psychotic disturbance, mood disturbance, and anxiety Status: Chronic Assessment and Plan: * continue Aricept (15) Mixed hyperlipidemia: Code(s): E78.2 - Mixed hyperlipidemia Status: Chronic Assessment and Plan: * continue aspirin and atorvastatin Subjective Date/time seen: 03/31/24 09:35 Interval history: Nurse reported patient with abdominal distension this morning and had trouble getting up to commode last night. Bladder scanned patient showed 767, straight cath 1250 ml of urine. Patient looking off at times and talking. Patient denies pain or shortness of breath. Oriented to self and when told she is at the hospital she stated that she knows. Review of Systems Review of Systems: All systems reviewed & are unremarkable except as noted in HPI and below Exam Const: General: comfortable Eyes: Sclera: sclerae normal Pupils: Equal, round and reactive pupils present Resp: Auscultation: diminished lung sounds Cardio: Rate: tachycardic (Telemetry ST 116) GI: Inspection: distended GI Palp: No Tenderness to palpation present (GI) Other: semi firm, hypoactive bowel sounds. Neuro: Speech: normal speech Extrem: General: normal to inspection Psych: Other: Memory loss. Alert to self. Objective Data Vital Signs Vital Signs: Vital Signs - 24 hr 03/30/24 16:00 03/30/24 16:39 03/30/24 16:00 Temperature 97.8 F Pulse Rate 107 H 107 H 118 H Respiratory Rate 22 H Blood Pressure 135/72 Pulse Oximetry 96 03/30/24 20:07 03/30/24 22:36 03/30/24 20:00 Temperature 98.0 F 98.3 F Pulse Rate 114 H 106 H 117 H Respiratory Rate 18 16 Blood Pressure 141/77 H 140/77 Pulse Oximetry 96 97 03/31/24 00:00 03/31/24 04:00 03/31/24 00:00 Temperature 97.9 F Pulse Rate 108 H 115 H 47 L Respiratory Rate 18 Blood Pressure 140/41 L Pulse Oximetry 95 03/31/24 08:00 Temperature 98 F Pulse Rate 108 H Respiratory Rate 24 H Blood Pressure 140/73 Pulse Oximetry 97 Intake/Output Intake/Output: Intake & Output 03/28/24 03/29/24 03/30/24 03/31/24 23:59 23:59 23:59 23:59 Intake Total 1300 1750 660 0 Output Total 400 0 1250 Balance 900 1750 660 -1250 Meds/Results Medications: Active Medications Generic Name Dose Route Start Last Admin Trade Name Freq PRN Reason Stop Dose Admin Acetaminophen 650 mg 03/27/24 15:10 03/30/24 21:18 Acetaminophen 325 Mg Tablet PO 650 mg Q4H PRN Administration Mild Pain (1-3) or Fever Amoxicillin/Clavulanate Potassium 1 tablet 03/28/24 21:00 03/30/24 21:18 Amoxicillin/Clavulanate K 875-125 Mg Tab PO 04/04/24 20:59 1 tablet Q12HR MIREILLE Administration Aspirin 81 mg 03/28/24 09:00 03/30/24 08:32 Aspirin 81 Mg Enteric Tablet PO 81 mg DAILY MIRE[place]LE Administration Atorvastatin Calcium 20 mg 03/28/24 09:00 03/30/24 08:32 Atorvastatin 20 Mg Tablet PO 20 mg DAILY MIRE[place] Administration Dextrose 12.5 gm 03/27/24 17:16 Dextrose 50% 25 Gm/50 Ml Syringe IV PUSH PRN PRN Hypoglycemia Protocol Docusate Sodium 100 mg 03/31/24 09:00 Docusate Sodium 100 Mg Capsule PO Q12H MIRE[place]LE Donepezil HCl 5 mg 03/27/24 21:00 03/30/24 21:18 Donepezil Hcl 5 Mg Tablet PO 5 mg QHS MIRE[place]LE Administration Dorzolamide/Timolol 1 drop 03/27/24 21:00 03/30/24 21:19 Dorzolamide/Timolol Ophth Bev 10 Ml Bottle EACH EYE 1 drop Q12HR [place]RE[place]LE Administration Enoxaparin Sodium 40 mg 03/28/24 09:00 03/30/24 08:32 Enoxaparin 40 Mg/0.4 Ml Syringe SUB-Q 40 mg DAILY MIRE[place]LE Administration Ergocalciferol 50,000 units 03/28/24 09:00 03/28/24 08:19 Ergocalciferol 50,000 Units Capsule PO 50,000 units WEEKLY MIRE[place]LE Administration Glucagon 1 mg 03/27/24 17:16 Glucagon For Inj 1 Mg Vial IM PRN PRN Hypoglycemia Protocol Glucose 15 gm 03/27/24 17:16 Glucose Oral Gel 15 Gm Of Glucse In 37.5 Gm Tube PO PRN PRN Hypoglycemia Protocol Hydralazine HCl 20 mg 03/28/24 15:27 Hydralazine Hcl 20 Mg/Ml Vial IV PUSH ONCE PRN Hypertension Dextrose 1,000 mls @ 100 mls/hr 03/27/24 17:16 Dextrose 5% 1,000 Ml IVPB PRN PRN Hypoglycemia Protocol Insulin Aspart 4 - 8 units 03/28/24 08:00 03/31/24 08:42 Insulin Aspart (*Bkc) 100 Units/Ml SUB-Q 5 units TIDWM MIRE[place] Administration Protocol Insulin Aspart 2 - 4 units 03/27/24 21:00 03/31/24 00:09 Insulin Aspart (*Bkc) 100 Units/Ml SUB-Q Not Given HS MI[place] Protocol Nifedipine 30 mg 03/28/24 15:30 03/30/24 08:32 Nifedipine 30 Mg Tab.Er.24 PO 30 mg QAM [place] Administration Ondansetron HCl 4 mg 03/27/24 15:10 Ondansetron Inj 4 Mg/2 Ml Vial IV PUSH Q6H PRN Nausea And Vomiting Polyethylene Glycol 17 gm 03/29/24 15:05 03/30/24 08:32 Polyethylene Glycol 3350 17 Gm Powd.Pack PO 17 gm QAM [place] Administration Simethicone 80 mg 03/31/24 09:00 Simethicone 80 Mg Tab.Chew PO QID MIRE[place] Sodium Chloride 1 gm 03/30/24 17:00 03/30/24 18:07 Sodium Chloride 1 Gm Tablet PO 1 gm BID MIRE[place]LE Administration Tramadol HCl 25 mg 03/28/24 19:51 03/30/24 18:07 Tramadol Hcl (*Crx) 25 Mg Tablet PO 25 mg Q6H PRN Administration Pain Rated 4-6 Radiology Results: ITS Impressions Chest X-Ray 03/27/24 14:12 IMPRESSION: 1. No acute cardiopulmonary disease. Head CT 03/28/24 10:46 IMPRESSION: 1. Normal aging brain. No acute intracranial process. 2. Chronic left sphenoid sinusitis. Abdomen X-Ray 03/31/24 08:31 IMPRESSION: 1. No interval change in moderate amount of stool scattered throughout the colonwith large amount of gas in the proximal colon. Labs Labs: Laboratory Results - last 24 hr 03/30/24 03/30/24 03/30/24 05:01 05:01 09:25 WBC RBC Hgb Hct MCV MCH MCHC RDW Plt Count MPV Immature Gran % (Auto) Neut % (Auto) Lymph % (Auto) Reynolds % (Auto) Eos % (Auto) Baso % (Auto) Lymph # (Auto) Reynolds # (Auto) Eos # (Auto) Baso # (Auto) Abs Immat Gran (auto) Absolute Neuts (auto) Absolute Nucleated RBC Nucleated RBC % Sodium Potassium Chloride Carbon Dioxide Anion Gap BUN Creatinine Estim Creat Clear Calc Estimated GFR Glucose POC Capillary Glucose Calcium Magnesium Total Bilirubin AST ALT Alkaline Phosphatase Troponin I 0.012 Total Protein Albumin Urine Eosinophils None seen Ur Random Creatinine 61 U Random Total Protein 28 32 H Ur Random Sodium 35 Ur Random Urea 737 Urine Creatinine 64.0 Protein/Creatinin Ratio 525 H Protein/Creat Ratio 2 0.46 H 03/30/24 03/30/24 03/30/24 11:54 12:04 15:45 WBC RBC Hgb Hct MCV MCH MCHC RDW Plt Count MPV Immature Gran % (Auto) Neut % (Auto) Lymph % (Auto) Reynolds % (Auto) Eos % (Auto) Baso % (Auto) Lymph # (Auto) Reynolds # (Auto) Eos # (Auto) Baso # (Auto) Abs Immat Gran (auto) Absolute Neuts (auto) Absolute Nucleated RBC Nucleated RBC % Sodium 123 L Potassium 3.9 Chloride 93 L Carbon Dioxide 20 L Anion Gap 10 BUN 18 H Creatinine 0.60 L Estim Creat Clear Calc 69 Estimated GFR > 60 Glucose 319 H POC Capillary Glucose 418 H 394 H Calcium 9.3 Magnesium Total Bilirubin AST ALT Alkaline Phosphatase Troponin I < 0.012 Total Protein Albumin Urine Eosinophils Ur Random Creatinine U Random Total Protein Ur Random Sodium Ur Random Urea Urine Creatinine Protein/Creatinin Ratio Protein/Creat Ratio 2 03/30/24 03/30/24 03/30/24 16:51 20:08 23:23 WBC RBC Hgb Hct MCV MCH MCHC RDW Plt Count MPV Immature Gran % (Auto) Neut % (Auto) Lymph % (Auto) Reynolds % (Auto) Eos % (Auto) Baso % (Auto) Lymph # (Auto) Reynolds # (Auto) Eos # (Auto) Baso # (Auto) Abs Immat Gran (auto) Absolute Neuts (auto) Absolute Nucleated RBC Nucleated RBC % Sodium Potassium Chloride Carbon Dioxide Anion Gap BUN Creatinine Estim Creat Clear Calc Estimated GFR Glucose POC Capillary Glucose 331 H 414 H 296 H Calcium Magnesium Total Bilirubin AST ALT Alkaline Phosphatase Troponin I Total Protein Albumin Urine Eosinophils Ur Random Creatinine U Random Total Protein Ur Random Sodium Ur Random Urea Urine Creatinine Protein/Creatinin Ratio Protein/Creat Ratio 2 03/31/24 03/31/24 03/31/24 05:08 05:58 08:16 WBC 12.8 H RBC 4.58 Hgb 14.9 Hct 42.5 MCV 92.8 MCH 32.5 MCHC 35.1 RDW 11.8 Plt Count 346 MPV 9.4 Immature Gran % (Auto) 0.9 H Neut % (Auto) 68.9 Lymph % (Auto) 14.8 L Reynolds % (Auto) 13.8 H Eos % (Auto) 1.2 Baso % (Auto) 0.4 Lymph # (Auto) 1.89 Reynolds # (Auto) 1.8 H Eos # (Auto) 0.2 Baso # (Auto) 0.1 Abs Immat Gran (auto) 0.12 H Absolute Neuts (auto) 8.8 H Absolute Nucleated RBC 0.000 Nucleated RBC % 0.0 Sodium 125 L Potassium 3.8 Chloride 96 L Carbon Dioxide 20 L Anion Gap 9 BUN 19 H Creatinine 0.50 L Estim Creat Clear Calc 81 Estimated GFR > 60 Glucose 260 H POC Capillary Glucose 318 H 283 H Calcium 9.0 Magnesium 2.1 Total Bilirubin 0.8 AST 20 ALT 20 Alkaline Phosphatase 68 Troponin I Total Protein 7.0 Albumin 3.5 Urine Eosinophils Ur Random Creatinine U Random Total Protein Ur Random Sodium Ur Random Urea Urine Creatinine Protein/Creatinin Ratio Protein/Creat Ratio 2 Quality VTE Prophylaxis VTE prophylaxis: pharmacologic ordered This report may have been done utilizing a voice recognition system. Attempts have been made to correct errors. However, there may be uncorrected grammatical,spelling, and recognition errors present. Report Initialized date/time: Evon Nova ATM MANAGER 03/31/2435 Electronically signed by: Evon Nova ATM MANAGER 03/31/24 1637 Progress Note Author Margarita [facility] Note Date/Time April 01, 2024 5:22pm [facility] [address] [place] [id number] Nephrology Progress Note Signed Patient: Arti Sinclair MR#: [id number] : 1945 Acct:[id number] Age: 79 ADM Date: 03/27/24 Loc: [address] 260-[address]: David Aleman M.D. cc: ~ Progress Note: A&P Assessment and Plan (1) Hyponatremia: Code(s): E87.1 - Hypo-osmolality and hyponatremia Status: Acute Assessment and Plan: * acute finding on admission * normal sodium levels as of 6 months ago and beyond * no previous bouts of low sodium noted * s/p IVF bolus and normal saline IVFs with associated worsening sodium levels * risk factors for low sodium: * prerenal factors * pain ( headache ) * medication related (possibly donepezil, NSAIDs, denosumab) * constipation * urinary retention (as noted this AM) * evaluation to date noted: * CXR negative * CT of head without pathology * urine electrolytes prerenal * TSH okay * cortisol stable * SPEP/UPEP pending * on fluid restriction currently * salt tabs added yesterday * follow trend of repeat serum sodiums (2) Weakness: Code(s): R53.1 - Weakness Status: Acute Assessment and Plan: * due to previous UTI (?) * worsened by urinary retention as noted this AM * no other source of infection to date * related to #1 (?) * PT/OT as tolerated (3) Headache: Code(s): R51.9 - Headache, unspecified Status: Acute Assessment and Plan: * head CT showed a normal aging brain and no acute intracranial process * does mention chronic left sphenoid sinusitis * Tylenol and tramadol for pain control * antibiotics for sinusitis (4) Constipation: Code(s): K59.00 - Constipation, unspecified Status: Acute Assessment and Plan: * as noted by recent KUB * last KUB showed moderate amount of stool scattered throughout the colon with large amount of gas in the proximal colon * bowel regimen initiated (5) Hypertension: Code(s): I10 - Essential (primary) hypertension Status: Acute Assessment and Plan: * running high initially * possibly secondary to pain * medications adjusted * follow trend of hemodynamics (6) Type 2 diabetes mellitus: Code(s): E11.9 - Type 2 diabetes mellitus without complications Status: Acute Assessment and Plan: * follow accu-cheks * glycemic control per hospitalists Will continue to follow. Subjective Date/time seen: 03/31/24 11:34 Interval history: Follow-up for acute hyponatremia. Issues with abdominal distension earlier this morning with bladder scan demonstrating evidence of urinary retention; s/p straight catheterization yielding almost 1200cc of urine; no apparent distress noted otherwise at the time of my visit. Exam Narrative: General: elderly but WD/WN female in NAD Heart: normal S1 and S2; no rub Lungs: clear to auscultation Abdomen: soft, nontender but firm, positive bowel sounds Extremities: no cyanosis or clubbing; no edema Skin: no rash Objective Data Vital Signs Vital Signs: Vital Signs Temp Pulse Resp BP Pulse Ox 03/31/24 08:00 98 F 108 H 24 H 140/73 97 03/31/24 00:00 97.9 F 47 L 18 140/41 L 95 03/31/24 04:00 115 H 03/31/24 00:00 108 H 03/30/24 20:00 117 H 03/30/24 22:36 98.3 F 106 H 16 140/77 97 03/30/24 20:07 98.0 F 114 H 18 141/77 H 96 Intake/Output Intake/Output: Intake & Output 03/28/24 03/29/24 03/30/24 03/31/24 23:59 23:59 23:59 23:59 Intake Total 1300 1750 660 0 Output Total 400 0 1250 Balance 900 1750 660 -1250 Meds/Results Medications: Active Medications Generic Name Dose Route Start Last Admin Trade Name Freq PRN Reason Stop Dose Admin Acetaminophen 650 mg 03/31/24 14:18 Acetaminophen 325 Mg Tablet PO Q4H PRN Insomnia, pain 1-3, fever Amoxicillin/Clavulanate Potassium 1 tablet 03/28/24 21:00 03/31/24 12:18 Amoxicillin/Clavulanate K 875-125 Mg Tab PO 04/04/24 20:59 1 tablet Q12HR MIRE[place] Administration Aspirin 81 mg 03/28/24 09:00 03/31/24 12:18 Aspirin 81 Mg Enteric Tablet PO 81 mg DAILY [place] Administration Atorvastatin Calcium 20 mg 03/28/24 09:00 03/31/24 12:18 Atorvastatin 20 Mg Tablet PO 20 mg DAILY [place] Administration Bisacodyl 10 mg 03/31/24 15:55 Bisacodyl 10 Mg Suppository RECTAL DAILY PRN Constipation Dextrose 12.5 gm 03/27/24 17:16 Dextrose 50% 25 Gm/50 Ml Syringe IV PUSH PRN PRN Hypoglycemia Protocol Docusate Sodium 100 mg 03/31/24 21:00 Docusate Sodium Liq 100 Mg/10 Ml Udc PO Q12HR [place] Donepezil HCl 5 mg 03/27/24 21:00 03/30/24 21:18 Donepezil Hcl 5 Mg Tablet PO 5 mg QHS [place] Administration Dorzolamide/Timolol 1 drop 03/27/24 21:00 03/31/24 12:19 Dorzolamide/Timolol Ophth Bev 10 Ml Bottle EACH EYE 1 drop Q12HR [place] Administration Enoxaparin Sodium 40 mg 03/28/24 09:00 03/31/24 12:19 Enoxaparin 40 Mg/0.4 Ml Syringe SUB-Q 40 mg DAILY [place] Administration Ergocalciferol 50,000 units 03/28/24 09:00 03/28/24 08:19 Ergocalciferol 50,000 Units Capsule PO 50,000 units WEEKLY [place] Administration Glucagon 1 mg 03/27/24 17:16 Glucagon For Inj 1 Mg Vial IM PRN PRN Hypoglycemia Protocol Glucose 15 gm 03/27/24 17:16 Glucose Oral Gel 15 Gm Of Glucse In 37.5 Gm Tube PO PRN PRN Hypoglycemia Protocol Hydralazine HCl 20 mg 03/28/24 15:27 Hydralazine Hcl 20 Mg/Ml Vial IV PUSH ONCE PRN Hypertension Dextrose 1,000 mls @ 100 mls/hr 03/27/24 17:16 Dextrose 5% 1,000 Ml IVPB PRN PRN Hypoglycemia Protocol Insulin Aspart 4 - 8 units 03/28/24 08:00 03/31/24 12:16 Insulin Aspart (*Bkc) 100 Units/Ml SUB-Q 5 units TIDWM [place] Administration Protocol Insulin Aspart 2 - 4 units 03/27/24 21:00 03/31/24 00:09 Insulin Aspart (*Bkc) 100 Units/Ml SUB-Q Not Given HS [place] Protocol Nifedipine 30 mg 03/28/24 15:30 03/31/24 12:19 Nifedipine 30 Mg Tab.Er.24 PO 30 mg QAM [place] Administration Ondansetron HCl 4 mg 03/27/24 15:10 Ondansetron Inj 4 Mg/2 Ml Vial IV PUSH Q6H PRN Nausea And Vomiting Polyethylene Glycol 17 gm 03/29/24 15:05 03/31/24 12:19 Polyethylene Glycol 3350 17 Gm Powd.Pack PO 17 gm QAM [place] Administration Simethicone 80 mg 03/31/24 09:00 03/31/24 12:17 Simethicone 80 Mg Tab.Chew PO 80 mg QID [place] Administration Sodium Chloride 1 gm 03/30/24 17:00 03/31/24 12:18 Sodium Chloride 1 Gm Tablet PO 1 gm BID [place] Administration Tramadol HCl 25 mg 03/28/24 19:51 03/31/24 12:23 Tramadol Hcl (*Crx) 25 Mg Tablet PO 25 mg Q6H PRN Administration Pain Rated 4-6 Radiology Results: ITS Impressions Chest X-Ray 03/27/24 14:12 IMPRESSION: 1. No acute cardiopulmonary disease. Head CT 03/28/24 10:46 IMPRESSION: 1. Normal aging brain. No acute intracranial process. 2. Chronic left sphenoid sinusitis. Abdomen X-Ray 03/31/24 08:31 IMPRESSION: 1. No interval change in moderate amount of stool scattered throughout the colonwith large amount of gas in the proximal colon. Labs Labs: Laboratory Tests 03/31/24 05:08 03/31/24 05:08 Calcium 9.0 Magnesium 2.1 Total Bilirubin 0.8 AST 20 ALT 20 Alkaline Phosphatase 68 Total Protein 7.0 Albumin 3.5 This report may have been done utilizing a voice recognition system. Attempts have been made to correct errors. However, there may be uncorrected grammatical,spelling, and recognition errors present. Report Initialized date/time: Margarita Macdonald MD 03/31/241718 Electronically signed by: Margarita Macdonald MD 04/01/24 172 Progress Note Author Evon [facility] Note Date/Time April 01, 2024 4:53pm [facility] [address] [place] [id number] Hospitalist Progress Note Signed Patient: Arti Sinclair MR#: [id number] : 1945 Acct:[id number] Age: 79 ADM Date: 03/27/24 Loc: [id number] 260-[address]: David Aleman M.D. cc: ~ Progress Note: A&P Assessment and Plan (1) Weakness: Code(s): R53.1 - Weakness Status: Acute Assessment and Plan: * increased fatigue and weakness since Monday of last week after finishing a full course Keflex for urinary tract infection * PT and OT ordered * Vitamin D level 36.5 * Vitamin B12 level 497 * will also check urine culture to assure that her UTI cleared completely, her UA did not reflux culture this admission * chest x-ray was negative for any acute cardiopulmonary disease * respiratory panel negative * UA was negative for nitrates or leukocytes * TSH 1.230 * Blood cultures No growth to date. (2) Type 2 diabetes mellitus: Code(s): E11.9 - Type 2 diabetes mellitus without complications Status: Acute Assessment and Plan: * Hypoglycemic protocol * High dose sliding scale insulin. * HgbA1C 9.8% on 03/27/24 * Blood sugars running 259-310 * Add Glargine insulin 12 units subq at bedtime. (3) Abnormal finding on urinalysis: Code(s): R82.90 - Unspecified abnormal findings in urine Status: Acute Assessment and Plan: * UA showed 1+ urine protein, 3+ urine glucose, 3+ urine ketone, 3-5 urine RBC, negative leukocytes and negative nitrates. * Patient was just treated for UTI with urine culture showed Klebsiella pneumoniae which was pansensitive. She was on a course of Keflex which she finished on of last week. * We will go ahead and get a urine culture to assure that it is cleared completely * Repeat UA with reflex sent today. (4) Urine retention: Code(s): R33.9 - Retention of urine, unspecified Status: Acute Assessment and Plan: * Rangel catheter placed this morning. * UA with reflex to culture sent. * Monitor I&O's * nephrology following (5) Hyponatremia: Code(s): E87.1 - Hypo-osmolality and hyponatremia Status: Acute Assessment and Plan: * Acute, could be due to dehydration vs tea and toast * sodium 130(improving), chloride 97 * patient was given 1 L of normal saline while in the ED * urine sodium 89, urine osmolarity 718, serum osmolarity pending. * Fluid restriction 1500 ml * Nephrology consulted, urine and labs ordered. Awaiting results. * Sodium Chloride 1 gram PO BID. (6) Constipation: Code(s): K59.00 - Constipation, unspecified Status: Acute Assessment and Plan: * KUB 03/29/24 showed Moderate amount of stool scattered throughout the colon with large amount of gas in the proximal colon. * Miralax 17 gm PO daily, Docusate 100 mg PO q12 PRN, and Simethicone 80 mg PO BID * Patient with abdominal distention and no bowel movement. Repeat KUB today showed: No interval change in moderate amount of stool scattered throughout the colon with large amount of gas in the proximal colon. * Added a soap suds enema, change Docusate 100 mg PO q12 scheduled, increased Simethicone 80 mg PO QID, and continue Miralax 17 gm PO daily. * No results with soap suds enema, Bisacodyl 10 mg OR suppository x1 ordered for today. Added Bisacodyl 10 mg suppositorydaily PRN. * Encourage oral intake. * Small BM this morning. (7) Chronic sphenoidal sinusitis: Code(s): J32.3 - Chronic sphenoidal sinusitis Status: Chronic Assessment and Plan: * Augmentin 875-125 mg PO q12. (8) Hypertension: Code(s): I10 - Essential (primary) hypertension Status: Acute Assessment and Plan: * Start Procardia XL 30 mg PO daily * Hydralazine 20 mg ivp for systolic >180. * Blood pressure 148/89. * Monitor blood pressure. (9) Back pain: Code(s): M54.9 - Dorsalgia, unspecified Status: Acute Assessment and Plan: * Tylenol 650 mg PO q 4 PRN. * Tramadol 25 mg PO q 6 PRN. (10) Hypokalemia: Code(s): E87.6 - Hypokalemia Status: Acute Assessment and Plan: * potassium 4.2 * continue to trend (11) Headache: Code(s): R51.9 - Headache, unspecified Status: Acute Assessment and Plan: * Head CT showed a normal aging brain and no acute intracranial process, chronic left sphenoid sinusitis. * Tylenol 650 mg PO q 4 PRN. * Tramadol 25 mg PO q 6 PRN. (12) Vitamin D deficiency: Code(s): E55.9 - Vitamin D deficiency, unspecified Status: Chronic Assessment and Plan: * currently on vitamin D 86481 units weekly * vitamin-D level 36.5 (13) Vitamin B12 deficiency: Code(s): E53.8 - Deficiency of other specified B group vitamins Status: Chronic Assessment and Plan: * continue aspirin and atorvastatin (14) Dementia: Code(s): F03.90 - Unspecified dementia, unspecified severity, without behavioral disturbance, psychotic disturbance, mood disturbance, and anxiety Status: Chronic Assessment and Plan: * continue Aricept (15) Mixed hyperlipidemia: Code(s): E78.2 - Mixed hyperlipidemia Status: Chronic Assessment and Plan: * continue aspirin and atorvastatin Subjective Date/time seen: 04/01/24 09:53 Interval history: Patient sitting up in chair. Patient reports pain in back is an 8 , constant, and aching. Patient was just given a Tramadol. Patient denied shortness of breath, headache, nausea, or vomiting. Rangel placed this morning yellow urine. Nurse reports small bowel movement this morning. Review of Systems Review of Systems: All systems reviewed & are unremarkable except as noted in HPI and below Exam Const: General: no acute distress and uncomfortable Resp: Auscultation: diminished lung sounds Cardio: Rate: tachycardic (Telemetry- ST 108) GI: Inspection: distended GI Palp: No Tenderness to palpation present (GI) Other: semi firm, hypoactive bowel sounds. Urinary Catheter: Urinary Catheter: patent and draining and urine clear Neuro: Speech: normal speech Extrem: General: normal to inspection Psych: Other: Memory loss. Alert to self. Objective Data Vital Signs Vital Signs: Vital Signs - 24 hr 03/31/24 16:00 03/31/24 20:46 03/31/24 12:00 Temperature 98.2 F 98.2 F Pulse Rate 114 H 113 H 111 H Respiratory Rate 24 H 16 Blood Pressure 140/71 145/67 H Pulse Oximetry 97 99 Oxygen Delivery 03/31/24 16:00 03/31/24 20:00 03/31/24 20:00 Temperature Pulse Rate 119 H 114 H Respiratory Rate Blood Pressure Pulse Oximetry Oxygen Delivery Room Air 04/01/24 00:15 04/01/24 00:00 04/01/24 04:00 Temperature 98.2 F Pulse Rate 107 H 97 108 H Respiratory Rate 18 Blood Pressure 140/70 Pulse Oximetry 100 Oxygen Delivery 04/01/24 07:54 04/01/24 08:00 Temperature 97.6 F Pulse Rate 104 H Respiratory Rate 18 Blood Pressure 145/90 H Pulse Oximetry 93 Oxygen Delivery Room Air Intake/Output Intake/Output: Intake & Output 03/29/24 03/30/24 03/31/24 04/01/24 23:59 23:59 23:59 23:59 Intake Total 1750 660 0 118 Output Total 0 1250 550 Balance 1750 660 -1250 -432 Meds/Results Medications: Active Medications Generic Name Dose Route Start Last Admin Trade Name Freq PRN Reason Stop Dose Admin Acetaminophen 650 mg 03/31/24 14:18 03/31/24 21:05 Acetaminophen 325 Mg Tablet PO 650 mg Q4H PRN Administration Insomnia, pain 1-3, fever Amoxicillin/Clavulanate Potassium 1 tablet 03/28/24 21:00 04/01/24 08:48 Amoxicillin/Clavulanate K 875-125 Mg Tab PO 04/04/24 20:59 1 tablet Q12HR MIREILLE Administration Aspirin 81 mg 03/28/24 09:00 04/01/24 08:47 Aspirin 81 Mg Enteric Tablet PO 81 mg DAILY MIREILLE Administration Atorvastatin Calcium 20 mg 03/28/24 09:00 04/01/24 08:48 Atorvastatin 20 Mg Tablet PO 20 mg DAILY MIREILLE Administration Bisacodyl 10 mg 03/31/24 15:55 Bisacodyl 10 Mg Suppository RECTAL DAILY PRN Constipation Dextrose 12.5 gm 03/27/24 17:16 Dextrose 50% 25 Gm/50 Ml Syringe IV PUSH PRN PRN Hypoglycemia Protocol Docusate Sodium 100 mg 03/31/24 21:00 04/01/24 08:48 Docusate Sodium Liq 100 Mg/10 Ml Udc PO 100 mg Q12HR [place] Administration Donepezil HCl 5 mg 03/27/24 21:00 03/31/24 21:04 Donepezil Hcl 5 Mg Tablet PO Not Given QHS [place] Dorzolamide/Timolol 1 drop 03/27/24 21:00 04/01/24 08:49 Dorzolamide/Timolol Ophth Bev 10 Ml Bottle EACH EYE 1 drop Q12HR [place] Administration Enoxaparin Sodium 40 mg 03/28/24 09:00 04/01/24 08:48 Enoxaparin 40 Mg/0.4 Ml Syringe SUB-Q 40 mg DAILY [place] Administration Ergocalciferol 50,000 units 03/28/24 09:00 03/28/24 08:19 Ergocalciferol 50,000 Units Capsule PO 50,000 units WEEKLY [place] Administration Glucagon 1 mg 03/27/24 17:16 Glucagon For Inj 1 Mg Vial IM PRN PRN Hypoglycemia Protocol Glucose 15 gm 03/27/24 17:16 Glucose Oral Gel 15 Gm Of Glucse In 37.5 Gm Tube PO PRN PRN Hypoglycemia Protocol Hydralazine HCl 20 mg 03/28/24 15:27 Hydralazine Hcl 20 Mg/Ml Vial IV PUSH ONCE PRN Hypertension Dextrose 1,000 mls @ 100 mls/hr 03/27/24 17:16 Dextrose 5% 1,000 Ml IVPB PRN PRN Hypoglycemia Protocol Insulin Aspart 4 - 8 units 03/28/24 08:00 04/01/24 08:48 Insulin Aspart (*Bkc) 100 Units/Ml SUB-Q 6 units TIDWM [place] Administration Protocol Insulin Aspart 2 - 4 units 03/27/24 21:00 03/31/24 21:11 Insulin Aspart (*Bkc) 100 Units/Ml SUB-Q 2 units HS [place] Administration Protocol Melatonin 5 mg 03/31/24 21:00 03/31/24 21:06 Melatonin 5 Mg Tablet PO 5 mg HS [place] Administration Nifedipine 30 mg 03/28/24 15:30 04/01/24 08:48 Nifedipine 30 Mg Tab.Er.24 PO 30 mg QAM [place] Administration Ondansetron HCl 4 mg 03/27/24 15:10 Ondansetron Inj 4 Mg/2 Ml Vial IV PUSH Q6H PRN Nausea And Vomiting Polyethylene Glycol 17 gm 03/29/24 15:05 04/01/24 08:48 Polyethylene Glycol 3350 17 Gm Powd.Pack PO 17 gm QAM [place] Administration Simethicone 80 mg 03/31/24 09:00 04/01/24 08:47 Simethicone 80 Mg Tab.Chew PO 80 mg QID [place] Administration Sodium Chloride 1 gm 03/30/24 17:00 03/31/24 17:35 Sodium Chloride 1 Gm Tablet PO 1 gm BID [place] Administration Tramadol HCl 25 mg 03/28/24 19:51 04/01/24 08:47 Tramadol Hcl (*Crx) 25 Mg Tablet PO 25 mg Q6H PRN Administration Pain Rated 4-6 Radiology Results: ITS Impressions Chest X-Ray 03/27/24 14:12 IMPRESSION: 1. No acute cardiopulmonary disease. Head CT 03/28/24 10:46 IMPRESSION: 1. Normal aging brain. No acute intracranial process. 2. Chronic left sphenoid sinusitis. Abdomen X-Ray 03/31/24 08:31 IMPRESSION: 1. No interval change in moderate amount of stool scattered throughout the colonwith large amount of gas in the proximal colon. Labs Labs: Laboratory Results - last 24 hr 03/31/24 03/31/24 03/31/24 11:55 16:58 20:15 WBC RBC Hgb Hct MCV MCH MCHC RDW Plt Count MPV Immature Gran % (Auto) Neut % (Auto) Lymph % (Auto) Reynolds % (Auto) Eos % (Auto) Baso % (Auto) Lymph # (Auto) Reynolds # (Auto) Eos # (Auto) Baso # (Auto) Abs Immat Gran (auto) Absolute Neuts (auto) Absolute Nucleated RBC Nucleated RBC % Sodium Potassium Chloride Carbon Dioxide Anion Gap BUN Creatinine Estim Creat Clear Calc Estimated GFR Glucose POC Capillary Glucose 289 H 272 H 281 H Calcium Magnesium Total Bilirubin AST ALT Alkaline Phosphatase Total Protein Albumin 04/01/24 04/01/24 04/01/24 05:27 05:44 08:19 WBC 9.0 RBC 4.34 Hgb 14.1 Hct 41.2 MCV 94.9 MCH 32.5 MCHC 34.2 RDW 12.1 Plt Count 321 MPV 9.4 Immature Gran % (Auto) 0.7 H Neut % (Auto) 76.0 H Lymph % (Auto) 6.8 L Reynolds % (Auto) 15.5 H Eos % (Auto) 0.6 Baso % (Auto) 0.4 Lymph # (Auto) 0.61 L Reynolds # (Auto) 1.4 H Eos # (Auto) 0.1 Baso # (Auto) 0.0 Abs Immat Gran (auto) 0.06 H Absolute Neuts (auto) 6.9 H Absolute Nucleated RBC 0.000 Nucleated RBC % 0.0 Sodium 130 L Potassium 4.2 Chloride 97 L Carbon Dioxide 20 L Anion Gap 13 H BUN 22 H Creatinine 0.50 L Estim Creat Clear Calc 81 Estimated GFR > 60 Glucose 265 H POC Capillary Glucose 259 H 303 H Calcium 8.8 Magnesium 2.1 Total Bilirubin 0.8 AST 31 ALT 25 Alkaline Phosphatase 54 Total Protein 6.0 L Albumin 3.4 L Quality VTE Prophylaxis VTE prophylaxis: pharmacologic ordered This report may have been done utilizing a voice recognition system. Attempts have been made to correct errors. However, there may be uncorrected grammatical,spelling, and recognition errors present. Report Initialized date/time: Evon Nova ATM MANAGER 04/01/2453 Electronically signed by: Evon Nova ATM MANAGER 04/01/24 1653 Progress Note Author [facility] Note Date/Time April 01, 2024 5:24pm [facility] [address] [place] [address] Nephrology Progress Note Signed Patient: Arti Sinclair MR#: [id number] : 1945 Acct:[id number] Age: 79 ADM Date: 03/27/24 Loc: [id number] 260-[address]: David Aleman M.D. cc: ~ Progress Note: A&P Assessment and Plan (1) Hyponatremia: Code(s): E87.1 - Hypo-osmolality and hyponatremia Status: Acute Assessment and Plan: * acute finding on admission * normal sodium levels as of 6 months ago and beyond * no previous bouts of low sodium noted * s/p IVF bolus and normal saline IVFs with associated worsening sodium levels * risk factors for low sodium: * prerenal factors * pain ( headache ) * medication related (possibly donepezil, NSAIDs, denosumab) * constipation * urinary retention (as noted this AM) * evaluation to date noted: * CXR negative * CT of head without pathology * urine electrolytes prerenal * TSH okay * cortisol stable * SPEP/UPEP pending * on fluid restriction currently * hold salt tabs * perhaps urinary retention and constipation more to blame for drop in sodium * follow trend of repeat serum sodiums (2) Weakness: Code(s): R53.1 - Weakness Status: Acute Assessment and Plan: * due to previous UTI (?) * worsened by urinary retention as noted this AM * no other source of infection to date * related to #1 (?) * PT/OT as tolerated (3) Headache: Code(s): R51.9 - Headache, unspecified Status: Acute Assessment and Plan: * head CT showed a normal aging brain and no acute intracranial process * does mention chronic left sphenoid sinusitis * Tylenol and tramadol for pain control * antibiotics for sinusitis (4) Constipation: Code(s): K59.00 - Constipation, unspecified Status: Acute Assessment and Plan: * as noted by recent KUB * last KUB showed moderate amount of stool scattered throughout the colon with large amount of gas in the proximal colon * bowel regimen initiated (5) Hypertension: Code(s): I10 - Essential (primary) hypertension Status: Acute Assessment and Plan: * running high initially * possibly secondary to pain * medications adjusted * follow trend of hemodynamics (6) Type 2 diabetes mellitus: Code(s): E11.9 - Type 2 diabetes mellitus without complications Status: Acute Assessment and Plan: * follow accu-cheks * glycemic control per hospitalists Will continue to follow. Subjective Date/time seen: 04/01/24 11:38 Interval history: Follow-up for acute hyponatremia. Rangel catheter placed due to ongoing issues with urinary retention; reportedly had a small bowel movement earlier this morning as well; sodium has improved with current interventions/therapy to date; no apparent distress noted at the time of my visit. Exam Narrative: General: elderly but WD/WN female in NAD Heart: normal S1 and S2; no rub Lungs: clear to auscultation Abdomen: soft, nontender but firm, positive bowel sounds Extremities: no cyanosis or clubbing; no edema Skin: no nodules Objective Data Vital Signs Vital Signs: Vital Signs Temp Pulse Resp BP Pulse Ox O2 Del Method 04/01/24 11:00 97.3 F L 100 18 148/89 H 92 04/01/24 08:45 Room Air 04/01/24 08:00 139 H 04/01/24 08:00 97.6 F 104 H 18 145/90 H 93 04/01/24 07:54 Room Air 04/01/24 04:00 108 H 04/01/24 00:00 97 04/01/24 00:15 98.2 F 107 H 18 140/70 100 03/31/24 20:00 114 H 03/31/24 20:00 Room Air 03/31/24 20:46 98.2 F 113 H 16 145/67 H 99 Intake/Output Intake/Output: Intake & Output 03/29/24 03/30/24 03/31/24 04/01/24 23:59 23:59 23:59 23:59 Intake Total 1750 660 0 236 Output Total 0 1250 550 Balance 1750 660 -1250 -314 Meds/Results Medications: Active Medications Generic Name Dose Route Start Last Admin Trade Name Freq PRN Reason Stop Dose Admin Acetaminophen 650 mg 03/31/24 14:18 03/31/24 21:05 Acetaminophen 325 Mg Tablet PO 650 mg Q4H PRN Administration Insomnia, pain 1-3, fever Amoxicillin/Clavulanate Potassium 1 tablet 03/28/24 21:00 04/01/24 08:48 Amoxicillin/Clavulanate K 875-125 Mg Tab PO 04/04/24 20:59 1 tablet Q12HR [place] Administration Aspirin 81 mg 03/28/24 09:00 04/01/24 08:47 Aspirin 81 Mg Enteric Tablet PO 81 mg DAILY [place] Administration Atorvastatin Calcium 20 mg 03/28/24 09:00 04/01/24 08:48 Atorvastatin 20 Mg Tablet PO 20 mg DAILY [place] Administration Bisacodyl 10 mg 03/31/24 15:55 Bisacodyl 10 Mg Suppository RECTAL DAILY PRN Constipation Dextrose 12.5 gm 03/27/24 17:16 Dextrose 50% 25 Gm/50 Ml Syringe IV PUSH PRN PRN Hypoglycemia Protocol Docusate Sodium 100 mg 03/31/24 21:00 04/01/24 08:48 Docusate Sodium Liq 100 Mg/10 Ml Udc PO 100 mg Q12HR [place] Administration Donepezil HCl 5 mg 03/27/24 21:00 03/31/24 21:04 Donepezil Hcl 5 Mg Tablet PO Not Given QHS [place] Dorzolamide/Timolol 1 drop 03/27/24 21:00 04/01/24 08:49 Dorzolamide/Timolol Ophth Bev 10 Ml Bottle EACH EYE 1 drop Q12HR [place] Administration Enoxaparin Sodium 40 mg 03/28/24 09:00 04/01/24 08:48 Enoxaparin 40 Mg/0.4 Ml Syringe SUB-Q 40 mg DAILY [place] Administration Ergocalciferol 50,000 units 03/28/24 09:00 03/28/24 08:19 Ergocalciferol 50,000 Units Capsule PO 50,000 units WEEKLY [place] Administration Glucagon 1 mg 03/27/24 17:16 Glucagon For Inj 1 Mg Vial IM PRN PRN Hypoglycemia Protocol Glucose 15 gm 03/27/24 17:16 Glucose Oral Gel 15 Gm Of Glucse In 37.5 Gm Tube PO PRN PRN Hypoglycemia Protocol Hydralazine HCl 20 mg 03/28/24 15:27 Hydralazine Hcl 20 Mg/Ml Vial IV PUSH ONCE PRN Hypertension Dextrose 1,000 mls @ 100 mls/hr 03/27/24 17:16 Dextrose 5% 1,000 Ml IVPB PRN PRN Hypoglycemia Protocol Insulin Aspart 4 - 8 units 03/28/24 08:00 04/01/24 13:15 Insulin Aspart (*Bkc) 100 Units/Ml SUB-Q 6 units TIDWM [place] Administration Protocol Insulin Aspart 2 - 4 units 03/27/24 21:00 03/31/24 21:11 Insulin Aspart (*Bkc) 100 Units/Ml SUB-Q 2 units HS [place] Administration Protocol Insulin Glargine 12 units 04/01/24 21:00 Insulin Glargine (*Bkc) 100 Units/Ml 0.15 units/kg (12 units) SUB-Q HS [place] Melatonin 5 mg 03/31/24 21:00 03/31/24 21:06 Melatonin 5 Mg Tablet PO 5 mg HS [place] Administration Nifedipine 30 mg 03/28/24 15:30 04/01/24 08:48 Nifedipine 30 Mg Tab.Er.24 PO 30 mg QAM [place] Administration Ondansetron HCl 4 mg 03/27/24 15:10 Ondansetron Inj 4 Mg/2 Ml Vial IV PUSH Q6H PRN Nausea And Vomiting Polyethylene Glycol 17 gm 03/29/24 15:05 04/01/24 08:48 Polyethylene Glycol 3350 17 Gm Powd.Pack PO 17 gm QAM [place] Administration Simethicone 80 mg 03/31/24 09:00 04/01/24 13:16 Simethicone 80 Mg Tab.Chew PO 80 mg QID [place] Administration Sodium Chloride 1 gm 03/30/24 17:00 03/31/24 17:35 Sodium Chloride 1 Gm Tablet PO 1 gm BID [place] Administration Tramadol HCl 25 mg 03/28/24 19:51 04/01/24 08:47 Tramadol Hcl (*Crx) 25 Mg Tablet PO 25 mg Q6H PRN Administration Pain Rated 4-6 Radiology Results: ITS Impressions Chest X-Ray 03/27/24 14:12 IMPRESSION: 1. No acute cardiopulmonary disease. Head CT 03/28/24 10:46 IMPRESSION: 1. Normal aging brain. No acute intracranial process. 2. Chronic left sphenoid sinusitis. Abdomen X-Ray 03/31/24 08:31 IMPRESSION: 1. No interval change in moderate amount of stool scattered throughout the colonwith large amount of gas in the proximal colon. Labs Labs: Laboratory Tests 04/01/24 05:27 04/01/24 05:27 Calcium 8.8 Magnesium 2.1 Total Bilirubin 0.8 AST 31 ALT 25 Alkaline Phosphatase 54 Total Protein 6.0 L Albumin 3.4 L This report may have been done utilizing a voice recognition system. Attempts have been made to correct errors. However, there may be uncorrected grammatical,spelling, and recognition errors present. Report Initialized date/time: Margarita Macdonald MD 04/01/241710 Electronically signed by: Margarita Macdonald MD 04/01/241723 Progress Note Author Evon [facility] Note Date/Time April 02, 2024 4:28pm [facility] [address] [place] [address] Hospitalist Progress Note Signed Patient: Arti Sinclair MR#: [id number] : 1945 Acct:[id number] Age: 79 ADM Date: 03/27/24 Loc: [id number] 260-[address]: David Aleman M.D. cc: ~ Progress Note: A&P Assessment and Plan (1) Weakness: Code(s): R53.1 - Weakness Status: Acute Assessment and Plan: * increased fatigue and weakness since Monday of last week after finishing a full course Keflex for urinary tract infection * PT and OT ordered * Vitamin D level 36.5 * Vitamin B12 level 497 * will also check urine culture to assure that her UTI cleared completely, her UA did not reflux culture this admission * chest x-ray was negative for any acute cardiopulmonary disease * respiratory panel negative * UA was negative for nitrates or leukocytes * TSH 1.230 * Blood cultures No growth to date. (2) Type 2 diabetes mellitus: Code(s): E11.9 - Type 2 diabetes mellitus without complications Status: Acute Assessment and Plan: * Hypoglycemic protocol * High dose sliding scale insulin. * HgbA1C 9.8% on 03/27/24 * Blood sugars running 261-275 * Glargine insulin 12 units subq at bedtime. (3) Abnormal finding on urinalysis: Code(s): R82.90 - Unspecified abnormal findings in urine Status: Acute Assessment and Plan: * UA showed 1+ urine protein, 3+ urine glucose, 3+ urine ketone, 3-5 urine RBC, negative leukocytes and negative nitrates. * Patient was just treated for UTI with urine culture showed Klebsiella pneumoniae which was pansensitive. She was on a course of Keflex which she finished on of last week. * We will go ahead and get a urine culture to assure that it is cleared completely * Repeat UA with reflex sent today. (4) Urine retention: Code(s): R33.9 - Retention of urine, unspecified Status: Acute Assessment and Plan: * Rangel catheter placed this morning. * UA with reflex to culture sent. * Monitor I&O's * nephrology following (5) Hyponatremia: Code(s): E87.1 - Hypo-osmolality and hyponatremia Status: Acute Assessment and Plan: * sodium 130(improving), chloride 99 * patient was given 1 L of normal saline while in the ED * urine sodium 89, urine osmolarity 718, serum osmolarity pending. * Fluid restriction 1500 ml * Nephrology consulted, urine and labs ordered. Awaiting results. (6) Constipation: Code(s): K59.00 - Constipation, unspecified Status: Acute Assessment and Plan: * KUB 03/29/24 showed Moderate amount of stool scattered throughout the colon with large amount of gas in the proximal colon. * Miralax 17 gm PO daily, Docusate 100 mg PO q12 PRN, and Simethicone 80 mg PO BID * Patient with abdominal distention and no bowel movement. Repeat KUB today showed: No interval change in moderate amount of stool scattered throughout the colon with large amount of gas in the proximal colon. * Added a soap suds enema, change Docusate 100 mg PO q12 scheduled, increased Simethicone 80 mg PO QID, and continue Miralax 17 gm PO daily. * No results with soap suds enema, Bisacodyl 10 mg OR suppository x1 ordered for today. Added Bisacodyl 10 mg suppositorydaily PRN. * Encourage oral intake. * 2 bowel movements on 04/02/24 (7) Chronic sphenoidal sinusitis: Code(s): J32.3 - Chronic sphenoidal sinusitis Status: Chronic Assessment and Plan: * Augmentin 875-125 mg PO q12. (8) Hypertension: Code(s): I10 - Essential (primary) hypertension Status: Acute Assessment and Plan: * Start Procardia XL 30 mg PO daily * Hydralazine 20 mg ivp for systolic >180. * Blood pressure 144/90 * Monitor blood pressure. (9) Back pain: Code(s): M54.9 - Dorsalgia, unspecified Status: Acute Assessment and Plan: * Tylenol 650 mg PO q 4 PRN. * Tramadol 25 mg PO q 6 PRN. (10) Headache: Code(s): R51.9 - Headache, unspecified Status: Acute Assessment and Plan: * Head CT showed a normal aging brain and no acute intracranial process, chronic left sphenoid sinusitis. * Tylenol 650 mg PO q 4 PRN. * Tramadol 25 mg PO q 6 PRN. (11) Vitamin D deficiency: Code(s): E55.9 - Vitamin D deficiency, unspecified Status: Chronic Assessment and Plan: * currently on vitamin D 09194 units weekly * vitamin-D level 36.5 (12) Vitamin B12 deficiency: Code(s): E53.8 - Deficiency of other specified B group vitamins Status: Chronic Assessment and Plan: * continue aspirin and atorvastatin (13) Dementia: Code(s): F03.90 - Unspecified dementia, unspecified severity, without behavioral disturbance, psychotic disturbance, mood disturbance, and anxiety Status: Chronic Assessment and Plan: * continue Aricept (14) Mixed hyperlipidemia: Code(s): E78.2 - Mixed hyperlipidemia Status: Chronic Assessment and Plan: * continue aspirin and atorvastatin (15) GERD (gastroesophageal reflux disease): Code(s): K21.9 - Gastro-esophageal reflux disease without esophagitis Status: Acute Assessment and Plan: * Pepcid 20 mg PO BID. Subjective Date/time seen: 04/02/24 11:45 Interval history: and son at bedside. Patient denies pain or shortness of breath. Patient had 2 bowel movements today. Nurse reported patient having heart burn this morning, started on Pepcid 20 mg PO BID. Review of Systems Review of Systems: All systems reviewed & are unremarkable except as noted in HPI and below Exam Const: General: no acute distress Resp: Auscultation: diminished lung sounds Cardio: Rate: tachycardic (ST-102) GI: Inspection: distended Auscultation: normal bowel sounds Other: semi- firm. 2 bowel movements today. Urinary Catheter: Urinary Catheter: patent and draining and urine clear Neuro: Speech: normal speech Extrem: General: normal to inspection Psych: Other: Memory loss. Alert to self. Objective Data Vital Signs Vital Signs: Vital Signs - 24 hr 04/01/24 12:00 04/01/24 14:00 04/01/24 16:00 Temperature 97.3 F L Pulse Rate 103 H 100 111 H Respiratory Rate 18 Blood Pressure 148/89 H Pulse Oximetry 92 Oxygen Delivery 04/01/24 19:47 04/01/24 20:00 04/01/24 20:00 Temperature 99.4 F Pulse Rate 110 H 110 H Respiratory Rate 18 Blood Pressure 126/72 Pulse Oximetry 93 Oxygen Delivery Room Air 04/02/24 00:00 04/02/24 04:00 04/02/24 05:07 Temperature 98.2 F Pulse Rate 115 H 104 H 105 H Respiratory Rate 18 Blood Pressure 125/54 L Pulse Oximetry 92 Oxygen Delivery 04/02/24 08:00 04/02/24 09:15 Temperature Pulse Rate 110 H Respiratory Rate Blood Pressure Pulse Oximetry Oxygen Delivery Room Air Intake/Output Intake/Output: Intake & Output 03/30/24 03/31/24 04/01/24 04/02/24 23:59 23:59 23:59 23:59 Intake Total 660 0 236 358 Output Total 1250 1150 200 Balance 325 -0527 -832 158 Meds/Results Medications: Active Medications Generic Name Dose Route Start Last Admin Trade Name Freq PRN Reason Stop Dose Admin Acetaminophen 650 mg 03/31/24 14:18 03/31/24 21:05 Acetaminophen 325 Mg Tablet PO 650 mg Q4H PRN Administration Insomnia, pain 1-3, fever Amoxicillin/Clavulanate Potassium 1 tablet 03/28/24 21:00 04/02/24 09:16 Amoxicillin/Clavulanate K 875-125 Mg Tab PO 04/04/24 20:59 1 tablet Q12HR [place] Administration Aspirin 81 mg 03/28/24 09:00 04/02/24 09:16 Aspirin 81 Mg Enteric Tablet PO 81 mg DAILY [place] Administration Atorvastatin Calcium 20 mg 03/28/24 09:00 04/02/24 09:16 Atorvastatin 20 Mg Tablet PO 20 mg DAILY [place] Administration Bisacodyl 10 mg 03/31/24 15:55 Bisacodyl 10 Mg Suppository RECTAL DAILY PRN Constipation Dextrose 12.5 gm 03/27/24 17:16 Dextrose 50% 25 Gm/50 Ml Syringe IV PUSH PRN PRN Hypoglycemia Protocol Docusate Sodium 100 mg 03/31/24 21:00 04/02/24 09:17 Docusate Sodium Liq 100 Mg/10 Ml Udc PO 100 mg Q12HR [place] Administration Donepezil HCl 5 mg 03/27/24 21:00 04/01/24 21:07 Donepezil Hcl 5 Mg Tablet PO 5 mg QHS [place] Administration Dorzolamide/Timolol 1 drop 03/27/24 21:00 04/02/24 09:17 Dorzolamide/Timolol Ophth Bev 10 Ml Bottle EACH EYE 1 drop Q12HR [place] Administration Enoxaparin Sodium 40 mg 03/28/24 09:00 04/02/24 09:17 Enoxaparin 40 Mg/0.4 Ml Syringe SUB-Q 40 mg DAILY [place] Administration Ergocalciferol 50,000 units 03/28/24 09:00 03/28/24 08:19 Ergocalciferol 50,000 Units Capsule PO 50,000 units WEEKLY [place] Administration Famotidine 20 mg 04/02/24 09:00 04/02/24 09:55 Famotidine 20 Mg Tablet PO 20 mg Q12HR [place] Administration Glucagon 1 mg 03/27/24 17:16 Glucagon For Inj 1 Mg Vial IM PRN PRN Hypoglycemia Protocol Glucose 15 gm 03/27/24 17:16 Glucose Oral Gel 15 Gm Of Glucse In 37.5 Gm Tube PO PRN PRN Hypoglycemia Protocol Hydralazine HCl 20 mg 03/28/24 15:27 Hydralazine Hcl 20 Mg/Ml Vial IV PUSH ONCE PRN Hypertension Dextrose 1,000 mls @ 100 mls/hr 03/27/24 17:16 Dextrose 5% 1,000 Ml IVPB PRN PRN Hypoglycemia Protocol Insulin Aspart 4 - 8 units 03/28/24 08:00 04/02/24 09:17 Insulin Aspart (*Bkc) 100 Units/Ml SUB-Q 5 units TIDWM [place] Administration Protocol Insulin Aspart 2 - 4 units 03/27/24 21:00 04/01/24 21:10 Insulin Aspart (*Bkc) 100 Units/Ml SUB-Q 2 units HS [place] Administration Protocol Insulin Glargine 12 units 04/01/24 21:00 04/01/24 21:09 Insulin Glargine (*Bkc) 100 Units/Ml 0.15 units/kg (12 units) 12 units SUB-Q Administration HS [place] Melatonin 5 mg 03/31/24 21:00 04/01/24 21:10 Melatonin 5 Mg Tablet PO Not Given HS [place] Nifedipine 30 mg 03/28/24 15:30 04/02/24 09:16 Nifedipine 30 Mg Tab.Er.24 PO 30 mg QAM [place] Administration Ondansetron HCl 4 mg 03/27/24 15:10 Ondansetron Inj 4 Mg/2 Ml Vial IV PUSH Q6H PRN Nausea And Vomiting Polyethylene Glycol 17 gm 03/29/24 15:05 04/02/24 09:16 Polyethylene Glycol 3350 17 Gm Powd.Pack PO 17 gm QAM [place] Administration Simethicone 80 mg 03/31/24 09:00 04/02/24 09:16 Simethicone 80 Mg Tab.Chew PO 80 mg QID [place] Administration Sodium Chloride 1 gm 03/30/24 17:00 03/31/24 17:35 Sodium Chloride 1 Gm Tablet PO 1 gm BID [place] Administration Tramadol HCl 25 mg 03/28/24 19:51 04/02/24 09:55 Tramadol Hcl (*Crx) 25 Mg Tablet PO 25 mg Q6H PRN Administration Pain Rated 4-6 Radiology Results: ITS Impressions Chest X-Ray 03/27/24 14:12 IMPRESSION: 1. No acute cardiopulmonary disease. Head CT 03/28/24 10:46 IMPRESSION: 1. Normal aging brain. No acute intracranial process. 2. Chronic left sphenoid sinusitis. Abdomen X-Ray 03/31/24 08:31 IMPRESSION: 1. No interval change in moderate amount of stool scattered throughout the colonwith large amount of gas in the proximal colon. Labs Labs: Laboratory Results - last 24 hr 03/27/24 03/30/24 04/01/24 17:50 08:15 11:36 WBC RBC Hgb Hct MCV MCH MCHC RDW Plt Count MPV Immature Gran % (Auto) Neut % (Auto) Lymph % (Auto) Reynolds % (Auto) Eos % (Auto) Baso % (Auto) Lymph # (Auto) Reynolds # (Auto) Eos # (Auto) Baso # (Auto) Abs Immat Gran (auto) Absolute Neuts (auto) Absolute Nucleated RBC Nucleated RBC % Sodium Potassium Chloride Carbon Dioxide Anion Gap BUN Creatinine Estim Creat Clear Calc Estimated GFR Glucose POC Capillary Glucose 310 H Serum Osmolality 269 L Calcium Total Bilirubin AST ALT Alkaline Phosphatase Total Protein 5.9 L Albumin Urine Color Urine Appearance Urine pH Ur Specific [place] Urine Protein Urine Glucose (UA) Urine Ketones Ur Blood (Man) Urine Nitrate Urine Bilirubin Urine Urobilinogen Add Ur Microanalysis Leukocyte Esterase Rfl Urine RBC Urine WBC Ur Squamous Epith Cells Urine Bacteria Urine Casts 04/01/24 04/01/24 04/01/24 17:00 17:11 19:57 WBC RBC Hgb Hct MCV MCH MCHC RDW Plt Count MPV Immature Gran % (Auto) Neut % (Auto) Lymph % (Auto) Reynolds % (Auto) Eos % (Auto) Baso % (Auto) Lymph # (Auto) Reynolds # (Auto) Eos # (Auto) Baso # (Auto) Abs Immat Gran (auto) Absolute Neuts (auto) Absolute Nucleated RBC Nucleated RBC % Sodium Potassium Chloride Carbon Dioxide Anion Gap BUN Creatinine Estim Creat Clear Calc Estimated GFR Glucose POC Capillary Glucose 267 H 254 H Serum Osmolality Calcium Total Bilirubin AST ALT Alkaline Phosphatase Total Protein Albumin Urine Color Yellow Urine Appearance Clear Urine pH 5.5 Ur Specific [place] 1.040 H Urine Protein 1+ H Urine Glucose (UA) 3+ H Urine Ketones Trace H Ur Blood (Man) 1+ H Urine Nitrate Negative Urine Bilirubin Negative Urine Urobilinogen 1.0 Add Ur Microanalysis Reviewed Leukocyte Esterase Rfl Negative Urine RBC 11-20 H Urine WBC 11-20 H Ur Squamous Epith Cells Moderate Urine Bacteria None seen Urine Casts 3-5 04/02/24 04/02/24 05:30 08:14 WBC 6.7 RBC 3.72 L Hgb 12.4 Hct 36.4 L MCV 97.8 MCH 33.3 MCHC 34.1 RDW 12.2 Plt Count 246 MPV 9.1 Immature Gran % (Auto) 1.0 H Neut % (Auto) 65.6 Lymph % (Auto) 12.3 L Reynolds % (Auto) 20.1 H Eos % (Auto) 0.7 Baso % (Auto) 0.3 Lymph # (Auto) 0.82 L Reynolds # (Auto) 1.3 H Eos # (Auto) 0.1 Baso # (Auto) 0.0 Abs Immat Gran (auto) 0.07 H Absolute Neuts (auto) 4.4 Absolute Nucleated RBC 0.000 Nucleated RBC % 0.0 Sodium 130 L Potassium 3.9 Chloride 99 Carbon Dioxide 25 Anion Gap 6 BUN 23 H Creatinine 0.50 L Estim Creat Clear Calc 81 Estimated GFR > 60 Glucose 239 H POC Capillary Glucose 261 H Serum Osmolality Calcium 8.4 Total Bilirubin 0.6 AST 25 ALT 26 Alkaline Phosphatase 46 Total Protein 6.0 L Albumin 2.9 L Urine Color Urine Appearance Urine pH Ur Specific [place] Urine Protein Urine Glucose (UA) Urine Ketones Ur Blood (Man) Urine Nitrate Urine Bilirubin Urine Urobilinogen Add Ur Microanalysis Leukocyte Esterase Rfl Urine RBC Urine WBC Ur Squamous Epith Cells Urine Bacteria Urine Casts Quality VTE Prophylaxis VTE prophylaxis: pharmacologic ordered This report may have been done utilizing a voice recognition system. Attempts have been made to correct errors. However, there may be uncorrected grammatical,spelling, and recognition errors present. Report Initialized date/time: Evon Noav ATM MANAGER 04/02/24 / 1145 Electronically signed by: Evon Nova ATM MANAGER 04/02/24 [id number] Progress Note Author Margarita [facility] Note Date/Time April 03, 2024 5:49pm [facility] [address] [place] [address] Nephrology Progress Note Signed Patient: Arti Sinclair MR#: [id number] : 1945 Acct:[id number] Age: 79 ADM Date: 03/27/24 Loc: [id number] 260-[address]: David Aleman M.D. cc: ~ Progress Note: A&P Assessment and Plan (1) Hyponatremia: Code(s): E87.1 - Hypo-osmolality and hyponatremia Status: Acute Assessment and Plan: * slow improvement noted * acute finding noted on admission * normal sodium levels as of 6 months ago and beyond * no previous bouts of low sodium noted * s/p IVF bolus and normal saline IVFs with associated worsening sodium levels * risk factors for low sodium: * prerenal factors * pain ( headache ) * medication related (possibly donepezil, NSAIDs, denosumab) * constipation * urinary retention * evaluation to date noted: * CXR negative * CT of head without pathology * urine electrolytes prerenal * TSH okay * cortisol stable * SPEP/UPEP negative for any paraproteinemia * on fluid restriction currently * holding salt tabs at this time * perhaps urinary retention and constipation more to blame for drop in sodium * consider resume salt tabs if sodium worsens again * follow trend of repeat serum sodiums (2) Weakness: Code(s): R53.1 - Weakness Status: Acute Assessment and Plan: * due to previous UTI (?) * worsened by urinary retention as noted this AM * no other source of infection to date * related to #1 (?) * PT/OT as tolerated (3) Headache: Code(s): R51.9 - Headache, unspecified Status: Acute Assessment and Plan: * head CT showed a normal aging brain and no acute intracranial process * does mention chronic left sphenoid sinusitis * Tylenol and tramadol for pain control * antibiotics for sinusitis (4) Constipation: Code(s): K59.00 - Constipation, unspecified Status: Acute Assessment and Plan: * as noted by recent KUB * last KUB showed moderate amount of stool scattered throughout the colon with large amount of gas in the proximal colon * bowel regimen instituted (5) Hypertension: Code(s): I10 - Essential (primary) hypertension Status: Acute Assessment and Plan: * running high initially * possibly secondary to pain * medications adjusted * follow trend of hemodynamics (6) Type 2 diabetes mellitus: Code(s): E11.9 - Type 2 diabetes mellitus without complications Status: Acute Assessment and Plan: * follow accu-cheks * glycemic control per hospitalists Not sure much else to add -- will continue to follow from a distance. Subjective Date/time seen: 04/02/24 10:15 Interval history: Follow-up for acute hyponatremia. Sodium level remains stable in thelast 24 hours with current therapy/interventions -- salt tablets on hold and remains just on fluid restriction; no apparent distress noted at the time of my visit; did have some bowel movement today per nursing; no other acute complaints aside from some heartburn. Exam Narrative: General: elderly but WD/WN female in NAD Heart: normal S1 and S2; no rub Lungs: clear to auscultation Abdomen: soft, nontender but firm, positive bowel sounds Extremities: no cyanosis or clubbing; no edema Skin: warm and dry Objective Data Vital Signs Vital Signs: Vital Signs Temp Pulse Resp BP Pulse Ox O2 Del Method 04/02/24 09:15 Room Air 04/02/24 08:00 110 H 04/02/24 05:07 98.2 F 105 H 18 125/54 L 92 04/02/24 04:00 104 H 04/02/24 00:00 115 H 04/01/24 20:00 110 H 04/01/24 20:00 Room Air 04/01/24 19:47 99.4 F 110 H 18 126/72 93 04/01/24 16:00 111 H 04/01/24 14:00 97.3 F L 100 18 148/89 H 92 Intake/Output Intake/Output: Intake & Output 03/30/24 03/31/24 04/01/24 04/02/24 23:59 23:59 23:59 23:59 Intake Total 660 0 236 358 Output Total 1250 1150 200 Balance 660 -1250 -914 158 Meds/Results Medications: Active Medications Generic Name Dose Route Start Last Admin Trade Name Freq PRN Reason Stop Dose Admin Acetaminophen 650 mg 03/31/24 14:18 03/31/24 21:05 Acetaminophen 325 Mg Tablet PO 650 mg Q4H PRN Administration Insomnia, pain 1-3, fever Amoxicillin/Clavulanate Potassium 1 tablet 03/28/24 21:00 04/02/24 09:16 Amoxicillin/Clavulanate K 875-125 Mg Tab PO 04/04/24 20:59 1 tablet Q12HR [place] Administration Aspirin 81 mg 03/28/24 09:00 04/02/24 09:16 Aspirin 81 Mg Enteric Tablet PO 81 mg DAILY [place] Administration Atorvastatin Calcium 20 mg 03/28/24 09:00 04/02/24 09:16 Atorvastatin 20 Mg Tablet PO 20 mg DAILY [place] Administration Bisacodyl 10 mg 03/31/24 15:55 Bisacodyl 10 Mg Suppository RECTAL DAILY PRN Constipation Dextrose 12.5 gm 03/27/24 17:16 Dextrose 50% 25 Gm/50 Ml Syringe IV PUSH PRN PRN Hypoglycemia Protocol Docusate Sodium 100 mg 03/31/24 21:00 04/02/24 09:17 Docusate Sodium Liq 100 Mg/10 Ml Udc PO 100 mg Q12HR [place] Administration Donepezil HCl 5 mg 03/27/24 21:00 04/01/24 21:07 Donepezil Hcl 5 Mg Tablet PO 5 mg QHS [place] Administration Dorzolamide/Timolol 1 drop 03/27/24 21:00 04/02/24 09:17 Dorzolamide/Timolol Ophth Bev 10 Ml Bottle EACH EYE 1 drop Q12HR [place] Administration Enoxaparin Sodium 40 mg 03/28/24 09:00 04/02/24 09:17 Enoxaparin 40 Mg/0.4 Ml Syringe SUB-Q 40 mg DAILY [place] Administration Ergocalciferol 50,000 units 03/28/24 09:00 03/28/24 08:19 Ergocalciferol 50,000 Units Capsule PO 50,000 units WEEKLY [place] Administration Famotidine 20 mg 04/02/24 09:00 04/02/24 09:55 Famotidine 20 Mg Tablet PO 20 mg Q12HR [place] Administration Glucagon 1 mg 03/27/24 17:16 Glucagon For Inj 1 Mg Vial IM PRN PRN Hypoglycemia Protocol Glucose 15 gm 03/27/24 17:16 Glucose Oral Gel 15 Gm Of Glucse In 37.5 Gm Tube PO PRN PRN Hypoglycemia Protocol Hydralazine HCl 20 mg 03/28/24 15:27 Hydralazine Hcl 20 Mg/Ml Vial IV PUSH ONCE PRN Hypertension Dextrose 1,000 mls @ 100 mls/hr 03/27/24 17:16 Dextrose 5% 1,000 Ml IVPB PRN PRN Hypoglycemia Protocol Insulin Aspart 4 - 8 units 03/28/24 08:00 04/02/24 09:17 Insulin Aspart (*Bkc) 100 Units/Ml SUB-Q 5 units TIDWM [place] Administration Protocol Insulin Aspart 2 - 4 units 03/27/24 21:00 04/01/24 21:10 Insulin Aspart (*Bkc) 100 Units/Ml SUB-Q 2 units HS [place] Administration Protocol Insulin Glargine 12 units 04/01/24 21:00 04/01/24 21:09 Insulin Glargine (*Bkc) 100 Units/Ml 0.15 units/kg (12 units) 12 units SUB-Q Administration HS [place] Melatonin 5 mg 03/31/24 21:00 04/01/24 21:10 Melatonin 5 Mg Tablet PO Not Given HS [place] Nifedipine 30 mg 03/28/24 15:30 04/02/24 09:16 Nifedipine 30 Mg Tab.Er.24 PO 30 mg QAM [place] Administration Ondansetron HCl 4 mg 03/27/24 15:10 Ondansetron Inj 4 Mg/2 Ml Vial IV PUSH Q6H PRN Nausea And Vomiting Polyethylene Glycol 17 gm 03/29/24 15:05 04/02/24 09:16 Polyethylene Glycol 3350 17 Gm Powd.Pack PO 17 gm QAM [place] Administration Simethicone 80 mg 03/31/24 09:00 04/02/24 09:16 Simethicone 80 Mg Tab.Chew PO 80 mg QID [place] Administration Sodium Chloride 1 gm 03/30/24 17:00 03/31/24 17:35 Sodium Chloride 1 Gm Tablet PO 1 gm BID [place] Administration Tramadol HCl 25 mg 03/28/24 19:51 04/02/24 09:55 Tramadol Hcl (*Crx) 25 Mg Tablet PO 25 mg Q6H PRN Administration Pain Rated 4-6 Radiology Results: ITS Impressions Chest X-Ray 03/27/24 14:12 IMPRESSION: 1. No acute cardiopulmonary disease. Head CT 03/28/24 10:46 IMPRESSION: 1. Normal aging brain. No acute intracranial process. 2. Chronic left sphenoid sinusitis. Abdomen X-Ray 03/31/24 08:31 IMPRESSION: 1. No interval change in moderate amount of stool scattered throughout the colonwith large amount of gas in the proximal colon. Labs Labs: Laboratory Tests 04/02/24 05:30 04/02/24 05:30 Calcium 8.4 Total Bilirubin 0.6 AST 25 ALT 26 Alkaline Phosphatase 46 Total Protein 6.0 L Albumin 2.9 L Microbiology 03/27/24 17:50 Blood Blood Culture - Final 03/27/24 17:50 Blood Blood Culture - Final 03/31/24 07:57 Urine Clean Catch Urine Culture - Final This report may have been done utilizing a voice recognition system. Attempts have been made to correct errors. However, there may be uncorrected grammatical,spelling, and recognition errors present. Report Initialized date/time: Margarita Macdonald MD 04/02/24 / 5 Electronically signed by: Margarita Macdonald MD 04/03/24 9759 Progress Note Author Flori [facility] Note Date/Time April 03, 2024 3:33pm [facility] [address] [place], [place] [id number] Hospitalist Progress Note Signed Patient: Arti Sinclair MR#: [id number] : 1945 Acct:[id number] Age: 79 ADM Date: 03/27/24 Loc: [id number] 260-[address]: David Aleman M.D. cc: ~ Progress Note: A&P Assessment and Plan (1) Weakness: Code(s): R53.1 - Weakness Status: Acute Assessment and Plan: Increased fatigue and weakness since Monday of last week after finishing a full course Keflex for urinary tract infection * PT and OT ordered * Vitamin D level 36.5 * Vitamin B12 level 497 * chest x-ray was negative for any acute cardiopulmonary disease * respiratory panel negative * UA was negative for nitrates or leukocytes * TSH 1.230 * Blood cultures No growth to date. (2) Constipation: Code(s): K59.00 - Constipation, unspecified Status: Acute Assessment and Plan: KUB 03/29/24 showed Moderate amount of stool scattered throughout the colon withlarge amount of gas in the proximal colon. KUB 03/31/24 unchanged Repeat KUB ordered to reassess Docusate 100 mg PO q12 scheduled, increased Simethicone 80 mg PO QID, and continue Miralax 17 gm PO daily. No results with soap suds enema, Bisacodyl 10 mg OR suppository x1 ordered for today. Added Bisacodyl 10 mg suppository daily PRN. Senna added Encourage oral intake. (3) Abnormal finding on urinalysis: Code(s): R82.90 - Unspecified abnormal findings in urine Status: Acute Assessment and Plan: Patient was just treated for UTI with urine culture showed Klebsiella pneumoniaewhich was pansensitive. She was on a course of Keflex which she finished on of last week. UA showed 1+ urine protein, 3+ urine glucose, trace urine ketone, 1+ blood, 11- 20 urine RBC, 11-20 WBC, negative leukocytes and negative nitrates. Moderate squamous cells possibly contamination. Urine culture 04/01: Negative (4) Urine retention: Code(s): R33.9 - Retention of urine, unspecified Status: Acute Assessment and Plan: Rangel catheter placed. UA with reflex to culture sent. Monitor I&O's Nephrology following (5) Hyponatremia: Code(s): E87.1 - Hypo-osmolality and hyponatremia Status: Acute Assessment and Plan: sodium 130(improving), chloride 99. Patient was given 1 L of normal saline whilein the ED - Possible etiologies urinary retention and constipation - Urine sodium 89, urine osmolarity 718, serum osmolarity pending. - Fluid restriction 1500 ml - Nephrology consulted, urine and labs ordered. Awaiting results. (6) Chronic sphenoidal sinusitis: Code(s): J32.3 - Chronic sphenoidal sinusitis Status: Chronic Assessment and Plan: * Augmentin 875-125 mg PO q12. (7) Hypertension: Code(s): I10 - Essential (primary) hypertension Status: Acute Assessment and Plan: Started on Procardia XL 30 mg PO daily Hydralazine 20 mg ivp for systolic >180. Monitor blood pressure. (8) Headache: Code(s): R51.9 - Headache, unspecified Status: Acute Assessment and Plan: Head CT showed a normal aging brain and no acute intracranial process, chronic left sphenoid sinusitis. Tylenol 650 mg PO q 4 PRN. (9) Type 2 diabetes mellitus: Code(s): E11.9 - Type 2 diabetes mellitus without complications Status: Acute Assessment and Plan: - hypoglycemia protocol - POC blood glucose ACHS - home medication - metformin 500 mg BID - correct regimen ordered - high dose sliding scale and lantus 17 units subq (0.2 units/kg) - A1C 9.8 Time Spent With Patient Time with patient: 25 - 35 minutes Subjective Date/time seen: 04/03/24 12:07 Interval history: 79-year-old female with a significant past medical history of asthma, glaucoma, hypothyroidism, hyperlipidemia, osteoporosis, type 2 diabetes mellitus, vitamin B12 and vitamin-D deficiency who presented to the hospital for evaluation of increased generalized weakness. Patient is pleasant lying comfortably in bed. She endorses abdominal pain worsein the left upper quadrant. He denies any nausea/vomiting and notes that she has been eating somewhat well. Possible that the constipation is also a contributing factor to her in confusion. Adjustments were made to patient's bowel regimen. Patient denies any chest pain, shortness a breath, and palpitations. Review of Systems Review of Systems: All systems reviewed & are unremarkable except as noted in HPI and below Exam Narrative: AF HR 98 RR 16 SPO2 94 BP 111/84 General: fenale in no acute respiratory distress who is nontoxic appearing, lying semi recumbent in bed. HEENT: Normocephalic. Atraumatic. Extraocular movement intact. Sclera clear and anicteric. No facial asymmetry. Chest: Lungs are clear to auscultation bilaterally. No wheezes or crackles. CV: Heart was regular rate and rhythm. S1/S2. No murmurs, gallops, or rubs. Abd: Abdomen was soft. Tender. Distended. Positive bowel sounds. No organomegalyor masses. Ext: No clubbing, cyanosis, or edema. 2+ DP pulses bilaterally. Neuro: Patient is alert. Speech is clear. Objective Data Vital Signs Vital Signs: Vital Signs - 24 hr 04/02/24 15:00 04/02/24 16:00 04/02/24 20:37 Temperature 97.6 F 98.1 F Pulse Rate 114 H 111 H 106 H Respiratory Rate 18 20 Blood Pressure 144/90 H 130/73 Pulse Oximetry 95 91 Oxygen Delivery 04/02/24 20:00 04/02/24 20:00 04/03/24 00:00 Temperature Pulse Rate 115 H 102 H Respiratory Rate Blood Pressure Pulse Oximetry Oxygen Delivery Room Air 04/03/24 04:00 04/03/24 05:38 04/03/24 08:00 Temperature 98.4 F 97.5 F L Pulse Rate 97 93 96 Respiratory Rate 20 16 Blood Pressure 129/74 111/84 Pulse Oximetry 94 94 Oxygen Delivery 04/03/24 08:25 04/03/24 08:00 Temperature Pulse Rate 101 H Respiratory Rate Blood Pressure Pulse Oximetry Oxygen Delivery Room Air Intake/Output Intake/Output: Intake & Output 03/31/24 04/01/24 04/02/24 04/03/24 23:59 23:59 23:59 23:59 Intake Total 0 236 877 240 Output Total 1250 1150 200 600 Balance -1250 914 677 360 Meds/Results Medications: Active Medications Generic Name Dose Route Start Last Admin Trade Name Freq PRN Reason Stop Dose Admin Acetaminophen 650 mg 03/31/24 14:18 04/03/24 08:26 Acetaminophen 325 Mg Tablet PO 650 mg Q4H PRN Administration Insomnia, pain 1-3, fever Amoxicillin/Clavulanate Potassium 1 tablet 03/28/24 21:00 04/03/24 08:26 Amoxicillin/Clavulanate K 875-125 Mg Tab PO 04/04/24 20:59 1 tablet Q12HR MIREILLE Administration Aspirin 81 mg 03/28/24 09:00 04/03/24 08:26 Aspirin 81 Mg Enteric Tablet PO 81 mg DAILY MIRE[place]LE Administration Atorvastatin Calcium 20 mg 03/28/24 09:00 04/03/24 08:26 Atorvastatin 20 Mg Tablet PO 20 mg DAILY MIRE[place]LE Administration Bisacodyl 10 mg 03/31/24 15:55 Bisacodyl 10 Mg Suppository RECTAL DAILY PRN Constipation Dextrose 12.5 gm 03/27/24 17:16 Dextrose 50% 25 Gm/50 Ml Syringe IV PUSH PRN PRN Hypoglycemia Protocol Docusate Sodium 100 mg 03/31/24 21:00 04/03/24 08:27 Docusate Sodium Liq 100 Mg/10 Ml Udc PO 100 mg Q12HR MIRE[place] Administration Donepezil HCl 5 mg 03/27/24 21:00 04/02/24 20:48 Donepezil Hcl 5 Mg Tablet PO 5 mg QHS [place]RE[place] Administration Dorzolamide/Timolol 1 drop 03/27/24 21:00 04/03/24 08:27 Dorzolamide/Timolol Ophth Bev 10 Ml Bottle EACH EYE 1 drop Q12HR MIRE[place] Administration Enoxaparin Sodium 40 mg 03/28/24 09:00 04/03/24 08:27 Enoxaparin 40 Mg/0.4 Ml Syringe SUB-Q 40 mg DAILY MIRE[place]LE Administration Ergocalciferol 50,000 units 03/28/24 09:00 03/28/24 08:19 Ergocalciferol 50,000 Units Capsule PO 50,000 units WEEKLY MIRE[place]LE Administration Famotidine 20 mg 04/02/24 09:00 04/03/24 08:26 Famotidine 20 Mg Tablet PO 20 mg Q12HR [place]RE[place] Administration Glucagon 1 mg 03/27/24 17:16 Glucagon For Inj 1 Mg Vial IM PRN PRN Hypoglycemia Protocol Glucose 15 gm 03/27/24 17:16 Glucose Oral Gel 15 Gm Of Glucse In 37.5 Gm Tube PO PRN PRN Hypoglycemia Protocol Hydralazine HCl 20 mg 03/28/24 15:27 Hydralazine Hcl 20 Mg/Ml Vial IV PUSH ONCE PRN Hypertension Dextrose 1,000 mls @ 100 mls/hr 03/27/24 17:16 Dextrose 5% 1,000 Ml IVPB PRN PRN Hypoglycemia Protocol Insulin Aspart 4 - 8 units 03/28/24 08:00 04/03/24 08:27 Insulin Aspart (*Bkc) 100 Units/Ml SUB-Q 4 units TIDWM [place] Administration Protocol Insulin Aspart 2 - 4 units 03/27/24 21:00 04/02/24 20:51 Insulin Aspart (*Bkc) 100 Units/Ml SUB-Q 3 units HS [place]RE[place] Administration Protocol Insulin Glargine 17 units 04/03/24 21:00 Insulin Glargine (*Bkc) 100 Units/Ml 0.2 units/kg (17 units) SUB-Q HS MIRE[place] Melatonin 5 mg 03/31/24 21:00 04/02/24 20:48 Melatonin 5 Mg Tablet PO 5 mg HS MIRE[place] Administration Nifedipine 30 mg 03/28/24 15:30 04/03/24 08:26 Nifedipine 30 Mg Tab.Er.24 PO 30 mg QAM [place] Administration Ondansetron HCl 4 mg 03/27/24 15:10 Ondansetron Inj 4 Mg/2 Ml Vial IV PUSH Q6H PRN Nausea And Vomiting Polyethylene Glycol 17 gm 03/29/24 15:05 04/03/24 08:26 Polyethylene Glycol 3350 17 Gm Powd.Pack PO 17 gm QAM [place] Administration Simethicone 80 mg 03/31/24 09:00 04/03/24 08:26 Simethicone 80 Mg Tab.Chew PO 80 mg QID [place] Administration Sodium Chloride 1 gm 03/30/24 17:00 03/31/24 17:35 Sodium Chloride 1 Gm Tablet PO 1 gm BID MIRE[place]LE Administration Tramadol HCl 25 mg 03/28/24 19:51 04/02/24 09:55 Tramadol Hcl (*Crx) 25 Mg Tablet PO 25 mg Q6H PRN Administration Pain Rated 4-6 Radiology Results: ITS Impressions Chest X-Ray 03/27/24 14:12 IMPRESSION: 1. No acute cardiopulmonary disease. Head CT 03/28/24 10:46 IMPRESSION: 1. Normal aging brain. No acute intracranial process. 2. Chronic left sphenoid sinusitis. Abdomen X-Ray 03/31/24 08:31 IMPRESSION: 1. No interval change in moderate amount of stool scattered throughout the colonwith large amount of gas in the proximal colon. Labs Labs: Laboratory Results - last 24 hr 03/30/24 03/30/24 04/02/24 05:01 08:15 12:06 WBC RBC Hgb Hct MCV MCH MCHC RDW Plt Count MPV Immature Gran % (Auto) Neut % (Auto) Lymph % (Auto) Reynolds % (Auto) Eos % (Auto) Baso % (Auto) Lymph # (Auto) Reynolds # (Auto) Eos # (Auto) Baso # (Auto) Abs Immat Gran (auto) Absolute Neuts (auto) Absolute Nucleated RBC Nucleated RBC % Sodium Potassium Chloride Carbon Dioxide Anion Gap BUN Creatinine Estim Creat Clear Calc Estimated GFR Glucose POC Capillary Glucose 275 H Calcium Total Bilirubin AST ALT Alkaline Phosphatase Total Protein Albumin 3.1 L Whnjv-7-Gsacbjnfz 0.4 H Woajo-0-Kfvztdbea 1.1 H Ctsg-0-Oczszppq 0.4 Oiip-5-Imzespzi 0.4 Gamma Globulins 0.6 L PEP Interpretation See note Urine Albumin 38 U Qpmxe-1-Papzclwy 12 U Zmlmu-1-Jpjkvdtd 22 U Beta Globulin 21 U Gamma Globulin 8 Urine PEP Interpret See note 04/02/24 04/02/24 04/03/24 17:04 20:36 05:31 WBC 6.9 RBC 3.82 L Hgb 12.7 Hct 37.6 MCV 98.4 MCH 33.2 MCHC 33.8 RDW 12.1 Plt Count 233 MPV 9.0 Immature Gran % (Auto) 0.9 H Neut % (Auto) 63.6 Lymph % (Auto) 18.3 Reynolds % (Auto) 16.5 H Eos % (Auto) 0.4 Baso % (Auto) 0.3 Lymph # (Auto) 1.27 Reynolds # (Auto) 1.1 H Eos # (Auto) 0.0 Baso # (Auto) 0.0 Abs Immat Gran (auto) 0.06 H Absolute Neuts (auto) 4.4 Absolute Nucleated RBC 0.000 Nucleated RBC % 0.0 Sodium 131 L Potassium 3.4 Chloride 99 Carbon Dioxide 25 Anion Gap 7 BUN 21 H Creatinine 0.50 L Estim Creat Clear Calc 81 Estimated GFR > 60 Glucose 228 H POC Capillary Glucose 333 H 347 H Calcium 8.1 L Total Bilirubin 0.5 AST 34 ALT 34 Alkaline Phosphatase 50 Total Protein 6.0 L Albumin 3.2 L Ratzg-2-Pzunzsmdy Fozpe-4-Dspystvzt Vqrz-6-Ettdsbfb Fmev-6-Wqjmzcge Gamma Globulins PEP Interpretation Urine Albumin U Wsivu-8-Fnpclapa U Npnvf-6-Zcmqkeye U Beta Globulin U Gamma Globulin Urine PEP Interpret 04/03/24 04/03/24 07:37 11:44 WBC RBC Hgb Hct MCV MCH MCHC RDW Plt Count MPV Immature Gran % (Auto) Neut % (Auto) Lymph % (Auto) Reynolds % (Auto) Eos % (Auto) Baso % (Auto) Lymph # (Auto) Reynolds # (Auto) Eos # (Auto) Baso # (Auto) Abs Immat Gran (auto) Absolute Neuts (auto) Absolute Nucleated RBC Nucleated RBC % Sodium Potassium Chloride Carbon Dioxide Anion Gap BUN Creatinine Estim Creat Clear Calc Estimated GFR Glucose POC Capillary Glucose 224 H 248 H Calcium Total Bilirubin AST ALT Alkaline Phosphatase Total Protein Albumin Pnftw-9-Utjmzkvqo Rohej-6-Xuqcabflf Baim-3-Ooguhmpy Acjg-4-Wycqmtbn Gamma Globulins PEP Interpretation Urine Albumin U Qjqqa-4-Kzmciwod U Ptrxw-2-Mmfmogad U Beta Globulin U Gamma Globulin Urine PEP Interpret Quality VTE Prophylaxis VTE prophylaxis: pharmacologic ordered This report may have been done utilizing a voice recognition system. Attempts have been made to correct errors. However, there may be uncorrected grammatical,spelling, and recognition errors present. Report Initialized date/time: Flori Loredo 04/03/24 / 1216 Electronically signed by: Flori Loredo 04/03/24 1533 Progress Note Author Flori Loredo [facility] Note Date/Time April 04, 2024 3:00pm [address] [address] Hospitalist Progress Note Signed Patient: Arti Sinclair MR#: [id number] : 1945 Acct:[id number] Age: 79 ADM Date: 03/27/24 Loc: [id number] 260-[address]: David Aleman M.D. cc: ~ Progress Note: A&P Assessment and Plan (1) Weakness: Code(s): R53.1 - Weakness Status: Acute Assessment and Plan: Increased fatigue and weakness since Monday of last week after finishing a full course Keflex for urinary tract infection * PT and OT ordered * Vitamin D level 36.5 * Vitamin B12 level 497 * chest x-ray was negative for any acute cardiopulmonary disease * respiratory panel negative * UA was negative for nitrates or leukocytes * TSH 1.230 * Blood cultures No growth to date. (2) Hyponatremia: Code(s): E87.1 - Hypo-osmolality and hyponatremia Status: Acute Assessment and Plan: sodium 130(improving), chloride 99. Patient was given 1 L of normal saline whilein the ED - Na 133 on am labs - Possible etiologies urinary retention and constipation - Urine sodium 89, urine osmolarity 718, serum osmolarity pending. - Fluid restriction 1500 ml - Nephrology consulted, urine and labs ordered. Awaiting results. (3) Constipation: Code(s): K59.00 - Constipation, unspecified Status: Acute Assessment and Plan: KUB 03/29/24 showed Moderate amount of stool scattered throughout the colon withlarge amount of gas in the proximal colon. KUB 03/31/24 unchanged KUB 04/03/24 stable nonspecific bowel gas pattern with prominent gas present in the proximal colon. Docusate 100 mg PO q12 scheduled, increased Simethicone 80 mg PO QID, and continue Miralax 17 gm PO daily. No results with soap suds enema, Bisacodyl 10 mg OR suppository x1 ordered for today. Added Bisacodyl 10 mg suppository daily PRN. Senna added Encourage oral intake. Patient had a large BM on 04/03. (4) Abnormal finding on urinalysis: Code(s): R82.90 - Unspecified abnormal findings in urine Status: Acute Assessment and Plan: Patient was just treated for UTI with urine culture showed Klebsiella pneumoniaewhich was pansensitive. She was on a course of Keflex which she finished on of last week. UA showed 1+ urine protein, 3+ urine glucose, trace urine ketone, 1+ blood, 11- 20 urine RBC, 11-20 WBC, negative leukocytes and negative nitrates. Moderate squamous cells possibly contamination. Urine culture 04/01: Negative (5) Urine retention: Code(s): R33.9 - Retention of urine, unspecified Status: Acute Assessment and Plan: Rangel catheter placed. UA with reflex to culture sent. Monitor I&O's Decreased urine output possibly related to fluid restriction, 1L NS bolus x1 (6) Chronic sphenoidal sinusitis: Code(s): J32.3 - Chronic sphenoidal sinusitis Status: Chronic Assessment and Plan: * Augmentin 875-125 mg PO q12, course to be completed 04/04. (7) Hypertension: Code(s): I10 - Essential (primary) hypertension Status: Acute Assessment and Plan: Started on Procardia XL 30 mg PO daily Hydralazine 20 mg ivp for systolic >180. Monitor blood pressure. (8) Headache: Code(s): R51.9 - Headache, unspecified Status: Acute Assessment and Plan: Head CT showed a normal aging brain and no acute intracranial process, chronic left sphenoid sinusitis. Tylenol 650 mg PO q 4 PRN. (9) Type 2 diabetes mellitus: Code(s): E11.9 - Type 2 diabetes mellitus without complications Status: Acute Assessment and Plan: - hypoglycemia protocol - POC blood glucose ACHS - home medication - metformin 500 mg BID - correct regimen ordered - high dose sliding scale and lantus 17 units subq (0.2 units/kg) - A1C 9.8 Time Spent With Patient Time with patient: 25 - 35 minutes Subjective Date/time seen: 04/04/24 09:36 Interval history: 79-year-old female with a significant past medical history of asthma, glaucoma, hypothyroidism, hyperlipidemia, osteoporosis, type 2 diabetes mellitus, vitamin B12 and vitamin-D deficiency who presented to the hospital for evaluation of increased generalized weakness. Patient is pleasant lying in bed with family at bedside. She continues to be altered from baseline per family however this could potentially be hospital-acquired delirium As there are no current signs of infection and her sodium hassignificantly improved. She was noted to have decreased urine output and tachycardia ambulation. Given a 1 time fluid bolus. Patient is endorsing increased epigastric pain with eating and drinking. Per son she was previously on Protonix however his transition to Pepcid given low sodium. Since sodium hasimproved will resume protonix and continue to sodium levels. A swallow study was ordered. Patient has no complaints denying chest pain, shortness a breath, nausea/vomiting. Review of Systems Review of Systems: All systems reviewed & are unremarkable except as noted in HPI and below Exam Narrative: AF HR 91 RR 18 SPO2 94 BP 124/64 General: female in no acute respiratory distress who is nontoxic appearing, lying semi recumbent in bed. HEENT: Normocephalic. Atraumatic. Extraocular movement intact. Sclera clear and anicteric. No facial asymmetry. Chest: Lungs are clear to auscultation bilaterally. No wheezes or crackles. CV: Heart was regular rate and rhythm. S1/S2. No murmurs, gallops, or rubs. Abd: Abdomen was soft. Tender worse in ruq and epigastric area. Positive bowel sounds. No organomegaly or masses. Ext: No clubbing, cyanosis, or edema. 2+ DP pulses bilaterally. Neuro: Patient is alert. Speech is clear. Objective Data Vital Signs Vital Signs: Vital Signs - 24 hr 04/03/24 12:00 04/03/24 16:00 04/03/24 16:00 Temperature 97.6 F Pulse Rate 98 111 H 108 H Respiratory Rate 20 Blood Pressure 143/84 H Pulse Oximetry 95 Oxygen Delivery 04/03/24 20:27 04/03/24 20:00 04/03/24 20:00 Temperature 98.0 F Pulse Rate 102 H 108 H Respiratory Rate 16 Blood Pressure 118/69 Pulse Oximetry 97 Oxygen Delivery Room Air 04/04/24 00:00 04/04/24 04:00 04/04/24 05:21 Temperature 98.0 F Pulse Rate 97 94 91 Respiratory Rate 18 Blood Pressure 151/76 H Pulse Oximetry 94 Oxygen Delivery Intake/Output Intake/Output: Intake & Output 04/01/24 04/02/24 04/03/24 04/04/24 23:59 23:59 23:59 23:59 Intake Total 060 460 4664 Output Total 1150 200 850 375 Balance -914 677 160 -375 Meds/Results Medications: Active Medications Generic Name Dose Route Start Last Admin Trade Name Freq PRN Reason Stop Dose Admin Acetaminophen 650 mg 03/31/24 14:18 04/04/24 08:55 Acetaminophen 325 Mg Tablet PO 650 mg Q4H PRN Administration Insomnia, pain 1-3, fever Amoxicillin/Clavulanate Potassium 1 tablet 03/28/24 21:00 04/04/24 08:54 Amoxicillin/Clavulanate K 875-125 Mg Tab PO 04/04/24 20:59 1 tablet Q12HR [place]RE[place] Administration Aspirin 81 mg 03/28/24 09:00 04/04/24 08:54 Aspirin 81 Mg Enteric Tablet PO 81 mg DAILY [place] Administration Atorvastatin Calcium 20 mg 03/28/24 09:00 04/04/24 08:54 Atorvastatin 20 Mg Tablet PO 20 mg DAILY [place] Administration Bisacodyl 10 mg 03/31/24 15:55 Bisacodyl 10 Mg Suppository RECTAL DAILY PRN Constipation Dextrose 12.5 gm 03/27/24 17:16 Dextrose 50% 25 Gm/50 Ml Syringe IV PUSH PRN PRN Hypoglycemia Protocol Docusate Sodium 100 mg 03/31/24 21:00 04/04/24 08:55 Docusate Sodium Liq 100 Mg/10 Ml Udc PO 100 mg Q12HR [place] Administration Donepezil HCl 5 mg 03/27/24 21:00 04/03/24 20:56 Donepezil Hcl 5 Mg Tablet PO 5 mg QHS [place] Administration Dorzolamide/Timolol 1 drop 03/27/24 21:00 04/03/24 20:56 Dorzolamide/Timolol Ophth Bev 10 Ml Bottle EACH EYE 1 drop Q12HR [place] Administration Enoxaparin Sodium 40 mg 03/28/24 09:00 04/04/24 08:54 Enoxaparin 40 Mg/0.4 Ml Syringe SUB-Q 40 mg DAILY [place] Administration Ergocalciferol 50,000 units 03/28/24 09:00 04/04/24 08:54 Ergocalciferol 50,000 Units Capsule PO 50,000 units WEEKLY [place] Administration Famotidine 20 mg 04/02/24 09:00 04/04/24 08:54 Famotidine 20 Mg Tablet PO 20 mg Q12HR [place] Administration Glucagon 1 mg 03/27/24 17:16 Glucagon For Inj 1 Mg Vial IM PRN PRN Hypoglycemia Protocol Glucose 15 gm 03/27/24 17:16 Glucose Oral Gel 15 Gm Of Glucse In 37.5 Gm Tube PO PRN PRN Hypoglycemia Protocol Hydralazine HCl 20 mg 03/28/24 15:27 Hydralazine Hcl 20 Mg/Ml Vial IV PUSH ONCE PRN Hypertension Dextrose 1,000 mls @ 100 mls/hr 03/27/24 17:16 Dextrose 5% 1,000 Ml IVPB PRN PRN Hypoglycemia Protocol Insulin Aspart 4 - 8 units 03/28/24 08:00 04/03/24 17:04 Insulin Aspart (*Bkc) 100 Units/Ml SUB-Q 5 units TIDWM [place] Administration Protocol Insulin Aspart 2 - 4 units 03/27/24 21:00 04/03/24 21:05 Insulin Aspart (*Bkc) 100 Units/Ml SUB-Q 2 units HS [place] Administration Protocol Insulin Glargine 17 units 04/03/24 21:00 04/03/24 21:04 Insulin Glargine (*Bkc) 100 Units/Ml 0.2 units/kg (17 units) 17 units SUB-Q Administration HS [place] Melatonin 5 mg 03/31/24 21:00 04/03/24 20:56 Melatonin 5 Mg Tablet PO 5 mg HS [place] Administration Nifedipine 30 mg 03/28/24 15:30 04/04/24 08:55 Nifedipine 30 Mg Tab.Er.24 PO 30 mg QAM [place] Administration Ondansetron HCl 4 mg 03/27/24 15:10 Ondansetron Inj 4 Mg/2 Ml Vial IV PUSH Q6H PRN Nausea And Vomiting Polyethylene Glycol 17 gm 03/29/24 15:05 04/04/24 08:53 Polyethylene Glycol 3350 17 Gm Powd.Pack PO 17 gm QAM [place] Administration Senna/Docusate Sodium 1 tab 04/03/24 21:00 04/03/24 20:56 Senna/Docusate Sodium Tablet PO 1 tab HS [place] Administration Simethicone 80 mg 03/31/24 09:00 04/04/24 08:54 Simethicone 80 Mg Tab.Chew PO 80 mg QID [place] Administration Sodium Chloride 1 gm 03/30/24 17:00 03/31/24 17:35 Sodium Chloride 1 Gm Tablet PO 1 gm BID [place] Administration Tramadol HCl 25 mg 03/28/24 19:51 04/03/24 23:12 Tramadol Hcl (*Crx) 25 Mg Tablet PO 25 mg Q6H PRN Administration Pain Rated 4-6 Radiology Results: ITS Impressions Chest X-Ray 03/27/24 14:12 IMPRESSION: 1. No acute cardiopulmonary disease. Head CT 03/28/24 10:46 IMPRESSION: 1. Normal aging brain. No acute intracranial process. 2. Chronic left sphenoid sinusitis. Abdomen X-Ray 04/03/24 16:48 Impression: 1: Stable nonspecific bowel gas pattern with prominent gas present in the proximal colon. Labs Labs: Laboratory Results - last 24 hr 03/30/24 03/30/24 04/03/24 05:01 08:15 11:44 WBC RBC Hgb Hct MCV MCH MCHC RDW Plt Count MPV Immature Gran % (Auto) Neut % (Auto) Lymph % (Auto) Reynolds % (Auto) Eos % (Auto) Baso % (Auto) Lymph # (Auto) Reynolds # (Auto) Eos # (Auto) Baso # (Auto) Abs Immat Gran (auto) Absolute Neuts (auto) Absolute Nucleated RBC Nucleated RBC % Sodium Potassium Chloride Carbon Dioxide Anion Gap BUN Creatinine Estim Creat Clear Calc Estimated GFR Glucose POC Capillary Glucose 248 H Calcium Total Bilirubin AST ALT Alkaline Phosphatase Total Protein Albumin Abnorm Protein Band 1 Not Reportable Abnorm Protein Band 3 Not Reportable U Abnormal Prot Band 1 Not Reportable U Abnormal Prot Band 2 Not Reportable U Abnormal Prot Band 3 Not Reportable 04/03/24 04/03/24 04/04/24 16:49 20:59 05:20 WBC 7.6 RBC 3.70 L Hgb 12.2 Hct 36.8 L MCV 99.5 MCH 33.0 MCHC 33.2 RDW 11.9 Plt Count 238 MPV 8.7 Immature Gran % (Auto) 1.1 H Neut % (Auto) 68.5 Lymph % (Auto) 18.1 L Reynolds % (Auto) 11.4 H Eos % (Auto) 0.5 Baso % (Auto) 0.4 Lymph # (Auto) 1.37 Reynolds # (Auto) 0.9 H Eos # (Auto) 0.0 Baso # (Auto) 0.0 Abs Immat Gran (auto) 0.08 H Absolute Neuts (auto) 5.2 Absolute Nucleated RBC 0.000 Nucleated RBC % 0.0 Sodium 133 L Potassium 3.4 Chloride 98 Carbon Dioxide 27 Anion Gap 8 BUN 18 H Creatinine 0.50 L Estim Creat Clear Calc 81 Estimated GFR > 60 Glucose 189 H POC Capillary Glucose 282 H 225 H Calcium 8.2 L Total Bilirubin 0.5 AST 41 H ALT 43 H Alkaline Phosphatase 51 Total Protein 6.0 L Albumin 3.1 L Abnorm Protein Band 1 Abnorm Protein Band 3 U Abnormal Prot Band 1 U Abnormal Prot Band 2 U Abnormal Prot Band 3 04/04/24 07:40 WBC RBC Hgb Hct MCV MCH MCHC RDW Plt Count MPV Immature Gran % (Auto) Neut % (Auto) Lymph % (Auto) Reynolds % (Auto) Eos % (Auto) Baso % (Auto) Lymph # (Auto) Reynolds # (Auto) Eos # (Auto) Baso # (Auto) Abs Immat Gran (auto) Absolute Neuts (auto) Absolute Nucleated RBC Nucleated RBC % Sodium Potassium Chloride Carbon Dioxide Anion Gap BUN Creatinine Estim Creat Clear Calc Estimated GFR Glucose POC Capillary Glucose 208 H Calcium Total Bilirubin AST ALT Alkaline Phosphatase Total Protein Albumin Abnorm Protein Band 1 Abnorm Protein Band 3 U Abnormal Prot Band 1 U Abnormal Prot Band 2 U Abnormal Prot Band 3 Quality VTE Prophylaxis VTE prophylaxis: pharmacologic ordered This report may have been done utilizing a voice recognition system. Attempts have been made to correct errors. However, there may be uncorrected grammatical,spelling, and recognition errors present. Report Initialized date/time: Flori Loredo 04/04/24 / 0941 Electronically signed by: Flori Loredo 04/04/24 [id number]
--- OUTSIDE RECORDS SUMMARY | 2024-05-15 00:35 | XMS_ITS | Continuity of Care Document ---
Author Organization [facility] Address [address] [place] [address] Care Team Providers Care Finisher [employer] Name Role Phone Wendy Kinney MD Primary Care Provider Wendy Kinney MD Attending Provider [phone] Lee Ann Bullock MD Emergency Provider Care Teams Patient Care Team Team [...] Status Dates Wendy Kinney MD Primary Care Provider, [facility] Active Visit Care Team Team Status: Inactive Member Role Status Dates Wendy Kinney MD Primary Care Provider Active Lee Ann Bullock MD Emergency Provider Active Chief Complaint and Reason for Visit Chief Complaint Admit Date Diabetes mellitus Mixed hyperlipidemia M ay 2023 11:02am treatment February 28, 2024 2 :00pm R flank pain March 19, 2024 11:53pm Allergies, Adverse Reactions, Alerts Allergen Type Severity Reaction Last Updated Verified Status brimonidine Allergy Severe RED EYES, ITCHING September 15, 2023 10: 27am Yes Active Social History Smoking Status Status Start Date End Date Date of Observa tion Never smoked tobacco (finding) September 15, 2023 11:23am Observation Status Observation Response Date of Response Has Lack of Trans Kept You F rom Med Appts or Getting Meds? No April 13, 2022 11:05am In Past 12 Months, Were You Worried Your Food Would Run Out? Never True April 13, 2022 11 :05am What is Your Housing Situati on Today? I Have Housing April 13, 2022 11:05am Gender Identity (if Verbaliz ed by the Patient) Female April 13, 2022 11:05am Sexual Orientation (if Verba lized by the Patient) Straight or Heterosexual April 13, 2022 11:05am Are You Worried That in Next 2 Mo, You Won't Have Housing? No April 13, 2022 11:05am Do You Have Trouble Paying Y our Heating Or Electricity Bill? No April 13, 2022 11:05a m Do You Have Trouble Paying F or Medicines? No April 13, 2022 11:05am Are You Currently Unemployed and Looking for Work? No April 13, 2022 11:05am Highest Level of Education Completed High School Diploma/GED April 13, 2022 11:05am Do You Have Trouble With Childcare/Care of a Family Member? No April 13, 2022 11:05am alcohol intake never April 13 11:05am Substance use type does not use April 13, 2022 11:05am Patient Sex Female March 20, 024 7:41am Assigned Sex Female 1945 Family History Relationship [...] Onset Date Status Comments Acute pyelonephritis Unknown Active Pseudohyponatremia Unknown Active Benign positional vertigo Unknown Active Chronic sphenoidal sinusitis Unknown Active Fatigue Unknown Active Vitamin B12 deficiency Unknown Active Osteoporosis Unknown Active Arthritis Unknown Active Hyperglycemia Unknown Active Kidney stone Unknown Active Mixed hyperlipidemia Unknown Active Mild cognitive impairment Unknown Active Dark stools Unknown Active Prediabetes Unknown Active Glaucoma Unknown Active Vitamin D deficiency Unknown Active Adverse effect of other drug s, medicaments and biological substances, sequela Unknown Active Inactive/Resolved Problems Medical Problem Onset Date Status Comments Upper respiratory infection with cough and congestion Unknown Resolved Hypothyroidism Unknown Resolved history of t hyroid problems Near syncope Unknown Resolved Buttock pain Unknown [...] 600 MG PO TWICE A DAY 14 2023 12:00a m Ondansetron 4 mg tablet,disi ntegrating Active 4 MG PO Q8H as needed for nausea and vomiting 10 [facility] er 2021 12:00a m Aspirin (Adult Low Dose Aspirin) 81 mg tablet,jean claude yed release (DR/EC) Active 81 MG PO DAILY [facility] er 2018 12:00a m Ergocalcife rol (Vitamin D2) 50,000 unit capsule Active 05694 UNIT PO WEEKLY [facility] er 2018 12:00a m Dorzolamide -Timolol (Cosopt) 22.3-6.8 mg/mL drops Active 1 DROP EACH EYE TWICE A DAY [facility] er 2018 12:00a m Denosumab (Prolia) 60 mg/mL syringe Active 60 MG SUB-Q EVERY 6 MONTHS Octobe r 2020 11:00p m Ibuprofen 600 mg tablet Active 600 MG PO THREE TIMES A DAY as needed for pain b er 2023 12:00a m Acetaminoph en 500 mg capsule Active 1000 MG PO Q6H as needed for pain b er 2023 12:00a m Cephalexin 500 mg capsule Active 500 MG PO Q6H 48 12 b er 2023 12:00a m Donepezil (Aricept) 5 mg tablet Active 5 MG PO Every Day At Bedtime September 24, 2023 6:51am with snack Metformin 500 mg tablet extended release 24 hr Active 500 MG PO TWICE A DAY December 07, 2023 1:37pm Atorvastati n 20 mg tablet Active 20 MG PO DAILY Febobe r 2023 4:23pm Immunizations Immunization Event Date Not Given Reason Dose Number Ride Attendant Lot Number Vaccine Information Statement (VIS) Detail Administration Location Fluad Quad High Dose (65+) February 11, 2021 Fluad Quad High Dose (65+) February 24, 2022 Fluzone High-Dose 65YR+ May 26, 2017 Fluzone High-Dose 65YR+ March 13, 2018 Fluzone High-Dose 65YR+ January 14, 2020 Fluzone High-Dose 65YR+ March 26, 2019 Fluzone High-Dose 65YR+ February 11, 2021 [id number] Fluzone High-Dose 65YR+ February 24, 2022 [id number] Fluzone High-Dose 65YR+ March 10, 2023 [id number] Pneumococcal Conjugate Vaccine, 13 valent September 27, [...] Performed Status Urine Culture March 20, 2024 active Relevant Diagnostic Tests and/or Laboratory Data Laboratory Results Test Date/Time Result Interpretation Reference Range Result Comment Performing Site White Blood Count March 20, 2024 2:54am 9.2 K/mm3 4.5-10.0 [facility] [id number] [address] [place] [address] [place] [address]72 Red Blood Count March 20, 2024 2:54am 4.35 M/mm3 4.2-5.4 [facility] [id number] [address] [facility] [address] [place] [address] Hemoglobin March 20, 2024 2:54am 14.6 g/dL 12.0-15.0 [facility] [id number] [address] [facility] [address] [place] [address]959 Hematocrit March 20, 2024 2:54am 42.6 % 37.0-47.0 [facility] [id number] [address] [place] [address] 15096 Mean Corpuscular Volume March 20, 2024 2:54am 97.9 fL 80-100 [facility] [id number] [address] [place] [address] 52281 Mean Corpuscular Hemoglobin March 20, 2024 2:54am 33.6 pg 26-34 [facility] [id number] [address] [place] [address] 05903 Mean Corpuscular Hemoglobin Concent March 20, 2024 2:54am 34.3 g/dL 32-36 [facility] [id number] [address] [place] [address] 87750 Red Cell Distribution Width March 20, 2024 2:54am 11.6 % 11.5-14.5 [facility] [id number] [address] [place] [address] 96830 Platelet Count March 20, 2024 2:54am 212 k/mm3 150-375 [facility] [id number] [address] [place] [address] 40062 Mean Platelet Volume March 20, 2024 2:54am 9.3 fL 7.4-10.4 [facility] [id number] [address] [place] [address] 62653 Nucleated Red Blood Cells % March 20, 2024 2:54am 0.0 % 0.0-0.2 [facility] [id number] [address] [place] [address] 10820 Immature Granulocyte % (Auto) March 20, 2024 2:54am 0.3 % 0-0.5 [facility] [id number] [address] [place] [address] 64762 Neutrophils (%) (Auto) March 20, 2024 2:54am 77.0 % Above high normal 45.5-73.1 [facility] [id number] [address] [place] [address] 56597 Lymphocytes (%) (Auto) March 20, 2024 2:54am 16.9 % Below low normal 18.3-44.2 [facility] [id number] [address] [place] [address] 54245 Monocytes (%) (Auto) March 20, 2024 2:54am 5.1 % 2.6-8.5 [facility] [id number] [address] [place] [address] 04610 Eosinophils (%) (Auto) March 20, 2024 2:54am 0.4 % 0-4.4 [facility] [id number] [address] [place] [address] 52723 Basophils (%) (Auto) March 20, 2024 2:54am 0.3 % 0.2-1.2 [facility] [id number] [address] [place] [address] 21016 Nucleated RBC Absolute Count (auto) March 20, 2024 2:54am 0.000 K/mm3 0.0-0.012 [facility] [id number] [address] [place], [place] [address] Absolute Immature Granulocyte (auto March 20, 2024 2:54am 0.03 K/mm3 0.00-0.031 [facility] [id number] [address] [place] [address] 36556 Absolute Neutrophils (auto) March 20, 2024 2:54am 7.0 K/mm3 Above high normal 1.3-6.7 [facility] [id number] [address] [place] [address] 58295 Lymphocytes # (Auto) March 20, 2024 2:54am 1.55 K/mm3 0.9-3.2 [facility] [id number] [address] [place] [address] 78584 Monocytes # (Auto) March 20, 2024 2:54am 0.5 K/mm3 0.1-0.6 [facility] [id number] [address] [place] [address] 83590 Eosinophils # (Auto) March 20, 2024 2:54am 0.0 K/mm3 0-0.3 [facility] [id number] [address] [place] [address] 13828 Basophils # (Auto) March 20, 2024 2:54am 0.0 K/mm3 0.0-0.1 [facility] [id number] [address] [place] [address] 98942 Urine Color March 20, 2024 6:11am Yellow Yellow [facility] [id number] [address] [place] [address] 66701 Urine Appearance March 20, 2024 6:11am Cloudy Above high normal Clear [facility] [id number] [address] [place] [address] [place] [address] Urine pH March 20, 2024 6:11am 6.0 5.0-9.0 [facility] [id number] [address] [address] Urine Specific [place] March 20, 2024 6:11am 1.034 1.001-1.03 5 [facility] [id number] [address] [address] Urine Protein March 20, 2024 6:11am Trace mg/dL Negative [facility] [id number] [facility] [address] [address] Urine Glucose (UA) March 20, 2024 6:11am 3+ mg/dL Above high normal [facility] [id number] [facility] [address] [address] Urine Ketones March 20, 2024 6:11am 2+ mg/dL Above high normal [facility] [id number] [facility] [address] [address] Urine Blood (Manual) March 20, 2024 6:11am Negative Negative [facility] [id number] [facility] [address] [address] Urine Nitrate March 20, 2024 6:11am Negative [facility] [id number] [address] [address] Urine Bilirubin March 20, 2024 6:11am Negative [facility] [id number] [facility] [address] [address] Urine Urobilinogen March 20, 2024 6:11am 0.2 mg/dL <2.0 [facility] [id number] [facility] [address] [address] Urine Leukocyte Esterase (Reflex) March 20, 2024 6:11am 1+ NITIN/UL Above high normal Negative [facility] [id number] [address] [address] Urine RBC March 20, 2024 6:11am 6-10 [HPF] Above high normal 0-2 [facility] [id number] [address] [address] Urine WBC March 20, 2024 6:11am 21-50 [HPF] Above high normal 0-3 [facility] [id number] [address] [address] Urine Squamous Epithelial Cells March 20, 2024 6:11am Moderate [HPF] Few [facility] [id number] [address] [address] Urine Bacteria March 20, 2024 6:11am 1+ [HPF] Above high normal [facility] [id number] [address] [address] Urine Random Microalbumin October 03, 2023 10:19am 16.7 mg/L 0-16.7 [facility] [id number] [address] [address] Urine Microalbumin/C reatinine Ratio October 03, 2023 10:19am 13.8 mg/g 0-30 [facility] [id number] [address] [address] Urine Creatinine October 03, 2023 10:19am 120.9 mg/dL [facility] [id number] [address] [address] Sodium Level October 03, 2023 10:11am 139 mmol/L 137-145 [facility] [id number] [address] [address] Sodium Level March 20, 2024 2:54am 134 mmol/L Below low normal 137-145 [facility] [id number] [address] [address] Potassium Level October 03, 2023 10:11am 4.0 mmol/L 3.4-5.0 [facility] [id number] [address] [address] Potassium Level March 20, 2024 2:54am 4.3 mmol/L 3.4-5.0 [facility] [id number] [facility] [address] [address] Chloride Level October 03, 2023 10:11am 106 mmol/L 98-107 [facility] [id number] [address] [address] Chloride Level March 20, 2024 2:54am 99 mmol/L 98-107 [facility] [id number] [address] [address] Carbon Dioxide Level October 03, 2023 10:11am 26 mmol/L [facility] [id number] [address] [address] Carbon Dioxide Level March 20, 2024 2:54am 28 mmol/L [facility] [id number] [address] [address] Anion Gap October 03, 2023 10:11am 7 mmol/L 08-17 [facility] [id number] [address] [address] Anion Gap March 20, 2024 2:54am 7 mmol/L 08-17 [facility] [id number] [address] [place] [address] Blood Urea Nitrogen October 03, 2023 10:11am 11 mg/dL 11-21 [facility] [id number] [address] [address] Blood Urea Nitrogen March 20, 2024 2:54am 16 mg/dL 11-21 [facility] [id number] [address] [place] [address] Creatinine October 03, 2023 10:11am 0.50 mg/dL Below low normal 0.7-1.0 [facility] [id number] [address] [place] [address]26 Creatinine March 20, 2024 2:54am 0.60 mg/dL Below low normal 0.7-1.0 [facility] [id number] [address] [place] [address] Estimat Glomerular Filtration Rate October 03, 2023 10:11am > 60 >59 > OR = 60 ml/min/1.73 square metersThe MDRD formula used to calculate the eGFR result has not been validated in patients > 70 years of age. [facility] [id number] [address] [place] [address] Estimat Glomerular Filtration Rate March 20, 2024 2:54am > 60 >59 > OR = 60 ml/min/1.73 square metersThe MDRD formula used to calculate the eGFR result has not been validated in patients > 70 years of age. [facility] [id number] [address] [place] [address] Estimated Creatinine Clearance Calc October 03, 2023 10:11am Not Reportable [facility] [id number] [address] [place] [address] Estimated Creatinine Clearance Calc March 20, 2024 2:54am 58 mL/min For use in prescription drug dose determination only. Reference ranges have not been establishe for this calculation. [facility] [id number] [address] [place] [address] Glucose Level October 03, 2023 10:11am 226 mg/dL Above high normal 65-110 [facility] [id number] [address] [place] [address] 61154 Glucose Level March 20, 2024 2:54am 350 mg/dL Above high normal 65-110 [facility] [id number] [address] [place] [address]243 Hemoglobin A1c October 03, 2023 10:11am 8.7 % Above high normal <5.7 <5.7: Decreased risk of diabetes 5.7-6.0: Increased risk of diabetes 6.1-6.4: Higher risk of diabetes> or = 6.5: Consistent with diabetes [facility] [id number] [address] [place] [address]12 Calcium Level October 03, 2023 10:11am 9.5 mg/dL 8.4-10.2 [facility] [id number] [address] [place] [address]459 Calcium Level February 21, 2024 9:20am 10.0 mg/dL 8.4-10.2 [facility] [id number] [address] [place] [address]389 Calcium Level March 20, 2024 2:54am 9.9 mg/dL 8.4-10.2 [facility] [id number] [address] [place] [address]993 Total Bilirubin October 03, 2023 10:11am 0.7 mg/dL 0.2-1.3 [facility] [id number] [address] [place] [address]62 Total Bilirubin March 20, 2024 2:54am 0.7 mg/dL 0.2-1.3 [facility] [id number] [address] [place] [address] 20738 Aspartate Amino Transf (AST/SGOT) October 03, 2023 10:11am 23 U/L [facility] [id number] [address] [place] [address]274 Aspartate Amino Transf (AST/SGOT) March 20, 2024 2:54am 27 U/L [facility] [id number] [address] [place] [address]14 Alanine Aminotransfera se (ALT/SGPT) October 03, 2023 10:11am 20 U/L 6-35 [facility] [id number] [address] [address] Alanine Aminotransfera se (ALT/SGPT) March 20, 2024 2:54am 27 U/L 6-35 [facility] [id number] [address] [address] Total Protein October 03, 2023 10:11am 7.0 g/dL 6.3-8.2 [facility] [id number] [address] [address] Total Protein March 20, 2024 2:54am 8.0 g/dL 6.3-8.2 [facility] [id number] [address] [address] Albumin October 03, 2023 10:11am 4.4 g/dL 3.5-5.1 [facility] [id number] [address] [address] Albumin February 21, 2024 9:20am 4.4 g/dL 3.5-5.1 [facility] [id number] [address] [address] Albumin March 20, 2024 2:54am 4.7 g/dL 3.5-5.1 [facility] [id number] [address] [address] Triglycerides Level October 03, 2023 10:11am 189 mg/dL Above high normal <150 [facility] [id number] [address] [address] Cholesterol Level October 03, 2023 10:11am 223 mg/dL Above high normal 0-200 [facility] [id number] [address] [address] LDL Cholesterol Direct October 03, 2023 10:11am 138 mg/dL <130 mg/dl [id number] mg/dl Borderline High Risk >160 mg/dl High Risk [facility] [id number] [address] [address] HDL Cholesterol Direct October 03, 2023 10:11am 49 mg/dL Expected Range > 35 mg/dl [facility] [id number] [address] [address] Alkaline Phosphatase October 03, 2023 10:11am 47 U/L 38-126 [facility] [id number] [facility] [place] [address] Alkaline Phosphatase March 20, 2024 2:54am 66 U/L 38-126 [facility] [id number] [address] [address] Lipase March 20, 2024 2:54am 112 U/L 23-300 [facility] [id number] [address] [place] [address] Urine Casts March 20, 2024 6:11am 3-5 [facility] [id number] [address] [place], [place] [address] Add Urine Microanalysis March 20, 2024 6:11am Reviewed [facility] [id number] [address] [place], [place] [address] Diagnostic Imaging Reports Author [facility] Report Date/Time March 20, 2024 6:19am [place] [address] CT Scan Report Signed Patient: Arti Sinclair : 1945 MR#: [id number] Age: 79 Acct:[id number] Loc: [facility] ADM Date: 03/19/[address]: Ordering Physician: Lee Ann Bullock MD Date of Service: 03/20/24 Procedure(s): CT abdomen pelvis wo [facility] Accession Number(s): [id number] cc: Wendy Kinney MD; Lee Ann Bullock MD~ Non-contrast CT scan of the Abdomen and Pelvis Clinical indication: Flank pain Technique: 2.5 mm axial scans were obtained through the abdomen and pelvis without intravenous or oral contrast. Dose reduction technique was used on this scan by utilizing automated exposure control and iterative reconstruction technique. The dose-length product (DLP) was 338.10 mGy-cm. Findings: Images through the lung bases reveal small hiatal hernia. 7 mm nonobstructing left renal stone present. No right renal stone. No ureteral stone or hydronephrosis on either side. The liver, spleen, pancreas, and adrenals appear normal. Small gallstones present. There are atherosclerotic calcifications of the aorta. . There is no evidence of bowel obstruction. Images through the pelvis were performed. There is no evidence of ascites or lymphadenopathy. Urinary bladder unremarkable. No pelvic mass seen. Impression: 7 mm nonobstructing left renal stone. No ureteral stone or hydronephrosis. Cholelithiasis. Reviewed, dictated and finalized at location [facility]. [facility] Dictated By: Froy Downs MD 03/20/2414 Signed By: <Electronically signed by Froy Downs MD in [place]> 03/20/24618 Vital Signs Vital Reading Result Reference Range [...] 20, 2024 7:39am Respiratory rate 18 /min 12-20 March 202023 7:39am Oxygen saturation by Pulse oximetry 99 % 90-100 March 20, 2024 7:39am BP Systolic 163 mm[Hg] 100-140 March 20, 2024 7:39am BP Diastolic 78 mm[Hg] 60-90 March 20, 2024 7:39am Insurance Providers Guarantor Arti Sinclair Address [address] [address] Contact Info. Home Phone: Payer Policy Id Coverage Id Subscriber's Name Subscriber Id Effective Date Expiration Date Medicare Parts A & B [id number] Arti Sinclair [id number] 2010 Medicare AB Ambulatory [id number] Arti Sinclair [id number] Medicare AB [facility] [id number] Arti Sinclair [id number] 2010 [id number] Arti Sinclair [id number] [employer] [id number] Arti Sinclair [id number] Self Pay Self N/A Encounters Encounter Location(s) Arrival/Admit Date Discharge/Depart Date Provider(s) [facility] October 03, 2023 10:02am October 03, 2023 10:03am Wendy Kinney MD [facility] Infusion February 28, 2024 1:00pm [facility] March 19, 2024 11:53pm March 20, 2024 7:41am Plan of Treatment Future Tests Future scheduled test information is unavailable Pending Tests Test Name Ordered Date Scheduled Date Urine Culture March 20, 2024 6:11am Future Visits Future appointment information is unavailable Referrals to Other Providers Reason for Referral Referral Start Date Provider Provider Contact Information Provider Address Wendy Kinney MD Work Phone: [facility] [place] [address] Future Procedures Procedure Name Ordered Date Scheduled Date Urine Culture March 20, 2024 2:36am Novem glen 2023 6:11am Future Medications Future medication information is unavailable Patient Instructions Instruction Admit Date Antibiotic Form Kidney Stones (ED) Kidney Infection (ED) March 19, 2024 11:53pm Hospital Discharge Instructions Additional Instructions As we discussed, you have evidence of a urinary tract infection and I suspect that this has ascended and become a kidney infection also noticed pyelonephritis. The pain should improve as you take your course of antibiotics you did receive the 1st dose in the emergency department with the rest of the course prescribed. You will be notified if, based on the urine culture this antibiotic regimen needs to be changed. Acetaminophen/Tylenol (maximum 4000 mg per day) is safe to take with NSAIDs (ibuprofen/Motrin) for pain relief. You do have evidence of a stone within your kidney but these are typically not painful unless they begin to move so nothing is required at this time. Follow-up with your primary care physician. Return to the emergency department for any new or worsening symptoms such as intractable pain, fever greater than 100.4?? F, concern for dehydration.
== END 2024-05-08 02:44 | disposition left against medical advice (07) ==
PROVIDERS: PCP Family Medicine
DX: R10.9 Unspecified abdominal pain (principal)
CPT/HCPCS: 99199

== ENCOUNTER 2024-10-04 02:29 | Emergency (ER) | payer MEDICARE, OTHER, SELFPAY ==
--- NOTE | ~2024-10-04 | XR_ITS ---
Portable chest x-ray Comparison: None Clinical History: Chest pain Findings: There is possible minimal bibasilar pulmonary edema. No pleural effusions. Cardiomediasti nal silhouette is unremarkable. Bones and soft tissues are unremarkable. Impression: Possible minimal bibasilar pulmonary edema. Reviewed, dictated and finalized at [facility]. Impression: Possible minimal bibasilar pulmonary edema.
--- NOTE | ~2024-10-04 | CT_ITS ---
Clinical Indication: Chest pain, epigastric pain CT Scan of the Chest, Abdomen, and Pelvis with Contrast: Technique: Contiguous sections were acquired throughout the chest, abdomen, and pelvis after intraven ous administration of 100 cc of Omnipaque 350. Dose reduction technique was used on this scan by calvin toming automated exposure control and iterative reconstruction technique. The dose-length product (DL P) was 923.29 mGy-cm. Findings: There is no evidence of any significant mediastinal, hilar or axillary lymphadenopathy. The mediastin al soft tissues and vascular structures appear normal. No pulmonary embolus. No aortic aneurysm or di ssection. There is no evidence of pleural or pericardial effusion. The lungs are clear, aside from minimal dependent atelectatic changes. Probable diffuse hepatic steatosis. The spleen, pancreas, adrenals and kidneys are within normal limi ts. Small gallstone present. There are atherosclerotic calcifications of the aorta. No abdominal aort ic aneurysm or dissection. No lymphadenopathy. No bowel obstruction or bowel wall thickening. There is no evidence to suggest acute appendicitis. Urinary bladder is unremarkable. No pelvic mass seen. No ascites. Impression: No acute abnormality. Small gallstone. Diffuse hepatic steatosis. Reviewed, dictated and finalized at location . Impression: No acute abnormality. Small gallstone. Diffuse hepatic steatosis.
[2024-10-04 02:32] VITALS: BP 127/62; PULSE 78; RESP 19; TEMP 36.8; O2SAT 96
--- NOTE | 2024-10-04 02:34 | ECG_ITS ---
Test Date: 2024-10-04 02:32:04 Measurements Intervals [place] Rate: 76 P: 53 MO: 178 QRS: 7 QRSD: 83 T: 47 QT: 382 QTc: 431 Interpretive Statements SINUS RHYTHM No previous ECG available for comparison Electronically Signed On 10-04-2024 15:05:30 CDT by Akosua Whitley M.D.
[2024-10-04 02:41] VITALS: PULSE 79
[2024-10-04 02:45] LABS: Basophils Percent Auto 0.4 % (0.2-1.2); Eosinophils Absolute Auto 0.2 K/mm3 (0-0.3); Eosinophils Percent Auto 1.9 % (0-4.4); Hematocrit 40.8 % (37.0-47.0); Hemoglobin 13.4 g/dL (12.0-15.0); Immature Granulocyte Absolute 0.02 K/mm3 (0.00-0.031); Immature Granulocyte Percent A 0.3 % (0-0.5); Lymphocytes Absolute Auto 2.55 K/mm3 (0.9-3.2); Lymphocytes Percent Auto 32.9 % (18.3-44.2); Mean Corpuscular HGB Conc 32.8 g/dl (32-36); Mean Corpuscular Hemoglobin 31.8 pg (26-34); Mean Corpuscular Volume 96.7 fl (80-100); Mean Platelet Volume 8.9 fl (7.4-10.4); Monocytes Absolute Auto 0.9 K/mm3 (0.1-0.6); Monocytes Percent Auto 11.7 % (2.6-8.5); Neutrophils Absolute Auto 4.1 K/mm3 (1.3-6.7); Neutrophils Percent Auto 52.8 % (45.5-73.1); Platelet Count Result 242 k/mm3 (150-375); Red Blood Count 4.22 M/mm3 (4.2-5.4); Red Cell Distribution Width 12.6 % (11.5-14.5); White Blood Count 7.8 K/mm3 (4.5-10.0)
[2024-10-04] MEDS: ASPIRIN 81 MG CHEWABLE TABLET 324 MG PO (02:48)
[2024-10-04 03:04] LABS: INR 0.9; Partial Thromboplastin Time 23.9 Seconds (22.3-36.8)
[2024-10-04 03:07] LABS: Troponin I < 0.012 ng/mL (0.000-0.034)
--- NOTE | 2024-10-04 03:14 | ED_ITS ---
HPI - Chest Pain General Chief Complaint: Chest Pain Stated Complaint: EPIGASTRIC, CHEST PAIN Time Seen by Provider: 10/04/24 02:33 History of Present Illness HPI narrative: 79-year-old female with history of diabetes and hypertension. She presents from a local assisted living facility for concerns of epigastric and chest pain radiating towards her back that woke up from sleep. Patient states she has never had anything like this happen to her before. Denies any cardiac or pulmonary history. Was otherwise in her normal state of health. Denies any nausea, vomiting, lower abdominal pain, fever, chills no neuropathy. No syncope or presyncope. No head injury. No blood thinner use. She was not doing anything exertional strenuous when the symptoms were onset. Related Data Allergies Allergy/AdvReac Type Severity Reaction Status Date / Time No Known Allergies Allergy Verified 10/04/24 02:38 Review of Systems 2 Review of Systems: As reviewed above in HPI Exam 2 Narrative: GENERAL: [Well-appearing, well-nourished, and in no acute distress.] HEAD: [Normocephalic, atraumatic.] EYES: [PERRLA and EOMI.] ENT: Nares clear, no rhinorrhea or epistaxis. Mucous membranes moist. NECK: Supple. CHEST: [Clear to auscultation. No respiratory distress.] HEART: [Regular rate and rhythm]. No murmur heard. [Normal peripheral pulses.] ABDOMEN: [Soft, nondistended], tenderness to palpation in the epigastrium, [No rigidity or guarding] EXTREMITIES: Left lower extremity asymmetry compared to the right but chronic per patient without any pitting edema. No palpable pain or cellulitic skin changes SKIN: Warm, dry, no rash. NEURO: [No focal deficits]. Alert and oriented [x3.] PSYCH: [Normal mood and affect.] Course Vital Signs Vital signs: Vital Signs Temperature 36.8 C 10/04/24 02:32 Pulse Rate 78 10/04/24 02:32 Respiratory Rate 19 10/04/24 02:32 Blood Pressure 127/62 10/04/24 02:32 Pulse Oximetry 96 10/04/24 02:32 Oxygen Delivery Room Air 10/04/24 02:32 Temperature 36.8 C 10/04/24 02:32 Pulse Rate 83 10/04/24 06:30 Respiratory Rate 18 10/04/24 06:30 Blood Pressure 114/55 L 10/04/24 06:30 Pulse Oximetry 97 10/04/24 06:30 Oxygen Delivery Room Air 10/04/24 05:02 MDM - Chest Pain MDM Narrative Medical decision making narrative: 79-year-old female with history of hypertension and diabetes presenting with sudden-onset epigastric and chest pain going towards her back. Woke up from sleep. No history of cardiac disease to her knowledge. She was otherwise in her normal state of health. She has reproducible tenderness in the epigastrium. Her vital signs are reassuring and she has strong symmetric pulses throughout both arms and legs. She has some chronic leg asymmetry according her without any history of DVT. No signs of neurological or vascular compromise on examination. Suspicion presently is for peptic ulcer disease, gastritis, GERD, ACS, pneumothorax, pneumonia, aortic aneurysm or dissection, pulmonary embolism less likely. Patient will be given morphine for analgesia and laboratory studies were ordered including CBC, CMP, EKG, chest x-ray, serial troponins and a CT angiography of the chest abdomen pelvis. Patient's laboratory studies reassuring without any leukocytosis or anemia. Normal platelet count. Negative initial troponin. Negative delta troponin. Normal renal and hepatic function. Normal electrolytes. CT angiography of the chest abdomen pelvis shows no acute abnormalities. Small gallstone, hepatic steatosis. Lungs are clear. EKG shows normal sinus rhythm without any ST segment concerns. Patient re-evaluated with improvement in her pain. She is safe for discharge home at this time and will follow-up with regular doctor as needed and given return precautions. Medical Records Data Attestation: I reviewed the patient's medical records. Lab Data Attestation: I reviewed the patient's lab results. 10/04/24 02:40 10/04/24 02:40 Labs: Lab Results 10/04/24 10/04/24 Range/Units 02:40 05:55 WBC 7.8 (4.5-10.0) K/mm3 RBC 4.22 (4.2-5.4) M/mm3 Hgb 13.4 (12.0-15.0) g/dL Hct 40.8 (37.0-47.0) % MCV 96.7 (80-100) fl MCH 31.8 (26-34) pg MCHC 32.8 (32-36) g/dl RDW 12.6 (11.5-14.5) % Plt Count 242 (150-375) k/mm3 MPV 8.9 (7.4-10.4) fl Immature Gran % (Auto) 0.3 (0-0.5) % Neut % (Auto) 52.8 (45.5-73.1) % Lymph % (Auto) 32.9 (18.3-44.2) % Cache % (Auto) 11.7 H (2.6-8.5) % Eos % (Auto) 1.9 (0-4.4) % Baso % (Auto) 0.4 (0.2-1.2) % Lymph # (Auto) 2.55 (0.9-3.2) K/mm3 Cache # (Auto) 0.9 H (0.1-0.6) K/mm3 Eos # (Auto) 0.2 (0-0.3) K/mm3 Baso # (Auto) 0.0 (0.0-0.1) K/mm3 Abs Immat Gran (auto) 0.02 (0.00-0.031) K/mm3 Absolute Neuts (auto) 4.1 (1.3-6.7) K/mm3 Absolute Nucleated RBC 0.000 (0.0-0.012) K/mm3 Nucleated RBC % 0.0 (0.0-0.2) % PT 12.0 (11.1-14.7) Seconds INR 0.9 APTT 23.9 (22.3-36.8) Seconds Sodium 140 (137-145) mmol/L Potassium 3.9 (3.4-5.0) mmol/L Chloride 101 (98-107) mmol/L Carbon Dioxide 30 (22-30) mmol/L Anion Gap 9 (4-12) mmol/L BUN 13 (7-17) mg/dL Creatinine 0.56 L (0.7-1.0) mg/dL Estim Creat Clear Calc 73 ml/min Estimated GFR > 60 (59 - ) Glucose 101 (65-110) mg/dL Calcium 10.1 (8.4-10.2) mg/dL Total Bilirubin 0.5 (0.2-1.3) mg/dL AST 26 (14-36) U/L ALT 21 (6-35) U/L Alkaline Phosphatase 46 (38-126) U/L Troponin I < 0.012 < 0.012 (0.000-0.034) ng/mL Total Protein 7.0 (6.3-8.2) g/dL Albumin 4.4 (3.5-5.1) g/dL Lipase 112 (23-300) U/L Imaging Data Attestation: I personally reviewed and interpreted this imaging study as follows: My impression: Impressions Chest X-Ray 10/04/24 05:25 Impression: Possible minimal bibasilar pulmonary edema. Chest/Abdomen/Pelvis CTA 10/04/24 05:25 Impression: No acute abnormality. Small gallstone. Diffuse hepatic steatosis. Discharge Plan Discharge Clinical Impression: Chest pain, Abdominal pain, epigastric Patient Disposition: Home Condition: Stable Instructions: Antibiotic Form, Chest Pain (ED), Abdominal Pain (ED) Additional Instructions: All of your laboratory studies are normal, your heart enzymes are negative multiple times, you have a very small gallstone but likely not the cause of your symptoms and otherwise your imaging studies or showing no acute abnormalities. Follow-up with regular doctor. Return with any emergent concerns. Patient Language: Vincentian Follow-up/Referrals: Wendy Kinney MD [Primary Care Provider] - Time of Disposition: 06:38
[2024-10-04 03:35] LABS: Alanine Aminotransferase 21 U/L (6-35); Albumin Level 4.4 g/dL (3.5-5.1); Alkaline Phosphatase 46 U/L (38-126); Anion Gap 9 mmol/L (4-12); Aspartate Amino Transferase 26 U/L (14-36); Bilirubin,Total 0.5 mg/dL (0.2-1.3); Blood Urea Nitrogen 13 mg/dL (7-17); Calcium 10.1 mg/dL (8.4-10.2); Carbon Dioxide 30 mmol/L (22-30); Chloride 101 mmol/L (98-107); Estimated CRCL calculation 73 ml/min; Estimated Glomerular Filt Rate > 60; Glucose 101 mg/dL (65-110); Lipase 112 U/L (23-300); Potassium 3.9 mmol/L (3.4-5.0); Sodium 140 mmol/L (137-145)
[2024-10-04] MEDS: LACTATED RINGERS 1,000 ML 999 ML IV CONT (03:41)
[2024-10-04] MEDS: MORPHINE SULFATE (*CRX) 4 MG/ML INJ IV PUSH (03:41)
[2024-10-04] MEDS: ONDANSETRON INJ 4 MG/2 ML VIAL IV PUSH (03:42)
--- OUTSIDE RECORDS SUMMARY | 2024-10-04 04:13 | XMS_ITS | Referral Summary ---
Author Organization [facility] [address] Address [address] [place] [address] Care Team Providers Care Clinic Receptionist Name Role Phone Wendy Kinney MD Primary Care Provider Allergies Active Allergy Reactions Criticality Noted Date Comments Brimonidine Medications atorvastatin (LIPITOR) 10 mg tablet Take 10 mg by mouth daily 04/06/2022 Active dorzolamide-fran oloL (COSOPT) 22.3-6.8 mg/mL ophthalmic solution 1 drop 2 (two) times a day 04/15/2022 Active Lumigan 0.01 % ophthalmic drops 1 drop nightly 04/25/2022 Active ergocalciferol (VITAMIN D) 50,000 unit capsule Take 50,000 Units by mouth once a week 04/19/2022 Active Rhopressa 0.02 % drops INSTILL 1 DROP INTO EACH EYE ONCE DAILY AT NIGHT 04/05/2022 Active Active Problems Problem Noted Date Diagnosed Date Peripheral vertigo involving right ear 3 Tinnitus of right ear 05/12/2022 Impacted cerumen of right ear 05/12/2022 Sensorineural hearing loss (SNHL) of both ears 0 05/12/2022 Chronic sphenoidal sinusitis 05/12/2022 Social History Tobacco Use Types Packs/Day Years Used Date Smoking Tobacco: Never Smokeless Tobacco: Never Tobacco Cessation:Counseling Given: Not Answered Personal Safety Answer Date Recorded Getting School Help Needed Not on file 07/07 Comments Unknown Sex and Gender Information Value Date Recorded Sex Assigned at Not on file Legal Sex Female 2:21 AM NUCLEAR MEDICINE MEDICAL DIRECTOR Gender Identity Not on file Sexual Orientation Not on file Last Filed Vital Signs Vital Sign Reading Time Taken Comments Blood Pressure - - Pulse - - Temperature - - Respiratory Rate 18 05/26/2022 4:21 PM NUCLEAR MEDICINE MEDICAL DIRECTOR Oxygen Saturation - - Inhaled Oxygen Concentration - - Weight 73 kg (161 lb) 05/26/2022 4:21 PM NUCLEAR MEDICINE MEDICAL DIRECTOR Height 165.1 cm (5' 5) 05/26/2022 4:21 PM NUCLEAR MEDICINE MEDICAL DIRECTOR Body Mass Index 26.79 05/26/2022 4:21 PM NUCLEAR MEDICINE MEDICAL DIRECTOR Plan of Treatment Not on file Insurance MEDICARE [facility] Care Teams Clinic Receptionist Relationship Specialty Start Date End Date Wendy Kinney MD PCP - General Family Medicine 04/14/22
--- OUTSIDE RECORDS SUMMARY | 2024-10-04 04:13 | XMS_ITS | Clinical Summary ---
Author Organization [facility] Address [address] [place] [address] Care Team Providers Care Oil Field Pumper Name Role Phone Wendy Kinney MD Primary Care Provider [phone] Source Comments [facility],non-[facility] Affiliates and Associated Physician Practices is amultiple site organization consisting of ambulatory clinics and hospital sitesin [place], [place], [place] and [place]. This disclosure is being madepursuant to the Care Everywhere program and may not contain all information available regarding this patient. Last updated 18.[facility] Social History Tobacco Use Types Packs/Day Years Used Date Smoking Tobacco: Never Assessed Comments Unknown Sex and Gender Information Value Date Recorded Sex Assigned at Not on file Legal Sex Female 7:41 AM SENIOR BOOKKEEPER Gender Identity Not on file Sexual Orientation Not on file Plan of Treatment Health Maintenance Due Date Last Done Comments BONE DENSITY TESTING 1945 DTAP/TDAP/TD VACCINES (1 - Tdap) 02/14/1964 PNEUMOCOCCAL VACCINE 50+ (1 of 1 - PCV) 1995 ZOSTER VACCINE (1 of 2) 1995 Respiratory Syncytial Virus (RSV) Vaccine Pt: or over 60 yrs (1 - 1-dose 75+ series) 02/14/2020 COVID-19 VACCINE ( - 2023-2 5 season) 2024 DEPRESSION SCREENING 05/08/2024 INFLUENZA VACCINE (Season Ended) 2025 HEPATITIS B VACCINE Aged Out No longe r eligible based on patient's age to complete this topic HIB VACCINE Aged Out No longer eligi ble based on patient's age to complete this topic HPV VACCINE Aged Out No longer eligi ble based on patient's age to complete this topic MENINGOCOCCAL (Group B) VACC INE SHARED DECISION-MAKING Aged Out No longer eligibl e based on patient's age to complete this topic MENINGOCOCCAL GROUPS A/C/Y/W VACCINE Aged Out No longer eligible b ased on patient's age to complete this topic Insurance MEDICARE Care Teams Oil Field Pumper Relationship Specialty Start Date End Date Wendy Kinney MD [address] [place] [address] PCP - General 11/12/08
--- OUTSIDE RECORDS SUMMARY | 2024-10-04 04:13 | XMS_ITS | Clinical Summary ---
Author Organization [facility] [address] Address [address] [place] [address] Care Team Providers Care It Telecom Technician Name Role Phone Wendy Kinney MD Primary Care Provider [phone] Allergies Active Allergy Reactions Criticality Noted Date [...] ears 0 05/12/2022 Chronic sphenoidal sinusitis 05/12/2022 Surgical History Surgery Date Site/Laterality Comments EYE SURGERY cataracts, glaucoma ANKLE FRACTURE SURGERY Medical History Medical History Date Comments Glaucoma Tinnitus Dizziness GERD (gastroesophageal reflux disease) Vertigo Family History Medical History Relation Name Comments Cancer Brother Heart disease Father Cancer Mother Heart disease Sister Relation Name Status Comments Brother Father Mother Sister Social History Tobacco Use Types Packs/Day Years Used Date Smoking Tobacco: Never Smokeless Tobacco: Never Tobacco Cessation:Counseling Given: Not Answered Personal Safety Answer Date Recorded Getting School Help Needed Not on file 07/07 Comments Unknown Sex and Gender Information Value Date Recorded Sex Assigned at Not on file Legal Sex Female 2:21 AM RADIATION PROTECTION SPECIALIST Gender Identity Not on file Sexual Orientation Not on file Obstetrics History Last Filed Vital Signs Vital Sign Reading Time Taken Comments Blood Pressure - - Pulse - - Temperature - - Respiratory Rate 18 05/26/2022 4:21 PM RADIATION PROTECTION SPECIALIST Oxygen Saturation - - Inhaled Oxygen Concentration - - Weight 73 kg (161 lb) 05/26/2022 4:21 PM RADIATION PROTECTION SPECIALIST Height 165.1 cm (5' 5) 05/26/2022 4:21 PM RADIATION PROTECTION SPECIALIST Body Mass Index 26.79 05/26/2022 4:21 PM RADIATION PROTECTION SPECIALIST Plan of Treatment Health Maintenance Due Date Last Done Comments Depression Screening 1945 Fall Risk Assessment 1945 Hepatitis C Screening 1945 Osteoporosis Screening-Bone Density Scan 1945 DTaP/Tdap/Td Vaccine (1 - Tdap) 02/14/1956 Hepatitis B Screening 1963 Well Visit 65+ 2010 Covid-19 Vaccine (6 2023-2 5 season) 2024 03/02/2022, 08/31/2021, 03/02/2021, Additional history exists Influenza Vaccine (Season Ended) 2025 02/24/2022, 02/11/2021, 03/26/2019, Additional history exists Pneumococcal vaccine 65+ Completed 06/20/2018, 09/06 Zoster Vaccine Completed 10/16/2019, 03/26/2019 Insurance MEDICARE [employer] Care Teams It Telecom Technician Relationship Specialty Start Date End Date Wendy Kinney MD PCP - General Family Medicine 04/14/22
[2024-10-04 05:02] VITALS: BP 136/70; PULSE 74; RESP 18; O2SAT 98
[2024-10-04 06:30] VITALS: BP 114/55; PULSE 83; RESP 18; O2SAT 97
[2024-10-04 06:32] LABS: Troponin I < 0.012 ng/mL (0.000-0.034)
[2024-10-04 07:13] VITALS: BP 101/66; PULSE 76; RESP 20; O2SAT 97
== END 2024-10-04 07:47 ==
PROVIDERS: Emergency Provider Student in an Organized Health Care Education/Training Program; PCP Family Medicine
DX: R07.9 Chest pain, unspecified (principal); R10.13 Epigastric pain; I10 Essential (primary) hypertension; E11.9 Type 2 diabetes mellitus without complications; K76.0 Fatty (change of) liver, not elsewhere classified
CPT/HCPCS: 36415; 71045; 71275; 74174; 80053; 83690; 84484; 85025; 85610; 85730; 93005; 96361; 96374; 96375; 99284; A9270; J2270; J2405; J7120; Q9967

== ENCOUNTER 2024-11-02 08:59 | Emergency (ER) | payer MEDICARE, OTHER, SELFPAY ==
[2024-11-02] VITALS (26 sets, daily range): BP systolic 101–131; BP diastolic 47–69; PULSE 65–90; RESP 10–32; TEMP 36.6; O2SAT 92–100
--- NOTE | ~2024-11-02 | XR_ITS ---
EXAMINATION: XR chest 2V DATE: 11/02/2024 10:15 INDICATION: Chest pain TECHNIQUE: frontal and lateral views of the chest were obtained. COMPARISON: CT dated 10/13/2024 FINDINGS: Mild streaky bibasilar atelectasis. No other airspace opacities, pulmonary edema, pleural effusion or pneumothorax. The cardiomediastinal silhouette is normal. Mild thoracic spondylosis. IMPRESSION: 1. Mild streaky bibasilar atelectasis. Reviewed, dictated and finalized at location A.
--- NOTE | 2024-11-02 09:03 | ECG_ITS ---
Test Date: 2024-11-02 09:12:27 Measurements Intervals [place] Rate: 79 P: 16 NC: 148 QRS: -7 QRSD: 91 T: 30 QT: 392 QTc: 450 Interpretive Statements SINUS RHYTHM LEFT VENTRICULAR HYPERTROPHY BORDERLINE R WAVE PROGRESSION, ANTERIOR LEADS MINIMAL Q WAVES- HIGH LATERAL LEADS BASELINE ARTIFACT- V3 Compared to ECG 03/30/2024 09:27:58 NO SIGNIFICANT CHANGE Electronically Signed On 11-02-2024 10:10:14 CDT by Joselito Vallejo D.O.
[2024-11-02 09:36] LABS: Basophils Percent Auto 0.4 % (0.2-1.2); Eosinophils Absolute Auto 0.1 K/mm3 (0-0.3); Eosinophils Percent Auto 1.7 % (0-4.4); Hematocrit 41.5 % (37.0-47.0); Hemoglobin 13.4 g/dL (12.0-15.0); Immature Granulocyte Absolute 0.03 K/mm3 (0.00-0.031); Immature Granulocyte Percent A 0.4 % (0-0.5); Lymphocytes Absolute Auto 1.63 K/mm3 (0.9-3.2); Lymphocytes Percent Auto 23.2 % (18.3-44.2); Mean Corpuscular HGB Conc 32.3 g/dl (32-36); Mean Corpuscular Hemoglobin 31.5 pg (26-34); Mean Corpuscular Volume 97.6 fl (80-100); Mean Platelet Volume 8.8 fl (7.4-10.4); Monocytes Absolute Auto 0.8 K/mm3 (0.1-0.6); Monocytes Percent Auto 11.1 % (2.6-8.5); Neutrophils Absolute Auto 4.4 K/mm3 (1.3-6.7); Neutrophils Percent Auto 63.2 % (45.5-73.1); Platelet Count Result 227 k/mm3 (150-375); Red Blood Count 4.25 M/mm3 (4.2-5.4); Red Cell Distribution Width 12.7 % (11.5-14.5)
[2024-11-02 09:48] LABS: Alanine Aminotransferase 27 U/L (6-35); Albumin Level 4.4 g/dL (3.5-5.1); Alkaline Phosphatase 47 U/L (38-126); Anion Gap 13 mmol/L (4-12); Aspartate Amino Transferase 30 U/L (14-36); Bilirubin,Total 0.5 mg/dL (0.2-1.3); Blood Urea Nitrogen 11 mg/dL (7-17); Calcium 9.6 mg/dL (8.4-10.2); Carbon Dioxide 23 mmol/L (22-30); Chloride 104 mmol/L (98-107); Estimated CRCL calculation 70 ml/min; Estimated Glomerular Filt Rate > 60; Glucose 184 mg/dL (65-110); Lipase 85 U/L (23-300); Potassium 4.1 mmol/L (3.4-5.0); Sodium 140 mmol/L (137-145); Total Protein 7.4 g/dL (6.3-8.2)
--- NOTE | 2024-11-02 09:48 | ED_ITS ---
HPI - General Adult General Chief complaint: Chest Pain Stated complaint: cp Time Seen by Provider: 11/02/24 09:10 History of Present Illness HPI narrative: This is a 79-year-old female dementia presenting with chief complaint of chest pain. Patient has been seen in our emergency department multiple times for his complaint. Patient was 1st seen on October 04 and had a negative evaluation including delta troponins and CTA chest abdomen pelvis. She came back October 13 and was admitted. She had a negative stress test and echocardiogram. And was discharged with suspected MSK pain versus GERD. Today the patient says she is having sharp pain from the center chest radiating to her back. She says it is constant 6 out 10. There are no exacerbating alleviating factors. Patient states that she has never had pain like this before and does not recall her previous visits to the emergency room and her admission. I reach out to her son Andrae Sinclair (ER physician) to discuss her case. Given her multiple negative workups/advanced imaging today we will make sure we r/o common causes of chest pain and try to control her pain. Related Data Home Medications ?Medication ?Instructions ?Recorded ?Confirmed ?Last Taken ?Type bimatoprost 0.01 % eye drops 1 drp EACH EYE HS 03/27/24 09/02/24 Unknown History (Rebeca) acetaminophen 500 mg capsule 1,000 mg PO Q6H PRN pain 10/13/24 10/13/24 Unknown History aspirin 81 mg tablet 81 mg PO DAILY 10/13/24 10/13/24 Unknown History atorvastatin 20 mg tablet 20 mg PO QHS 10/13/24 10/13/24 10/12/24 History bimatoprost 0.01 % eye drops 1 drp EACH EYE QHS 10/13/24 10/13/24 Unknown History (Lumigan) denosumab 60 mg/mL subcutaneous 60 mg subcut [id number] 10/13/24 10/13/24 Unknown History syringe donepezil 5 mg tablet 5 mg PO QHS 10/13/24 10/13/24 10/12/24 History dorzolamide 22.3 mg-timolol 6.8 1 drp EACH EYE BID 10/13/24 10/13/24 Unknown History mg/mL eye drops ergocalciferol (vitamin D2) 1,250 1,250 mcg PO WEEKLY 10/13/24 10/13/24 Unknown History mcg (50,000 unit) capsule ferrous sulfate 325 mg (65 mg 325 mg PO DAILY 10/13/24 10/13/24 Unknown History iron) tablet (Feosol) ibuprofen 600 mg tablet 600 mg PO TID PRN pain 10/13/24 10/13/24 Unknown History insulin glargine 100 unit/mL 17 unit subcut QPM 10/13/24 10/13/24 10/12/24 History subcutaneous solution (Lantus U-100 Insulin) metformin 500 mg tablet,extended 500 mg PO BID 10/13/24 10/13/24 Unknown History release 24 hr netarsudil 0.02 % eye drops 1 drp LEFT EYE QPM 10/13/24 10/13/24 Unknown History (Rhopressa) nifedipine 30 mg tablet,extended 30 mg PO DAILY 10/13/24 10/13/24 Unknown History release 24 hr ondansetron 4 mg disintegrating 4 mg PO Q8H PRN nausea and vomiting 10/13/24 10/13/24 Unknown History tablet pantoprazole 40 mg tablet,delayed 40 mg PO DAILY 10/13/24 10/13/24 Unknown History release trazodone 50 mg tablet 25 mg PO QHS 10/13/24 10/13/24 Unknown History Allergies Allergy/AdvReac Type Severity Reaction Status Date / Time brimonidine Allergy Severe RED EYES, Verified 10/23/24 13:27 ITCHING PMFSH Past Medical History Medical History Tinea unguium Dementia Decreased appetite Neck pain on right side History of UTI Glaucoma Asthma Osteoporosis Hypothyroidism history of thyroid problems Type 2 diabetes mellitus without complication, without long-term current use of insulin Alopecia Mixed hyperlipidemia Vitamin B12 deficiency Vitamin D deficiency Surgical History Surgical History History of ankle surgery Total knee replacement status Family History Family History Father Heart disease Mother Colon cancer Sibling Diabetes mellitus Grandparent Colon cancer Other Asthma Carcinoma of colon Family history of coronary artery disease Family history of glaucoma Family history of osteoporosis Social History Social History (System 10/23/24 @ 13:27 by Aria Helms) Social History: Has a daughter Smoking status: Never smoker Second hand tobacco smoke exposure: No Alcohol intake: never Substance use: never Substance use type: does not use Do You Feel Safe in your Home?: Yes Lack of Transportation: No Lack of Food: Never True Current Housing: I Have Housing Concerned About Future Housing: No Difficulty Paying Gas/Electric Bills: No Difficulty Paying for Meds: No Currently Unemployed: No Education: High School Diploma/GED Difficulty w/ Childcare or Family Care: No Living arrangements: assisted living Occupation/Education: retired Gender identity (if verbalized by the patient): Female Sexual Orientation (if Verbalized by the Patient): Straight or Heterosexual Spiritual care concerns: No Agree to blood products: Yes Exam 2 Narrative: APPEARANCE: No apparent distress. A&O x1 Head: atraumatic. EYES: EOMI, NOSE: Atraumatic NECK: Trachea midline RESPIRATORY: No increased rate of breathing clear to auscultation CARDIOVASCULAR: RRR, no peripheral edema, ABDOMINAL: Non-distended MUSCULOSKELETAl: No reproducible chest tenderness or pain over her back or spine. NEURO: Alert. Moving 4/4 extremities SKIN:: Warm, dry. Normal color PSYCHIATRIC: Normal affect Course Vital Signs Vital signs: Vital Signs Temperature 97.9 F 11/02/24 08:58 Pulse Rate 85 11/02/24 08:58 Respiratory Rate 19 11/02/24 08:58 Blood Pressure 106/57 L 11/02/24 08:58 Oxygen Delivery Room Air 11/02/24 08:58 Temperature 97.9 F 11/02/24 08:58 Pulse Rate 65 11/02/24 12:46 Respiratory Rate 12 11/02/24 12:46 Blood Pressure 103/47 L 11/02/24 12:46 Pulse Oximetry 94 11/02/24 12:46 Oxygen Delivery Autopap 11/02/24 09:04 Medical Decision Making [facility] Narrative Medical decision making narrative: -Course: 79-year-old female with dementia presenting for the 3rd time with chest and back pain. Patient has had extensive workup and imaging in the past with no causative findings. Case was discussed with her son and we will try to control her symptoms and rule out emergent causes chest pain. We discussed advanced imaging and we will not pursue that at this time given the chonicity of her symptoms. On re-evaluation the patient is no longer complaining of chest or back pain and does not when she was in the emergency department. Chest x-ray showed streaky atelectasis. Troponins were undetectable x2. EKG without any significant changes or ischemic findings. The patient's son was updated and she will be discharged back to her facility. -DDX includes but is not limited to: GERD, ACS, dissection, arthritis MSK pain -Co-morbidities complicating care: Dementia Vital Signs Vital Signs: Vital Signs Temperature 97.9 F 11/02/24 08:58 Pulse Rate 85 11/02/24 08:58 Respiratory Rate 19 11/02/24 08:58 Blood Pressure 106/57 L 11/02/24 08:58 Oxygen Delivery Room Air 11/02/24 08:58 Temperature 97.9 F 11/02/24 08:58 Pulse Rate 65 11/02/24 12:46 Respiratory Rate 12 11/02/24 12:46 Blood Pressure 103/47 L 11/02/24 12:46 Pulse Oximetry 94 11/02/24 12:46 Oxygen Delivery Autopap 11/02/24 09:04 Lab Data 11/02/24 09:28 11/02/24 09:28 Labs: Lab Results 11/02/24 11/02/24 Range/Units 09:28 11:43 WBC 7.0 (4.5-10.0) K/mm3 RBC 4.25 (4.2-5.4) M/mm3 Hgb 13.4 (12.0-15.0) g/dL Hct 41.5 (37.0-47.0) % MCV 97.6 (80-100) fl MCH 31.5 (26-34) pg MCHC 32.3 (32-36) g/dl RDW 12.7 (11.5-14.5) % Plt Count 227 (150-375) k/mm3 MPV 8.8 (7.4-10.4) fl Immature Gran % (Auto) 0.4 (0-0.5) % Neut % (Auto) 63.2 (45.5-73.1) % Lymph % (Auto) 23.2 (18.3-44.2) % [place] % (Auto) 11.1 H (2.6-8.5) % Eos % (Auto) 1.7 (0-4.4) % Baso % (Auto) 0.4 (0.2-1.2) % Lymph # (Auto) 1.63 (0.9-3.2) K/mm3 [place] # (Auto) 0.8 H (0.1-0.6) K/mm3 Eos # (Auto) 0.1 (0-0.3) K/mm3 Baso # (Auto) 0.0 (0.0-0.1) K/mm3 Abs Immat Gran (auto) 0.03 (0.00-0.031) K/mm3 Absolute Neuts (auto) 4.4 (1.3-6.7) K/mm3 Absolute Nucleated RBC 0.000 (0.0-0.012) K/mm3 Nucleated RBC % 0.0 (0.0-0.2) % PT 12.5 (11.1-14.7) Seconds INR 0.9 APTT 21.8 L (22.3-36.8) Seconds Sodium 140 (137-145) mmol/L Potassium 4.1 (3.4-5.0) mmol/L Chloride 104 (98-107) mmol/L Carbon Dioxide 23 (22-30) mmol/L Anion Gap 13 H (4-12) mmol/L BUN 11 (7-17) mg/dL Creatinine 0.51 L (0.7-1.0) mg/dL Estim Creat Clear Calc 70 ml/min Estimated GFR > 60 (59 - ) Glucose 184 H (65-110) mg/dL Calcium 9.6 (8.4-10.2) mg/dL Total Bilirubin 0.5 (0.2-1.3) mg/dL AST 30 (14-36) U/L ALT 27 (6-35) U/L Alkaline Phosphatase 47 (38-126) U/L Troponin I < 0.012 < 0.012 (0.000-0.034) ng/mL Total Protein 7.4 (6.3-8.2) g/dL Albumin 4.4 (3.5-5.1) g/dL Lipase 85 (23-300) U/L Discharge Plan Discharge Clinical Impression: Chest pain, Back pain Patient Disposition: Home Condition: Stable Instructions: Antibiotic Form, Chest Pain (ED) Additional Instructions: Arti was seen in our emergency department for chest and back pain. Her workup here was reassuring. Her symptoms resolved after Maalox, Tylenol and Robaxin. If she develops any new or worsening symptoms she can return to the ED for re-evaluation Patient Language: Gibraltarian Prescriptions: No Action (DME) blood-glucose meter, wireless Kit See Rx Instructions .ROUTE .MEDSUPPLY Qty: 1 0RF Rx Instructions: Check blood sugar once per day in the morning before food (DME) lancets 33 gauge misc See Rx Instructions .Route Qty: 100 0RF Rx Instructions: Check blood sugar once per day in the morning before food (DME) blood sugar diagnostic Strip See Rx Instructions .ROUTE .MEDSUPPLY Qty: 90 3RF Rx Instructions: Check blood sugar once per day in the morning before food atorvastatin 20 mg tablet 20 mg PO QHS donepezil 5 mg tablet 5 mg PO QHS ergocalciferol (vitamin D2) 1,250 mcg (50,000 unit) capsule 1,250 mcg PO WEEKLY ibuprofen 600 mg tablet 600 mg PO TID PRN (Reason: pain) insulin glargine [Lantus U-100 Insulin] 100 unit/mL solution 17 unit SUBCUT QPM metformin 500 mg tablet extended release 24 hr 500 mg PO BID nifedipine 30 mg tablet extended release 24hr 30 mg PO DAILY pantoprazole 40 mg tablet,delayed release (DR/EC) 40 mg PO DAILY trazodone 50 mg tablet 25 mg PO QHS acetaminophen 500 mg capsule 1,000 mg PO Q6H PRN (Reason: pain) dorzolamide-timolol 22.3-6.8 mg/mL drops 1 drp EACH EYE BID aspirin 81 mg tablet 81 mg PO DAILY denosumab 60 mg/mL syringe 60 mg subcut [id number] ferrous sulfate [Feosol] 325 mg (65 mg iron) tablet 325 mg PO DAILY Lumigan 0.01 % drops 1 drp EACH EYE QHS ondansetron 4 mg tablet,disintegrating 4 mg PO Q8H PRN (Reason: nausea and vomiting) Rhopressa 0.02 % drops 1 drp LEFT EYE QPM Lumigan 0.01 % drops 1 drp EACH EYE HS aspirin 81 mg tablet,delayed release (DR/EC) 81 mg PO DAILY Qty: 100 1RF atorvastatin 20 mg tablet 20 mg PO DAILY Qty: 90 1RF donepezil [Aricept] 5 mg tablet 5 mg PO QHS Qty: 90 1RF Rx Instructions: with snack ergocalciferol (vitamin D2) 1,250 mcg (50,000 unit) capsule 50,000 unit PO WEEKLY Qty: 14 1RF Rx Instructions: Takes on insulin glargine [Lantus U-100 Insulin] 100 unit/mL solution 17 unit subcut HS Qty: 10 1RF nifedipine [Procardia XL] 30 mg tablet extended release 24hr 30 mg PO QAM Qty: 90 1RF pantoprazole 40 mg tablet,delayed release (DR/EC) 40 mg PO QAM Qty: 90 1RF trazodone 50 mg tablet 25 mg PO QHS Qty: 90 1RF acetaminophen 500 mg capsule 1,000 mg PO Q6H PRN (Reason: pain) Qty: 100 0RF Artificial Tears([id number]) Drops 1 drp EACH EYE 4-6XD PRN (Reason: dry eye(s)) Qty: 30 2RF glucagon HCl [Glucagon (HCl) Emergency Kit] 1 mg recon soln 1 mg subcut Q20M PRN (Reason: hypoglycemia) Qty: 1 0RF Rx Instructions: until target blood sugar attained ibuprofen 600 mg tablet 600 mg PO TID PRN (Reason: pain) Qty: 100 0RF ondansetron 4 mg tablet,disintegrating 4 mg PO Q8H PRN (Reason: nausea and vomiting) Qty: 60 0RF Artificial Tears (cmc) 1 % drops 1 drp EACH EYE .2-4XD PRN (Reason: dry eye(s)) Qty: 15 1RF polyethylene glycol 3350 [Miralax] 17 gram powder in packet 17 g PO QAM PRN (Reason: constipation) Qty: 30 0RF Tymlos 80 mcg (3,120 mcg/1.56 mL) pen injector 80 mcg subcut DAILY Qty: 1.56 12RF Rx Instructions: inject into abdomen; do not inject within 2 inches of belly button/navel; rotate sites (DME) Fasting blood sugars See Rx Instructions .Route .MEDSUPPLY Qty: 1 0RF Rx Instructions: Check daily and send to PCP office (Dr Kinney) weekly. ferrous sulfate 325 mg (65 mg iron) tablet,delayed release (DR/EC) 325 mg PO DAILY Qty: 90 1RF metformin 500 mg tablet extended release 24 hr 1,000 mg PO BID Qty: 360 1RF Follow-up/Referrals: Wendy Kinney MD [Primary Care Provider] -
[2024-11-02 09:51] LABS: INR 0.9; Prothrombin Time 12.5 Seconds (11.1-14.7)
[2024-11-02 09:53] LABS: Partial Thromboplastin Time 21.8 Seconds (22.3-36.8)
[2024-11-02 10:00] LABS: Troponin I < 0.012 ng/mL (0.000-0.034)
[2024-11-02] MEDS: ACETAMINOPHEN 500 MG TABLET 1000 MG PO (10:01)
[2024-11-02] MEDS: MAG HYDROX/AL HYDROX/SIMETH 30 ML UDC PO (10:01)
[2024-11-02] MEDS: methocarbamoL 750 MG TABLET 1500 MG PO (10:02)
[2024-11-02 12:17] LABS: Troponin I < 0.012 ng/mL (0.000-0.034)
--- NOTE | 2024-11-02 17:18 | ECG_ITS ---
Test Date: 2024-11-02 11:54:58 Measurements Intervals [place] Rate: 73 P: 44 [place]: 173 QRS: -1 QRSD: 86 T: 33 QT: 412 QTc: 456 Interpretive Statements SINUS RHYTHM VOLTAGE CRITERIA FOR LVH BORDERLINE ECG Compared to ECG 11/02/2024 09:12:27 NO SIGNIFICANT CHANGE Electronically Signed On 11-03-2024 07:40:28 CDT by Joselito Vallejo D.O.
== END 2024-11-02 14:06 | disposition home or self-care (01) ==
PROVIDERS: Emergency Provider Emergency Medicine; PCP Family Medicine
DX: R07.9 Chest pain, unspecified (principal); M54.9 Dorsalgia, unspecified; F03.90 Unspecified dementia, unspecified severity, without behavioral disturbance, psychotic disturbance, mood disturbance, and anxiety; Z79.82 Long term (current) use of aspirin; Z79.4 Long term (current) use of insulin; H40.9 Unspecified glaucoma; E78.2 Mixed hyperlipidemia; M81.0 Age-related osteoporosis without current pathological fracture; J45.909 Unspecified asthma, uncomplicated; E55.9 Vitamin D deficiency, unspecified; E53.8 Deficiency of other specified B group vitamins; Z96.659 Presence of unspecified artificial knee joint
CPT/HCPCS: 36415; 71046; 80053; 83690; 84484; 85025; 85610; 85730; 93005; 99284; A9270

== ENCOUNTER 2024-12-18 00:56 | Emergency (ER) | payer MEDICARE, OTHER, SELFPAY ==
--- NOTE | ~2024-12-18 | XR_ITS ---
EXAMINATION: XR chest 2V 12/18/2024 01:30 INDICATION: Chest pain PROCEDURE: 2 view chest COMPARISON: Comparison to multiple prior studies sequentially, with oldest reviewed study dated 03/09. FINDINGS: The lungs are clear. The cardiomediastinal silhouette is within normal limits. There are no pleural effusions. There is no pneumothorax suspected. IMPRESSION: 1: NO ACUTE CARDIOPULMONARY DISEASE. Reviewed, dictated and finalized at location A.
[2024-12-18 00:57] VITALS: PULSE 84; RESP 16; TEMP 36.3; O2SAT 98
--- NOTE | 2024-12-18 01:00 | ECG_ITS ---
Test Date: 2024-12-18 01:02:17 Measurements Intervals [place] Rate: 82 P: 55 OR: 166 QRS: -14 QRSD: 87 T: 33 QT: 371 QTc: 436 Interpretive Statements SINUS RHYTHM VOLTAGE CRITERIA FOR LVH MINIMAL Q WAVES- HIGH LATERAL LEADS BASELINE ARTIFACT- I, II, AVR BORDERLINE ECG Compared to ECG 11/02/2024 11:54:58 No significant changes Electronically Signed On 12-18-2024 06:17:56 CDT by Joselito Vallejo D.O.
[2024-12-18 01:06] VITALS: O2SAT 95
[2024-12-18 01:07] VITALS: O2SAT 97
[2024-12-18 01:18] LABS: Hematocrit 43.6 % (37.0-47.0); Hemoglobin 14.5 g/dL (12.0-15.0); Immature Granulocyte Percent A 0.2 % (0-0.5); Lymphocytes Absolute Auto 2.93 K/mm3 (0.9-3.2); Mean Corpuscular HGB Conc 33.3 g/dl (32-36); Mean Corpuscular Hemoglobin 31.8 pg (26-34); Mean Corpuscular Volume 95.6 fl (80-100); Nucleated Red Blood Cells Absolute Auto 0.000 K/mm3 (0.0-0.012); Nucleated Red Blood Cells Perc 0.0 % (0.0-0.2); Platelet Count Result 259 k/mm3 (150-375); Red Blood Count 4.56 M/mm3 (4.2-5.4); White Blood Count 8.4 K/mm3 (4.5-10.0)
[2024-12-18 01:32] LABS: INR 0.9; Partial Thromboplastin Time 23.6 Seconds (22.3-36.8); Prothrombin Time 12.5 Seconds (11.1-14.7)
[2024-12-18 01:36] LABS: Alanine Aminotransferase 33 U/L (6-35); Albumin Level 4.7 g/dL (3.5-5.1); Alkaline Phosphatase 46 U/L (38-126); Anion Gap 14 mmol/L (4-12); Aspartate Amino Transferase 30 U/L (14-36); Bilirubin,Total 0.5 mg/dL (0.2-1.3); Blood Urea Nitrogen 17 mg/dL (7-17); Calcium 11.0 mg/dL (8.4-10.2); Carbon Dioxide 25 mmol/L (22-30); Chloride 98 mmol/L (98-107); Estimated CRCL calculation 65 ml/min; Estimated Glomerular Filt Rate > 60; Glucose 147 mg/dL (65-110); Lipase 131 U/L (23-300); Potassium 3.8 mmol/L (3.4-5.0); Sodium 137 mmol/L (137-145); Total Protein 7.8 g/dL (6.3-8.2)
[2024-12-18] MEDS: BELLADONNA ALK/PHENOB ELIX 10 ML, MAG HYDROX/ALUMINUM HYD/SIMETH 30 ML, LIDOCAINE 2% VI... PO (01:41)
[2024-12-18] MEDS: FAMOTIDINE 20 MG/2 ML VIAL IV PUSH (01:42)
[2024-12-18 01:46] LABS: Troponin I < 0.012 ng/mL (0.000-0.034)
--- NOTE | 2024-12-18 02:02 | ED.CHESTPAIN ---
HPI - Chest Pain General Chief Complaint: Chest Pain Stated Complaint: CP RADIATES TO BACK Time Seen by Provider: 12/18/24 01:07 History of Present Illness HPI narrative: 79-year-old female with a past medical history including dementia, diabetes, hyperlipidemia presenting to the emergency depart with chest pain radiating towards her back. Patient has had multiple visits to this emergency department with previous admissions for very similar complaints. She has had extensive cardiac workup, CT angiographies, cardiac assessments with negative stress testing, negative echocardiogram and negative CT angiography. Patient's symptomatology attributed most likely musculoskeletal chest pain versus GERD. Patient has since followed up with her PCP on outpatient visit most recently last month. She presents to the ER complaining of chest pain radiating towards her back that is reproducible with palpation. Denies any sore throat or nauseousness. No abdominal discomfort. No fever, chills, traumatic injuries. States he feels the exact same as her normal chest pain. Denies any exacerbating or relieving factors. Related Data Home Medications ?Medication ?Instructions ?Recorded ?Confirmed ?Last Taken ?Type bimatoprost 0.01 % eye drops 1 drp EACH EYE HS 03/27/24 11/13/24 Unknown History (Rebeca) acetaminophen 500 mg capsule 1,000 mg PO Q6H PRN pain 10/13/24 11/13/24 Unknown History aspirin 81 mg tablet 81 mg PO DAILY 10/13/24 11/13/24 Unknown History atorvastatin 20 mg tablet 20 mg PO QHS 10/13/24 11/13/24 10/12/24 History bimatoprost 0.01 % eye drops 1 drp EACH EYE QHS 10/13/24 11/13/24 Unknown History (Rebeca) denosumab 60 mg/mL subcutaneous 60 mg subcut [id number] 10/13/24 11/13/24 Unknown History syringe donepezil 5 mg tablet 5 mg PO QHS 10/13/24 11/13/24 10/12/24 History dorzolamide 22.3 mg-timolol 6.8 1 drp EACH EYE BID 10/13/24 11/13/24 Unknown History mg/mL eye drops ergocalciferol (vitamin D2) 1,250 1,250 mcg PO WEEKLY 10/13/24 11/13/24 Unknown History mcg (50,000 unit) capsule ferrous sulfate 325 mg (65 mg 325 mg PO DAILY 10/13/24 11/13/24 Unknown History iron) tablet (Feosol) ibuprofen 600 mg tablet 600 mg PO TID PRN pain 10/13/24 11/13/24 Unknown History insulin glargine 100 unit/mL 17 unit subcut QPM 10/13/24 11/13/24 10/12/24 History subcutaneous solution (Lantus U-100 Insulin) netarsudil 0.02 % eye drops 1 drp LEFT EYE QPM 10/13/24 11/13/24 Unknown History (Rhopressa) nifedipine 30 mg tablet,extended 30 mg PO DAILY 10/13/24 11/13/24 Unknown History release 24 hr ondansetron 4 mg disintegrating 4 mg PO Q8H PRN nausea and vomiting 10/13/24 11/13/24 Unknown History tablet pantoprazole 40 mg tablet,delayed 40 mg PO DAILY 10/13/24 11/13/24 Unknown History release trazodone 50 mg tablet 25 mg PO QHS 10/13/24 11/13/24 Unknown History Allergies Allergy/AdvReac Type Severity Reaction Status Date / Time brimonidine Allergy Severe RED EYES, Verified 11/13/24 11:29 ITCHING Review of Systems Review of Systems: As reviewed above in HPI [facility] Past Medical History Medical History Loose bowel movement Tinea unguium Dementia Decreased appetite Neck pain on right side History of UTI Glaucoma Asthma Osteoporosis Hypothyroidism history of thyroid problems Type 2 diabetes mellitus without complication, without long-term current use of insulin Alopecia Mixed hyperlipidemia Vitamin B12 deficiency Vitamin D deficiency Surgical History Surgical History History of ankle surgery Total knee replacement status Family History Family History Father Heart disease Mother Colon cancer Sibling Diabetes mellitus Grandparent Colon cancer Other Asthma Carcinoma of colon Family history of coronary artery disease Family history of glaucoma Family history of osteoporosis Social History Social History Social History: Has a daughter Smoking status: Never smoker Second hand tobacco smoke exposure: No Alcohol intake: never Substance use: never Substance use type: does not use Do You Feel Safe in your Home?: Yes Lack of Transportation: No Lack of Food: Never True Current Housing: I Have Housing Concerned About Future Housing: No Difficulty Paying Gas/Electric Bills: No Difficulty Paying for Meds: No Currently Unemployed: No Education: High School Diploma/GED Difficulty w/ Childcare or Family Care: No Living arrangements: assisted living Occupation/Education: retired Gender identity (if verbalized by the patient): Female Sexual Orientation (if Verbalized by the Patient): Straight or Heterosexual Spiritual care concerns: No Agree to blood products: Yes Exam Narrative: GENERAL: [Well-appearing, well-nourished, and in no acute distress.] HEAD: [Normocephalic, atraumatic.] EYES: [PERRLA and EOMI.] ENT: Nares clear, no rhinorrhea or epistaxis. Mucous membranes moist. NECK: Supple. CHEST: Reproducible chest pain to palpation the sternum, no respiratory distress. Clear to auscultation bilaterally HEART: [Regular rate and rhythm]. No murmur heard. [Normal peripheral pulses.] ABDOMEN: [Soft, nondistended], [nontender], [No rigidity or guarding] EXTREMITIES: Normal range of motion. [No edema.] SKIN: Warm, dry, no rash. NEURO: [No focal deficits]. Alert and oriented [x3.] PSYCH: [Normal mood and affect.] Course Vital Signs Vital signs: Vital Signs Temperature 36.3 C L 12/18/24 00:57 Pulse Rate 84 12/18/24 00:57 Respiratory Rate 16 12/18/24 00:57 Pulse Oximetry 98 12/18/24 00:57 Oxygen Delivery Room Air 12/18/24 00:57 Temperature 36.3 C L 12/18/24 00:57 Pulse Rate 92 12/18/24 05:22 Respiratory Rate 16 12/18/24 05:22 Blood Pressure 121/61 12/18/24 05:22 Pulse Oximetry 96 12/18/24 05:22 Oxygen Delivery Room Air 12/18/24 01:07 MDM - Chest Pain MDM Narrative Medical decision making narrative: 79-year-old female with a past medical history including dementia, diabetes, hyperlipidemia presenting to the emergency depart with chest pain radiating towards her back. Patient has had multiple visits to this emergency department with previous admissions for very similar complaints. She has had extensive cardiac workup, CT angiographies, cardiac assessments with negative stress testing, negative echocardiogram and negative CT angiography. Patient's symptomatology attributed most likely musculoskeletal chest pain versus GERD. Patient has since followed up with her PCP on outpatient visit most recently last month. She presents to the ER complaining of chest pain radiating towards her back that is reproducible with palpation. Denies any sore throat or nauseousness. No abdominal discomfort. No fever, chills, traumatic injuries. States he feels the exact same as her normal chest pain. Denies any exacerbating or relieving factors. Patient is overall well-appearing not any acute distress. She appears in her normal state of health. Vital signs reassuring without any significant blood pressure concerns, no tachycardia, fever, hypoxia. Strong symmetric pulses, clear breath sounds throughout. Pain is reproducible in the sternal region consistent with musculoskeletal chest discomfort but given her age and risk factors cardiac workup was ordered this time including serial troponins, EKG, chest x-ray. She has had unremarkable stress testing, CT scans before with no new risk factors or interval change in history so do not believe additional imaging aside from two-view chest x-ray is warranted at this time. Patient given Pepcid and a GI cocktail in case this is GI related such as esophageal spasm or GERD as well as Toradol for chest pain. Workup is reassuring with no leukocytosis or anemia. Normal platelet count. Normal coagulation panel. Unremarkable electrolytes. Normal renal function. Unremarkable glucose. Negative troponin. Negative delta troponin. Normal lipase. Chest x-ray shows no acute findings, EKG shows sinus rhythm and LVH but no ST segment elevations, depressions or inversions. No delta change on EKGs from previous in the EMR. Patient remains hemodynamically stable. Improvement in symptoms and she can safely be discharged with regular PCP follow-up and further risk stratification on outpatient basis with her regular doctors. Medical Records Data Attestation: I reviewed the patient's medical records. Lab Data Attestation: I reviewed the patient's lab results. 12/18/24 01:13 12/18/24 01:13 Labs: Lab Results 12/18/24 12/18/24 Range/Units 01:13 04:35 WBC 8.4 (4.5-10.0) K/mm3 RBC 4.56 (4.2-5.4) M/mm3 Hgb 14.5 (12.0-15.0) g/dL Hct 43.6 (37.0-47.0) % MCV 95.6 (80-100) fl MCH 31.8 (26-34) pg MCHC 33.3 (32-36) g/dl RDW 11.9 (11.5-14.5) % Plt Count 259 (150-375) k/mm3 MPV 8.7 (7.4-10.4) fl Immature Gran % (Auto) 0.2 (0-0.5) % Neut % (Auto) 51.8 (45.5-73.1) % Lymph % (Auto) 35.0 (18.3-44.2) % [place] % (Auto) 11.1 H (2.6-8.5) % Eos % (Auto) 1.4 (0-4.4) % Baso % (Auto) 0.5 (0.2-1.2) % Lymph # (Auto) 2.93 (0.9-3.2) K/mm3 [place] # (Auto) 0.9 H (0.1-0.6) K/mm3 Eos # (Auto) 0.1 (0-0.3) K/mm3 Baso # (Auto) 0.0 (0.0-0.1) K/mm3 Abs Immat Gran (auto) 0.02 (0.00-0.031) K/mm3 Absolute Neuts (auto) 4.3 (1.3-6.7) K/mm3 Absolute Nucleated RBC 0.000 (0.0-0.012) K/mm3 Nucleated RBC % 0.0 (0.0-0.2) % PT 12.5 (11.1-14.7) Seconds INR 0.9 APTT 23.6 (22.3-36.8) Seconds Sodium 137 (137-145) mmol/L Potassium 3.8 (3.4-5.0) mmol/L Chloride 98 (98-107) mmol/L Carbon Dioxide 25 (22-30) mmol/L Anion Gap 14 H (4-12) mmol/L BUN 17 (7-17) mg/dL Creatinine 0.64 L (0.7-1.0) mg/dL Estim Creat Clear Calc 65 ml/min Estimated GFR > 60 (59 - ) Glucose 147 H (65-110) mg/dL Calcium 11.0 H (8.4-10.2) mg/dL Total Bilirubin 0.5 (0.2-1.3) mg/dL AST 30 (14-36) U/L ALT 33 (6-35) U/L Alkaline Phosphatase 46 (38-126) U/L Troponin I < 0.012 < 0.012 (0.000-0.034) ng/mL Total Protein 7.8 (6.3-8.2) g/dL Albumin 4.7 (3.5-5.1) g/dL Lipase 131 (23-300) U/L Imaging Data Attestation: I personally reviewed and interpreted this imaging study as follows: My impression: No acute abnormality Discharge Plan Discharge Clinical Impression: Chest pain Patient Disposition: Home Condition: Stable Instructions: Antibiotic Form, Chest Pain (ED), Chest Wall Pain (ED) Additional Instructions: No signs of any cardiac abnormalities or cardiac concerns. No signs of pneumonia or collapsed lung. Laboratory studies are reassuring. Symptoms likely musculoskeletal or GI in nature. Follow-up with your regular doctors and return with any emergent concerns. Patient Language: Hungarian Prescriptions: No Action (DME) blood-glucose meter, wireless Kit See Rx Instructions .ROUTE .MEDSUPPLY Qty: 1 0RF Rx Instructions: Check blood sugar once per day in the morning before food (DME) lancets 33 gauge misc See Rx Instructions .Route Qty: 100 0RF Rx Instructions: Check blood sugar once per day in the morning before food (DME) blood sugar diagnostic Strip See Rx Instructions .ROUTE .MEDSUPPLY Qty: 90 3RF Rx Instructions: Check blood sugar once per day in the morning before food (DME) FreeStyle Vivienne 3 Plus Sensor Device See Rx Instructions .Route Qty: 2 12RF Rx Instructions: Use TID atorvastatin 20 mg tablet 20 mg PO QHS donepezil 5 mg tablet 5 mg PO QHS ergocalciferol (vitamin D2) 1,250 mcg (50,000 unit) capsule 1,250 mcg PO WEEKLY ibuprofen 600 mg tablet 600 mg PO TID PRN (Reason: pain) insulin glargine [Lantus U-100 Insulin] 100 unit/mL solution 17 unit SUBCUT QPM nifedipine 30 mg tablet extended release 24hr 30 mg PO DAILY pantoprazole 40 mg tablet,delayed release (DR/EC) 40 mg PO DAILY trazodone 50 mg tablet 25 mg PO QHS acetaminophen 500 mg capsule 1,000 mg PO Q6H PRN (Reason: pain) dorzolamide-timolol 22.3-6.8 mg/mL drops 1 drp EACH EYE BID aspirin 81 mg tablet 81 mg PO DAILY denosumab 60 mg/mL syringe 60 mg subcut [id number] ferrous sulfate [Feosol] 325 mg (65 mg iron) tablet 325 mg PO DAILY Lumigan 0.01 % drops 1 drp EACH EYE QHS ondansetron 4 mg tablet,disintegrating 4 mg PO Q8H PRN (Reason: nausea and vomiting) Rhopressa 0.02 % drops 1 drp LEFT EYE QPM Lumigan 0.01 % drops 1 drp EACH EYE HS aspirin 81 mg tablet,delayed release (DR/EC) 81 mg PO DAILY Qty: 100 1RF atorvastatin 20 mg tablet 20 mg PO DAILY Qty: 90 1RF donepezil [Aricept] 5 mg tablet 5 mg PO QHS Qty: 90 1RF Rx Instructions: with snack ergocalciferol (vitamin D2) 1,250 mcg (50,000 unit) capsule 50,000 unit PO WEEKLY Qty: 14 1RF Rx Instructions: Takes on insulin glargine [Lantus U-100 Insulin] 100 unit/mL solution 17 unit subcut HS Qty: 10 1RF trazodone 50 mg tablet 25 mg PO QHS Qty: 90 1RF Artificial Tears([id number]) Drops 1 drp EACH EYE 4-6XD PRN (Reason: dry eye(s)) Qty: 30 2RF glucagon HCl [Glucagon (HCl) Emergency Kit] 1 mg recon soln 1 mg subcut Q20M PRN (Reason: hypoglycemia) Qty: 1 0RF Rx Instructions: until target blood sugar attained ibuprofen 600 mg tablet 600 mg PO TID PRN (Reason: pain) Qty: 100 0RF ondansetron 4 mg tablet,disintegrating 4 mg PO Q8H PRN (Reason: nausea and vomiting) Qty: 60 0RF Artificial Tears (cmc) 1 % drops 1 drp EACH EYE .2-4XD PRN (Reason: dry eye(s)) Qty: 15 1RF Tymlos 80 mcg (3,120 mcg/1.56 mL) pen injector 80 mcg subcut DAILY Qty: 1.56 12RF Rx Instructions: inject into abdomen; do not inject within 2 inches of belly button/navel; rotate sites (DME) Fasting blood sugars See Rx Instructions .Route .MEDSUPPLY Qty: 1 0RF Rx Instructions: Check daily and send to PCP office (Dr Kinney) weekly. ferrous sulfate 325 mg (65 mg iron) tablet,delayed release (DR/EC) 325 mg PO DAILY Qty: 90 1RF metformin 500 mg tablet extended release 24 hr 1,000 mg PO BID Qty: 360 1RF famotidine 40 mg tablet 40 mg PO DAILY Qty: 30 6RF metformin 500 mg tablet extended release 24 hr 500 mg PO BID Qty: 180 3RF acetaminophen 500 mg capsule 1,000 mg PO Q6H PRN (Reason: pain) Qty: 100 0RF docusate sodium 100 mg capsule 100 mg PO BID PRN (Reason: constipation) Qty: 100 12RF polyethylene glycol 3350 [Miralax] 17 gram powder in packet 17 g PO QAM PRN (Reason: constipation) Qty: 30 12RF pantoprazole 40 mg tablet,delayed release (DR/EC) 40 mg PO QAM Qty: 90 1RF nifedipine [Procardia XL] 30 mg tablet extended release 24hr 30 mg PO QAM Qty: 90 1RF Follow-up/Referrals: Wendy Kinney MD [Primary Care Provider] - Time of Disposition: 05:20
[2024-12-18] MEDS: KETOROLAC 30 MG/ML VIAL (*BKC) IV PUSH (02:11)
[2024-12-18 03:31] VITALS: BP 117/60; PULSE 74; RESP 16; O2SAT 97
--- NOTE | 2024-12-18 03:32 | ECG_ITS ---
Test Date: 2024-12-18 04:35:25 Measurements Intervals [place] Rate: 71 P: 58 VT: 172 QRS: -18 QRSD: 88 T: 43 QT: 411 QTc: 448 Interpretive Statements SINUS RHYTHM VOLTAGE CRITERIA FOR LVH MINIMAL Q WAVES- HIGH LATERAL LEADS BORDERLINE ECG Compared to ECG 12/18/2024 01:02:17 No significant changes Electronically Signed On 12-18-2024 06:20:13 CDT by Joselito Vallejo D.O.
[2024-12-18 05:02] LABS: Troponin I < 0.012 ng/mL (0.000-0.034)
--- NOTE | 2024-12-18 05:19 | PC.NURSE ---
Mallory, daughter of pt, updated on pt status and plan of care. Mallory to be contacted at [phone] for updates on patient and will be pt ride if discharged.
[2024-12-18 05:22] VITALS: BP 121/61; PULSE 92; RESP 16; O2SAT 96
== END 2024-12-18 05:35 ==
PROVIDERS: Emergency Provider Student in an Organized Health Care Education/Training Program; PCP Family Medicine
DX: R07.9 Chest pain, unspecified (principal); F03.90 Unspecified dementia, unspecified severity, without behavioral disturbance, psychotic disturbance, mood disturbance, and anxiety; E11.9 Type 2 diabetes mellitus without complications; E78.5 Hyperlipidemia, unspecified; Z79.4 Long term (current) use of insulin; H40.9 Unspecified glaucoma; J45.909 Unspecified asthma, uncomplicated; M81.0 Age-related osteoporosis without current pathological fracture; E55.9 Vitamin D deficiency, unspecified; E53.8 Deficiency of other specified B group vitamins
CPT/HCPCS: 36415; 71046; 80053; 83690; 84484; 85025; 85610; 85730; 93005; 96374; 96375; 99284; A9270; J1885

== ENCOUNTER 2025-03-21 13:38 | Outpatient (CLI) | payer MEDICARE, OTHER, SELFPAY ==
--- NOTE | ~2025-03-21 | DEXA_ITS ---
Bone Density Report Name: EVER ANAND Age: 80 Sex: Female Ethnicity: White Date of : 1945 Indication: osteopenia; height loss; hysterectomy; Referring Provider: GRETCHEN LOPEZ Study: Bone densitometry was performed. Exam Date: March 21, 2025 Accession number: [id number] Bone Density: Region BMD T-score Z-score Classification AP Spine(L1-L4) 1.038 -0.1 2.6 Normal Femoral Neck (Left) 0.611 -2.1 0.2 Osteopenia Total Hip (Left) 0.840 -0.8 1.2 Normal Femoral Neck (Right) 0.632 -2.0 0.4 Osteopenia Total Hip (Right) 0.851 -0.7 1.3 Normal Total Hip Mean 0.846 -0.8 1.3 Normal World Health Organization criteria for BMD impression classify patients as: Normal (T-score at or above -1.0), Osteopenia (T-score between -1.0 and -2.5), or Osteoporosis (T-score at or below -2.5). 10-year Fracture Risk(1): Major Osteoporotic Fracture 16% Hip Fracture 4.8% Reported Risk Factors: [place] (), Neck BMD=0.611, BMI=30.4 (1) FRAX(R) Version 3.08. Fracture probability calculated for an untreated patient. Fracture probability may be lower if the patient has received treatment. Previous Exams: Region Exam Age BMD T-score BMD Change BMD Change Date g/cm2 vs Baseline vs Previous AP Spine (L1-L4) 03/21/2025 80 1.038 -0.1 0.022 (2.1%)# 0.022 (2.1%)# 10/25/2022 77 1.017 -0.3 Total Hip(Left) 03/21/2025 80 0.840 -0.8 0.058 (7.4%)# 0.058 (7.4%)# 10/25/2022 77 0.782 -1.3 Total Hip(Right) 03/21/2025 80 0.851 -0.7 0.009 (1.1%)# 0.009 (1.1%)# 10/25/2022 77 0.842 -0.8 *Denotes significance at 95% confidence level, LSC for AP Spine = 0.022 g/cm2, LSC for Total Hip = 0.027 g/cm2 # Denotes dissimilar scan types or analysis methods Clinical Information Provided by Patient: Has used the following medications: Vitamin D, Calcium Has the following medical conditions: Hysterectomy Patient maximum height was 66 Menopause Age: 50 No regular weight bearing exercise Does not regularly consume dairy products Drinks caffeinated beverages Onset of menses at age 13 Number of children 3 Impression: The patient has low bone mass, based on the Left Femoral Neck T-score. The patient has an estimated ten-year risk of hip fracture of 4.8% and an estimated ten-year risk of major fracture of 16%, based on the WHO FRAX algorithm. No significant bone loss was observed. Discussion: BONE DENSITY IS LOW AT ONE OR MORE SKELETAL SITES. THE PATIENT'S BMD AND CLINICAL RISK FACTORS CONTRIBUTE TO THIS PATIENT'S INCREASED RISK OF FRACTURE. This patient's lowest T-score is low at one or more skeletal sites. It meets the World Health Organization's (WHO) criteria for ?low bone mass? (T-score between -1.0 and -2.5). The patient's 10-year risk of hip fracture as calculated by FRAX exceeds the threshold where pharmacological therapy is recommended by the National Osteoporosis Foundation (NOF). However, all treatment decisions require clinical judgment and consideration of individual patient factors, including patient preferences, comorbidities, previous drug use, risk factors not captured in the FRAX model (e.g., frailty, falls, vitamin D deficiency, increased bone turnover, interval significant decline in bone density) and possible under or overestimation of fracture risk by FRAX. The patient should follow a healthful lifestyle (good nutrition with adequate calcium and vitamin D, and appropriate weight-bearing exercise). Follow-Up: Consider a repeat BMD and Vertebral Fracture Assessment (VFA) exam in 2 years or sooner if medically necessary, to reassess this patient's status. Reported by: ROBIN on 03/21/2025 2:23:00 PM. Reviewed, dictated and finalized at location A.
--- NOTE | ~2025-03-21 | MM_ITS ---
EXAMINATION: MM screening hitesh BI w joel HISTORY: Screening TECHNIQUE: Craniocaudal and mediolateral oblique 3-D tomosynthesis images were obtained and synthetic 2-D images were generated. CAD analysis was submitted and interpreted. COMPARISON: Comparison to multiple prior studies sequentially, with oldest reviewed study dated 09/06/2017. BREAST PARENCHYMAL COMPOSITION: Not dense: There are scattered areas of fibroglandular density. FINDINGS: There is no evidence of suspicious mass, calcification, or architectural distortion to suggest malignancy in either breast. There has been no suspicious interval change. IMPRESSION: 1. No mammographic evidence of malignancy. 2. Recommend routine screening mammography in one year. BI-RADS Category 1: Negative Reviewed, dictated and finalized at location B. [employer]ARD INSTRUMENT [employer]ER
== END 2025-03-21 13:39 | disposition home or self-care (01) ==
LOC: ANHFOHIMG 13:40
PROVIDERS: PCP Family Medicine Adolescent Medicine; Visit Provider Obstetrics & Gynecology Gynecology
DX: Z12.31 Encounter for screening mammogram for malignant neoplasm of breast (principal); Z78.0 Asymptomatic menopausal state; M85.852 Other specified disorders of bone density and structure, left thigh; M85.851 Other specified disorders of bone density and structure, right thigh
CPT/HCPCS: 77063; 77067; 77080

== ENCOUNTER 2025-04-14 08:33 | Emergency (ER) | payer MEDICARE, OTHER, SELFPAY ==
[2025-04-14] VITALS (38 sets, daily range): BP systolic 120–136; BP diastolic 59–95; PULSE 55–76; RESP 12–33; TEMP 36.5; O2SAT 90–100
--- NOTE | ~2025-04-14 | CT_ITS ---
EXAM/PROCEDURE: CT abdomen pelvis wo con HISTORY: left flank pain COMPARISON: None available. TECHNIQUE: Noncontrast CT FINDINGS: The bowel gas pattern is nonobstructive with no free air free fluid or pneumatosis. No hydroureteronephrosis or obstructing ureteral seen. Urinary bladder appears within normal limits. Uterus appears removed. Cholelithiasis with no gross CT evidence of acute cholecystitis or pancreatitis. Moderate fatty liver changes. Small hiatal hernia. The stomach is unopacified and nondistended but no obvious acute abnormality seen. No AAA or grossly inflamed appendix. Atherosclerotic calcifications in the aorta, and coronary artery calcification seen in the visualized portion of the heart. Small to moderate amount of stool present with moderately severe diffuse diverticular disease but no gross acute diverticulitis. No bulky mesenteric or retroperitoneal lymphadenopathy or masses seen. Lung bases clear. Heart size normal. Bones appear intact. Diffuse degenerative changes in the lumbar spine and hips. Extraperitoneal soft tissues unremarkable. IMPRESSION: Directed noncontrast exam demonstrating no focal acute process to explain source of patient's symptoms. Several chronic findings as above. Reviewed, dictated and finalized at location A. [facility] IMPRESSION: Directed noncontrast exam demonstrating no focal acute process to explain sourc e of patient's symptoms. Several chronic findings as above.
--- NOTE | ~2025-04-14 | XR_ITS ---
EXAM/PROCEDURE: [id number] HISTORY: rib pain, LT SIDED COMPARISON: December 18, 2024 TECHNIQUE: PA chest and left rib series FINDINGS: No displaced rib fracture seen. Lung gr appear stable with no pneumothorax consolidation effusion or subphrenic free air seen. Heart size normal. IMPRESSION: No acute findings. Reviewed, dictated and finalized at location A. ER IMPRESSION: No acute findings.
--- NOTE | 2025-04-14 08:49 | ED.ABDPAIN ---
HPI - Abdominal Pain General Chief Complaint: Abdominal Pain Stated Complaint: LUQ pain Time Seen by Provider: 04/14/25 08:44 Source: patient, EMS, RN notes reviewed and old records reviewed Mode of arrival: EMS Limitations: dementia History of Present Illness HPI narrative: This is 80 year old female from nursing facility who presents for evaluation of left flank pain. She is oriented to person at baseline she so she is poor historian. She is unable to tell if radiating or how long pain has been present. Nursing reports there is no report of fever, vomiting. MD elicited complaint: flank pain Related Data Home Medications ?Medication ?Instructions ?Recorded ?Confirmed ?Last Taken ?Type bimatoprost 0.01 % eye drops 1 drp EACH EYE HS 03/27/24 11/13/24 Unknown History (Rebeca) Held on 06/13/24. Instructions: .Provider Order denosumab 60 mg/mL subcutaneous 60 mg subcut [id number] 10/13/24 03/06/25 Unknown History syringe dorzolamide 22.3 mg-timolol 6.8 1 drp EACH EYE BID 10/13/24 03/06/25 Unknown History mg/mL eye drops netarsudil 0.02 % eye drops 1 drp LEFT EYE QPM 10/13/24 03/06/25 Unknown History (Rhopressa) Allergies Allergy/AdvReac Type Severity Reaction Status Date / Time brimonidine Allergy Severe RED EYES, Verified 03/31/25 14:08 ITCHING PMFSH Past Medical History Medical History Swelling of left foot Loose bowel movement Tinea unguium Dementia Decreased appetite Neck pain on right side History of UTI Glaucoma Asthma Osteoporosis Hypothyroidism history of thyroid problems Type 2 diabetes mellitus without complication, without long-term current use of insulin Alopecia Mixed hyperlipidemia Vitamin B12 deficiency Vitamin D deficiency Surgical History Surgical History History of ankle surgery Total knee replacement status Family History Family History Father Heart disease Mother Colon cancer Sibling Diabetes mellitus Grandparent Colon cancer Other Asthma Carcinoma of colon Family history of coronary artery disease Family history of glaucoma Family history of osteoporosis Social History Social History Social History: Has a daughter Smoking status: Never smoker Second hand tobacco smoke exposure: No Alcohol intake: never Substance use: never Substance use type: does not use Lack of Transportation: No Lack of Food: Never True Current Housing: I Have Housing Concerned About Future Housing: No Difficulty Paying Gas/Electric Bills: No Difficulty Paying for Meds: No Currently Unemployed: No Education: High School Diploma/GED Difficulty w/ Childcare or Family Care: No Living arrangements: assisted living Occupation/Education: retired Gender identity (if verbalized by the patient): Female Sexual Orientation (if Verbalized by the Patient): Straight or Heterosexual Spiritual care concerns: No Agree to blood products: Yes Exam Const: General: alert Nutritional Appearance: obese Other: oriented to person, appears to be in pain Eyes: EOM: EOMs intact bilaterally Chest: Chest palpation & inspection: tenderness (left anterior lower rib tenderness) Resp: Effort & Inspection: normal respiratory effort Auscultation: clear to auscultation bilaterally Cardio: Rate: regular rate Rhythm: regular rhythm Heart sounds: no murmurs GI: GI Palp: Yes Soft to palpation, Yes Tenderness to palpation present (GI), Yes Guarding due to palpation present (GI) and No Rigid due to palpation Auscultation: Hypoactive bowel sounds present Back/Spine/Pelvis: Back: no CVA tenderness Skin: General skin exam: normal color Rashes: no rashes Neuro: General: moves all extremities and CN's II-XI intact bilaterally Extrem: General: normal to inspection Psych: Mental Status: mental status grossly normal Affect: normal affect Attitude: cooperative Course Reevaluation(s) Reevaluation #1: Patient does not appear to be in pain. I spoke with her and daughter at bedside. Patient was found to have UTI And she was given dose of rocephin in ER. She is aware patient will be discharged. Date: 04/14/25 Time: 12:58 Vital Signs Vital signs: Vital Signs Temperature 97.7 F 04/14/25 08:40 Pulse Rate 66 04/14/25 08:40 Respiratory Rate 20 04/14/25 08:40 Blood Pressure 131/74 04/14/25 08:40 Pulse Oximetry 95 04/14/25 08:40 Oxygen Delivery Room Air 04/14/25 08:40 Temperature 97.7 F 04/14/25 08:40 Pulse Rate 74 04/14/25 15:31 Respiratory Rate 29 H 04/14/25 15:31 Blood Pressure 120/95 H 04/14/25 15:31 Pulse Oximetry 98 04/14/25 15:31 Oxygen Delivery Room Air 04/14/25 08:40 [facility] Differential Diagnosis Differential Diagnosis: UTI, kidney stone, rib fracture, diverticulitis, pyelonephritis, Medical Records I have reviewed the following patient records and this information was taken into consideration when formulating the assessment and plan.: previous labs, previous ER visits and previous hospitalizations Lab Data [facility] Lab Attestation statement: I personally reviewed the patient's lab results. Lab results narrative: wbc normal at 6 04/14/25 09:13 04/14/25 09:13 Labs: Lab Results 04/14/25 04/14/25 Range/Units 09:13 10:43 WBC 6.1 (4.5-10.0) K/mm3 RBC 3.92 L (4.2-5.4) M/mm3 Hgb 12.9 (12.0-15.0) g/dL Hct 38.2 (37.0-47.0) % MCV 97.4 (80-100) fl MCH 32.9 (26-34) pg MCHC 33.8 (32-36) g/dl RDW 12.4 (11.5-14.5) % Plt Count 216 (150-375) k/mm3 MPV 8.6 (7.4-10.4) fl Immature Gran % (Auto) 0.2 (0-0.5) % Neut % (Auto) 52.8 (45.5-73.1) % Lymph % (Auto) 33.2 (18.3-44.2) % [place] % (Auto) 12.0 H (2.6-8.5) % Eos % (Auto) 1.5 (0-4.4) % Baso % (Auto) 0.3 (0.2-1.2) % Lymph # (Auto) 2.02 (0.9-3.2) K/mm3 [place] # (Auto) 0.7 H (0.1-0.6) K/mm3 Eos # (Auto) 0.1 (0-0.3) K/mm3 Baso # (Auto) 0.0 (0.0-0.1) K/mm3 Abs Immat Gran (auto) 0.01 (0.00-0.031) K/mm3 Absolute Neuts (auto) 3.2 (1.3-6.7) K/mm3 Absolute Nucleated RBC 0.000 (0.0-0.012) K/mm3 Nucleated RBC % 0.0 (0.0-0.2) % Sodium 137 (137-145) mmol/L Potassium 3.7 (3.4-5.0) mmol/L Chloride 104 (98-107) mmol/L Carbon Dioxide 28 (22-30) mmol/L Anion Gap 5 (4-12) mmol/L BUN 6 L D (7-17) mg/dL Creatinine 0.55 L (0.7-1.0) mg/dL Estim Creat Clear Calc 74 ml/min Estimated GFR > 60 (59 - ) Glucose 79 (65-110) mg/dL Calcium 9.2 (8.4-10.2) mg/dL Total Bilirubin 0.5 (0.2-1.3) mg/dL AST 28 (14-36) U/L ALT 25 (6-35) U/L Alkaline Phosphatase 43 (38-126) U/L Total Protein 6.6 (6.3-8.2) g/dL Albumin 3.9 (3.5-5.1) g/dL Lipase 76 (23-300) U/L Urine Color Yellow (Yellow) Urine Appearance Clear (Clear) Urine pH 8.5 (5.0-9.0) Ur Specific [place] 1.006 (1.001-1.035) Urine Protein Negative (Negative) mg/dL Urine Glucose (UA) Negative (Negative) mg/dL Urine Ketones Negative (Negative) mg/dL Ur Blood (Man) Negative (Negative) Urine Nitrate Negative (Negative) Urine Bilirubin Negative (Negative) Urine Urobilinogen 1.0 (<2.0) mg/dL Leukocyte Esterase Rfl 2+ H (Negative) NITIN/UL Urine RBC 0-2 (0-2) /hpf Urine WBC 11-20 H (0-3) /hpf Ur Squamous Epith Cells None seen (Few) /hpf Urine Bacteria 4+ H /hpf Urine Casts 0-2 Imaging Data Radiologist's impression: ITS Impressions Abdomen/Pelvis CT 04/14/25 10:08 IMPRESSION: Directed noncontrast exam demonstrating no focal acute process to explain source of patient's symptoms. Several chronic findings as above. Ribs w/Chest X-Ray 04/14/25 10:14 IMPRESSION: No acute findings. Discharge Plan Discharge Clinical Impression: UTI (urinary tract infection), Acute left flank pain Patient Disposition: Home Condition: Stable Instructions: Antibiotic Form, Urinary Tract Infection in Older Adults (ED) Additional Instructions: Take antibiotics to completion. If symptoms do not improve follow up with PCP or return to ER Patient Language: [place] Prescriptions: New cephalexin 500 mg capsule 500 mg PO Q12H 7 Days Qty: 14 0RF No Action (DME) blood-glucose meter, wireless Kit See Rx Instructions .ROUTE .MEDSUPPLY Qty: 1 0RF Rx Instructions: Check blood sugar once per day in the morning before food (DME) lancets 33 gauge misc See Rx Instructions .Route Qty: 100 0RF Rx Instructions: Check blood sugar once per day in the morning before food (DME) blood sugar diagnostic Strip See Rx Instructions .ROUTE .MEDSUPPLY Qty: 90 3RF Rx Instructions: Check blood sugar once per day in the morning before food (DME) FreeStyle Vivienne 3 Plus Sensor Device See Rx Instructions .Route Qty: 2 12RF Rx Instructions: Use TID dorzolamide-timolol 22.3-6.8 mg/mL drops 1 drp EACH EYE BID denosumab 60 mg/mL syringe 60 mg subcut [id number] Rhopressa 0.02 % drops 1 drp LEFT EYE QPM Lumigan 0.01 % drops 1 drp EACH EYE HS aspirin 81 mg tablet,delayed release (DR/EC) 81 mg PO DAILY Qty: 100 1RF atorvastatin 20 mg tablet 20 mg PO DAILY Qty: 90 1RF ergocalciferol (vitamin D2) 1,250 mcg (50,000 unit) capsule 50,000 unit PO WEEKLY Qty: 14 1RF Rx Instructions: Takes on insulin glargine [Lantus U-100 Insulin] 100 unit/mL solution 17 unit subcut HS Qty: 10 1RF Artificial Tears([id number]) Drops 1 drp EACH EYE 4-6XD PRN (Reason: dry eye(s)) Qty: 30 2RF glucagon HCl [Glucagon (HCl) Emergency Kit] 1 mg recon soln 1 mg subcut Q20M PRN (Reason: hypoglycemia) Qty: 1 0RF Rx Instructions: until target blood sugar attained ibuprofen 600 mg tablet 600 mg PO TID PRN (Reason: pain) Qty: 100 0RF ondansetron 4 mg tablet,disintegrating 4 mg PO Q8H PRN (Reason: nausea and vomiting) Qty: 60 0RF Artificial Tears (cmc) 1 % drops 1 drp EACH EYE .2-4XD PRN (Reason: dry eye(s)) Qty: 15 1RF Tymlos 80 mcg (3,120 mcg/1.56 mL) pen injector 80 mcg subcut DAILY Qty: 1.56 12RF Rx Instructions: inject into abdomen; do not inject within 2 inches of belly button/navel; rotate sites (DME) Fasting blood sugars See Rx Instructions .Route .MEDSUPPLY Qty: 1 0RF Rx Instructions: Check daily and send to PCP office (Dr Kinney) weekly. ferrous sulfate 325 mg (65 mg iron) tablet,delayed release (DR/EC) 325 mg PO DAILY Qty: 90 1RF metformin 500 mg tablet extended release 24 hr 1,000 mg PO BID Qty: 360 1RF famotidine 40 mg tablet 40 mg PO DAILY Qty: 30 6RF metformin 500 mg tablet extended release 24 hr 500 mg PO BID Qty: 180 3RF acetaminophen 500 mg capsule 1,000 mg PO Q6H PRN (Reason: pain) Qty: 100 0RF docusate sodium 100 mg capsule 100 mg PO BID PRN (Reason: constipation) Qty: 100 12RF polyethylene glycol 3350 [Miralax] 17 gram powder in packet 17 g PO QAM PRN (Reason: constipation) Qty: 30 12RF Metamucil Fiber (aspartame) 3.4 gram powder in packet 3.4 g PO TID PRN (Reason: constipation) Qty: 1 0RF hydrocortisone 1 % cream with perineal applicator 1 applic RECTAL BID PRN (Reason: hemorrhoids and itching ) Qty: 28.4 0RF donepezil [Aricept] 5 mg tablet 5 mg PO QHS Qty: 90 1RF Rx Instructions: with snack trazodone 50 mg tablet 25 mg PO QHS Qty: 90 1RF nifedipine [Procardia XL] 30 mg tablet extended release 24hr 30 mg PO QAM Qty: 90 1RF pantoprazole 40 mg tablet,delayed release (DR/EC) 40 mg PO QAM Qty: 90 1RF Follow-up/Referrals: Neel Hale APRN [Primary Care Provider, [facility]]
[2025-04-14] MEDS: MORPHINE SULFATE (*CRX) 4 MG/ML INJ IV PUSH (08:59)
[2025-04-14] MEDS: ONDANSETRON INJ 4 MG/2 ML VIAL IV PUSH (09:04)
[2025-04-14 09:18] LABS: Hematocrit 38.2 % (37.0-47.0); Hemoglobin 12.9 g/dL (12.0-15.0); Immature Granulocyte Percent A 0.2 % (0-0.5); Lymphocytes Absolute Auto 2.02 K/mm3 (0.9-3.2); Mean Corpuscular HGB Conc 33.8 g/dl (32-36); Mean Corpuscular Hemoglobin 32.9 pg (26-34); Mean Corpuscular Volume 97.4 fl (80-100); Nucleated Red Blood Cells Absolute Auto 0.000 K/mm3 (0.0-0.012); Nucleated Red Blood Cells Perc 0.0 % (0.0-0.2); Platelet Count Result 216 k/mm3 (150-375); Red Blood Count 3.92 M/mm3 (4.2-5.4); White Blood Count 6.1 K/mm3 (4.5-10.0)
[2025-04-14 09:46] LABS: Alanine Aminotransferase 25 U/L (6-35); Albumin Level 3.9 g/dL (3.5-5.1); Alkaline Phosphatase 43 U/L (38-126); Anion Gap 5 mmol/L (4-12); Aspartate Amino Transferase 28 U/L (14-36); Bilirubin,Total 0.5 mg/dL (0.2-1.3); Blood Urea Nitrogen 6 mg/dL (7-17); Calcium 9.2 mg/dL (8.4-10.2); Carbon Dioxide 28 mmol/L (22-30); Chloride 104 mmol/L (98-107); Estimated CRCL calculation 74 ml/min; Estimated Glomerular Filt Rate > 60; Glucose 79 mg/dL (65-110); Lipase 76 U/L (23-300); Potassium 3.7 mmol/L (3.4-5.0); Sodium 137 mmol/L (137-145); Total Protein 6.6 g/dL (6.3-8.2)
[2025-04-14 11:12] LABS: Add Urine Microscopic? YES; Appearance Urine Clear (Clear); Glucose Urine UA Negative (Negative); Leukocyte Esterase Ur 2+ LEU/UL (Negative); Nitrate Urine Negative (Negative); Non Pathogenic Casts 0-2; Specific Grav Ur 1.006 (1.001-1.035)
[2025-04-14] MEDS: cefTRIAXone 1 GM in SODIUM CHLORIDE 0.9% IV 50 ML 100 ML IVPB (11:30)
== END 2025-04-14 16:10 ==
PROVIDERS: Emergency Provider General Practice
DX: N39.0 Urinary tract infection, site not specified (principal); R10.A2 Flank pain, left side; J45.909 Unspecified asthma, uncomplicated; E03.9 Hypothyroidism, unspecified; E11.9 Type 2 diabetes mellitus without complications; Z79.4 Long term (current) use of insulin; E78.5 Hyperlipidemia, unspecified
CPT/HCPCS: 36415; 71101; 74176; 80053; 81001; 83690; 85025; 87086; 87186; 96365; 96375; 99284; J0696; J2270; J2405